=== PATIENT | male | born 1955 | race African-American/Black ===

== ENCOUNTER → 2017-09-23 09:19 | Outpatient (CLI) | payer OTHER, SELFPAY ==
--- NOTE | 2017-09-23 10:14 | RAD_ITS ---
STUDY: X-RAY - ABDOMEN/PELVIS REASON FOR EXAM: Male, 62 years old. Abdominal pain. History of kidney stones. TECHNIQUE: Single AP view of the abdomen / pelvis. COMPARISON: None. FINDINGS: Normal visualized lung bases. There is an unremarkable bowel gas pattern. There is no demonstrated free abdominal air. There are 2 or 3 possible left renal stones as much as 4 to 5 mm although this is uncertain because there is overlying fecal material. Normal soft tissue structures. Normal visualized osseous structures. RAD/Abdomen Single View IMPRESSION: Possible left renal stones. Electronically Signed: Curtis Mendieta MD at 17:23 EST , Service support ,
[2017-09-23 12:25] LABS: Absolute Lymphocyte Count 4.87 X10^3/ul (0.83-4.51); Absolute Neutrophil Count 3.3 X10^3/uL (2.0-7.7); Basophil# 0.04 X10^3/uL; Basophil% 0.4 % (0-1); Eosinophil# 0.17 X10^3/uL; Eosinophils% 1.9 % (0-5); Hemoglobin 15.1 g/dl (13.0-16.5); Lymphocyte # 4.87 X10^3/ul (4.0); Lymphocyte % 54.2 % (19-41); Mean Corpuscular Hgb 26.8 pg (27.0-32.0); Mean Corpuscular Volume 74.5 fL (80-94); Mean Platelet Vol. 12.8 fl (6.2-12.0); Monocyte# 0.54 X10^3/uL; Neutrophil # 3.32 X10^3/uL (2.7-7.7); Neutrophil % 37.1 % (47-70); Platelet Count 259 K/mm3 (150-450); RBC Distribution Width CV 15.8 % (11.6-14.6); RBC Distribution Width SD 42.6 fl (35.1-43.9); Red Blood Count 5.64 M/mm3 (4.6-6.2)
[2017-09-23 12:28] LABS: POSITIVE COUNT NO; POSITIVE DIFFERENTIAL NO; POSITIVE MORPHOLOGY NO
[2017-09-23 12:51] LABS: ALB/GLOB Ratio 1.1 RATIO (0.9-2.4); AST(SGOT) 30 U/L (15-37); Alanine Aminotransfer ALT/SGPT 57 U/L (16-61); Alkaline Phosphatase 108 U/L (45-117); Anion Gap 8 (5-15); BUN 16 mg/dL (7-18); Calcium,Total 8.9 mg/dL (8.5-10.1); Chloride 106 mmol/L (98-107); Cholesterol 224 mg/dL (200); Creatinine, Serum 1.33 mg/dL (0.70-1.30); EST Glomerular Filtration Rate 58 mL/min (>60); Est Glom Filt Rate - Afr Amer 70 mL/min (>60); Globulin 3.6 g/dL (2.2-4.2); Glucose 94 mg/dL (74-106); High Density Lipoprotein 33 mg/dL; Potassium 3.8 mmol/L (3.5-5.1); Protein, Total 7.6 g/dL (6.4-8.2); Sodium Level 139 mmol/L (136-145); Thyroid Stim Hormone (TSH) 3.07 uIU/mL (0.358-3.74); Triglycerides 523 mg/dL
[2017-09-23 13:26] LABS: Microalbumin,Random Urine 40.2 mg/L (NO RANGE EST.); Microalbumin:Creatinine Ratio 17.9 mg/g CRE (<30 mg/g CRE)
[2017-09-23 13:58] LABS: Hemoglobin A1c 7.5 % (4.2-6.3)
[2017-09-24 09:11] LABS: Vitamin D,25 Hydroxy 14.5 ng/mL (19.95-100.01)
== END ==
PROVIDERS: Family Provider Family Medicine; PCP Family Medicine; Visit Provider Family Medicine
DX: N20.0 Calculus of kidney (principal); E11.22 Type 2 diabetes mellitus with diabetic chronic kidney disease; N18.2 Chronic kidney disease, stage 2 (mild); E11.40 Type 2 diabetes mellitus with diabetic neuropathy, unspecified; R31.9 Hematuria, unspecified
CPT/HCPCS: 36415; 74018; 80053; 80061; 82043; 82306; 82570; 83036; 84443; 85025; 87086; 87088

== ENCOUNTER → 2017-12-16 10:18 | Outpatient (CLI) | payer OTHER, SELFPAY ==
[2017-12-23 20:08] LABS: Ca Oxalate, Monohydrate 95 % (.); Size 8x5x3 mm (.)
== END ==
PROVIDERS: Visit Provider Family Medicine
DX: N20.0 Calculus of kidney (principal)
CPT/HCPCS: 82360

== ENCOUNTER → 2018-05-28 06:50 | Outpatient (CLI) | payer MEDICAID, SELFPAY ==
--- NOTE | 2018-05-28 06:55 | CT_ITS ---
STUDY: CT ABDOMEN AND PELVIS WITHOUT CONTRAST REASON FOR EXAM: Male, 63 years old. Bloody stools, diarrhea RADIATION DOSAGE (If Supplied By Facility): CTDIvol = ( 9.75 ) mGy, DLP = ( 472.43 ) mGycm TECHNIQUE: Transaxial images were obtained from the dome of the diaphragm to the symphysis pubis with oral contrast, and without intravenous contrast. Sagittal and coronal images were reconstructed. # of Images: 454 Individualized dose optimization techniques were used for this CT. COMPARISON: 09/12/16 FINDINGS: The visualized lung bases are unremarkable. The visualized portions of the heart are within normal limits. There is decreased attenuation of the liver consistent with steatosis, focal fatty sparing seen adjacent to the gallbladder. Normal gallbladder and extrahepatic biliary system. Normal spleen. Normal pancreas. Normal bilateral adrenal glands. No obstructive uropathy, there are punctate nonobstructing stones in both kidneys. Normal visualized stomach. Normal small intestine. Retained stool noted throughout the colon There is non-visualization of the appendix. Normal abdominal aorta. Normal inferior vena cava. Normal retroperitoneum. Normal urinary bladder. There is a right-sided inguinal hernia containing adipose tissue. There are diffuse degenerative changes of the visualized lumbar spine, and pelvis. CT/Abdomen/Pelvis without Cont IMPRESSION: No obstructive uropathy, punctate bilateral nonobstructing renal stones noted. Fatty infiltration of the liver, no discrete lesion. Retained stool noted throughout the colon Degenerative bony changes Electronically Signed: Low Li MD at 14:27 EDT , Service support ,
== END ==
PROVIDERS: Family Provider Family Medicine; PCP Family Medicine; Referring Provider Family Medicine; Visit Provider Family Medicine
DX: K57.92 Diverticulitis of intestine, part unspecified, without perforation or abscess without bleeding (principal)
CPT/HCPCS: 74176

== ENCOUNTER 2018-06-11 12:45 | Outpatient (RCR) | payer MEDICAID, SELFPAY | END 2018-06-11 23:59 | LOC: DC 12:45 | PROVIDERS: Family Provider Family Medicine; PCP Family Medicine; Visit Provider Family Medicine | DX: E78.00 Pure hypercholesterolemia, unspecified (principal); E11.22 Type 2 diabetes mellitus with diabetic chronic kidney disease; Z68.28 Body mass index [BMI] 28.0-28.9, adult; Z71.3 Dietary counseling and surveillance | CPT/HCPCS: G0108 ==

== ENCOUNTER → 2018-09-08 12:17 | Outpatient (CLI) | payer MEDICAID, SELFPAY ==
[2018-09-08 14:11] LABS: Absolute Lymphocyte Count 3.34 X10^3/ul (0.83-4.51); Absolute Neutrophil Count 4.5 X10^3/uL (2.0-7.7); Basophil# 0.04 X10^3/uL; Basophil% 0.5 % (0-1); Eosinophils% 1.2 % (0-5); Hematocrit 42.1 % (40-54); Hemoglobin 14.3 g/dl (13.0-16.5); Lymphocyte # 3.34 X10^3/ul (4.0); Mean Corpuscular Hgb 25.8 pg (27.0-32.0); Monocyte# 0.29 X10^3/uL; Monocyte% 3.5 % (0-10); Neutrophil # 4.54 X10^3/uL (2.7-7.7); Neutrophil % 54.4 % (47-70); Platelet Count 223 K/mm3 (150-450); RBC Distribution Width SD 43.9 fl (35.1-43.9); Red Blood Count 5.54 M/mm3 (4.6-6.2); White Blood Count 8.3 K/mm3 (4.4-11.0)
[2018-09-08 14:14] LABS: Differential Indicated SCAN CRITERIA MET; POSITIVE COUNT NO; POSITIVE DIFFERENTIAL NO; POSITIVE MORPHOLOGY YES
[2018-09-08 14:19] LABS: ALB/GLOB Ratio 1.1 RATIO (0.9-2.4); AST(SGOT) 26 U/L (15-37); Alanine Aminotransfer ALT/SGPT 46 U/L (16-61); Alkaline Phosphatase 99 U/L (45-117); Anion Gap 6 (5-15); BUN 15 mg/dL (7-18); BUN/Creat Ratio 10.6 RATIO (10-20); Chloride 109 mmol/L (98-107); Creatinine, Serum 1.41 mg/dL (0.70-1.30); EST Glomerular Filtration Rate 54 mL/min (>60); Est Glom Filt Rate - Afr Amer 65 mL/min (>60); Globulin 3.7 g/dL (2.2-4.2); Glucose 147 mg/dL (74-106); Potassium 3.9 mmol/L (3.5-5.1); Protein, Total 7.7 g/dL (6.4-8.2); Sodium Level 142 mmol/L (136-145)
[2018-09-08 14:24] LABS: Vitamin D,25 Hydroxy 16.3 ng/mL (29.95-100.01)
[2018-09-08 14:33] LABS: Hemoglobin A1c 7.4 % (4.2-6.3)
== END ==
PROVIDERS: Family Provider Family Medicine; PCP Family Medicine; Referring Provider Family Medicine; Visit Provider Family Medicine
DX: E11.22 Type 2 diabetes mellitus with diabetic chronic kidney disease (principal); J32.9 Chronic sinusitis, unspecified
CPT/HCPCS: 36415; 80053; 82306; 83036; 85025

== ENCOUNTER → 2019-02-03 11:32 | Outpatient (CLI) | payer MEDICAID, SELFPAY ==
[2019-02-03 14:28] LABS: Vitamin B12 581 pg/mL (211-911); Vitamin D,25 Hydroxy 20.2 ng/mL (29.95-100.01)
[2019-02-03 14:31] LABS: Absolute Neutrophil Count 3.3 X10^3/uL (2.0-7.7); Basophil# 0.03 X10^3/uL; Basophil% 0.4 % (0-1); Eosinophil# 0.11 X10^3/uL; Eosinophils% 1.6 % (0-5); Hematocrit 42.1 % (40-54); Hemoglobin 14.6 g/dl (13.0-16.5); Lymphocyte % 45.1 % (19-41); Mean Corp Hgb Conc 34.7 g/gl (32-36); Mean Corpuscular Hgb 26.4 pg (27.0-32.0); Mean Corpuscular Volume 76.3 fL (80-94); Monocyte% 4.4 % (0-10); Neutrophil # 3.31 X10^3/uL (2.7-7.7); Neutrophil % 48.2 % (47-70); Platelet Count 180 K/mm3 (150-450); RBC Distribution Width CV 15.6 % (11.6-14.6); RBC Distribution Width SD 42.9 fl (35.1-43.9); Red Blood Count 5.52 M/mm3 (4.6-6.2); White Blood Count 6.9 K/mm3 (4.4-11.0)
[2019-02-03 14:32] LABS: Differential Indicated SCAN CRITERIA MET; POSITIVE COUNT NO; POSITIVE DIFFERENTIAL NO; POSITIVE MORPHOLOGY YES
[2019-02-03 14:57] LABS: ALB/GLOB Ratio 1.1 RATIO (0.9-2.4); AST(SGOT) 31 U/L (15-37); Alanine Aminotransfer ALT/SGPT 57 U/L (16-61); Albumin, Serum 4.1 g/dL (3.2-5.0); Alkaline Phosphatase 94 U/L (45-117); Anion Gap 6 (5-15); BUN 12 mg/dL (7-18); BUN/Creat Ratio 8.3 RATIO (10-20); Calcium,Total 9.2 mg/dL (8.5-10.1); Chloride 108 mmol/L (98-107); Creatinine, Serum 1.45 mg/dL (0.70-1.30); EST Glomerular Filtration Rate 52 mL/min (>60); Est Glom Filt Rate - Afr Amer 63 mL/min (>60); Globulin 3.7 g/dL (2.2-4.2); Glucose 160 mg/dL (74-106); Protein, Total 7.8 g/dL (6.4-8.2); Sodium Level 140 mmol/L (136-145)
[2019-02-05 01:18] LABS: Rapid Plasmin Reagin (RPR) NONREACTIVE (NONREACTIVE)
[2019-02-05 12:32] LABS: Fructosamine 289 umol/L (0-285)
== END ==
PROVIDERS: Family Provider Family Medicine; PCP Family Medicine; Referring Provider Family Medicine; Visit Provider Family Medicine
DX: E11.22 Type 2 diabetes mellitus with diabetic chronic kidney disease (principal); E55.9 Vitamin D deficiency, unspecified
CPT/HCPCS: 36415; 80053; 82306; 82607; 82746; 82985; 83036; 85025; 86592

== ENCOUNTER → 2019-04-15 17:16 | Outpatient (CLI) | payer MEDICAID, SELFPAY ==
--- NOTE | 2019-04-15 17:19 | CT_ITS ---
HISTORY:Headache, left sided facial pain. Hx diabetes, steel fragment right side of head. [place] navigation protocol. Headache, left sided facial pain. Hx diabetes, steel fragment right side of head. [place] navigation protocol. EXAMINATION: CT Sinuses W/O Contrast TECHNIQUE: Helically acquired images were obtained of the paranasal sinuses. A radiation dose optimization technique was used for this scan. IV Contrast dosage and agent: None. COMPARISON: Radiograph of the sinuses obtained on January 27, 2017 FINDINGS: FRONTAL SINUSES AND RECESSES: Clear. ETHMOID AIR CELLS: Minimal mucosal thickening MAXILLARY SINUSES: There is almost complete opacification of the left maxillary sinus. OSTIOMEATAL COMPLEXES: Patent on the right left ostiomeatal unit is patent but narrowed 1 compared to the right SPHENOID SINUSES: Clear. SPHENOETHMOIDAL RECESSES: Clear. Ancillary findings: NASAL TURBINATES: Thickened middle turbinate on the left NASAL SEPTUM: Mild deviation to the right ORBITS: Unremarkable. VISUALIZED DENTITION: Multiple missing teeth ANTERIOR CRANIAL FOSSA: Unremarkable. CT/Sinus/Facial Bone IMPRESSION: Minimal mucosal thickening in the ethmoid sinuses. There is almost complete opacification of the left maxillary sinus Narrowing of the left ostiomeatal complex Thickened middle turbinate on the left Minimal deviation of the nasal septum to the right Multiple missing teeth Individualized dose optimization techniques were used for this CT. at 0137 Reported and signed by: Svetlana Gamez DO Electronically Signed: Svetlana Gamez DO at 1:36 EDT Tel , Service support ,
== END ==
PROVIDERS: Family Provider Family Medicine; PCP Family Medicine; Referring Provider Family Medicine; Visit Provider Family Medicine
DX: R51 Headache (principal)
CPT/HCPCS: 70486

== ENCOUNTER 2019-04-30 05:43 | Day surgery (SDC) | payer MEDICAID, SELFPAY ==
[2019-04-30] VITALS (8 sets, daily range): BP systolic 119–157; BP diastolic 72–93; PULSE 70–81; RESP 16–18; TEMP 36.1–36.5; O2SAT 97–99; BMI 31.1
--- NOTE | 2019-04-30 05:56 | EKG12_ITS ---
Test Reason : PRE OP Blood Pressure : / mmHG Vent. Rate : 075 BPM Atrial Rate : 075 BPM P-R Int : 152 ms QRS Dur : 084 ms QT Int : 382 ms P-R-T Axes : 055 021 022 degrees QTc Int : 426 ms Normal sinus rhythm Nonspecific T wave abnormality Abnormal ECG Confirmed by BOBO SANTIAGO, EDIN ([id number]), clinical editor SANTO RAMIREZ ([id number]) on 05/05/2019 11:17:46 AM Referred By: Eusebio Thorpe Confirmed By:EDIN BROUSSARD MD
[2019-04-30 07:00] LABS: Bedside Glucose 194 mg/dL (70-110)
[2019-04-30 07:31] LABS: Anion Gap 6 (5-15); BUN 17 mg/dL (7-18); Calcium,Total 9.1 mg/dL (8.5-10.1); Chloride 109 mmol/L (98-107); Creatinine, Serum 1.54 mg/dL (0.70-1.30); EST Glomerular Filtration Rate 49 mL/min (>60); Est Glom Filt Rate - Afr Amer 59 mL/min (>60); Estimated Creatinine Clearance 46.88 ml/min; Glucose 224 mg/dL (74-106); Potassium 4.5 mmol/L (3.5-5.1); Sodium Level 141 mmol/L (136-145)
[2019-04-30] MEDS: Lactated Ringers 1,000 ML 100 ML IV ×2 (07:45→09:30)
[2019-04-30] MEDS: Oxymetazoline 0.05% 1 SPRAY SPRAY.BTL 15 SPRAY (07:50)
[2019-04-30] MEDS: Lidocaine 4% 50 ML Bottle (07:50)
--- NOTE | 2019-04-30 08:30 | OP.PCM_ITS ---
Problem List (1) Chronic maxillary sinusitis Status: Chronic (2) Chronic ethmoidal sinusitis Status: Chronic Report of Operation Date of Procedure: 04/30/19 Pre-Operative Diagnosis: Chronic left maxillary and ethmoid sinusitis Post-Operative Diagnosis: Same Surgery/Procedure Performed:: Left endoscopic maxillary antrostomy with removal of tissue and culture, left total ethmoidectomy Description of Surgical Findings:: Arya is a 64-year-old male presents for evaluation of chronic left facial pain and nasal congestion with CT scan showing chronic sinusitis suggestive of possible fungal disease. He additionally reported eye pain and with his diabetes this is felt to be of concern for possible optic nerve risk and surgery for definitive evaluation with suspicion of fungal disease given his CT scan findings was made. He was agreeable to proceed. The risks, alternatives, potential complications, and benefits were discussed at length and any questions answered to the patient and/or caregiver's satisfaction. Witnessed informed consent was obtained in the office, and the patient and/or caregiver was agreeable to proceed. Procedure went as follows: The patient was identified in the preoperative holding and brought to the operating room, was placed under general anesthesia and intubated. When appropriate anesthesia was obtained, the navigational head gear was placed and confirmed to be operational in accordance with the dispute resolution analyst's directions. Pledgets soaked in a 50-50 mixture of oxymetazoline and 4% topical lidocaine were placed to decongest the nasal mucosa. These were then removed and beginning on the left side using a 0? endoscope the nasal cavity examined. The insertion of the middle turbinate and uncinate process was then injected with 1% lidocaine with 100,000 epinephrine for a total of 2 mL. The left middle turbinate was medialized with a Allen elevator. This allowed examination of the maxillary sinus ostia which was then probed with a double ball seeker. The uncinate process was then outfractured with a J curette and transected with a backbiting forceps. This was then removed with the microdebr ider creating a wide maxillary antrostomy. The sinus was noted to be filled with a firm brown-black peanut butter consistency material. This was then broken down and removed piecemeal evacuating from the sinus which was then copiously irrigated with saline solution until this material was fully cleared. A portion was then sent for culture. The middle turbinate was noted to impinge the newly created ostia as was the low lying ethmoid bulla. Given this ethmoidectomy was then carried out as follows. The ethmoid bulla was then entered and a total ethmoidectomy was then carried out working posteriorly to anterior. Any polyps, scar, and mucous secretions were removed. The middle turbinate was then transected superiorly to posteriorly and sent along with the ethmoidectomy specimen. Pledgets soaked in oxymetazoline were then placed for hemostasis and Floseal hemostatic agent was then applied. An NG tube was then placed to decompress the stomach and the patient returned to anesthesia, revived and extubated having tolerated the procedure well. Type of Anesthesia:: General Anesthesiologist: Edgardo Quintana Special Medications: none Specimen's removed: contents left maxillary and ethmoid sinus Drains: none Estimated Blood Loss (mL): 200 mL Fluids Replaced: 900 mL Grafts/Implants Used: none - Complications none - Admit VTE Documentation VTE Present on Admission: No VTE Mechan Device Prophylaxis: SCD's VTE Pharm Prophylaxis ordered?: No
--- NOTE | 2019-04-30 08:37 | DCINST_ITS ---
- Discharge Diagnoses Current Active Problems: Current Active and Chronic Problems Chronic maxillary sinusitis (Chronic) Chronic ethmoidal sinusitis (Chronic) You will use the following diet at home:: Calorie/Carbohydrate Controlled (specify 1200, 1400, etc) - 2000 Your food should be the consistency of: Regular Discharge Activity: Return to Normal Activity, May not drive while taking narcotic pain medications. Call your doctor if your incision/area has: Sudden Increased Bleeding Call your doctor if you observe: Fever of 101 or Higher, Uncontrolled pain Allergies/Adverse Reactions: Allergies No Known Allergies Allergy (Verified 04/30/19 06:13) Medications to take at Discharge Aspirin E.C. [Ecotrin] 81 mg PO DAILY@0800 01/17/15 Cholecalciferol (VIT D3) [Vitamin D] 1,000 unit PO DAILY 01/17/15 Glimepiride [Amaryl] 4 mg PO DAILY 01/17/15 metFORMIN HCl [Glucophage] 500 mg PO DAILY 01/17/15 Insulin Glargine,Hum.rec.anlog [Basaglar Kwikpen U-100] 20 unit SQ 1800 04/29/19 Metformin HCl [Glucophage] 1,000 mg PO QHS 04/29/19 Multivitamin with Minerals [Multiple Vitamin] 1 ea PO DAILY 04/29/19 Omeprazole Magnesium [Prilosec Otc] 20 mg PO PRN PRN 04/29/19 Oxycodone HCl/Acetaminophen [Oxycodone-Acetaminophen 5-325] 1 ea PO BID 04/29/19 Primary Care Physician: Eusebio Durham MD [Primary Care Provider] - Test Results: Test results from this visit will be discussed in further detail at your follow- up appointment, if applicable. Please Follow Up With: Eusebio Thorpe MD When: 2 weeks
[2019-04-30 09:11] LABS: Bedside Glucose 162 mg/dL (70-110)
--- NOTE | 2019-04-30 09:28 | NASAL_PTH ---
PATIENT: DAMON OSORIO LOC: [facility] [place] U#:[id number] AGE/SX: 64/M ROOM: RE04/30/[address]: Dr. Eusebio Thorpe MD : 1955 BED: DIS: 04/30/2019 SPEC #: [id number] RECD: 04/30/19 09:28 STATUS: MADYSON JP #: [id number] JABARI: 04/30/19 09:[address]: Eusebio Thorpe DEPT: SURGICAL PATHOLOGY RECD BY: Eric Cash ENTERED: 04/30/19 12:13 SP TYPE: NASAL SPEC OTHR DR: Dr. Eusebio Durham MD Tissues: Maxilla, NOS Procedures: Decalcification bone/plaque Surgery Specimen Level IV HEADER OPERATION: Endoscopic nasal/sinus with maxillary antrostomy and tissue PRE-OP DIAGNOSIS: Chronic maxillary sinusitis TISSUE SUBMITTED: Left sinus contents MICROSCOPIC DIAGNOSIS Left sinus contents: Fragments of respiratory mucosa with mild chronic inflammation and bone. SJ:joyce 05/05/19 MICROSCOPIC DESCRIPTION Slides are reviewed. GROSS DESCRIPTION Received in fixative is one container labeled with the patient's name and designated sinus contents. The specimen consists of multiple irregular fragments of pink-galvan soft tissue with adherent fragments of bone that in aggregate measure 3 x 2.5 x 0.2 cm. The specimen is submitted in its entirety in one cassette after decalcification. / AM:joyce 04/30/19 TC:3 CPT: 04744, 66706
[2019-04-30] MEDS: Ibuprofen 200 MG Tablet 400 MG PO (10:15)
[2019-04-30] MEDS: Acetaminophen 325 MG Tablet 650 MG PO (10:15)
== END 2019-04-30 10:32 | disposition home or self-care (01) ==
LOC: SDC 05:45 → AC 05:46
PROVIDERS: Family Provider Family Medicine; PCP Family Medicine; Referring Provider Otolaryngology; Visit Provider Otolaryngology
DX: J32.0 Chronic maxillary sinusitis (principal); J32.2 Chronic ethmoidal sinusitis; E11.9 Type 2 diabetes mellitus without complications; I10 Essential (primary) hypertension; M19.90 Unspecified osteoarthritis, unspecified site; K21.9 Gastro-esophageal reflux disease without esophagitis; Z87.891 Personal history of nicotine dependence
CPT/HCPCS: 00160; 31255; 31267; 36415; 80048; 82962; 87070; 87075; 87077; 87102; 87205; 87206; 88305; 88311; 93005; J7120; J2405

== ENCOUNTER 2019-05-01 01:58 | Emergency (ER) | payer MEDICAID, SELFPAY ==
[2019-04-30 06:17] VITALS: BMI 31.1
[2019-05-01 01:59] VITALS: BP 147/93; PULSE 80; RESP 16; TEMP 36.7; O2SAT 97; BMI 70.7
--- NOTE | 2019-05-01 03:06 | ED.VIS.GEN ---
History of Present Illness Chief Complaint: Nosebleed Narrative: Patient is a 64-year-old male who presents with a nosebleed. He had surgery with Dr. Thorpe yesterday. He had an antroplasty and ethmoidectomy. He felt like his nose was clogged today so blew his nose and then developed epistaxis. This occurred about 1 hour ago. Currently his bleeding seems improved or possibly stopped although he does have a tissue packed in the left nostril. He otherwise feels fine. No chest pain shortness of breath fevers dizziness nausea vomiting patient is on a baby aspirin a day but no other anticoagulation. Past Medical History - Allergies and Home Meds Allergies/Adverse Reactions: Allergies No Known Allergies Allergy (Verified 04/30/19 06:13) Primary Care Physician: Eusebio Durham MD [Primary Care Provider] - Past Medical History: - - Diabetes Surgical History: appendectomy Smoking Status: Former smoker Review of Systems All systems negative except as indicated ENT: Reports: - - Epistaxis Physical Exam Vital Signs/Narrative: Vital Signs Temp Pulse Resp BP Pulse Ox 05/01/19 01:59 98.0 F 80 16 147/93 H 97 Inital Vital Signs reviewed: Yes General: Well nourished, Well developed Head: Normocephalic Eyes: EOMI ENT: Moist mucous membranes, - - Large clot in the left nostril with mild oozing Neck: Supple Cardiovascular: Regular rate, Regular rhythm Respiratory: No distress, CTA bilaterally Skin: Normal color Neurological: Alert Psychological: Normal affect Diagnostic/Tx/Re-eval - Medical Decision Making Patient had mild oozing on the left nostril with a large clot present. This was removed with forceps. Thrombin gel was placed in the left nostril. Patient has been observed here. He has occasionally had a small trickle which was able to be just after the tissue. He has no significant bleeding. I did speak to his surgeon who agreed with plan for outpatient follow-up and no further emergent intervention. However patient does understand to return should he develop any significant recurrent bleeding. All questions answered at bedside. Patient agreeable with this plan. Patient discharged.. ED Disposition - Plan for ED Patient: Disposition: Home or Assisted Living Diagnosis: Epistaxis Instructions: Nosebleed Referrals: Eusebio Durham MD [Primary Care Provider] - Eusebio Thorpe MD [STAFF PHYSICIAN] -
== END 2019-05-01 03:45 | disposition home or self-care (01) ==
PROVIDERS: Emergency Provider Emergency Medicine; Family Provider Family Medicine; PCP Family Medicine
DX: R04.0 Epistaxis (principal); E11.9 Type 2 diabetes mellitus without complications; Z79.4 Long term (current) use of insulin; Z79.82 Long term (current) use of aspirin; Z79.899 Other long term (current) drug therapy; Z87.891 Personal history of nicotine dependence; Z98.890 Other specified postprocedural states
CPT/HCPCS: 99282

== ENCOUNTER → 2019-09-13 12:43 | Outpatient (CLI) | payer MEDICAID, SELFPAY ==
[2019-09-13 14:09] LABS: Absolute Lymphocyte Count 3.53 X10^3/uL (0.83-4.51); Absolute Neutrophil Count 3.3 X10^3/uL (2.0-7.7); Basophil# 0.06 X10^3/uL; Basophil% 0.8 % (0-1); Eosinophil# 0.07 X10^3/uL; Hematocrit 44.7 % (40-54); Hemoglobin 15.3 g/dL (13.0-16.5); Lymphocyte # 3.53 X10^3/ul (4.0); Mean Corp Hgb Conc 34.2 g/dL (32-36); Mean Corpuscular Hgb 25.7 pg (27.0-32.0); Mean Corpuscular Volume 75.1 fL (80-94); Monocyte% 5.4 % (0-10); NRBC Flagged by Analyzer 0 % (0-5); Neutrophil # 3.26 X10^3/uL (2.7-7.7); Neutrophil % 44.4 % (47-70); Platelet Count 218 K/mm3 (150-450); RBC Distribution Width CV 15.4 % (11.6-14.6); Red Blood Count 5.95 M/mm3 (4.6-6.2); White Blood Count 7.4 K/mm3 (4.4-11.0)
[2019-09-13 14:24] LABS: Hemoglobin A1c 7.2 % (4.2-6.3)
[2019-09-13 14:29] LABS: Microalbumin,Random Urine 22.8 mg/L (NO RANGE EST.); Microalbumin:Creatinine Ratio 10.4 mg/g CRE (<30 mg/g CRE)
[2019-09-13 14:44] LABS: ALB/GLOB Ratio 1.2 RATIO (0.9-2.4); AST(SGOT) 32 U/L (15-37); Alanine Aminotransfer ALT/SGPT 62 U/L (16-61); Albumin, Serum 4.3 g/dL (3.2-5.0); Alkaline Phosphatase 99 U/L (45-117); Anion Gap 5 (5-15); BUN 16 mg/dL (7-18); Calcium,Total 9.5 mg/dL (8.5-10.1); Chloride 107 mmol/L (98-107); Creatinine, Serum 1.46 mg/dL (0.70-1.30); EST Glomerular Filtration Rate 52 mL/min (>60); Est Glom Filt Rate - Afr Amer 62 mL/min (>60); Globulin 3.7 g/dL (2.2-4.2); Glucose 156 mg/dL (74-106); Potassium 4.2 mmol/L (3.5-5.1); Sodium Level 139 mmol/L (136-145)
== END ==
PROVIDERS: PCP Family Medicine; Referring Provider Family Medicine; Visit Provider Family Medicine
DX: E11.22 Type 2 diabetes mellitus with diabetic chronic kidney disease (principal); M54.5 Low back pain; G89.29 Other chronic pain
CPT/HCPCS: 36415; 80053; 82043; 82570; 83036; 85025

== ENCOUNTER → 2019-10-21 10:03 | Outpatient (CLI) | payer MEDICAID, SELFPAY ==
[2019-10-21 11:26] LABS: Absolute Lymphocyte Count 3.61 X10^3/uL (0.83-4.51); Absolute Neutrophil Count 2.7 X10^3/uL (2.0-7.7); Basophil# 0.05 X10^3/uL; Basophil% 0.7 % (0-1); Eosinophil# 0.11 X10^3/uL; Eosinophils% 1.6 % (0-5); Hematocrit 43.7 % (40-54); Hemoglobin 14.9 g/dL (13.0-16.5); Lymphocyte # 3.61 X10^3/ul (4.0); Lymphocyte % 52.2 % (19-41); Mean Corp Hgb Conc 34.1 g/dL (32-36); Mean Corpuscular Hgb 25.7 pg (27.0-32.0); Mean Corpuscular Volume 75.3 fL (80-94); Monocyte# 0.44 X10^3/uL; Monocyte% 6.4 % (0-10); NRBC Flagged by Analyzer 0 % (0-5); Neutrophil # 2.67 X10^3/uL (2.7-7.7); Neutrophil % 38.7 % (47-70); Platelet Count 193 K/mm3 (150-450); RBC Distribution Width SD 41.7 fl (35.1-43.9); White Blood Count 6.9 K/mm3 (4.4-11.0)
[2019-10-21 12:08] LABS: CRP 4.95 mg/L (0.0-3.0); Thyroid Stim Hormone (TSH) 1.42 uIU/mL (0.358-3.74)
[2019-10-22 16:52] LABS: ANTINUCLEAR ANTIBODIES DIRECT Negative (Negative)
[2019-10-23 08:02] LABS: Vitamin B12 587 pg/mL (211-911); Vitamin D,25 Hydroxy 35.3 ng/mL
[2019-10-25 14:07] LABS: PROEL- A/G Ratio 1.3 (0.7-1.7); PROEL- Alpha-1 Globulin 0.2 g/dL (0.0-0.4); PROEL- Alpha-2 Globulin 0.7 g/dL (0.4-1.0); PROEL- Beta Globulin 1.3 g/dL (0.7-1.3); PROEL- Gamma Globulin 0.9 g/dL (0.4-1.8); PROELU- Albumin, Urine 28.2 % (.); PROELU- Alpha-1-Globulin,Ur 1.2 % (.); PROELU- Alpha-2-Globulin,Ur 15.5 % (.); PROELU- Gamma Globulin, Ur 26.2 % (.); Total Protein, Ur 11.3 mg/dL (Not Estab.)
[2019-10-28 02:22] LABS: Rapid Plasmin Reagin (RPR) NONREACTIVE (NONREACTIVE)
== END ==
PROVIDERS: PCP Family Medicine; Referring Provider Family Medicine; Visit Provider Family Medicine
DX: E11.22 Type 2 diabetes mellitus with diabetic chronic kidney disease (principal); N18.9 Chronic kidney disease, unspecified; E11.40 Type 2 diabetes mellitus with diabetic neuropathy, unspecified; E55.9 Vitamin D deficiency, unspecified
CPT/HCPCS: 36415; 82306; 82607; 82746; 84165; 84166; 84443; 85025; 86038; 86140; 86592

== ENCOUNTER → 2020-03-11 10:03 | Outpatient (CLI) | payer MEDICARE, MEDICAID, SELFPAY ==
[2020-03-11 10:44] LABS: Absolute Lymphocyte Count 3.47 X10^3/uL (0.83-4.51); Basophil# 0.04 X10^3/uL; Basophil% 0.6 % (0-1); Eosinophil# 0.15 X10^3/uL; Eosinophils% 2.1 % (0-5); Hematocrit 42.7 % (40-54); Hemoglobin 14.5 g/dL (13.0-16.5); Lymphocyte # 3.47 X10^3/ul (4.0); Lymphocyte % 49.2 % (19-41); Mean Corpuscular Hgb 26.2 pg (27.0-32.0); Mean Corpuscular Volume 77.1 fL (80-94); Mean Platelet Vol. 12.4 fl (6.2-12.0); Monocyte# 0.36 X10^3/uL; Monocyte% 5.1 % (0-10); NRBC Flagged by Analyzer 0 % (0-5); Neutrophil # 3.03 X10^3/uL (2.7-7.7); Neutrophil % 42.9 % (47-70); Platelet Count 218 K/mm3 (150-450); RBC Distribution Width CV 15.4 % (11.6-14.6); RBC Distribution Width SD 42.4 fl (35.1-43.9); Red Blood Count 5.54 M/mm3 (4.6-6.2); White Blood Count 7.1 K/mm3 (4.4-11.0)
[2020-03-11 11:28] LABS: ALB/GLOB Ratio 1.1 RATIO (0.9-2.4); AST(SGOT) 55 U/L (15-37); Alanine Aminotransfer ALT/SGPT 57 U/L (16-61); Alkaline Phosphatase 87 U/L (45-117); Anion Gap 5 (5-15); BUN 22 mg/dL (7-18); BUN/Creat Ratio 12.8 RATIO (10-20); Calcium,Total 8.9 mg/dL (8.5-10.1); Chloride 109 mmol/L (98-107); Creatinine, Serum 1.72 mg/dL (0.70-1.30); EST Glomerular Filtration Rate 43 mL/min (>60); Est Glom Filt Rate - Afr Amer 52 mL/min (>60); Globulin 3.6 g/dL (2.2-4.2); Glucose 242 mg/dL (74-106); Potassium 4.4 mmol/L (3.5-5.1); Protein, Total 7.6 g/dL (6.4-8.2); Sodium Level 138 mmol/L (136-145); Thyroid Stim Hormone (TSH) 1.27 uIU/mL (0.358-3.74)
[2020-03-13 08:20] LABS: Vitamin D,25 Hydroxy 47.1 ng/mL
== END ==
PROVIDERS: PCP Family Medicine; Referring Provider Family Medicine; Visit Provider Family Medicine
DX: R55 Syncope and collapse (principal)
CPT/HCPCS: 36415; 80053; 82306; 84443; 85025

== ENCOUNTER → 2020-06-26 14:10 | Outpatient (CLI) | payer MEDICARE, MEDICAID, SELFPAY | PROVIDERS: PCP Family Medicine; Visit Provider Family Medicine | DX: U07.1 COVID-19 (principal); R09.89 Other specified symptoms and signs involving the circulatory and respiratory systems | CPT/HCPCS: 87633; 87635; U0003 ==

== ENCOUNTER → 2020-09-13 08:48 | Outpatient (CLI) | payer MEDICARE, SELFPAY ==
[2020-09-13 10:45] LABS: Absolute Lymphocyte Count 3.86 X10^3/uL (0.83-4.51); Absolute Neutrophil Count 4.2 X10^3/uL (2.0-7.7); Basophil# 0.05 X10^3/uL; Basophil% 0.6 % (0-1); Eosinophil# 0.18 X10^3/uL; Hematocrit 45.5 % (40-54); Hemoglobin 15.4 g/dL (13.0-16.5); Lymphocyte # 3.86 X10^3/ul (4.0); Lymphocyte % 43.8 % (19-41); Mean Corp Hgb Conc 33.8 g/dL (32-36); Mean Corpuscular Hgb 26.1 pg (27.0-32.0); Mean Corpuscular Volume 77.2 fL (80-94); Monocyte% 5.7 % (0-10); NRBC Flagged by Analyzer 0 % (0-5); Neutrophil # 4.21 X10^3/uL (2.7-7.7); Neutrophil % 47.7 % (47-70); Platelet Count 222 K/mm3 (150-450); RBC Distribution Width CV 16.1 % (11.6-14.6); RBC Distribution Width SD 43.5 fl (35.1-43.9); Red Blood Count 5.89 M/mm3 (4.6-6.2); White Blood Count 8.8 K/mm3 (4.4-11.0)
[2020-09-13 11:04] LABS: Hemoglobin A1c 5.8 % (3.8-5.6)
[2020-09-13 11:12] LABS: Vitamin D,25 Hydroxy 41.4 ng/mL
[2020-09-13 11:26] LABS: Microalbumin,Random Urine 10.2 mg/L (NO RANGE EST.)
[2020-09-13 11:51] LABS: ALB/GLOB Ratio 1.1 RATIO (0.9-2.4); AST(SGOT) 40 U/L (15-37); Alanine Aminotransfer ALT/SGPT 45 U/L (16-61); Alkaline Phosphatase 85 U/L (45-117); Anion Gap 6 (5-15); BUN 9 mg/dL (7-18); BUN/Creat Ratio 6.7 RATIO (10-20); Calcium,Total 9.4 mg/dL (8.5-10.1); Chloride 105 mmol/L (98-107); Cholesterol 204 mg/dL (200); Creatinine, Serum 1.35 mg/dL (0.70-1.30); EST Glomerular Filtration Rate 56 mL/min (>60); Est Glom Filt Rate - Afr Amer 68 mL/min (>60); Globulin 3.7 g/dL (2.2-4.2); Glucose 94 mg/dL (74-106); High Density Lipoprotein 50 mg/dL; Potassium 3.9 mmol/L (3.5-5.1); Protein, Total 7.7 g/dL (6.4-8.2); Sodium Level 140 mmol/L (136-145)
== END ==
PROVIDERS: PCP Family Medicine; Referring Provider Family Medicine; Visit Provider Family Medicine
DX: M54.5 Low back pain (principal); E11.22 Type 2 diabetes mellitus with diabetic chronic kidney disease; N18.2 Chronic kidney disease, stage 2 (mild); E55.9 Vitamin D deficiency, unspecified; G89.29 Other chronic pain
CPT/HCPCS: 36415; 80053; 82043; 82306; 82465; 83036; 83718; 85025

== ENCOUNTER → 2021-02-13 11:45 | Outpatient (CLI) | payer MEDICARE, SELFPAY ==
[2021-02-13 15:14] LABS: Vitamin D,25 Hydroxy 38.3 ng/mL
[2021-02-13 15:19] LABS: ALB/GLOB Ratio 1.1 RATIO (0.9-2.4); AST(SGOT) 26 U/L (15-37); Alanine Aminotransfer ALT/SGPT 35 U/L (16-61); Alkaline Phosphatase 75 U/L (45-117); Anion Gap 6 (5-15); BUN 16 mg/dL (7-18); BUN/Creat Ratio 10.5 RATIO (10-20); Calcium,Total 9.3 mg/dL (8.5-10.1); Chloride 105 mmol/L (98-107); Creatinine, Serum 1.52 mg/dL (0.70-1.30); EST Glomerular Filtration Rate 49 mL/min (>60); Est Glom Filt Rate - Afr Amer 59 mL/min (>60); Globulin 3.6 g/dL (2.2-4.2); Glucose 113 mg/dL (74-106); Potassium 4.2 mmol/L (3.5-5.1); Protein, Total 7.6 g/dL (6.4-8.2); Sodium Level 139 mmol/L (136-145)
[2021-02-13 15:38] LABS: Microalbumin:Creatinine Ratio 66.7 mg/g CRE (<30 mg/g CRE)
== END ==
PROVIDERS: PCP Family Medicine; Visit Provider Family Medicine
DX: N18.2 Chronic kidney disease, stage 2 (mild) (principal); E55.9 Vitamin D deficiency, unspecified
CPT/HCPCS: 36415; 80053; 82043; 82306; 82570

== ENCOUNTER → 2021-04-03 11:09 | Outpatient (CLI) | payer MEDICARE, SELFPAY ==
--- NOTE | 2021-04-03 11:12 | RAD_ITS ---
STUDY: X-RAY - PELVIS AND RIGHT HIP REASON FOR EXAM: Male, 66 years old. Pain, decreased range of motion TECHNIQUE: 3 views of the pelvis and hip. COMPARISON: None. FINDINGS: There is a non-specific bowel gas pattern. Normal visualized soft tissue structures. Normal bilateral iliac wings, sacroiliac joints and visualized sacrum. Normal bilateral superior and inferior pubic rami. Normal pubic symphysis. Normal bilateral ischial tuberosities. Normal visualized femoral head. Normal acetabulum. Normal hip joint. RAD/HIP, UNI W/ Pelvis 2-3 Views IMPRESSION: Normal x-ray examination of the pelvis and hip. Electronically Signed: Low Li MD at 11:32 EDT , Service support ,
[2021-04-03 15:10] LABS: Absolute Lymphocyte Count 2.96 X10^3/uL (0.83-4.51); Absolute Neutrophil Count 2.8 X10^3/uL (2.0-7.7); Basophil# 0.03 X10^3/uL; Basophil% 0.5 % (0-1); Eosinophil# 0.08 X10^3/uL; Eosinophils% 1.3 % (0-5); Hematocrit 43.9 % (40-54); Hemoglobin 14.9 g/dL (13.0-16.5); Lymphocyte # 2.96 X10^3/ul (0.83-4.51); Lymphocyte % 47.6 % (19-41); Mean Corp Hgb Conc 33.9 g/dL (32-36); Mean Corpuscular Hgb 26.6 pg (27.0-32.0); Mean Corpuscular Volume 78.4 fL (80-94); Mean Platelet Vol. 12.6 fl (6.2-12.0); Monocyte# 0.33 X10^3/uL; Monocyte% 5.3 % (0-10); NRBC Flagged by Analyzer 0 % (0-5); Neutrophil # 2.79 X10^3/uL (2.7-7.7); Neutrophil % 44.8 % (47-70); Platelet Count 254 K/mm3 (150-450); RBC Distribution Width CV 14.1 % (11.6-14.6); RBC Distribution Width SD 39.8 fl (35.1-43.9); White Blood Count 6.2 K/mm3 (4.4-11.0)
[2021-04-03 15:29] LABS: Vitamin B12 553 pg/mL (211-911); Vitamin D,25 Hydroxy 46.7 ng/mL
[2021-04-03 16:33] LABS: ALB/GLOB Ratio 1.2 RATIO (0.9-2.4); AST(SGOT) 23 U/L (15-37); Alanine Aminotransfer ALT/SGPT 37 U/L (16-61); Albumin, Serum 4.3 g/dL (3.2-5.0); Alkaline Phosphatase 76 U/L (45-117); Anion Gap 6 (5-15); BUN 16 mg/dL (7-18); BUN/Creat Ratio 11.8 RATIO (10-20); Calcium,Total 9.5 mg/dL (8.5-10.1); Chloride 106 mmol/L (98-107); Creatinine, Serum 1.36 mg/dL (0.70-1.30); EST Glomerular Filtration Rate 56 mL/min (>60); Est Glom Filt Rate - Afr Amer 67 mL/min (>60); Globulin 3.6 g/dL (2.2-4.2); Glucose 97 mg/dL (74-106); Potassium 4.2 mmol/L (3.5-5.1); Protein, Total 7.9 g/dL (6.4-8.2); Sodium Level 139 mmol/L (136-145)
== END ==
PROVIDERS: PCP Family Medicine; Referring Provider Family Medicine; Visit Provider Family Medicine
DX: M25.551 Pain in right hip (principal); R20.2 Paresthesia of skin; M17.11 Unilateral primary osteoarthritis, right knee
CPT/HCPCS: 36415; 73502; 80053; 82306; 82607; 82746; 85025

== ENCOUNTER → 2021-06-21 10:10 | Outpatient (CLI) | payer MEDICARE, SELFPAY ==
[2021-06-21 11:50] LABS: Albumin, Serum 3.7 g/dL (3.2-5.0); BUN 13 mg/dL (7-18); BUN/Creat Ratio 9.6 RATIO (10-20); Calcium,Total 9.5 mg/dL (8.5-10.1); Chloride 106 mmol/L (98-107); Creatinine, Serum 1.36 mg/dL (0.70-1.30); EST Glomerular Filtration Rate 56 mL/min (>60); Est Glom Filt Rate - Afr Amer 67 mL/min (>60); Glucose 113 mg/dL (74-106); Phosphorus 3.1 mg/dL (2.5-4.9); Potassium 4.5 mmol/L (3.5-5.1); Sodium Level 140 mmol/L (136-145)
[2021-06-21 11:54] LABS: Microalbumin,Random Urine 5.8 mg/L (NO RANGE EST.); Microalbumin:Creatinine Ratio 3.4 mg/g CRE (<30 mg/g CRE)
== END ==
PROVIDERS: PCP Family Medicine; Visit Provider Internal Medicine Nephrology
DX: N18.2 Chronic kidney disease, stage 2 (mild) (principal)
CPT/HCPCS: 36415; 80069; 82043; 82570

== ENCOUNTER 2021-09-25 11:56 | Outpatient (CLI) | payer MEDICARE, SELFPAY ==
[2021-09-25 15:10] LABS: Absolute Lymphocyte Count 3.09 X10^3/uL (0.83-4.51); Absolute Neutrophil Count 3.2 X10^3/uL (2.0-7.7); Basophil# 0.04 X10^3/uL; Basophil% 0.6 % (0-1); Eosinophil# 0.15 X10^3/uL; Eosinophils% 2.2 % (0-5); Hematocrit 42.6 % (40-54); Hemoglobin 14.7 g/dL (13.0-16.5); Lymphocyte # 3.09 X10^3/ul (0.83-4.51); Lymphocyte % 45.2 % (19-41); Mean Corp Hgb Conc 34.5 g/dL (32-36); Mean Corpuscular Hgb 26.6 pg (27.0-32.0); Mean Platelet Vol. 12.7 fl (6.2-12.0); Monocyte# 0.37 X10^3/uL; Monocyte% 5.4 % (0-10); NRBC Flagged by Analyzer 0 % (0-5); Neutrophil # 3.15 X10^3/uL (2.7-7.7); Neutrophil % 46.2 % (47-70); Platelet Count 235 K/mm3 (150-450); RBC Distribution Width CV 14.6 % (11.6-14.6); RBC Distribution Width SD 40.2 fl (35.1-43.9); Red Blood Count 5.53 M/mm3 (4.6-6.2); White Blood Count 6.8 K/mm3 (4.4-11.0)
[2021-09-25 15:23] LABS: ALB/GLOB Ratio 1.2 RATIO (0.9-2.4); AST(SGOT) 24 U/L (15-37); Alanine Aminotransfer ALT/SGPT 36 U/L (16-61); Albumin, Serum 4.1 g/dL (3.2-5.0); Alkaline Phosphatase 77 U/L (45-117); Anion Gap 5 (5-15); BUN 15 mg/dL (7-18); Calcium,Total 9.4 mg/dL (8.5-10.1); Chloride 107 mmol/L (98-107); EST Glomerular Filtration Rate 50 mL/min (>60); Est Glom Filt Rate - Afr Amer 60 mL/min (>60); Globulin 3.5 g/dL (2.2-4.2); Glucose 129 mg/dL (74-106); Potassium 4.4 mmol/L (3.5-5.1); Protein, Total 7.6 g/dL (6.4-8.2); Sodium Level 138 mmol/L (136-145)
[2021-09-25 15:25] LABS: Vitamin D,25 Hydroxy 42.9 ng/mL
[2021-09-25 15:31] LABS: Hemoglobin A1c 6.4 % (3.8-5.6)
[2021-09-25 15:45] LABS: Microalbumin,Random Urine 8.8 mg/L (NO RANGE EST.); Microalbumin:Creatinine Ratio 6.6 mg/g CRE (<30 mg/g CRE)
== END 2021-09-25 23:59 | disposition home or self-care (01) ==
LOC: MFPLAB 11:58
PROVIDERS: PCP Family Medicine; Referring Provider Family Medicine; Visit Provider Family Medicine
DX: E11.22 Type 2 diabetes mellitus with diabetic chronic kidney disease (principal); Z79.4 Long term (current) use of insulin; N18.2 Chronic kidney disease, stage 2 (mild)
CPT/HCPCS: 36415; 80053; 82043; 82306; 82570; 83036; 85025

== ENCOUNTER 2021-11-08 15:44 | Outpatient (CLI) | payer MEDICARE, SELFPAY | END 2021-11-08 23:59 | disposition home or self-care (01) | LOC: LABSPEC 15:46 | PROVIDERS: PCP Family Medicine; Visit Provider Family Medicine | DX: J39.9 Disease of upper respiratory tract, unspecified (principal); Z20.822 Contact with and (suspected) exposure to COVID-19 | CPT/HCPCS: 87635; U0003; U0005 ==

== ENCOUNTER 2021-11-15 14:50 | Outpatient (CLI) | payer MEDICARE, SELFPAY ==
--- NOTE | 2021-11-15 14:54 | RAD_ITS ---
STUDY: X-RAY - LEFT WRIST REASON FOR EXAM: Male, 66 years old. A-TRAUMATIC SWELLING TECHNIQUE: 3 view(s) of the wrist were obtained. COMPARISON: None. FINDINGS: Normal visualized distal radius and ulna. Normal radiocarpal articulation. Normal distal radioulnar articulation. Normal carpal bones. Normal carpal articulations. Normal carpometacarpal articulation of the thumb. Normal second through fifth carpometacarpal articulations. Normal visualized metacarpal bones. Diffuse soft tissue swelling. RAD/Wrist min 3 Views IMPRESSION: Diffuse soft tissue swelling without fracture or erosive process. Electronically Signed: Mario Hood MD ([place]) at 7:39 EDT ,
[2021-11-15 17:33] LABS: Absolute Lymphocyte Count 3.63 X10^3/uL (0.83-4.51); Absolute Neutrophil Count 5.4 X10^3/uL (2.0-7.7); Basophil# 0.05 X10^3/uL; Basophil% 0.5 % (0-1); Eosinophil# 0.24 X10^3/uL; Eosinophils% 2.4 % (0-5); Hemoglobin 13.6 g/dL (13.0-16.5); Lymphocyte # 3.63 X10^3/ul (0.83-4.51); Lymphocyte % 36.2 % (19-41); Mean Corpuscular Hgb 26.2 pg (27.0-32.0); Mean Corpuscular Volume 77.1 fL (80-94); Mean Platelet Vol. 11.7 fl (6.2-12.0); Monocyte# 0.55 X10^3/uL; Monocyte% 5.5 % (0-10); NRBC Flagged by Analyzer 0 % (0-5); Neutrophil # 5.37 X10^3/uL (2.7-7.7); Neutrophil % 53.4 % (47-70); Platelet Count 294 K/mm3 (150-450); RBC Distribution Width CV 14.5 % (11.6-14.6); RBC Distribution Width SD 40.1 fl (35.1-43.9); Red Blood Count 5.19 M/mm3 (4.6-6.2)
[2021-11-15 17:56] LABS: Erythrocyte Sedimentation Rate 7 mm/hr (0-20)
[2021-11-15 18:12] LABS: AST(SGOT) 14 U/L (15-37); Alanine Aminotransfer ALT/SGPT 32 U/L (16-61); Albumin, Serum 3.7 g/dL (3.2-5.0); Alkaline Phosphatase 73 U/L (45-117); Anion Gap 3 (5-15); BUN 21 mg/dL (7-18); BUN/Creat Ratio 15.3 RATIO (10-20); CRP 6.81 mg/L (0.0-3.0); Calcium,Total 9.2 mg/dL (8.5-10.1); Chloride 106 mmol/L (98-107); Creatinine, Serum 1.37 mg/dL (0.70-1.30); EST Glomerular Filtration Rate 55 mL/min (>60); Est Glom Filt Rate - Afr Amer 67 mL/min (>60); Globulin 3.7 g/dL (2.2-4.2); Glucose 197 mg/dL (74-106); Potassium 4.1 mmol/L (3.5-5.1); Protein, Total 7.4 g/dL (6.4-8.2); Rheumatoid Factor < 10.0 IU/mL (<15); Sodium Level 138 mmol/L (136-145); Uric Acid 6.9 mg/dL (3.5-7.2)
== END 2021-11-15 23:59 | disposition home or self-care (01) ==
LOC: MTLAB 14:52
PROVIDERS: PCP Family Medicine; Referring Provider Family Medicine; Visit Provider Family Medicine
DX: M25.532 Pain in left wrist (principal); N18.2 Chronic kidney disease, stage 2 (mild)
CPT/HCPCS: 36415; 73110; 80053; 84550; 85025; 85652; 86140; 86431

== ENCOUNTER → 2022-01-03 | Outpatient (CLI) | payer MEDICARE, SELFPAY ==
--- NOTE | 2022-01-03 14:24 | CT_ITS ---
STUDY: CT ABDOMEN AND PELVIS WITHOUT CONTRAST REASON FOR EXAM: Male, 66 years old. R GROIN PAIN WITH DIFFICULTY WITH URINATION RADIATION DOSAGE (If Supplied By Facility): CTDIvol = ( 8.64 ) mGy, DLP = ( 418.92 ) mGycm TECHNIQUE: Transaxial images were obtained from the dome of the diaphragm to the symphysis pubis without oral contrast, and without intravenous contrast. Sagittal and coronal images were reconstructed. Individualized dose optimization techniques were used for this CT. COMPARISON: 05/28/2018 FINDINGS: The visualized lung bases are unremarkable. The visualized portions of the heart are within normal limits. Normal liver. The gallbladder is contracted. Normal spleen. Normal pancreas. Normal bilateral adrenal glands. Multiple bilateral nonobstructing renal stones. No hydronephrosis, ureteral stone, ureteral dilatation. Normal visualized stomach. Normal small intestine. Normal colon. There is non-visualization of the appendix. Normal abdominal aorta. Normal inferior vena cava. Normal retroperitoneum. Normal urinary bladder. Moderate size right inguinal hernia containing fat and the right side of the dome of the bladder. Normal osseous structures. CT/Abdomen/Pelvis without Cont IMPRESSION: 1. Bilateral nonobstructing renal stones. 2. Moderate right inguinal hernia containing fat and the right side of the dome of the bladder. Electronically Signed: Noe Ivey MD at 15:34 EDT ,
== END | disposition home or self-care (01) ==
PROVIDERS: PCP Family Medicine; Referring Provider Family Medicine; Visit Provider Family Medicine
DX: N20.0 Calculus of kidney (principal); R10.2 Pelvic and perineal pain
CPT/HCPCS: 74176; 87086; 87088

== ENCOUNTER 2022-01-17 07:34 | Day surgery (SDC) | payer MEDICARE, SELFPAY ==
--- NOTE | 2022-01-15 09:19 | EKG12_ITS ---
Test Reason : Blood Pressure : / mmHG Vent. Rate : 084 BPM Atrial Rate : 084 BPM P-R Int : 140 ms QRS Dur : 082 ms QT Int : 364 ms P-R-T Axes : 074 035 003 degrees QTc Int : 430 ms Normal sinus rhythm Nonspecific T wave abnormality Abnormal ECG Confirmed by BOBO SANTIAGO, EDIN ([id number]), medical editor SANTO RAMIREZ ([id number]) on 01/15/2022 1:22:46 PM Referred By: Lizandro May Confirmed By:EDIN BROUSSARD MD
[2022-01-15 10:57] LABS: Hemoglobin A1c 6.8 % (3.8-5.6)
[2022-01-17] MEDS: Lactated Ringers 1,000 ML 15 ML IV (07:45)
[2022-01-17 08:19] VITALS: BP 142/89; PULSE 80; RESP 17; TEMP 36.2; O2SAT 98; BMI 31.9
--- NOTE | 2022-01-17 08:37 | HP.PCM_ITS ---
History and Physical Date of Admission: 01/17/22 Intake Vital Signs 01/04/22 13:35 Height 5 ft 7 in Weight: 202 lb BMI 31.6 BP 156/92 H Blood Pressure Location Lt brachial Position Sitting Respiration 17 Pulse 76 Pulse Source Monitor Temp 98 F Temp Source Temporal Pulse Oximetry (%) 99 Oxygen Delivery Method room air Intake Visit Reasons: INGUINAL HERNIA Chief Complaint: Right Inguinal Hernia Composition [employer] Applier Required: No Is patient in pain?: No Allergies No Known Allergies Allergy (Verified 01/04/22 13:46) Medications aspirin 81 mg PO DAILY@0800 01/17/15 [History Confirmed 01/04/22] cholecalciferol (vitamin D3) [Vitamin D3] 1,000 unit PO DAILY 01/17/15 [History Confirmed 01/04/22] glimepiride 4 mg PO DAILY 01/17/15 [History Confirmed 01/04/22] metformin 500 mg PO DAILY 01/17/15 [History Confirmed 01/04/22] insulin glargine 20 unit SQ 1800 04/29/19 [History Confirmed 01/04/22] metformin 1,000 mg PO QHS 04/29/19 [History Confirmed 01/04/22] multivitamin with minerals 1 ea PO DAILY 04/29/19 [History Confirmed 01/04/22] omeprazole magnesium 20 mg PO PRN PRN 04/29/19 [History Confirmed 01/04/22] oxycodone-acetaminophen 1 ea PO BID 04/29/19 [History Confirmed 01/04/22] acetaminophen 650 mg PO Q4H PRN PRN tab 04/30/19 [Rx Confirmed 01/04/22] ibuprofen 400 mg PO Q6H PRN PRN tab 04/30/19 [Rx Confirmed 01/04/22] ondansetron HCl (PF) 4 mg IV Q4H PRN PRN vial 04/30/19 [Rx Confirmed 01/04/22] PFSH Surgical History History of ureter stent Family History (Updated 01/04/22 @ 13:34 by Janie Friday) Mother Cancer pt unsure what type Sister Diabetes Social History (Updated 01/04/22 @ 13:34 by Janie Friday) Smoking Status: Former smoker alcohol intake: former substance use type: does not use HPI HPI HPI: DAMON RAY, is a 66 M who presents to the office today for right groin pain and bulging. Patient reports is been going on for few weeks. Patient denies any abdominal pain or nausea or vomiting. Patient denies any fevers or chills. He has no pain on the opposite side. ROS General General: Yes weight change; No appetite, fatigue, colon cancer, breast cancer or weakness HEENT HEENT: No difficulty swallowing, eye injury, eye surgery, swollen glands or hoarseness Endo Endocrine: Yes diabetes mellitus; No thyroid disease, thyroid cancer, Hair loss, heat intolerance or cold intolerance Skin Skin: No rash or changing moles Musc Musculoskeletal: Yes back problems, arthritis and gout; No rheumatoid arthritis or joint pain Cardio Cardiovascular: Yes high blood pressure; No murmur, pacemaker, heart disease, atrial fibrillation, heart attack, heart stent, palpitations, shortness of breat with exertion or chest pain Psych Psychiatric: No depression, anxiety or hearing voices Resp Respiratory: No shortness of breath, No sleep apnea, No cough, No COPD, No asthma, No emphysema and No wheezing Gastro Gastrointestinal: Yes abdominal pain, No nausea or vomiting, Yes diarrhea, Yes constipation, No blood in stool, No acid reflux, No hemorrhoids, No ulcers, No gallbladder problem and No black,tarry stools Brant Hematologic: No blood thinners, No blood disorders, No bleeding, No anemia and No blood clots Additional Details: Baby ASA Neuro Neurologic: No system reviewed and no additional complaints, except as documented, No as per HPI, No abnormal gait, No abnormal hearing, No abnormal movements, No abnormal speech, No behavioral changes, No burning sensations, No confusion, No convulsions, No disequilibrium, No dizziness, No localized we akness, No frequent falls, No headache(s), No lack of coordination, No loss of vision, No memory loss, No numbness, No other visual disturbances, No radicular pain, No restless legs, No sensory deficit, No syncope, No tingling, No tremor(s), No weakness and No other Exam Const General: cooperative Orientation: alert and oriented x3 HENMT Head: normal to inspection Neck Neck: normal visual inspection and full ROM Chest Chest palpation & inspection: normal inspection of the chest Resp Effort & Inspection: normal respiratory effort Auscultation: clear to auscultation bilaterally Cardio Rate: regular rate Rhythm: regular rhythm GI Inspection: non-distended Palpation: soft, hernia indirect inguinal on the right and nontender Skin General: no rashes or lesions noted Neuro General: patient alert and patient oriented x3 Extrem General: full ROM Psych Appearance: grossly normal Mental Status: mental status grossly normal Assessment and Plan Assessment and Plan (1) Right inguinal hernia: Status: Acute Plan - Dr. Lizandro May MD: Patient has a right inguinal hernia which was confirmed on CT scan. I discussed robotic assisted laparoscopic inguinal hernia repair with mesh. I discussed the procedure in detail as well as the risks including not limited to bleeding, infection, injury other organ such as the bowel, bladder, spermatic cord. Patient understands the risks and is willing to proceed. I discussed contralateral repair in case a hernia is present on the other side and he would like it repaired if it is present. Lizandro May MD Pager: [facility] [address] [place] [address], [address] [place] [address] Office: Insert H&P no just
--- NOTE | 2022-01-17 08:38 | OP.PCM_ITS ---
Problems Associated Problem List Diagnoses (1) Right inguinal hernia: Report of Operation Date of Procedure: 01/17/22 Pre-Operative Diagnosis: Right inguinal hernia Post-Operative Diagnosis: Same Surgery/Procedure Performed:: Robotic assisted laparoscopic right inguinal hernia repair with mesh Specimen's removed: Right cord lipoma Description of Procedure: Patient was brought back the operating room and general anesthesia was induced. The abdomen was prepped and draped in usual sterile fashion. A midline incision was made superior the umbilicus and miguel pened to the fascia which was elevated and a Veress needle was placed into the abdomen. A drop test was performed. Abdomen was insufflated 15 mmHg and the Veress needle was removed and a port was placed. The camera was placed into the abdomen and it was inspected and there were no injuries from entry. The patient had a direct right inguinal hernia. Patient had a lot of scar tissue in the right abdomen due to prior appendicitis. Patient was placed in Trendelenburg position and under direct visualization right lateral and left lateral 8 mm ports were placed. The robot was docked. Using electrocautery scissors an incision was made in the peritoneum in the right lower quadrant. The dissection was carried inferiorly. The hernia sac was reduced. The indirect region was inspected and the patient did have a cord lipoma which was removed. Next ProGrip mesh was placed into the right inguinal region and unfolded completely covering the hernia defect as well as the indirect space. The peritoneum was then reapproximated using a running 3 OV lock suture completely covering the mesh. The robot was undocked and the ports were removed. The ports were injected with local anesthetic and closed with interrupted 4-0 Monocryl suture as well as Steri-Strips and bandages. The scrotum was checked in the end the case contain both testicles. Patient was awoken and taken to PACU in stable condition. Grafts/Implants Used: ProGrip mesh in the right inguinal region Admit VTE Documentation VTE Mechan Device Prophylaxis: SCD's
[2022-01-17] MEDS: Cefazolin 2 GM in 0.9% Normal Saline 100 ML IV (09:15)
--- NOTE | 2022-01-17 09:35 | LIP_PTH ---
PATIENT: DAMON OSORIO [place] [facility] [id number] AGE/SX: 66/M ROOM: RE01/17/[address]: Dr. Lizandro May MD : 1955 BED: DIS: 01/17/2022 SPEC #: [id number] RECD: 01/17/22 10:58 STATUS: MADYSON TRAMMELL #: [id number] JABARI: 01/17/22 09:[address]: Lizandro May DEPT: SURGICAL PATHOLOGY RECD BY: Shawna Crow ENTERED: 01/17/22 11:16 SP TYPE: LIPOMA OTHR DR: MD Dr. Eusebio Lima MD Tissues: Soft tissues, NOS Procedures: Surgery Specimen Level III HEADER OPERATION: Lap robotic inguinal hernia with mesh, removal of lipoma PRE-OP DIAGNOSIS: Right inguinal hernia TISSUE SUBMITTED: Lipoma of right cord MICROSCOPIC DIAGNOSIS Lipoma of right cord, biopsy: Pieces of mature adipose tissue, consistent with lipoma. BLANCA:joyce 01/18/2022 MICROSCOPIC DESCRIPTION Slides are reviewed. GROSS DESCRIPTION Received in fixative is one container labeled with the patient's name and designated lipoma of right cord. The specimen consists of multiple pieces of yellow adipose tissue measuring in aggregate 5 x 5 x 0.6 cm. Sections reveal yellow adipose cut surfaces without area of hemorrhage, necrosis or cystic degeneration. Head Strength And Conditioning Coach sections are submitted in two cassettes. / BLANCA:joyce 01/17/2022 TC:1 CPT: 13051
[2022-01-17] MEDS: Bupivacaine Mpf 0.5% 30 ML VIAL (10:11)
[2022-01-17 10:30] VITALS: BP 136/83; BP 142/89; PULSE 66; RESP 18; TEMP 36.1; O2SAT 95
--- NOTE | 2022-01-17 10:31 | EX.PCM.DISCH ---
Discharge Instructions Procedure Hernia Diet Discharge Diet: Light diet - advance as tolerated Activity Discharge Activity: May Not Drive (for 2-3 days or while taking narcotic pain meds.) and May Shower (with the bandage in place 1-2 days after surgery.) Lifting Restrictions: 20 pounds for 4 weeks. Additional Activity Instructions:: Climbing stairs is fine, walking is encouraged. Sitting in bed may be uncomfortable. Sitting up using your lateral muscles (sitting up sideways) is usually more comfortable. Do not drive, work heavy equipment of sign legal documents for 24 hours. If your hernia repair was an inguinal repair, you may have scrotal swelling, an ice pack and/or athletic support can provide more comfort. Pain medications may cause nausea, you should typically eat light foods as you take your pain medications. Pain medications may also cause constipation. If you have difficulty with this, discuss with your doctor. Dressing / Incision Call your doctor if your incision/area has: Continuous Slow Oozing, Sudden Increased Bleeding, Increased Pain/ Swelling, Increased Redness and Foul Smelling Discharge Call your doctor if you observe: Fever of 101 or Higher Suture Line Care: Avoid Pulling/Pushing and Avoid Pinching/Bending Remove Dressing in: 2 days (Remove clear bandages in 2 days, remove Steri-Strips in 7 to 10 days.) Cleanse incision/area with: Soap & Water Follow Up Care Please Follow Up With: Lizandro May MD When: Please call to schedule 2 week follow up appointment. [phone] Test Results: Test results from this visit will be discussed in further detail at your follow-up appointment, if applicable. Discharge Plan Admission Attending Provider: Lizandro May Primary Care Provider: Eusebio Durham Consulting Providers: Eusebio Charles Discharge Orders/Prescriptions Prescriptions: New oxycodone-acetaminophen [Percocet] 5-325 mg tablet 1 tab PO Q4H PRN (Reason: pain) 5 Days Qty: 10 RF: 0 No Action metformin 500 MG tablet 1,000 mg PO QHS RF: 0 multivitamin with minerals 1 EACH tablet 1 ea PO DAILY RF: 0 acetaminophen 325 MG tablet 650 mg PO Q4H PRN PRN (Reason: Mild-Moderate Pain (1-5/10)) RF: 0 atorvastatin 10 mg tablet 10 mg PO QHS RF: 0 sildenafil 100 mg tablet 100 mg PO PRN PRN (Reason: Erectile Dysfunction) RF: 0 tamsulosin 0.4 mg capsule 0.4 mg PO DAILY RF: 0 pioglitazone [Actos] 30 mg tablet 30 mg PO DAILY RF: 0 Excedrin Migraine 250-250-65 mg Tablet 1 tab PO Q6H PRN (Reason: MIGRAINES) RF: 0 oxycodone 5 mg tablet 5 mg PO BID RF: 0 diclofenac sodium 1 % gel 1 g TOPICAL Q6H RF: 0 metformin 500 MG tablet 500 mg PO DAILY RF: 0 aspirin 81 MG tablet 81 mg PO DAILY@0800 RF: 0 cholecalciferol (vitamin D3) [Vitamin D3] 1,000 UNIT tablet 1,000 unit PO DAILY RF: 0 Referrals / Follow Up: Eusebio Durham MD [Primary Care Provider] - Disposition Disposition (needs filled in before D/C Order can be placed): Home, Self Care
[2022-01-17 10:40] LABS: Bedside Glucose 213 mg/dL (74-106)
[2022-01-17 10:40] LABS: Bedside Glucose 237 mg/dL (74-106)
[2022-01-17 10:45] VITALS: BP 137/90; BP 142/89; PULSE 69; RESP 16; O2SAT 96
[2022-01-17 11:00] VITALS: BP 142/89; BP 146/90; PULSE 68; RESP 16; O2SAT 98
[2022-01-17 11:15] VITALS: BP 137/85; BP 142/89; PULSE 69; RESP 16; TEMP 36.1; O2SAT 98
[2022-01-17] MEDS: oxyCODONE 5 MG Tablet PO (12:07)
[2022-01-17] MEDS: Acetaminophen 325 MG Tablet PO (12:08)
[2022-01-17 13:17] VITALS: BP 131/68; BP 142/89; PULSE 82; RESP 14; TEMP 36.2; O2SAT 97
== END 2022-01-17 13:24 | disposition home or self-care (01) ==
LOC: SDC 07:34 → AC 07:35
PROVIDERS: Anesthesiology; PCP Family Medicine; Referring Provider Surgery; Visit Provider Surgery
PROC: (CPT 49650; principal; 2022-01-17 09:15)
DX: K40.90 Unilateral inguinal hernia, without obstruction or gangrene, not specified as recurrent (principal); I10 Essential (primary) hypertension; Z79.82 Long term (current) use of aspirin; Z79.899 Other long term (current) drug therapy; Z87.891 Personal history of nicotine dependence
CPT/HCPCS: 49650; S2900; 00830; 36415; 82962; 83036; 88304; 93005; J7120; J2405

== ENCOUNTER → 2022-04-02 | Outpatient (CLI) | payer MEDICARE, SELFPAY ==
[2022-04-02 15:27] LABS: Absolute Lymphocyte Count 3.06 X10^3/uL (0.83-4.51); Absolute Neutrophil Count 2.8 X10^3/uL (2.0-7.7); Basophil# 0.03 X10^3/uL; Basophil% 0.5 % (0-1); Eosinophil# 0.04 X10^3/uL; Eosinophils% 0.6 % (0-5); Hematocrit 38.3 % (40-54); Hemoglobin 13.1 g/dL (13.0-16.5); Lymphocyte # 3.06 X10^3/ul (0.83-4.51); Lymphocyte % 48.7 % (19-41); Mean Corp Hgb Conc 34.2 g/dL (32-36); Mean Corpuscular Hgb 26.3 pg (27.0-32.0); Mean Corpuscular Volume 76.9 fL (80-94); Mean Platelet Vol. 13.7 fl (6.2-12.0); Monocyte% 4.8 % (0-10); NRBC Flagged by Analyzer 0 % (0-5); Neutrophil # 2.83 X10^3/uL (2.7-7.7); Neutrophil % 45.1 % (47-70); Platelet Count 189 K/mm3 (150-450); RBC Distribution Width CV 14.9 % (11.6-14.6); RBC Distribution Width SD 41.1 fl (35.1-43.9); Red Blood Count 4.98 M/mm3 (4.6-6.2); White Blood Count 6.3 K/mm3 (4.4-11.0)
[2022-04-02 15:56] LABS: ALB/GLOB Ratio 1.1 RATIO (0.9-2.4); AST(SGOT) 23 U/L (15-37); Alanine Aminotransfer ALT/SGPT 30 U/L (16-61); Albumin, Serum 3.8 g/dL (3.2-5.0); Alkaline Phosphatase 81 U/L (45-117); Anion Gap 5 (5-15); BUN 15 mg/dL (7-18); BUN/Creat Ratio 10.1 RATIO (10-20); Calcium,Total 8.9 mg/dL (8.5-10.1); Chloride 105 mmol/L (98-107); Creatinine, Serum 1.48 mg/dL (0.70-1.30); EST Glomerular Filtration Rate 50 mL/min (>60); Est Glom Filt Rate - Afr Amer 61 mL/min (>60); Globulin 3.4 g/dL (2.2-4.2); Glucose 214 mg/dL (74-106); Protein, Total 7.2 g/dL (6.4-8.2); Sodium Level 138 mmol/L (136-145); Thyroid Stim Hormone (TSH) 2.11 uIU/mL (0.358-3.74)
== END | disposition home or self-care (01) ==
LOC: MFPLAB 12:10
PROVIDERS: PCP Family Medicine; Visit Provider Family Medicine
DX: N52.9 Male erectile dysfunction, unspecified (principal); E11.22 Type 2 diabetes mellitus with diabetic chronic kidney disease; N18.9 Chronic kidney disease, unspecified
CPT/HCPCS: 36415; 80053; 84443; 85025

== ENCOUNTER → 2022-04-25 | Outpatient (CLI) | payer MEDICARE, SELFPAY ==
[2022-04-25 09:41] LABS: Hematocrit 40.8 % (40-54); Mean Corp Hgb Conc 34.3 g/dL (32-36); Mean Corpuscular Hgb 26.7 pg (27.0-32.0); Mean Corpuscular Volume 77.7 fL (80-94); Platelet Count 194 K/mm3 (150-450); RBC Distribution Width CV 14.9 % (11.6-14.6); RBC Distribution Width SD 41.7 fl (35.1-43.9); Red Blood Count 5.25 M/mm3 (4.6-6.2)
[2022-04-25 10:14] LABS: Albumin, Serum 3.9 g/dL (3.2-5.0); BUN 20 mg/dL (7-18); BUN/Creat Ratio 12.7 RATIO (10-20); Calcium,Total 9.4 mg/dL (8.5-10.1); Chloride 102 mmol/L (98-107); Creatinine, Serum 1.58 mg/dL (0.70-1.30); EST Glomerular Filtration Rate 47 mL/min (>60); Est Glom Filt Rate - Afr Amer 57 mL/min (>60); Glucose 289 mg/dL (74-106); Phosphorus 3.2 mg/dL (2.5-4.9); Potassium 4.4 mmol/L (3.5-5.1); Sodium Level 137 mmol/L (136-145)
== END | disposition home or self-care (01) ==
LOC: LAB 09:03
PROVIDERS: PCP Family Medicine; Referring Provider Internal Medicine Nephrology; Visit Provider Internal Medicine Nephrology
DX: N18.2 Chronic kidney disease, stage 2 (mild) (principal)
CPT/HCPCS: 36415; 80069; 85027

== ENCOUNTER → 2022-05-06 | Outpatient (CLI) | payer MEDICARE, SELFPAY ==
--- NOTE | 2022-05-06 11:45 | RAD_ITS ---
ACR Level 3 findings have been noted. An addendum which confirms receipt of the report will follow. EXAM: XR CHEST, 2 VIEWS CLINICAL INDICATION: CHEST PAIN CHEST PAIN TECHNIQUE: Frontal and lateral views of the chest. This report was created using [employer] report generation technology. COMPARISON: CT scan abdomen and pelvis 01/03/2022. FINDINGS: LUNGS AND PLEURAL SPACES: As seen on the frontal view, there is a 1.6 x 1.8 cm nodular density overlying the right lower lung field, projecting over the right ninth posterior rib interspace. Corresponding nodular density seen overlying the lower thoracic spine on lateral view, consistent with a right lower lung nodule. No pneumothorax. No effusion. HEART: Unremarkable. Cardiac silhouette not enlarged. MEDIASTINUM: Central airways and mediastinal contour are unremarkable. BONES/JOINTS: There are multilevel degenerative changes in the visualized spine. SOFT TISSUES: Unremarkable. RAD/Chest PA and Lateral IMPRESSION: Right lower lobe lung nodule. Recommend CT scan chest for further evaluation. Electronically Signed: Abdoulaye Mccrary MD at 4:17 EDT ,
[2022-05-06 15:50] LABS: Hemoglobin A1c 9.1 % (3.8-5.6)
[2022-05-06 15:57] LABS: ALB/GLOB Ratio 1.1 RATIO (0.9-2.4); AST(SGOT) 26 U/L (15-37); Alanine Aminotransfer ALT/SGPT 33 U/L (16-61); Albumin, Serum 4.1 g/dL (3.2-5.0); Alkaline Phosphatase 87 U/L (45-117); Anion Gap 9 (5-15); BUN 17 mg/dL (7-18); BUN/Creat Ratio 11.5 RATIO (10-20); Calcium,Total 9.7 mg/dL (8.5-10.1); Chloride 104 mmol/L (98-107); Creatinine, Serum 1.48 mg/dL (0.70-1.30); EST Glomerular Filtration Rate 50 mL/min (>60); Est Glom Filt Rate - Afr Amer 61 mL/min (>60); Globulin 3.9 g/dL (2.2-4.2); Glucose 161 mg/dL (74-106); Potassium 4.1 mmol/L (3.5-5.1); Sodium Level 138 mmol/L (136-145)
== END | disposition home or self-care (01) ==
PROVIDERS: PCP Family Medicine; Referring Provider Family Medicine; Visit Provider Family Medicine
DX: R07.9 Chest pain, unspecified (principal); E11.22 Type 2 diabetes mellitus with diabetic chronic kidney disease; R30.0 Dysuria
CPT/HCPCS: 36415; 71046; 80053; 83036; 87086

== ENCOUNTER → 2022-05-09 | Outpatient (CLI) | payer MEDICARE, SELFPAY ==
--- NOTE | 2022-05-09 14:13 | US_ITS ---
STUDY: RENAL ULTRASOUND - COMPLETE REASON FOR EXAM: Male, 67 years old. HEMATURIA TECHNIQUE: Ultrasound evaluation of the kidneys was performed with real-time and static moreau-scale imaging. COMPARISON: Comparison is made with prior study 06/03/2014. FINDINGS: RIGHT KIDNEY: Normal location of the right kidney, which is normal in size. The right kidney measures 10.8 cm x 5.2 cm x 6.3 cm. There is a normal cortex of the right kidney. The renal cortex measures 1.8 cm. There is no right renal mass or cyst. Multiple tiny calculi are seen. The largest measures 5 mm x 3 mm x 5 mm. There is no right hydronephrosis. DISTAL RIGHT URETER: There is non-visualization of the distal right ureter. There is no demonstrated right ureterovesical junction calculus. There is a visualized right ureteral jet. LEFT KIDNEY: Normal location of the left kidney, which is normal in size. The left kidney measures 9.6 cm x 4.4 cm x 5.8 cm. There is a normal cortex of the left kidney. The renal cortex measures 1.8 cm. There is no left renal mass or cyst. Multiple small intrarenal calculi are seen. The largest measures 4 mm x 4 mm x 4 mm. There is no left hydronephrosis. DISTAL LEFT URETER: There is non-visualization of the distal left ureter. There is no demonstrated left ureterovesical junction calculus. There is a visualized left ureteral jet. BLADDER: The distended urinary bladder has a volume of 147 ml. There is a normal wall thickness of the distended urinary bladder. There is no demonstrated mass within the urinary bladder. There are no demonstrated bladder calculi. US/Kidney and Bladder IMPRESSION: Multiple small bilateral nonobstructive intrarenal calculi. Electronically Signed: Candido Koenig MD at 15:21 EDT ,
== END | disposition home or self-care (01) ==
PROVIDERS: PCP Family Medicine; Referring Provider Family Medicine; Visit Provider Family Medicine
DX: R31.9 Hematuria, unspecified (principal)
CPT/HCPCS: 76770

== ENCOUNTER → 2022-05-24 | Outpatient (CLI) | payer MEDICARE, SELFPAY ==
--- NOTE | 2022-05-24 14:28 | CT_ITS ---
EXAM: CT CHEST WITHOUT INTRAVENOUS CONTRAST CLINICAL INDICATION: NODULE TECHNIQUE: Helically acquired images were obtained of the chest without intravenous contrast. This CT exam was performed using one or more of the following dose reduction techniques: automated exposure control, adjustment of the mA and/or kV according to patient size, and/or use of iterative reconstruction technique. This report was created using [employer] report generation technology. COMPARISON: Chest radiograph May 06, 2022 FINDINGS: LUNGS AND PLEURAL SPACES: 3 cm focus of airspace opacification within the right lower lobe containing solid nodular components as well as round glass density possibly representing an inflammatory lesion. Faint groundglass densities are seen within the right upper and lower lobes of the lung. Left lung is clear. No pleural effusion or thickening. HEART: Normal. Heart size is normal. No pericardial effusion. MEDIASTINUM: Normal. No mediastinal or hilar adenopathy. Esophagus is unremarkable. No hiatal hernia. THYROID: Normal. No thyroid lesions. BONES/JOINTS: Normal. No suspicious lytic or blastic abnormality. VASCULATURE: Normal. Thoracic aorta is non-dilated. LIVER: Mild hepatic steatosis. KIDNEYS AND URETERS: Small stones noted within the upper pole of the right kidney. CT/Chest without Contrast IMPRESSION: 3 cm semisolid lesion right lower lobe associated with small foci of groundglass density within the right upper lower lobes suggestive of inflammatory or infectious process. Fleischner Society Guidelines (MacMahon, et al. Radiology 2017; 284(1):228-43) recommend follow-up chest CT at 3-6 months to confirm persistence. If stable, chest CT every year until 5 years. Right nephrolithiasis. Hepatic steatosis. Electronically Signed: Raimundo Hodge MD at 7:57 EDT ,
== END | disposition home or self-care (01) ==
PROVIDERS: PCP Family Medicine; Referring Provider Family Medicine; Visit Provider Family Medicine
DX: R91.1 Solitary pulmonary nodule (principal)
CPT/HCPCS: 71250

== ENCOUNTER → 2022-10-21 | Outpatient (CLI) | payer MEDICARE, SELFPAY ==
[2022-10-21 09:47] LABS: Absolute Lymphocyte Count 3.45 X10^3/uL (0.83-4.51); Absolute Neutrophil Count 2.3 X10^3/uL (2.0-7.7); Basophil# 0.03 X10^3/uL; Basophil% 0.5 % (0-1); Eosinophil# 0.12 X10^3/uL; Eosinophils% 1.9 % (0-5); Hemoglobin 13.7 g/dL (13.0-16.5); Lymphocyte # 3.45 X10^3/ul (0.83-4.51); Lymphocyte % 54.7 % (19-41); Mean Corp Hgb Conc 34.3 g/dL (32-36); Mean Corpuscular Hgb 26.6 pg (27.0-32.0); Mean Corpuscular Volume 77.7 fL (80-94); Mean Platelet Vol. 12.4 fl (6.2-12.0); Monocyte# 0.36 X10^3/uL; Monocyte% 5.7 % (0-10); NRBC Flagged by Analyzer 0 % (0-5); Neutrophil # 2.33 X10^3/uL (2.7-7.7); Neutrophil % 36.9 % (47-70); Platelet Count 211 K/mm3 (150-450); RBC Distribution Width CV 14.4 % (11.6-14.6); Red Blood Count 5.15 M/mm3 (4.6-6.2); White Blood Count 6.3 K/mm3 (4.4-11.0)
[2022-10-21 10:01] LABS: ALB/GLOB Ratio 1.3 RATIO (0.9-2.4); AST(SGOT) 16 U/L (15-37); Alanine Aminotransfer ALT/SGPT 26 U/L (16-61); Alkaline Phosphatase 66 U/L (45-117); Anion Gap 7 (5-15); BUN 12 mg/dL (7-18); BUN/Creat Ratio 8.5 RATIO (10-20); Calcium,Total 9.4 mg/dL (8.5-10.1); Chloride 107 mmol/L (98-107); Cholesterol 126 mg/dL (200); Creatinine, Serum 1.42 mg/dL (0.70-1.30); EST Glomerular Filtration Rate 53 mL/min (>60); Est Glom Filt Rate - Afr Amer 64 mL/min (>60); Globulin 3.1 g/dL (2.2-4.2); Glucose 122 mg/dL (74-106); High Density Lipoprotein 52 mg/dL; Potassium 4.1 mmol/L (3.5-5.1); Protein, Total 7.1 g/dL (6.4-8.2); Sodium Level 140 mmol/L (136-145); Triglycerides 175 mg/dL; Very Low Density Lipoprotein 35 mg/dL (5-40)
[2022-10-21 10:20] LABS: Hemoglobin A1c 6.4 % (3.8-5.6)
== END | disposition home or self-care (01) ==
LOC: MFPLAB 09:01
PROVIDERS: PCP Family Medicine; Visit Provider Family Medicine
DX: E11.22 Type 2 diabetes mellitus with diabetic chronic kidney disease (principal)
CPT/HCPCS: 36415; 80053; 80061; 83036; 85025

== ENCOUNTER → 2022-11-04 | Outpatient (CLI) | payer MEDICARE, SELFPAY ==
[2022-11-04 13:13] LABS: BUN 12 mg/dL (7-18); BUN/Creat Ratio 7.5 RATIO (10-20); Calcium,Total 9.7 mg/dL (8.5-10.1); Chloride 107 mmol/L (98-107); EST Glomerular Filtration Rate 46 mL/min (>60); Est Glom Filt Rate - Afr Amer 56 mL/min (>60); Glucose 126 mg/dL (74-106); Protein, Urine (Random) 12.4 mg/dL (<11.9); Protein:Creat Ratio 65 mg/g CRE (0-200); Sodium Level 140 mmol/L (136-145)
== END | disposition home or self-care (01) ==
LOC: LAB 11:57
PROVIDERS: PCP Family Medicine; Visit Provider Internal Medicine Nephrology
DX: N18.2 Chronic kidney disease, stage 2 (mild) (principal); E11.22 Type 2 diabetes mellitus with diabetic chronic kidney disease
CPT/HCPCS: 36415; 80069; 82570; 84156

== ENCOUNTER → 2023-04-22 | Outpatient (CLI) | payer MEDICARE, SELFPAY ==
[2023-04-22 15:16] LABS: Absolute Lymphocyte Count 3.33 X10^3/uL (0.83-4.51); Absolute Neutrophil Count 2.4 X10^3/uL (2.0-7.7); Basophil# 0.03 X10^3/uL; Basophil% 0.5 % (0-1); Eosinophil# 0.12 X10^3/uL; Eosinophils% 1.9 % (0-5); Hematocrit 39.5 % (40-54); Hemoglobin 13.4 g/dL (13.0-16.5); Lymphocyte # 3.33 X10^3/ul (0.83-4.51); Lymphocyte % 52.9 % (19-41); Mean Corp Hgb Conc 33.9 g/dL (32-36); Mean Corpuscular Hgb 26.9 pg (27.0-32.0); Mean Corpuscular Volume 79.2 fL (80-94); Mean Platelet Vol. 12.7 fl (6.2-12.0); Monocyte# 0.34 X10^3/uL; Monocyte% 5.4 % (0-10); NRBC Flagged by Analyzer 0 % (0-5); Neutrophil # 2.44 X10^3/uL (2.7-7.7); Neutrophil % 38.8 % (47-70); Platelet Count 200 K/mm3 (150-450); RBC Distribution Width CV 15.2 % (11.6-14.6); RBC Distribution Width SD 43.4 fl (35.1-43.9); Red Blood Count 4.99 M/mm3 (4.6-6.2); White Blood Count 6.3 K/mm3 (4.4-11.0)
[2023-04-22 15:45] LABS: ALB/GLOB Ratio 1.2 RATIO (0.9-2.4); AST(SGOT) 20 U/L (15-37); Alanine Aminotransfer ALT/SGPT 26 U/L (16-61); Albumin, Serum 3.8 g/dL (3.2-5.0); Alkaline Phosphatase 65 U/L (45-117); Anion Gap 4 (5-15); BUN 12 mg/dL (7-18); BUN/Creat Ratio 8.6 RATIO (10-20); Calcium,Total 8.9 mg/dL (8.5-10.1); Chloride 110 mmol/L (98-107); EST Glomerular Filtration Rate 54 mL/min (>60); Est Glom Filt Rate - Afr Amer 65 mL/min (>60); Globulin 3.3 g/dL (2.2-4.2); Glucose 125 mg/dL (74-106); Potassium 4.1 mmol/L (3.5-5.1); Protein, Total 7.1 g/dL (6.4-8.2); Sodium Level 141 mmol/L (136-145)
[2023-04-22 16:20] LABS: Hemoglobin A1c 6.1 % (3.8-5.6)
[2023-04-22 16:26] LABS: Microalbumin,Random Urine 15.6 mg/L (NO RANGE EST.)
== END | disposition home or self-care (01) ==
LOC: MFPLAB 11:21
PROVIDERS: PCP Family Medicine; Visit Provider Family Medicine
DX: E11.22 Type 2 diabetes mellitus with diabetic chronic kidney disease (principal); N18.9 Chronic kidney disease, unspecified
CPT/HCPCS: 36415; 80053; 82043; 82570; 83036; 85025

== ENCOUNTER → 2023-04-29 | Outpatient (CLI) | payer MEDICARE, SELFPAY ==
[2023-04-29 17:39] LABS: Platelet Count 202 K/mm3 (150-450); RET-HE 29.9 pg (30-35); Reticulocyte Count 1.66 % (0.5-1.5)
[2023-04-29 18:31] LABS: Vitamin B12 322 pg/mL (211-911)
[2023-04-29 19:00] LABS: Ferritin 29 ng/mL (26-388); Iron 73 ug/dL (65-175); Iron Binding Capacity,Total 440 ug/dL (250-450); Thyroid Stim Hormone (TSH) 2.05 uIU/mL (0.358-3.74)
== END | disposition home or self-care (01) ==
LOC: MFPLAB 14:13
PROVIDERS: PCP Family Medicine; Visit Provider Family Medicine
DX: D64.9 Anemia, unspecified (principal); R53.83 Other fatigue
CPT/HCPCS: 36415; 82607; 82728; 82746; 83540; 83550; 84439; 84443; 85045

== ENCOUNTER → 2023-05-28 | Outpatient (CLI) | payer MEDICARE, MEDICAID, SELFPAY ==
--- NOTE | 2023-05-28 13:41 | US_ITS ---
STUDY: SCROTUM ULTRASOUND REASON FOR EXAM: Male, 68 years old. Left testicular pain x 1 day. Hematuria TECHNIQUE: Ultrasound evaluation of the scrotum was performed with color Doppler and static bearden-scale imaging. COMPARISON: None. FINDINGS: RIGHT TESTICLE INTRATESTICULAR: There is a normal size of the right testicle. The right testicle measures 5.4 x 3.6 x 2.5 cm. There is a homogenous echotexture. There is normal arterial and normal venous vascularity. There is no demonstrated right testicular mass or cyst. EXTRATESTICULAR: The epididymis is normal in size. The epididymis head measures 0.8 x 1.4 x 1.2 cm. There is normal vascularity of the epididymis. There is no demonstrated epididymal cystic structure. There is a small hydrocele. There is no demonstrated varicocele. There is no demonstrated extratesticular mass or cyst. LEFT TESTICLE INTRATESTICULAR: There is a normal size of the left testicle. The left testicle measures 4.8 x 4.0 x 2.2 cm. There is a homogenous echotexture. There is normal arterial and normal venous vascularity. There is no demonstrated left testicular mass or cyst. EXTRATESTICULAR: The epididymis is normal in size. The epididymis head measures 0.9 x 1.4 x 0.9 cm. There is normal vascularity of the epididymis. There is no demonstrated epididymal cystic structure. There is a small hydrocele. There is no demonstrated varicocele. There is no demonstrated extratesticular mass or cyst. US/Testicular with Arterial Flow IMPRESSION: Small bilateral hydroceles otherwise negative scrotal ultrasound. Electronically Signed: Ruy Timmons MD at 14:56 EDT ,
== END | disposition home or self-care (01) ==
LOC: US 13:38
PROVIDERS: PCP Family Medicine; Referring Provider Family Medicine; Visit Provider Family Medicine
DX: N50.812 Left testicular pain (principal)
CPT/HCPCS: 76870; 93976

== ENCOUNTER → 2023-05-28 | Outpatient (CLI) | payer MEDICARE, SELFPAY ==
[2023-05-28 15:10] LABS: Mucous, Urine 0 SEEN /hpf (<or=2+); Squamous Epithelial Cells - UA 0 SEEN /hpf (0-5)
[2023-05-28 15:17] LABS: Absolute Lymphocyte Count 1.96 X10^3/uL (0.83-4.51); Absolute Neutrophil Count 8.4 X10^3/uL (2.0-7.7); Basophil# 0.03 X10^3/uL; Basophil% 0.3 % (0-1); Eosinophil# 0.01 X10^3/uL; Eosinophils% 0.1 % (0-5); Hematocrit 43.8 % (40-54); Hemoglobin 14.8 g/dL (13.0-16.5); Lymphocyte # 1.96 X10^3/ul (0.83-4.51); Lymphocyte % 17.9 % (19-41); Mean Corp Hgb Conc 33.8 g/dL (32-36); Mean Corpuscular Hgb 26.3 pg (27.0-32.0); Mean Corpuscular Volume 77.8 fL (80-94); Mean Platelet Vol. 12.9 fl (6.2-12.0); Monocyte# 0.47 X10^3/uL; Monocyte% 4.3 % (0-10); NRBC Flagged by Analyzer 0 % (0-5); Neutrophil # 8.38 X10^3/uL (2.7-7.7); Neutrophil % 76.8 % (47-70); Platelet Count 245 K/mm3 (150-450); RBC Distribution Width CV 14.9 % (11.6-14.6); RBC Distribution Width SD 41.3 fl (35.1-43.9); Red Blood Count 5.63 M/mm3 (4.6-6.2); White Blood Count 10.9 K/mm3 (4.4-11.0)
[2023-05-28 15:49] LABS: ALB/GLOB Ratio 1.1 RATIO (0.9-2.4); AST(SGOT) 28 U/L (15-37); Alanine Aminotransfer ALT/SGPT 30 U/L (16-61); Albumin, Serum 4.1 g/dL (3.2-5.0); Alkaline Phosphatase 78 U/L (45-117); Anion Gap 5 (5-15); BUN 17 mg/dL (7-18); BUN/Creat Ratio 8.3 RATIO (10-20); Calcium,Total 9.7 mg/dL (8.5-10.1); Chloride 107 mmol/L (98-107); Creatinine, Serum 2.04 mg/dL (0.70-1.30); EST Glomerular Filtration Rate 35 mL/min (>60); Est Glom Filt Rate - Afr Amer 42 mL/min (>60); Globulin 3.9 g/dL (2.2-4.2); Glucose 137 mg/dL (74-106); Potassium 4.5 mmol/L (3.5-5.1); Sodium Level 139 mmol/L (136-145)
[2023-05-28 17:46] LABS: Color, Urine Red (Yellow); Glucose, Dipstick Normal (Normal); Ketone-Dipstick Negative (Negative); Leukocyte Esterase-Dipstick 100 /ul (Negative); Nitrite-Dipstick Positive (Negative); Occult Blood-Urine 250 /ul (Negative); Protein-Dipstick 100 mg/dl (Negative); Urine Bilirubin Dipstick Negative (Negative); Urine Clarity Cloudy (Clear); Urine Urobilinogen Normal (Normal); Urine pH 6.5 (5.0 - 8.0)
[2023-05-28 18:02] LABS: White Blood Cells 10-25 SEEN /hpf (0-5)
[2023-05-28 18:03] LABS: Bacteria RARE /hpf (None Seen); Red Blood Cells-Urine > 100 SEEN /hpf (0-5)
== END | disposition home or self-care (01) ==
LOC: MFPLAB 12:34
PROVIDERS: PCP Family Medicine; Visit Provider Family Medicine
DX: R10.9 Unspecified abdominal pain (principal); R31.9 Hematuria, unspecified
CPT/HCPCS: 36415; 80053; 81001; 85025; 87086

== ENCOUNTER → 2023-05-30 | Outpatient (CLI) | payer MEDICARE, SELFPAY ==
[2023-05-30 17:37] LABS: Absolute Neutrophil Count 6.7 X10^3/uL (2.0-7.7); Basophil# 0.03 X10^3/uL; Basophil% 0.3 % (0-1); Eosinophil# 0.06 X10^3/uL; Eosinophils% 0.6 % (0-5); Hematocrit 39.2 % (40-54); Hemoglobin 13.1 g/dL (13.0-16.5); Lymphocyte % 26.3 % (19-41); Mean Corp Hgb Conc 33.4 g/dL (32-36); Mean Corpuscular Hgb 26.4 pg (27.0-32.0); Mean Corpuscular Volume 78.9 fL (80-94); Mean Platelet Vol. 12.8 fl (6.2-12.0); Monocyte# 0.51 X10^3/uL; Monocyte% 5.2 % (0-10); NRBC Flagged by Analyzer 0 % (0-5); Neutrophil # 6.65 X10^3/uL (2.7-7.7); Neutrophil % 67.3 % (47-70); Platelet Count 219 K/mm3 (150-450); RBC Distribution Width CV 14.8 % (11.6-14.6); RBC Distribution Width SD 42.5 fl (35.1-43.9); Red Blood Count 4.97 M/mm3 (4.6-6.2); White Blood Count 9.9 K/mm3 (4.4-11.0)
[2023-05-30 18:26] LABS: AST(SGOT) 20 U/L (15-37); Alanine Aminotransfer ALT/SGPT 26 U/L (16-61); Albumin, Serum 3.7 g/dL (3.2-5.0); Alkaline Phosphatase 70 U/L (45-117); Anion Gap 7 (5-15); BUN 16 mg/dL (7-18); Calcium,Total 9.3 mg/dL (8.5-10.1); Chloride 107 mmol/L (98-107); Creatinine, Serum 2.27 mg/dL (0.70-1.30); EST Glomerular Filtration Rate 31 mL/min (>60); Est Glom Filt Rate - Afr Amer 37 mL/min (>60); Globulin 3.8 g/dL (2.2-4.2); Glucose 107 mg/dL (74-106); PSA,Total- Diagnostic 1.77 ng/mL (0.0-4.0); Potassium 4.2 mmol/L (3.5-5.1); Protein, Total 7.5 g/dL (6.4-8.2); Sodium Level 142 mmol/L (136-145)
== END | disposition home or self-care (01) ==
PROVIDERS: PCP Family Medicine; Visit Provider Family Medicine
DX: R31.29 Other microscopic hematuria (principal)
CPT/HCPCS: 36415; 80053; 84153; 85025; 86140; 87086

== ENCOUNTER → 2023-06-25 | Outpatient (CLI) | payer MEDICARE, SELFPAY ==
--- NOTE | 2023-06-25 12:48 | NEURO ---
NCS and/or EMG Patient Report Ordering Doctor: Eusebio Durham DATE OF SERVICE: 06/25/23 Arya presents for electrodiagnostic testing of the right upper and right lower limb due to numbness and tingling. He has a history of diabetes. Electrodiagnostic Testing: Right peroneal motor nerve demonstrates normal distal latency and amplitude with reduced conduction velocity. Right tibial motor nerve demonstrates normal distal latency and amplitude with reduced conduction velocity. Right median motor nerve demonstrates normal distal latency and amplitude with reduced conduction velocity. Right ulnar motor nerve demonstrates normal distal latency and amplitude with reduced conduction velocity, though there is no significant reduction across the elbow. Right median sensory latency at the wrist. Borderline prolonged right ulnar sensory latency. Absent right sural, superficial peroneal and medial plantar responses. Needle EMG testing was performed and performed in the right upper and right lower limb. All muscles tested showed no evidence of denervation with normal motor unit action potentials. Electrodiagnostic impression: This is an abnormal study. 1. 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 This is likely secondary to a history of diabetes. 2. No electrodiagnostic evidence is noted for cervical or lumbar radiculopathy. Multi Select Codes Neurology Neurology Interp Codes: 50741-59 Musc test done w/n test comp (interp) (2) and 79274-69 Nrv cndj test 13/> studies (interp)
== END | disposition home or self-care (01) ==
LOC: PSN 06:49
PROVIDERS: PCP Family Medicine; Referring Provider Family Medicine; Visit Provider Family Medicine
DX: R20.2 Paresthesia of skin (principal); E11.22 Type 2 diabetes mellitus with diabetic chronic kidney disease; N18.31 Chronic kidney disease, stage 3a
CPT/HCPCS: 95886; 95913

== ENCOUNTER → 2023-07-01 | Outpatient (CLI) | payer MEDICARE, SELFPAY ==
--- NOTE | 2023-07-01 14:37 | CT_ITS ---
EXAM: CT ABDOMEN AND PELVIS WITHOUT INTRAVENOUS CONTRAST CLINICAL INDICATION: diverticulitis TECHNIQUE: Helically acquired images were obtained of the abdomen and pelvis without intravenous contrast. This CT exam was performed using one or more of the following dose reduction techniques: automated exposure control, adjustment of the mA and/or kV according to patient size, and/or use of iterative reconstruction technique. CONTRAST: With oral contrast. RADIATION DOSE: CTDIvol = 11.33 mGy, DLP = 568.81 mGy-cm COMPARISON: CT scan of the chest 05/24/2022. CT scan of the abdomen and pelvis 01/03/2022. FINDINGS: LOWER THORAX: Unremarkable. Lung bases are clear. No cardiomegaly. No significant pericardial effusion. ABDOMEN: LIVER: Unremarkable. Homogeneous. GALLBLADDER AND BILE DUCTS: Unremarkable. No calcified gallstones. No gallbladder distention or wall edema. No intra- or extrahepatic biliary ductal dilation. PANCREAS: Unremarkable. No focal cystic mass. SPLEEN: Unremarkable. Normal size without focal cystic or solid mass. ADRENALS: Unremarkable. No nodules. KIDNEYS AND URETERS: Tiny nonobstructing calculi bilateral kidneys. Normal renal size and position. STOMACH AND BOWEL: Unremarkable. No stomach or bowel distention. No focal inflammatory change. PELVIS: APPENDIX: No evidence of acute appendicitis. BLADDER: Several small bladder calculi. REPRODUCTIVE: Prostate measures 4.8 x 4.3 x 5 cm for a volume of 54.1 ml. ABDOMEN and PELVIS: INTRAPERITONEAL SPACE: Unremarkable. No ascites or other fluid collection. No free air. BONES/JOINTS: Unremarkable. No suspicious lytic or blastic abnormality. SOFT TISSUES: Right inguinal mesh hernia repair. No discrete abdominal or pelvic wall hernia. VASCULATURE: Unremarkable. Abdominal aorta is non-dilated. LYMPH NODES: Increased density and mild enlargement of the previously noted sub-solid nodule in the right lower lobe with new enlarged lymph nodes in the right hilum. CT/Abdomen/Pel W ORAL Cont Only IMPRESSION: 1. Increased density and mild enlargement of the previously noted sub-solid nodule in the right lower lobe with new enlarged lymph nodes in the right hilum. Findings suggestive of malignancy. Recommend follow-up. 2. Tiny nonobstructing calculi bilateral kidneys. 3. Several small bladder calculi. 4. Prostate measures 4.8 x 4.3 x 5 cm for a volume of 54.1 ml. 5. No acute abdominal pelvic abnormality. Electronically Signed: Sj Turner MD at 15:18 EST ,
== END | disposition home or self-care (01) ==
LOC: CT 14:36
PROVIDERS: PCP Family Medicine; Referring Provider Surgery; Visit Provider Surgery
DX: K57.92 Diverticulitis of intestine, part unspecified, without perforation or abscess without bleeding (principal)
CPT/HCPCS: 74176

== ENCOUNTER 2023-07-23 06:23 | Day surgery (SDC) | payer MEDICARE, SELFPAY ==
[2023-07-23] MEDS: Lactated Ringers 1,000 ML 15 ML IV (07:04)
[2023-07-23 07:07] VITALS: BP 153/85; PULSE 86; RESP 16; TEMP 36.3; O2SAT 98; BMI 30.7
--- NOTE | 2023-07-23 07:13 | HP.PCM_ITS ---
History and Physical Date of Admission: 07/23/23 Intake Vital Signs 01/18/2208:19 06/17/2312:50 Height 5 ft 6 in 5 ft 7 in Weight: 202 lb 2 oz BMI 31.6 BP 145/79 H Blood Pressure Location Rt brachial Position Sitting Respiration 17 Pulse 80 Pulse Source Monitor Temp 97.6 F L Temp Source Temporal Pulse Oximetry (%) 98 Oxygen Delivery Method room air Intake Visit Reasons: LLQ PAIN & BLOOD IN STOOL Chief Complaint: llq pain & blood in stool Staff Development Coordinator Required: No Is patient in pain?: No Allergies No Known Allergies Allergy (Verified 06/17/23 12:52) Medications aspirin 81 mg tablet,delayed release 81 mg PO DAILY@0800 01/17/15 [History Confirmed 01/17/22] metformin 500 mg tablet 500 mg PO DAILY 01/17/15 [History Confirmed 01/17/22] metformin 500 mg tablet 1,000 mg PO QHS 04/29/19 [History Confirmed 01/17/22] multivitamin with minerals 1 ea PO DAILY 04/29/19 [History Confirmed 01/17/22] acetaminophen 325 mg tablet 650 mg (2 x 325 mg) PO Q4H PRN PRN Mild-Moderate Pain (1-5/10) 04/30/19 [Rx Confirmed 01/17/22] xqcsdoc-ltfohywlporhc-xxfkhjaf 250 mg-250 mg-65 mg tablet (Excedrin Migraine) 1 tab PO Q6H PRN MIGRAINES 01/14/22 [History Confirmed 01/17/22] atorvastatin 10 mg tablet 10 mg PO QHS 01/14/22 [History Confirmed 01/17/22] diclofenac sodium 1 % topical gel 1 g topical Q6H 01/14/22 [History Confirmed 01/17/22] oxycodone 5 mg tablet 5 mg PO BID 01/14/22 [History Confirmed 01/17/22] pioglitazone 30 mg tablet (Actos) 30 mg PO DAILY 01/14/22 [History Confirmed 01/17/22] sildenafil 100 mg tablet 100 mg PO PRN PRN Erectile Dysfunction 01/14/22 [History Confirmed 01/17/22] tamsulosin 0.4 mg capsule 0.4 mg PO DAILY 01/14/22 [History Confirmed 01/17/22] oxycodone-acetaminophen 5 mg-325 mg tablet (Percocet) 1 tab PO Q4H PRN pain 5 days #10 tabs 01/17/22 [Rx] Saccharomyces boulardii 250 mg capsule (Florastor) 250 mg PO TID 06/17/23 [History Confirmed 06/17/23] cholecalciferol (vitamin D3) 50 mcg (2,000 unit) capsule 50 mcg PO DAILY 06/17/23 [History Confirmed 06/17/23] colchicine 0.6 mg capsule 0.6 mg PO BID 06/17/23 [History Confirmed 06/17/23] fluticasone propionate 50 mcg/actuation nasal spray,suspension (Allergy Relief (fluticasone)) 1 spray intranasal BID 06/17/23 [History Confirmed 06/17/23] metronidazole 500 mg tablet 500 mg PO TID 06/17/23 [History Confirmed 06/17/23] ondansetron HCl 4 mg tablet 4 mg PO Q8H 06/17/23 [History Confirmed 06/17/23] telmisartan 20 mg tablet 20 mg PO DAILY 06/17/23 [History Confirmed 06/17/23] PFSH Medical History Back pain Blood in stool Diabetes Dietary restriction Former smoker Gout History of edema Kidney stones Wears dentures Surgical History History of ureter stent Hx of appendectomy Hx of colonoscopy Hx of hemorrhoidectomy Hx of sinus surgery Family History Mother Cancer pt unsure what typeSister Diabetes Social History Smoking Status: Former smoker alcohol intake: former substance use type: does not use HPI HPI HPI: The patient is here for positive fecal occult blood test. The patient notes a few weeks ago he was having back pain and passing 2 kidney stones and having hematuria and at the same time he was having left lower quadrant pain and this was presumed diverticulitis and he was given antibiotics. Patient does not report any gross blood in his stool. Patient has never had a colonoscopy. ROS General General: No weight change, appetite, fatigue, colon cancer, breast cancer or weakness HEENT HEENT: No difficulty swallowing, eye injury, eye surgery, swollen glands or hoarseness Endo Endocrine: Yes diabetes mellitus; No thyroid disease, thyroid cancer, Hair loss, heat intolerance or cold intolerance Skin Skin: No rash or changing moles Breast Breast: No left breast lump, right breast lump, nipple discharge, breast pain, abnormal mammogram, abnormal US or breast enlargement Musc Musculoskeletal: Yes back problems, arthritis and gout; No rheumatoid arthritis or joint pain Cardio Cardiovascular: No murmur, pacemaker, heart disease, atrial fibrillation, high blood pressure, heart attack, heart stent, palpitations, shortness of breat with exertion or chest pain Psych Psychiatric: No depression, anxiety or hearing voices Resp Respiratory: No shortness of breath, No sleep apnea, Yes cough, No COPD, No asthma, No emphysema and No wheezing Gastro Gastrointestinal: No abdominal pain, No nausea or vomiting, No diarrhea, No constipation, Yes blood in stool, Yes acid reflux, No hemorrhoids, No ulcers, No gallbladder problem and No black,tarry stools Brant Hematologic: No blood thinners, No blood disorders, No bleeding, No anemia and No blood clots Neuro Neurologic: No system reviewed and no additional complaints, except as documented, No as per HPI, No abnormal gait, No abnormal hearing, No abnormal movements, No abnormal speech, No behavioral changes, No burning sensations, No confusion, No convulsions, No disequilibrium, No dizziness, No localized weakness, No frequent falls, No headache(s), No lack of coordination, No loss of vision, No memory loss, Yes numbness, No other visual disturbances, No radicular pain, No restless legs, No sensory deficit, No syncope, Yes tingling, No tremor(s), No weakness and No other Exam Const General: cooperative Orientation: alert and oriented x3 HENMT Head: normal to inspection Neck Neck: normal visual inspection and full ROM Chest Chest palpation & inspection: normal inspection of the chest Resp Effort & Inspection: normal respiratory effort Auscultation: clear to auscultation bilaterally Cardio Rate: regular rate Rhythm: regular rhythm GI Inspection: non-distended Palpation: soft and nontender Skin General: no rashes or lesions noted Neuro General: patient alert and patient oriented x3 Extrem General: full ROM Psych Appearance: grossly normal Mental Status: mental status grossly normal Assessment and Plan Assessment and Plan (1) Positive fecal occult blood test: Status: Acute Plan: The patient was having left lower quadrant pain and this was treated as diverticulitis. The patient also had a fecal occult blood test and this was positive. The patient is never had a colonoscopy. I recommended the patient have a colonoscopy I would also like to perform a CT scan of the abdomen pelvis with oral contrast. I explained endoscopy in detail to the patient. I explained the risks including but not limited to stroke or heart attack with anesthesia, perforation of the GI tract, bleeding, infection. I explained that any of these could necessitate further emergency surgery. The patient understands and all questions were answered sufficiently. The patient wishes to proceed with procedure. Lizandro May MD Pager: [facility] [address] [place] [address], [address] [place] [address] Office: I have examined the patient and the H&P has been reviewed. There are no clinical changes since date of exam.
[2023-07-23 07:30] LABS: Bedside Glucose 128 mg/dL (74-106)
[2023-07-23 07:39] VITALS: BP 126/89; BP 153/85; PULSE 84; RESP 18; TEMP 36.1; O2SAT 98
--- NOTE | 2023-07-23 07:39 | OP.CCLET_ITS ---
07/23/2023 Eusebio Durham [address] [facility] [address] [place] [address] Re : Colonoscopy procedure for Arya Ray Dear Dr. Durham This procedure was performed on Sunday, July 23, 2023. My impressions and recommendations are as follows: Impressions : - The entire examined colon is normal on direct and retroflexion views. - No specimens collected. Recommendations : - Discharge patient to home. - Resume previous diet. - Continue present medications. - Repeat colonoscopy in 10 years for screening purposes. My findings are described in the full procedure note, which is enclosed. If I can be of further assistance, please feel free to contact me at Doctor phone number(s): , Work: . Sincerely, Lizandro May MD 07/23/2023 7:38:29 AM This report has been signed electronically.
--- NOTE | 2023-07-23 07:39 | OP.COLON_ITS ---
Patient Name: Arya Brock Procedure Date: 07/23/2023 7:16 AM Date of : 1955 Age: 68 Procedure: Colonoscopy Indications: Gastrointestinal occult blood loss Providers: Lizandro May MD Medicines: Propofol per Anesthesia Patient Profile: This is a 68 year old male. Refer to note in patient chart for documentation of history and physical. Last Colonoscopy: none. The patient's first colonoscopy is today. Complications: No immediate complications. Procedure: Pre-Anesthesia Assessment: - Prior to the procedure, a History and Physical was performed, and patient medications and allergies were reviewed. The patient's tolerance of previous anesthesia was also reviewed. The risks and benefits of the procedure and the sedation options and risks were discussed with the patient. All questions were answered, and informed consent was obtained. Prior Anticoagulants: The patient has taken no anticoagulant or antiplatelet agents. After reviewing the risks and benefits, the patient was deemed in satisfactory condition to undergo the procedure. After I obtained informed consent, the scope was passed under direct vision. Throughout the procedure, the patient's blood pressure, pulse, and oxygen saturations were monitored continuously. The Colonoscope was introduced through the anus and advanced to the cecum, identified by appendiceal orifice and ileocecal valve. The colonoscopy was performed without difficulty. The patient tolerated the procedure well. The quality of the bowel preparation was good. The ileocecal valve, appendiceal orifice, and rectum were photographed. Scope In: 7:22:01 AM Scope Withdrawal Time 0 hours 5 minutes 2 seconds Scope Out: 7:32:58 AM Total Procedure Duration Time 0 hours 10 minutes 57 seconds Findings: The entire examined colon appeared normal on direct and retroflexion views. Impression: - The entire examined colon is normal on direct and retroflexion views. - No specimens collected. Recommendation: - Discharge patient to home. - Resume previous diet. - Continue present medications. - Repeat colonoscopy in 10 years for screening purposes. Procedure Code(s): --- Professional --- 25642, Colonoscopy, flexible; diagnostic, including collection of specimen(s) by brushing or washing, when performed (separate procedure) Diagnosis Code(s): --- Professional --- R19.5, Other fecal abnormalities CPT copyright 2021 [employer]. All rights reserved. The codes documented in this report are preliminary and upon waste picker review may be revised to meet current compliance requirements. Lizandro May MD 07/23/2023 7:38:29 AM This report has been signed electronically. Number of Addenda: 0 Note Initiated On: 07/23/2023 7:16 AM
[2023-07-23 07:44] VITALS: BP 137/86; BP 153/85; PULSE 77; RESP 18; O2SAT 98
[2023-07-23 07:50] VITALS: BP 146/79; BP 153/85; PULSE 72; RESP 18; O2SAT 97
[2023-07-23 07:53] VITALS: BP 137/88; BP 153/85; PULSE 72; RESP 18; TEMP 36.2; O2SAT 100
[2023-07-23 08:15] VITALS: BP 153/85
== END 2023-07-23 08:31 | disposition home or self-care (01) ==
LOC: EN 06:23 → AC 06:24
PROVIDERS: PCP Family Medicine; Referring Provider Surgery; Visit Provider Surgery
PROC: 0DJD8ZZ Inspection of Lower Intestinal Tract, Via Natural or Artificial Opening Endoscopic (ICD-10-PCS; CPT 45378; principal; 2023-07-23 07:55)
DX: R19.5 Other fecal abnormalities (principal); E11.9 Type 2 diabetes mellitus without complications; M54.9 Dorsalgia, unspecified; Z87.891 Personal history of nicotine dependence; Z79.84 Long term (current) use of oral hypoglycemic drugs; R31.9 Hematuria, unspecified; Z79.82 Long term (current) use of aspirin; Z79.899 Other long term (current) drug therapy; I10 Essential (primary) hypertension; Z90.49 Acquired absence of other specified parts of digestive tract
CPT/HCPCS: 45378; 82962; J7120; J2405

== ENCOUNTER → 2023-07-30 | Outpatient (CLI) | payer MEDICARE, SELFPAY ==
--- NOTE | 2023-07-30 08:05 | CT_ITS ---
STUDY: CT CHEST WITHOUT CONTRAST REASON FOR EXAM: Male, 68 years old. Nodular Opacity RADIATION DOSAGE (If Supplied By Facility): CTDIvol = ( 16.66 ) mGy, DLP = ( 624.42 ) mGycm TECHNIQUE: Transaxial imaging was performed without the administration of intravenous contrast material. Individualized dose optimization techniques were used for this CT. COMPARISON: Comparison is made with prior study May 24, 2022. FINDINGS: CHEST Punctate calcified granuloma in the right lung apex. Since prior study, the abnormality in the anterior aspect of the right lower lobe as progressed in size and density. A neoplastic process should be ruled out. It presently measures 3.1 cm x 3.9 cm. Correlation with a PET scan is recommended. There is no demonstrated pleural abnormality. There are calcifications of the coronary arteries. There are multiple small lymph nodes within the mediastinum, which are normal in size and morphology most compatible with reactive lymph hyperplasia. There is a 2 cm right infrahilar lymph node. Normal unenhanced pulmonary arteries. Normal aorta arch and descending thoracic aorta. Normal osseous structures. There is no demonstrated abnormality of the visualized upper abdomen. Small cyst is seen in the upper pole of the left kidney. CT/Chest without Contrast IMPRESSION: Progressive increase in size of the heterogeneous density in the anterior aspect of the right lower lobe with evidence of an enlarged right infrahilar lymph node. Correlation with a PET scan is recommended for further evaluation. Electronically Signed: Candido Koenig MD at 10:10 EST ,
== END | disposition home or self-care (01) ==
PROVIDERS: PCP Family Medicine; Referring Provider Internal Medicine Critical Care Medicine; Visit Provider Internal Medicine Critical Care Medicine
DX: R91.1 Solitary pulmonary nodule (principal)
CPT/HCPCS: 71250

== ENCOUNTER → 2023-08-01 | Outpatient (CLI) | payer MEDICARE, SELFPAY ==
[2023-08-01 09:17] LABS: Platelet Count 228 K/mm3 (150-450)
[2023-08-01 09:26] LABS: Partial Thromboplast Time 33.1 Seconds (24.1-36.2)
[2023-08-01 09:32] LABS: International Normalized Ratio 1.1; Prothrombin Time (Protime)PT. 13.9 SECONDS (11.7-14.9)
[2023-08-01 09:44] LABS: Albumin, Serum 3.7 g/dL (3.2-5.0); BUN 15 mg/dL (7-18); BUN/Creat Ratio 10.8 RATIO (10-20); Calcium,Total 9.2 mg/dL (8.5-10.1); Chloride 108 mmol/L (98-107); Creatinine, Serum 1.39 mg/dL (0.70-1.30); EST Glomerular Filtration Rate 54 mL/min (>60); Est Glom Filt Rate - Afr Amer 65 mL/min (>60); Glucose 137 mg/dL (74-106); Phosphorus 2.8 mg/dL (2.5-4.9); Potassium 4.1 mmol/L (3.5-5.1); Sodium Level 139 mmol/L (136-145)
[2023-08-01 09:49] LABS: Protein, Urine (Random) 21.5 mg/dL (<11.9); Protein:Creat Ratio 85 mg/g CRE (0-200)
== END | disposition home or self-care (01) ==
PROVIDERS: PCP Family Medicine; Referring Provider Internal Medicine Critical Care Medicine; Visit Provider Internal Medicine Critical Care Medicine
DX: E11.22 Type 2 diabetes mellitus with diabetic chronic kidney disease (principal); N18.2 Chronic kidney disease, stage 2 (mild)
CPT/HCPCS: 36415; 80069; 82570; 84156; 85049; 85610; 85730

== ENCOUNTER → 2023-08-12 | Outpatient (CLI) | payer MEDICARE, SELFPAY ==
[2023-08-12] VITALS (16 sets, daily range): BP systolic 120–148; BP diastolic 70–85; PULSE 78–81; RESP 17–18; TEMP 36.3; O2SAT 96–99; BMI 32.4
[2023-08-12] MEDS: 0.9% Normal Saline (250mL Bag) 250 ML 15 ML IV (09:43)
[2023-08-12] MEDS: fentaNYL 100 MCG/2 ML Ampul IV (09:47)
[2023-08-12] MEDS: Midazolam 2 MG/2 ML Syringe IV ×2 (09:48→09:59)
--- NOTE | 2023-08-12 10:00 | ASPIGT_PTH ---
PATHOLOGY RESULTS PATIENT: DAMON OSORIO LOC: CT U#:[id number] AGE/SX: 68/M ROOM: RE08/12/[address]: Dr. Tito Thurman DO : 1955 BED: DIS: 08/12/2023 SPEC #: [id number] RECD: 08/12/23 10:32 STATUS: MADYSON REPorfirio #: [id number] JABARI: 08/12/23 10:[address]: Tito Thurman DEPT: SURGICAL PATHOLOGY RECD BY: Shawna Crow ENTERED: 08/12/23 10:32 SP TYPE: ASP RAD OTHR DR: Dr. Eusebio Durham MD Tissues: Lung, NOS Procedures: FNA Specimen Adequacy Special Stain Group II Surgery Specimen Level IV Imprint (control) HEADER OPERATION: CT-guided lung biopsy PRE-OP DIAGNOSIS: Lung nodule - right middle lobe TISSUE SUBMITTED: Right lung 20-gauge x5 MICROSCOPIC DIAGNOSIS Right lung, CT-guided core biopsy: Adenocarcinoma, consistent with lung primary. See comment. BLANCA:joyce 08/13/2023 COMMENT The specimen is evaluated at the time of biopsy by Dr. Sanches. Immediate Evaluation = Malignant cells present derived from non-small cell carcinoma. Immunohistochemistry ([id number]) supports the above diagnosis. Molecular studies on the tumor can be performed if clinically indicated. Please notify the laboratory if they are needed. Case has been reviewed in consultation with Dr. Lowe who concurs with the above diagnosis. IDC:AM MICROSCOPIC DESCRIPTION Slides are reviewed. GROSS DESCRIPTION Received in fixative is one container labeled with the patient's name and designated right lung. The specimen consists of multiple irregular fragments of galvan soft tissue that in aggregate measure 2.0 x 0.2 x 0.1 cm. The specimen is totally submitted in one cassette. / SJ:joyce 08/12/2023 TC:0 CPT: 32923, 75834 ADDENDUM ADDENDUM 09/04/2023 10:20 PD-L1 ([id number]) IMMUNOHISTOCHEMICAL ANALYSIS FROM [facility] RESULTS: Tumor proportion score: <1% / Negative ONKOSIGHT ADVANCED LUNG CANCER NGS REPORT FROM [facility] RESULT SUMMARY: Abnormal DETECTED GENOMIC ALTERATIONS: Tier I: Variants of Strong Clinical Significance KRAS p.([id number]) Tier II: Variants of Potential Clinical Significance STK11 p.([id number]) IMMUNOTHERAPY BIOMARKERS: Tumor Mutation [place]: Low (6.3 Mutations / MB) Microsatellite Instability: MSI Negative (2.38%) PERTINENT NEGATIVE RESULTS: The following genes are NEGATIVE for clinically relevant mutations. Mutational hotspots and surrounding exonic regions were interrogated for DNA level point mutations and indels (fusions not assayed). AKT1, ALK, ATR, BRAF, CHEK1, DDR2, EGFR, ERBB2, ERBB3, FGFR1, HRAS, MAP2K1, MET, NRAS, NTRK1, PIK3CA, POLD1, POLE, ROS1, TERT, TP53 Please see complete report in e-chart or EMR
--- NOTE | 2023-08-12 10:00 | IMM_PTH ---
PATHOLOGY RESULTS PATIENT: DAMON OSORIO LOC: CT U#:[id number] AGE/SX: 68/M ROOM: RE08/12/[address]: Dr. Tito Thurman DO : 1955 BED: DIS: 08/12/2023 SPEC #: [id number] RECD: 08/12/23 12:27 STATUS: SOUFrandy REQ #: [id number] JABARI: 08/12/23 10:[address]: Tito Thurman DEPT: IMMUNOHISTOCHEMISTRY RECD BY: Carolina Styles ENTERED: 08/12/23 12:28 SP TYPE: IMMUNO OTHR DR: Dr. Eusebio Durham MD Tissues: Lung, NOS Procedures: RCC (add) NAPSIN A (add) CK20 (add) CK5-6 (add) CK7 (add) CK8 (add) HEP PAR (add) TTF1 (add) Pankeratin (initial) P40 (add) PSAP (add) PHYSICIAN & INSTITUTION [place] [id number] SPECIMEN INFORMATION: Tissue Source: Right lung Clinical Info: Right middle lobe lung nodule Specimen Number: [id number] CPT code: 60717, 15332 x10 METHODOLOGY: Deparaffinized sections of prefer/formalin-fixed tissue or PAP/DQ stained slides are incubated with monoclonal/polyclonal antibodies/oligonucleotide probes. Localization is made via biotin free immunoperoxidase method. Appropriate controls are performed and reacted as expected. Results on target cell population are indicated in the following table: RESULTS: ANTIBODY / CLONE RESULT AE1-3 (AE1/AE3/PCK26) positive CK7 (OV-TL12/30) positive CK8 (35liisQ57) positive CK20 (KS20.8) negative TTF-1 (8G7G3/1) positive Napsin A (Rabbit Polyclonal) positive HepPar (OCh1E5) positive, focal RCC (PN-15) negative PSAP (PASE/4LJ) negative CK5-6 (D5 & 1684) negative P40 (BC28) positive, focal These tests were developed and their performance characteristics determined by [facility]. They may not have been cleared or approved by the U.S. Food and Drug Administration. The FDA has determined that such clearance or approval is not necessary. The above immunohistochemical/dualISH markers are ordered and reviewed by the Pathologist. INTERPRETATION: Right lung, CT-guided core biopsy: Adenocarcinoma consistent with lung primary. BLANCA:joyce 08/13/2023 Case has been reviewed in consultation with Dr. Lowe who concurs with the above diagnosis. IDC:AM
[2023-08-12] MEDS: Lidocaine 2% (20 ml mdv) 20 ML Vial INFILT (10:02)
--- NOTE | 2023-08-12 10:30 | RAD_ITS ---
INDICATION: post lung biopsy -- Immediately post lung biopsy EXAMINATION/TECHNIQUE: X-RAY - XR Chest 2 Views COMPARISON: Relation is made with the CT scan the chest of 05/24/2022. FINDINGS: LINES/DEVICES: None. LUNGS: Right lower lung mass is again seen. The lungs are otherwise clear. No evidence of pleural effusions. MEDIASTINUM AND CARDIOVASCULAR STRUCTURES: Cardiac silhouette not enlarged. Central airways and mediastinal contour are unremarkable. BONES AND SOFT TISSUES: Unremarkable. RAD/Chest Insp/Exp 2 View IMPRESSION: Persistent right lower lung mass corresponding to the previous CT scan. No new infiltrate is seen. Electronically Signed: Fredy Juan MD at 11:33 EST ,
--- NOTE | 2023-08-12 10:49 | PCM.OP.PRO ---
Procedure Report Date of Procedure: 08/12/23 Assessment & Plan Assessment/Plan (1) Lung nodule: PLAN: PROCEDURE: CT GUIDED CORE NEEDLE LUNG BIOPSY ORDERING PROVIDER: Dr. Tito Thurman INDICATION: Male, 68 years old. Right lower lobe nodule. PROVIDER: WENDY Gupta CONSENT: Written informed consent was obtained having explained the risks, benefits and alternatives in detail with the patient and who accepted the risks and agreed to proceed. Laboratory review and clinical assessment was performed. PRE-PROCEDURE SEDATION ASSESSMENT: Current history and physical dictated by referring physician and reviewed. No clinical changes since date of exam. Patient has an ASA Class of 1. PROCEDURAL SEDATION PROTOCOL: The Drugs used were: 2 mg Versed, IV, and 50 mcg Fentanyl, IV. The sedation time was: 24 minutes, starting at 9:47 AM and terminated at 10:09 AM. The procedural sedation protocol was independently monitored by the department nurse. RADIATION DOSAGE (If Supplied By Facility): CTDIvol = 18.3 mGy, DLP = 445.35 mGycm Individualized dose optimization techniques were used for this CT. TECHNIQUE: The patient was placed in a prone position. A noncontrast CT was performed to localize the lesion in the right lower lobe. The skin surface was prepped and draped in a sterile fashion. 2% lidocaine was used for local anesthesia. Using CT guidance, a 20-gauge coaxial biopsy device was advanced to the periphery of the lesion. A total of 5 core specimens were obtained. Specimens were microscopically reviewed by pathology in the CT suite and placed in formalin solution. BioSentry tract sealant system was deployed at the biopsy site, and the biopsy needle was removed. A sterile occlusive dressing was applied to the biopsy site. The patient tolerated the procedure well. An immediate chest xray was ordered, per protocol. A negative biopsy does not exclude malignancy. Further imaging or clinical followup based on patient condition and degree of clinical suspicion for malignancy. Suggest rebiopsy, if biopsy results do not match with clinical scenario. IMPRESSION: 1. CT directed core needle biopsy of right lower lobe nodule using CT image guidance with image documentation as described. Pathology results are pending. 2. Procedural Sedation protocol utilized with independent monitoring by the department nurse. Procedures Radiology Radiology CT Procedures: 19693 Biopsy Lung
--- NOTE | 2023-08-12 12:30 | RAD_ITS ---
STUDY: X-RAY CHEST REASON FOR EXAM: Male, 68 years old. Follow-up after lung biopsy. TECHNIQUE: Single frontal view of the chest on 2 images. COMPARISON: August 12, 2023, earlier today FINDINGS: Stable opacity projected over the right lower lobe. There is no demonstrated pleural abnormality. Normal size heart. Normal mediastinum and manuel. Normal visualized pulmonary arteries. Normal visualized aortic arch and descending thoracic aorta. Normal visualized thoracic spine. Normal visualized ribs, clavicles, and shoulders. There is no demonstrated abnormality of the visualized soft tissue structures of the upper abdomen. RAD/Chest Insp/Exp 2 View IMPRESSION: Right lower lobe opacity unchanged. No pneumothorax. Electronically Signed: Keshav Leggett MD at 14:33 EST ,
== END | disposition home or self-care (01) ==
PROVIDERS: PCP Family Medicine; Referring Provider Internal Medicine Critical Care Medicine; Visit Provider Internal Medicine Critical Care Medicine
DX: C34.91 Malignant neoplasm of unspecified part of right bronchus or lung (principal)
CPT/HCPCS: 32408; 71046; 77012; 88172; 88305; 88313; 88341; 88342; 99156; J7050; C2613

== ENCOUNTER 2023-08-16 20:03 | Inpatient (IN) | payer MEDICARE, SELFPAY ==
[2023-08-16 20:04] VITALS: BP 132/64; PULSE 107; RESP 16; TEMP 35.9; O2SAT 98
--- NOTE | 2023-08-16 20:31 | CT_ITS ---
STUDY: CTA CHEST REASON FOR EXAM: Male, 68 years old. shortness of breath, lung cancer RADIATION DOSAGE (If Supplied By Facility): CTDIvol = ( 13.19 ) mGy, DLP = ( 527.41 ) mGycm TECHNIQUE: The examination was performed with the intravenous administration of IV 100mL Isovue-370. Post-processing of the angiographic images was performed, with multiplanar reformation and 3D reconstruction. Individualized dose optimization techniques were used for this CT. COMPARISON: None. FINDINGS: Normal enhancement of the main pulmonary artery and right and left pulmonary arteries. There are filling defects in right lower lobe segmental pulmonary arteries including posterior and medial basilar segments. There is some narrowing of the anterior right segmental pulmonary artery as it traverses through the masslike consolidation. No saddle embolus. Normal thoracic aorta and visualized great vessels. There is no demonstrated aortic dissection. Normal heart and pericardium. No right heart strain. Increased subcarinal and paratracheal (Station 4L) adenopathy has increased since prior exam. For instance, lymph node on image 155 of series 2 measures 1.2 x 1.4 cm (previous measurement 0.9 x 1.1 cm). Right hilar adenopathy is overall similar. Normal visualized trachea and bronchi. The lungs are well expanded. Nodular consolidation in the anterior right lower lobe on image 99 of series 2 has increased in size, currently measuring 2.9 x 5.2 cm (previously measured 2.6 x 3.8 cm when utilizing similar measurement techniques on both studies). Mild atelectasis of the right lower lobe. Normal chest wall structures. Normal osseous structures. Nodular thickening of the left adrenal gland on image 10 of series 2 measuring 1.0 x 1.[address]/CTA Chest W/WO Contrast IMPRESSION: 1. Right lower lobe segmental pulmonary embolism. No saddle embolus or right heart strain. 2. Increased size of right lower lobe masslike consolidation, presumed to represent patient''s known neoplasm. 3. Similar right hilar and increased mediastinal adenopathy. 4. Nodular thickening of the left adrenal gland is new, suspicious for metastasis. Electronically Signed: Mario Hood MD ([place]) at 22:04 EST Reading Location ID and State: [facility] / [place] , Service support ,
--- NOTE | 2023-08-16 20:32 | EKG12_ITS ---
Test Reason : SOB Blood Pressure : / mmHG Vent. Rate : 106 BPM Atrial Rate : 106 BPM P-R Int : 136 ms QRS Dur : 080 ms QT Int : 310 ms P-R-T Axes : 070 048 027 degrees QTc Int : 411 ms Sinus tachycardia Nonspecific T wave abnormality Abnormal ECG Confirmed by OLESYA SANTIAGO, DIAZ ([id number]), deputy editor in chief KAILYN BLACKMAN ([id number]) on 08/18/2023 8:45:49 AM Referred By: Confirmed By:DIAZ DACOSTA MD
--- NOTE | 2023-08-16 20:37 | EX.ED.DYSGE1 ---
HPI <DIANE Ding - Last Filed: 08/16/23 20:56> History of Present Illness Chief Complaint: Shortness of Breath Narrative Narrative: Patient presenting today with multiple complaints. He reports that he was diagnosed with adenocarcinoma of the right lower lobe after having a lung biopsy performed on Friday. He reports that the lesion was found in his lung incidentally on a chest x-ray. He reports a remote history of smoking 25 years ago. He reports that ever since having the biopsy on Friday, he has felt short of breath and his symptoms are gradually worsening. Patient also reports that he has had pain to his right calf over the past 2 days and is concerned for a DVT. He denies any history of blood clots. He also reports that he did an at home Cologuard test that came back positive for blood about a month ago, he then had a colonoscopy around a month ago that was negative for any acute findings. Over the past 3 days, he has noticed black loose stools. He denies any history of gastric ulcers. Over the past few days, he has had intermittent generalized abdominal achiness. He denies having any current abdominal pain. He denies fever, chills, chest pain, nausea, and vomiting. [facility] <DIANE Ding - Last Filed: 08/16/23 20:56> [facility] Medical History Back pain Blood in stool Diabetes Dietary restriction Former smoker Gout High cholesterol History of renal disease Lightheadedness Neuropathy Prostate disease Shortness of breath on exertion Wears dentures Wears glasses Home Medications aspirin 81 mg tablet,delayed release 81 mg PO DAILY@0800 01/17/15 [History Last Taken Unknown] metformin 500 mg tablet 500 mg PO DAILY 01/17/15 [History Last Taken Unknown] metformin 500 mg tablet 1,000 mg PO QHS 04/29/19 [History Last Taken Unknown] multivitamin with minerals 1 ea PO DAILY 04/29/19 [History Last Taken Unknown] acetaminophen 325 mg tablet 650 mg (2 x 325 mg) PO Q4H PRN PRN Mild-Moderate Pain (1-5/10) 04/30/19 [Rx Last Taken Unknown] poxdmlb-zdoncligaicms-zqscdrnt 250 mg-250 mg-65 mg tablet (Excedrin Migraine) 1 tab PO Q6H PRN MIGRAINES 01/14/22 [History Last Taken Unknown] atorvastatin 10 mg tablet 10 mg PO QHS 01/14/22 [History Last Taken Unknown] diclofenac sodium 1 % topical gel 1 g topical Q6H PRN pain 01/14/22 [History Last Taken Unknown] pioglitazone 30 mg tablet (Actos) 30 mg PO QHS 01/14/22 [History Last Taken Unknown] sildenafil 100 mg tablet 100 mg PO PRN PRN Erectile Dysfunction 01/14/22 [History Last Taken Unknown] Saccharomyces boulardii 250 mg capsule (Florastor) 250 mg PO TID 06/17/23 [History Last Taken Unknown] cholecalciferol (vitamin D3) 50 mcg (2,000 unit) capsule 50 mcg PO DAILY 06/17/23 [History Last Taken Unknown] dicyclomine 10 mg capsule 10 mg PO TID 07/14/23 [History Last Taken Unknown] oxycodone 5 mg tablet 5 mg PO TID 07/14/23 [History Last Taken Unknown] latanoprost 0.005 % eye drops 1 drp ophthalmic (eye) QHS 07/18/23 [History Last Taken Unknown] fluticasone propionate 50 mcg/actuation nasal spray,suspension (Allergy Relief (fluticasone)) 1 spray intranasal BID #16 grams 08/15/23 [Rx Last Taken Unknown] Allergy/AdvReac Type Severity Reaction Status Date / Time No Known Allergies Allergy Verified 08/15/23 13:07 Family History Mother Cancer pt unsure what type Sister Diabetes Surgical History History of ureter stent Hx of appendectomy Hx of colonoscopy Hx of hemorrhoidectomy Hx of inguinal hernia repair Hx of sinus surgery Social History Smoking Status: Former smoker alcohol intake: former substance use type: does not use ROS <DIANE Ding - Last Filed: 08/16/23 20:56> ROS ED Constitutional Constitutional ED: Denies chills or fever(s) Cardiovascular Cardiovascular: Denies chest pain or palpitations Respiratory/Chest Respiratory/Chest: Reports dyspnea and dyspnea on exertion; Denies cough, tachypnea or wheezing Gastrointestinal Gastrointestinal: Reports melena; Denies abdominal pain, nausea or vomiting Genitourinary Genitourinary ED: Denies dysuria, hematuria or urinary frequency Musculoskeletal Musculoskeletal: Reports other Details: R calf pain ; Denies arthralgias Integumentary Denies rash Neurologic Neurologic: Denies weakness EXAM <DIANE Ding - Last Filed: 08/16/23 20:56> Physical Exam Const Vital Signs: 08/16/23 20:04 08/16/23 20:49 08/16/23 22:07 Temperature 96.6 F L Temperature Source Temporal Pulse Rate 107 H 95 Respiratory Rate 16 14 Respiratory Effort Short of Breath Respiratory Depth Normal Respiratory Pattern Normal Blood Pressure 132/64 H 147/79 H Blood Pressure Mean 86 101 Pulse Ox 98 97 Oxygen Delivery Method Room Air Room Air Room Air Positive well nourished, well developed and no apparent distress General Appearance ED: well developed HEENT Reports normocephalic and head/scalp atraumatic Mouth ED: Yes moist mucous membranes normal Eyes PERRL and EOMs intact bilaterally Neck full ROM and supple Chest Wall inspection of chest normal Resp normal respiratory effort and clear to auscultation bilaterally Cardio regular rate and regular rhythm GI soft to palpation, non-tender, non-distended and no masses Rectal Exam: normal sphincter tone and other Other Details: Dark stool noted Back/Spine normal ROM and normal to inspection Extremity normal to inspection and full ROM Extremity Narrative: No lower extremity edema bilaterally, right DP pulse 2+, good capillary refill, sensation intact Neuro oriented x3, CN's II-XII intact bilaterally, moves all extremities, no focal motor deficits and no sensory deficits noted Sensorium / Orientation: awake and alert Psych mental status grossly normal and thought process normal Skin no rashes or lesions noted and no wounds <Ruy Kidd MD - Last Filed: 08/16/23 22:49> Physical Exam Const Vital Signs: 08/16/23 20:04 08/16/23 20:49 08/16/23 22:07 Temperature 96.6 F L Temperature Source Temporal Pulse Rate 107 H 95 Respiratory Rate 16 14 Respiratory Effort Short of Breath Respiratory Depth Normal Respiratory Pattern Normal Blood Pressure 132/64 H 147/79 H Blood Pressure Mean 86 101 Pulse Ox 98 97 Oxygen Delivery Method Room Air Room Air Room Air MDM <DIANE Ding - Last Filed: 08/16/23 20:56> MDM MDM Narrative Medical decision making narrative: Patient presenting today with multiple complaints. Recently diagnosed with adenocarcinoma of the right lower lobe after having a biopsy on Friday. He has had shortness of breath since having this biopsy that is worsening. No history of blood clots but given his cancer history, CTA of the chest will be obtained to rule out PE and also pneumothorax, infiltrate, pleural effusion, and other cardiopulmonary abnormality. He is reporting swelling and pain to his right calf, I do not appreciate any swelling, he has intact pulses distally, no signs of limb ischemia. He does have pain to palpation to the posterior calf. However, we do not have ultrasound at this time to definitively rule out DVT. He reports black stools over the past 3 days, he has been worked up as an outpatient for GI bleed after his Cologuard came back positive. He had a colonoscopy about a month ago that was unremarkable. He has no known history of upper GI bleed. He reports generalized abdominal aching over the past few days but reports that he is not currently having any abdominal pain, his abdomen is soft and nontender. Labs will be obtained to rule out leukocytosis, anemia, electrolyte abnormality, and ACS. Patient workup is pending. Lab Data Labs: Laboratory Results - last 24 hr 08/16/23 20:34 WBC 12.2 H RBC 3.43 L Hgb 8.5 L Hct 25.4 L MCV 74.1 L MCH 24.8 L MCHC 33.5 RDW Std Deviation 39.1 RDW Coeff of Lesley 14.6 Plt Count 266 MPV 11.6 Immature Gran % (Auto) 0.700 Neut % (Auto) 68.6 Lymph % (Auto) 21.6 Cottle % (Auto) 8.5 Eos % (Auto) 0.3 Baso % (Auto) 0.3 Absolute Neuts (auto) 8.3 H Absolute Lymphs (auto) 2.62 Nucleated RBC % 0 Sodium 139 Potassium 3.9 Chloride 107 Carbon Dioxide 26.0 Anion Gap 6 BUN 26 H Creatinine 1.70 H Est GFR (MDRD) Af Amer 52 L Est GFR (MDRD) Non-Af 43 L BUN/Creatinine Ratio 15.3 Glucose 168 H Calcium 9.2 Troponin I High Sens 339 H* Radiography Diagnostic Testing: Clinical Impression(s) from Imaging Studies Chest CTA 08/16/23 20:31 IMPRESSION: 1. Right lower lobe segmental pulmonary embolism. No saddle embolus or right heart strain. 2. Increased size of right lower lobe masslike consolidation, presumed to represent patient''s known neoplasm. 3. Similar right hilar and increased mediastinal adenopathy. 4. Nodular thickening of the left adrenal gland is new, suspicious for metastasis. Electronically Signed: Mario Hood MD ([place]) at 22:04 EST , EKG Initial EKG: Comments: 106 bpm, sinus tachycardia, no ST elevation, reviewed and interpreted by attending ED physician <Ruy Kidd MD - Last Filed: 08/16/23 22:49> [facility] Narrative Medical decision making narrative: Patient presenting today with multiple complaints. Recently diagnosed with adenocarcinoma of the right lower lobe after having a biopsy on Friday. He has had shortness of breath since having this biopsy that is worsening. No history of blood clots but given his cancer history, CTA of the chest will be obtained to rule out PE and also pneumothorax, infiltrate, pleural effusion, and other cardiopulmonary abnormality. He is reporting swelling and pain to his right calf, I do not appreciate any swelling, he has intact pulses distally, no signs of limb ischemia. He does have pain to palpation to the posterior calf. However, we do not have ultrasound at this time to definitively rule out DVT. He reports black stools over the past 3 days, he has been worked up as an outpatient for GI bleed after his Cologuard came back positive. He had a colonoscopy about a month ago that was unremarkable. He has no known history of upper GI bleed. He reports generalized abdominal aching over the past few days but reports that he is not currently having any abdominal pain, his abdomen is soft and nontender. Labs will be obtained to rule out leukocytosis, anemia, electrolyte abnormality, and ACS. Patient workup is pending. Dr. Kidd: I assumed full care of this patient although initially seen with the [facility]. I reviewed his laboratory work and he has slightly elevated white count of 12.2 which I think is nonspecific, hemoglobin 8.5 consistent with anemia. Platelet count 266. Review of his electrolyte panel shows a normal sodium of 139, potassium normal at 3.9, chloride 107 with CO2 of 26, BUN is elevated at 26, and creatinine is elevated at 1.70, but review of his laboratory work shows chronic kidney injury of which the patient is stating that he is unaware of chronic kidney disease. While he has history of diabetes, his girlfriend states that he does not have hypertension although it is listed as one of his problems in his problem list. High-sensitivity troponin is elevated at 339. While this may be secondary to an elevated creatinine, or a type II lesion, patient has already taken 2 baby aspirin within the last 24 hours. He will be given morphine for his calf tenderness, but given his elevated troponin, I do feel that he will require admission. I reviewed his radiology report of the CTA of the chest which does show a right lower lobe pulmonary embolism. Additionally, they state that it appears that his right lower lobe mass may have gotten slightly larger. At this point in time, I discussed with him the use of heparin and the possibility of GI bleed, intracranial hemorrhage, or bleeding into his mass given his recent biopsy. However I do feel that the benefit outweighs those risks of bleeding. Patient acknowledges an understanding. He will be started on heparin with bolus. Of note, I did review the colonoscopy report which did not show any evidence of previous bleeding or acute lesion or source of his reported Hemoccult positive stool. The patient was discussed with Dr. Bay for admission. He will be admitted to the PCU in stable condition. History & Record Review Discussion w/independent historian: Patient and Significant other Additional record(s) reviewed:: Prior outpatient record, Prior ED visit and Prior labs Lab Data Attestation: I reviewed the patient's lab results. Labs: Laboratory Results - last 24 hr 08/16/23 20:34 WBC 12.2 H RBC 3.43 L Hgb 8.5 L Hct 25.4 L MCV 74.1 L MCH 24.8 L MCHC 33.5 RDW Std Deviation 39.1 RDW Coeff of Lesley 14.6 Plt Count 266 MPV 11.6 Immature Gran % (Auto) 0.700 Neut % (Auto) 68.6 Lymph % (Auto) 21.6 Cottle % (Auto) 8.5 Eos % (Auto) 0.3 Baso % (Auto) 0.3 Absolute Neuts (auto) 8.3 H Absolute Lymphs (auto) 2.62 Nucleated RBC % 0 Sodium 139 Potassium 3.9 Chloride 107 Carbon Dioxide 26.0 Anion Gap 6 BUN 26 H Creatinine 1.70 H Est GFR (MDRD) Af Amer 52 L Est GFR (MDRD) Non-Af 43 L BUN/Creatinine Ratio 15.3 Glucose 168 H Calcium 9.2 Troponin I High Sens 339 H* Radiography Diagnostic Testing: Clinical Impression(s) from Imaging Studies Chest CTA 08/16/23 20:31 IMPRESSION: 1. Right lower lobe segmental pulmonary embolism. No saddle embolus or right heart strain. 2. Increased size of right lower lobe masslike consolidation, presumed to represent patient''s known neoplasm. 3. Similar right hilar and increased mediastinal adenopathy. 4. Nodular thickening of the left adrenal gland is new, suspicious for metastasis. Electronically Signed: Mario Hood MD ([place]) at 22:04 EST Reading Location ID and State: [facility] / [place] , Service support , EKG Initial EKG: Attestation: I personally reviewed and interpreted this EKG as follows: Management Discussion w/another healthcare provider: Hospitalist Discharge Plan Dx/Rx/DC Orders Clinical Impression: Adenocarcinoma of lower lobe of right lung, Right calf pain, Chronic kidney disease, Elevated troponin, Pulmonary embolism Disposition Disposition: Acute Care [facility]
[2023-08-16 20:49] VITALS: O2SAT 98
--- NOTE | 2023-08-16 20:49 | ED.RN ---
Pt unable to remember home medications
--- OUTSIDE RECORDS SUMMARY | 2023-08-16 20:52 | XMS RPT_ITS | CCD ---
Demographics Address [address] [place] [address] Preferred Language Unknown Marital Status Catholic Affiliation Unknown Race Unknown Ethnic Group Unknown Author Name Unknown Address [address] [place] [address] Organization [facility] Results Test Name Value Interpretation Reference Range Facil ity Summary Purpose Family History No Family History Records Found Advance Directives No Advanced Directives Records Found Additional Source Comments (unrecognized sect ion and content) No Status Records Found INFORMATION SOURCE (unrecogn ized section and content) FOR RECORDS PERTAINING TO PATIENTS WHO ARE OR HAVE BEEN ENROLLED IN A CHEMICAL DEPENDENCY/SUBSTANCEABUSE PROGRAM, SOME INFORMATION MAY BE OMITTED. This clinical summary was aggregated from multiple sources. Caution should be exercised in using it in the provision of clinical care. This summary normalizes information from multiple sources, and as a consequence, information in this document may materially change the coding, format and clinical context of patient data. In addition, data may be omitted in some cases. CLINICAL DECISIONS SHOULD BE BASED ON THE PRIMARY CLINICAL RECORDS. [employer] provides no warranty or guarantee of the accuracy or completeness of information in this document.
[2023-08-16 20:56] LABS: Absolute Lymphocyte Count 2.62 X10^3/uL (0.83-4.51); Absolute Neutrophil Count 8.3 X10^3/uL (2.0-7.7); Basophil# 0.04 X10^3/uL; Basophil% 0.3 % (0-1); Eosinophil# 0.04 X10^3/uL; Eosinophils% 0.3 % (0-5); Hematocrit 25.4 % (40-54); Hemoglobin 8.5 g/dL (13.0-16.5); Lymphocyte # 2.62 X10^3/ul (0.83-4.51); Lymphocyte % 21.6 % (19-41); Mean Corp Hgb Conc 33.5 g/dL (32-36); Mean Corpuscular Hgb 24.8 pg (27.0-32.0); Mean Corpuscular Volume 74.1 fL (80-94); Mean Platelet Vol. 11.6 fl (6.2-12.0); Monocyte# 1.03 X10^3/uL; Monocyte% 8.5 % (0-10); NRBC Flagged by Analyzer 0 % (0-5); Neutrophil # 8.34 X10^3/uL (2.7-7.7); Neutrophil % 68.6 % (47-70); Platelet Count 266 K/mm3 (150-450); RBC Distribution Width CV 14.6 % (11.6-14.6); RBC Distribution Width SD 39.1 fl (35.1-43.9); Red Blood Count 3.43 M/mm3 (4.6-6.2); White Blood Count 12.2 K/mm3 (4.4-11.0)
[2023-08-16 21:14] LABS: Anion Gap 6 (5-15); BUN 26 mg/dL (7-18); BUN/Creat Ratio 15.3 RATIO (10-20); Calcium,Total 9.2 mg/dL (8.5-10.1); Chloride 107 mmol/L (98-107); EST Glomerular Filtration Rate 43 mL/min (>60); Est Glom Filt Rate - Afr Amer 52 mL/min (>60); Glucose 168 mg/dL (74-106); Potassium 3.9 mmol/L (3.5-5.1); Sodium Level 139 mmol/L (136-145); Troponin-I HS 339 pg/mL (3.0-78.0)
[2023-08-16] MEDS: Morphine 4 MG/ML Syringe IV (22:03)
[2023-08-16 22:07] VITALS: BP 147/79; PULSE 95; RESP 14; O2SAT 97
--- NOTE | 2023-08-16 22:39 | PCM.HP.STD ---
[facility] - General General Date of Admission: 08/16/23 Date of Service: 08/16/23 Chief Complaint: SOB, Right Calf Pain and Dark, Loose Stools HPI Narrative DAMON BROCK, is a 68 M with a past medical history essential hypertension, hyperlipidemia, DM-2; of unknown control, obesity; with BMI of 31.5 this admission, history of tobacco abuse for 25 years; with subsequent adenocarcinoma of the Right lung with recent biopsy last week, CKD; stage II with baseline creatinine of ~1.4 mg/dL and eGFR of 54 mL/min about 2 weeks ago, erectile dysfunction; on as needed sildenafil, peripheral neuropathy, history of migraine headaches, glaucoma, chronic sinusitis; with history of sinus surgery, BPH, history of renal calculi; status post ureteral stent, GERD, chronic gout and osteoarthritis of who presents to [facility] complaining of shortness of breath, Right calf pain and loose, dark stools. Mr. Brock reports his symptoms began yesterday with the abrupt onset of Right calf pain and then earlier today his Right calf pain became more severe which also coincided with development of severe shortness of breath. He also states that he has not felt good since he had his lung biopsy performed on Saturday, August 12, 2023, with him feeling progressively more short of breath since that time. He also admits to intermittent generalized abdominal achiness with black loose stools for the past 3 days but he denies any history of gastric ulcers or obvious blood in his stools. He denies associated fever, chills, chest pain, nausea or vomiting but he does admit to taking two baby aspirin in the last 24 hours as prophylaxis against cardiovascular events because he is a diabetic. 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 [facility] Medical History Back pain Blood in stool Diabetes Dietary restriction Former smoker Gout High cholesterol History of renal disease Kidney stones Lightheadedness Migraines Neuropathy Prostate disease Shortness of breath on exertion Wears dentures Wears glasses Home Medications aspirin 81 mg tablet,delayed release 81 mg PO DAILY@0800 01/17/15 [History Last Taken Unknown] metformin 500 mg tablet 500 mg PO DAILY diabetes 01/17/15 [History Last Taken Unknown] metformin 500 mg tablet 1,000 mg PO QHS diabetes 04/29/19 [History Last Taken Unknown] multivitamin with minerals 1 ea PO DAILY supplement 04/29/19 [History Last Taken Unknown] acetaminophen 325 mg tablet 650 mg (2 x 325 mg) PO Q4H PRN PRN Mild-Moderate Pain (1-5/10) 04/30/19 [Rx Last Taken Unknown] vddghwy-navjyhdtatxtq-wghcdhwi 250 mg-250 mg-65 mg tablet (Excedrin Migraine) 1 tab PO Q6H PRN MIGRAINES 01/14/22 [History Last Taken Unknown] atorvastatin 10 mg tablet 10 mg PO QHS cholesterol 01/14/22 [History Last Taken Unknown] diclofenac sodium 1 % topical gel 1 g topical Q6H PRN pain 01/14/22 [History Last Taken Unknown] pioglitazone 30 mg tablet (Actos) 30 mg PO QHS diabetes 01/14/22 [History Last Taken Unknown] sildenafil 100 mg tablet 100 mg PO PRN PRN Erectile Dysfunction 01/14/22 [History Last Taken Unknown] cholecalciferol (vitamin D3) 50 mcg (2,000 unit) capsule 50 mcg PO DAILY supplement 06/17/23 [History Last Taken Unknown] dicyclomine 10 mg capsule 10 mg PO TID abdominal pain/cramping 07/14/23 [History Last Taken Unknown] oxycodone 5 mg tablet 5 mg PO TID pain 07/14/23 [History Last Taken Unknown] latanoprost 0.005 % eye drops 1 drp ophthalmic (eye) QHS mucous in eyes 07/18/23 [History Last Taken Unknown] fluticasone propionate 50 mcg/actuation nasal spray,suspension (Allergy Relief (fluticasone)) 1 spray intranasal BID #16 grams 08/15/23 [Rx Last Taken Unknown] Allergy/AdvReac Type Severity Reaction Status Date / Time No Known Allergies Allergy Verified 08/15/23 13:07 Family History Mother Cancer pt unsure what type Sister Diabetes Surgical History History of ureter stent Hx of appendectomy Hx of colonoscopy Hx of hemorrhoidectomy Hx of inguinal hernia repair Hx of sinus surgery Social History Smoking Status: Former smoker alcohol intake: former substance use type: does not use ROS ROS Narrative Review of systems: General: Patient denies fevers or chills. HENT: Denies headache, denies stuffy nose, denies sore throat EYES: Denies changes in vision Resp: Patient admits to shortness of breath but denies cough, tachypnea or wheezing. Cardiac: Denies chest pain palpitations. GI: Patient admits to dark stools but denies abdominal pain, nausea or vomiting. : Denies changes in urination or dysuria. Extremity: Denies swelling Musculoskeletal: Feels somewhat generally weak and unwell Neuro: Denies any numbness/tingling Heme: Patient admits to dark stools but denies any other recent attention bleeding. Skin: Denies rashes Psychiatric: No complaints voiced Endocrine: No polyuria, polyphagia or polydipsia. Allergic: Patient denies lip swelling, tongue swelling or urticaria. The rest of the 14 point ROS was negative except for positives in HPI. Vital Signs Vital Signs Vital Signs: 08/16/23 20:04 08/16/23 20:49 08/16/23 22:07 Temperature 96.6 F L Temperature Source Temporal Pulse Rate 107 H 95 Respiratory Rate 16 14 Respiratory Effort Short of Breath Respiratory Depth Normal Respiratory Pattern Normal Blood Pressure 132/64 H 147/79 H Blood Pressure Mean 86 101 Pulse Ox 98 97 Oxygen Delivery Method Room Air Room Air Room Air Physical Exam Const alert, oriented x3, no apparent distress and average body habitus General Appearance: cooperative HEENT normocephalic, head/scalp atraumatic, hearing grossly normal bilaterally and moist oral mucous membranes Eyes PERRL and EOMs intact bilaterally Neck no lymphadenopathy and supple Resp normal respiratory effort, no retractions, no use of accessory muscles and clear to auscultation bilaterally Cardio regular rate and regular rhythm GI normal to inspection, nondistended, normoactive bowel sounds, soft to palpation, non-tender and non-distended Extremity normal to inspection and full ROM Skin Skin Narrative: Patient has no evidence of rash or abscess at this time. Neuro oriented x3, CN's II-XII intact bilaterally, moves all extremities and no focal motor deficits Sensorium / Orientation: awake, alert, oriented to person, oriented to place and oriented to time Speech: speech normal Motor Exam: strength 5/5 throughout Psych affect normal Results Medical Records Data Attestation: I reviewed the patient's medical records Lab / Micro Data Attestation: I reviewed the patient's lab results. 08/17/23 04:52 08/16/23 20:34 Labs: Laboratory Results - last 24 hr 08/16/23 20:34: WBC 12.2 H, RBC 3.43 L, Hgb 8.5 L, Hct 25.4 L, MCV 74.1 L, MCH 24.8 L, MCHC 33.5, RDW Std Deviation 39.1, RDW Coeff of Lesley 14.6, Plt Count 266, MPV 11.6, Immature Gran % (Auto) 0.700, Neut % (Auto) 68.6, Lymph % (Auto) 21.6, [place] % (Auto) 8.5, Eos % (Auto) 0.3, Baso % (Auto) 0.3, Absolute Neuts (auto) 8.3 H, Absolute Lymphs (auto) 2.62, Nucleated RBC % 0, Sodium 139, Potassium 3.9, Chloride 107, Carbon Dioxide 26.0, Anion Gap 6, BUN 26 H, Creatinine 1.70 H, Est GFR (MDRD) Af Amer 52 L, Est GFR (MDRD) Non-Af 43 L, BUN/Creatinine Ratio 15.3, Glucose 168 H, Calcium 9.2, Troponin I High Sens 339 H* Micro: Microbiology 08/16/23 20:40 Stool Stool Occult Blood (ANTONELLA) - Final Imagaing Radiology Impression Chest CTA 08/16/23 20:31 IMPRESSION: 1. Right lower lobe segmental pulmonary embolism. No saddle embolus or right heart strain. 2. Increased size of right lower lobe masslike consolidation, presumed to represent patient''s known neoplasm. 3. Similar right hilar and increased mediastinal adenopathy. 4. Nodular thickening of the left adrenal gland is new, suspicious for metastasis. Electronically Signed: Mario Hood MD (Brooks) at 22:04 EST , Assessment & Plan Assessment/Plan (1) Pulmonary embolism: QUALIFIERS: Acute cor pulmonale presence: unspecified Chronicity: acute Pulmonary embolism type: other Qualified Code(s): I26.99 - Other pulmonary embolism without acute cor pulmonale (2) Elevated troponin: (3) Chronic kidney disease: QUALIFIERS: Chronic kidney disease stage: stage 3 (moderate) Chronic kidney disease stage 3 subtype: stage 3b (GFR 30-44) Qualified Code(s): N18.32 - Chronic kidney disease, stage 3b (4) Right calf pain: PLAN: Plan 1. Acute pulmonary embolism - Admit to PCU. Continue IV heparin per protocol. Give Tylenol as needed for mild to moderate level 1-5 out of 10 pain or fever. Give morphine IV as needed for severe level 6-10 out of 10 pain. Check LE dopplers to evaluate for residual clot in case bleeding ensues and patient potentially requires IVC filter. 2. Elevated troponin of 338 pg/mL present on admission likely due to acute cardiac strain/non-STEMI type II arising from #1 - Continue ECASA plus add Plavix and statin. Serialize troponin. Patient already on full dose anticoagulation for #1. Check echocardiogram to evaluate left ventricular ejection fraction and to assess for potential signs of right heart strain. Finally, we will consult swimmer on-call to see this patient on rounds in the a.m. for further recommendations with help appreciated in advance. 3. 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 4. HUMAIRA; in the setting of CKD; stage II with creatinine increased from ~1.4 mg/dL at baseline to 1.7 mg/dl present on admission compounding #1 - #3 - Volume resuscitate and then recheck BMP in the AM to ensure correction. Follow strict I's & O's. Hold Metformin due to HUMAIRA and recent IV contrast dye administration. 5. Dark loose stools for the past 3 days adding to the pathology of #1 - #4 - Hemoccult stools negative. Start Protonix 40 mg daily. Also check stool studies to evaluate for potential underlying infection and start empiric Flagyl until infectious diarrhea ruled out with testing. Finally, we will type and screen blood in case transfusion becomes necessary. 6. Essential hypertension - Continue home regimen plus give prn IV Hydralazine for systolic blood pressure > 160 mm Hg. 7. Hyperlipidemia - Resume statin and check lipid profile this admission in light of #2. 8. DM-2; of unknown control - ADA diet. FSBS q. AC/HS plus SSI. Check HgbA1c to objectively evaluate quality of diabetic control. 9. Obesity; with BMI of 31.5 this admission - Weight loss recommended. 10. Erectile dysfunction; on as needed sildenafil - Noted. 11. Peripheral neuropathy - Stable. 12. History of migraine headaches - Stable with no complaints of headache at this time. 13. Glaucoma - Resume eye drops as previous. 14. Chronic sinusitis; with history of sinus surgery - Noted. 15. BPH - Stable. 16. History of renal calculi; status post ureteral stent - Noted. 17. GERD - Continue PPI. 18. Chronic gout - Stable with no evidence of acute flare at this time. 19. Osteoarthritis - Give Tylenol prn. 20. DVT prophylaxis - Patient on IV Heparin for anticoagulation for #1 and #2. Total time: Approximately 90 minutes. Charges/Coding Visit Charges Inpatient E&M: 31638 Init Hosp L3
[2023-08-16 22:43] VITALS: BMI 31.5
[2023-08-16 22:45] LABS: International Normalized Ratio 1.3; Prothrombin Time (Protime)PT. 15.8 SECONDS (11.7-14.9)
[2023-08-16 22:46] LABS: Partial Thromboplast Time 38.7 Seconds (24.1-36.2)
[2023-08-16] MEDS: Heparin Injection (Vial) 5,000 UNIT/ML VIAL 4000 UNIT IV (22:57)
[2023-08-16] MEDS: HEPARIN/D5w 25,000 UNITS 25,000 UNITS/250 ML IV.SOLN. 10 UNITS CONT INF (22:57)
[2023-08-16 23:22] LABS: Bedside Glucose 136 mg/dL (74-106)
--- OUTSIDE RECORDS SUMMARY | 2023-08-16 23:26 | XMS RPT_ITS | CCD ---
Demographics Address [address] [place] [address] Preferred Language Unknown Marital Status Presybeterian Affiliation Unknown Race Unknown Ethnic Group Unknown Author Name Unknown Address [address] [place] [address] Organization [facility] Results Test Name Value Interpretation [...] BE BASED ON THE PRIMARY CLINICAL RECORDS. [employer] provides no warranty or guarantee of the accuracy or completeness of information in this document.
[2023-08-16 23:48] VITALS: BP 151/69; PULSE 87; RESP 17; O2SAT 99
--- NOTE | 2023-08-16 23:58 | VDLE_ITS ---
Reason For Study: ELEVATED D-DIMER RIGHT LEFT GSV is compressible with thickened lazaro. GSV is compressible with thickened vessel CFV is compressible, spontaneous, phasic, lazaro. competent and demonstrates normal CFV is compressible, spontaneous, phasic, augmentation. competent, and demonstrates normal FV is compressible, spontaneous, phasic, augmentation. competent and demonstrates normal FV is compressible, spontaneous, phasic, augmentation. competent and demonstrates normal POP V is compressible, spontaneous, phasic, augmentation. competent and demonstrates normal POP V is compressible, spontaneous, phasic, augmentation. competent and demonstrates normal T/P Trunk is compressible. augmentation. PTV is compressible. T/P Trunk is compressible. RT PerV is compressible. PTV is compressible. Procedure LT PerV is compressible. This is a venous duplex using B-mode, color flow and spectral Doppler. Exam performed portable in patient room. The study was technically difficult. A preliminary report was called and/or faxed to [facility]. VL/Venous Duplex US - Bartolome Extrem Interpretation Summary Deep veins of the bilateral lower extremities are patent and compressible segme ntally. There is no evidence of bilateral lower extremity deep vein thrombosis. The bilateral great saphenous veins appear patent and compressible segmentally. Ordering Physician: Domingo Walden Referring Physician: Eusebio Durham Performed By: Eusebia Klein, WILI, RVT
[2023-08-17] VITALS (7 sets, daily range): BP systolic 130–151; BP diastolic 58–86; PULSE 82–100; RESP 16–18; TEMP 36.6–37.2; O2SAT 95–100; BMI 28.8
--- NOTE | 2023-08-17 00:02 | ECHOCS_ITS ---
Reason For Study: PE Procedure This was a 2D Doppler, Color Flow transthoracic echocardiogram. The study was technically difficult. Exam performed portable in patient room. Left Ventricle Normal LV size. Mild concentric left ventricular hypertrophy. Left ventricular systolic function is normal. The left ventricular ejection fraction is 55 %. No regional wall motion abnormalities noted. Right Ventricle Normal RV size. Normal systolic function. Atria Normal left atrium. Normal right atrium. Mitral Valve Normal mitral valve. Tricuspid Valve The tricuspid valve is not well visualized. Unable to estimate RV systolic pressure due to inadequate jet, pulmonary artery pressure probably normal. Aortic Valve Trisinus/trileaflet aortic valve. Pulmonic Valve Normal pulmonic valve. Great Vessels Normal aortic root. The pulmonary artery is normal size. Normal inferior vena cava. Pericardium/Pleural No pericardial effusion. Medication Diluted definity 2ml given slow IV push to enhance endocardial definition. MMode/2D Measurements & Calculations LVIDd: 4.5 cm IVSd: 1.3 cm Ao root diam: 3.1 cm LVIDs: 2.7 cm LVPWd: 1.2 cm RVDd: 3.6 cm FS: 40.3 % LAV(MOD-bp): 40.7 ml LVAd ap4: 30.7 cm2 LVAd ap2: 27.8 cm2 LAV(MOD-bp) Indexed: 21.2 ml/m2 LVLd ap4: 7.9 cm LVLd ap2: 7.9 cm LAV(MOD-sp2): 39.6 ml EDV(MOD-sp4): 100.0 ml EDV(MOD-sp2): 83.4 ml LAV(MOD-sp4): 37.8 ml EDV(sp4-el): 101.5 ml EDV(sp2-el): 83.8 ml LVAs ap4: 20.1 cm2 LVAs ap2: 14.3 cm2 LVLs ap4: 7.8 cm LVLs ap2: 6.6 cm ESV(MOD-sp4): 45.6 ml ESV(MOD-sp2): 26.3 ml ESV(sp4-el): 44.3 ml ESV(sp2-el): 26.3 ml EF(MOD-sp4): 54.4 % EF(MOD-sp2): 68.5 % EF(sp4-el): 56.3 % SV(MOD-sp4): 54.4 ml SV(MOD-sp2): 57.1 ml SV(sp4-el): 57.1 ml LA A4 area: 15.4 cm2 LA dimension(2D): 3.1 cm RA A4 area: 12.3 cm2 Time Measurements MV dec time: 0.17 sec Doppler Measurements & Calculations MV E max osman: 83.0 cm/sec Lat Peak E' Osman: 12.5 cm/sec Med Peak E' Osman: 9.0 cm/sec MV A max osman: 66.2 cm/sec E/E' lat: 6.7 E/E' med: 9.2 MV E/A: 1.3 Ao V2 max: 130.6 cm/sec LV V1 max: 95.9 cm/sec MV dec slope: 493.5 cm/sec2 Ao max P.8 mmHg LV V1 max P.7 mmHg Ao V2 mean: 85.9 cm/sec LV V1 mean P.8 mmHg Ao mean P.5 mmHg LV V1 mean: 61.9 cm/sec Ao V2 VTI: 26.8 cm LV V1 VTI: 17.2 cm AV (velocity ratio): 0.64 PA V2 max: 134.1 cm/sec PA V2 mean: 90.7 cm/sec ECHO/Echo Complete W/ Contrast Interpretation Summary Normal LV size. Left ventricular systolic function is normal. The left ventricular ejection fraction is 55 %. Contrast injection was performed. Ordering Physician: Domingo Walden Referring Physician: Eusebio Durham MD Performed By: Tiesha Weaver RDCS
--- OUTSIDE RECORDS SUMMARY | 2023-08-17 00:53 | XMS RPT_ITS | CCD ---
Demographics Address [address] [place] [address] Preferred Language Unknown Marital Status Hinduism Affiliation Unknown Race Unknown Ethnic Group Unknown Author Name Unknown Address [address] [place] [address] Organization [facility] Results Test Name Value Interpretation [...] BE BASED ON THE PRIMARY CLINICAL RECORDS. [employer] provides no warranty or guarantee of the accuracy or completeness of information in this document.
[2023-08-17 01:11] LABS: Hemoglobin A1c 6.1 % (3.8-5.6)
[2023-08-17] MEDS: Acetaminophen 325 MG Tablet 650 MG PO ×3 (02:10→22:15)
[2023-08-17] MEDS: Morphine 2 MG/ML Syringe IV (02:11)
[2023-08-17] MEDS: metroNIDAZOLE 500 MG/100 ML BAG 100 MG IV ×3 (02:11→22:09)
[2023-08-17] MEDS: oxyCODONE 5 MG Tablet PO ×3 (02:11→22:15)
[2023-08-17] MEDS: 0.9% Normal Saline (1000mL) 1,000 ML 125 ML IV ×3 (02:11→22:09)
[2023-08-17 06:00] LABS: Absolute Lymphocyte Count 2.74 X10^3/uL (0.83-4.51); Absolute Neutrophil Count 6.6 X10^3/uL (2.0-7.7); Basophil# 0.04 X10^3/uL; Basophil% 0.4 % (0-1); Eosinophils% 0.9 % (0-5); Hematocrit 22.9 % (40-54); Hemoglobin 7.7 g/dL (13.0-16.5); Lymphocyte # 2.74 X10^3/ul (0.83-4.51); Mean Corp Hgb Conc 33.6 g/dL (32-36); Mean Corpuscular Hgb 24.7 pg (27.0-32.0); Mean Corpuscular Volume 73.4 fL (80-94); Mean Platelet Vol. 11.3 fl (6.2-12.0); Monocyte# 0.95 X10^3/uL; NRBC Flagged by Analyzer 0 % (0-5); Neutrophil # 6.64 X10^3/uL (2.7-7.7); Neutrophil % 62.9 % (47-70); Platelet Count 236 K/mm3 (150-450); RBC Distribution Width CV 14.6 % (11.6-14.6); RBC Distribution Width SD 38.7 fl (35.1-43.9); Red Blood Count 3.12 M/mm3 (4.6-6.2); White Blood Count 10.6 K/mm3 (4.4-11.0)
[2023-08-17] MEDS: Dicyclomine 10 MG Capsule PO ×3 (06:08→22:09)
[2023-08-17 06:13] LABS: Partial Thromboplast Time 70.1 Seconds (24.1-36.2)
[2023-08-17 06:33] LABS: ALB/GLOB Ratio 0.8 RATIO (0.9-2.4); AST(SGOT) 32 U/L (15-37); Alanine Aminotransfer ALT/SGPT 24 U/L (16-61); Alkaline Phosphatase 91 U/L (45-117); Anion Gap 10 (5-15); BUN 22 mg/dL (7-18); BUN/Creat Ratio 16.5 RATIO (10-20); Calcium,Total 8.2 mg/dL (8.5-10.1); Chloride 108 mmol/L (98-107); Creatinine, Serum 1.33 mg/dL (0.70-1.30); EST Glomerular Filtration Rate 57 mL/min (>60); Est Glom Filt Rate - Afr Amer 69 mL/min (>60); Globulin 3.8 g/dL (2.2-4.2); Glucose 116 mg/dL (74-106); Magnesium 1.9 mg/dL (1.6-2.6); Phosphorus 2.9 mg/dL (2.5-4.9); Potassium 3.7 mmol/L (3.5-5.1); Protein, Total 6.8 g/dL (6.4-8.2); Sodium Level 141 mmol/L (136-145); Thyroid Stim Hormone (TSH) 1.49 uIU/mL (0.358-3.74)
[2023-08-17 06:36] LABS: Bedside Glucose 116 mg/dL (74-106)
[2023-08-17 08:32] LABS: Troponin-I HS 300 pg/mL (3.0-78.0)
--- NOTE | 2023-08-17 08:49 | PN.HOSP_ITS ---
Subjective Subjective Feels better. Breathing is better, now on room air. Right calf pain resolved. Swelling in RLE resolved. Objective Data Objective Data Vital Signs: Vital Signs Temp Pulse Resp BP Pulse Ox O2 Del Method 36.9 C 83 16 130/86 H 97 Room Air 08/17/23 06:00 08/17/23 06:00 08/17/23 06:00 08/17/23 06:00 08/17/23 06:00 08/17/23 06:00 Oxygen Delivery Method Room Air Weight: 83.4 kg Body Mass Index (BMI) 28.8 Intake & Output: Intake and Output for Last 24 Hours 08/15/23 08/16/23 08/17/23 23:59 23:59 23:59 Intake Total 173.33 / 173.33 Output Total 250 / 250 Balance -76.67 / -76.67 Lab / Micro Data 08/17/23 04:52 08/17/23 04:52 Labs: Laboratory Results - last 24 hr 08/16/23 20:34: WBC 12.2 H, RBC 3.43 L, Hgb 8.5 L, Hct 25.4 L, MCV 74.1 L, MCH 24.8 L, MCHC 33.5, RDW Std Deviation 39.1, RDW Coeff of Lesley 14.6, Plt Count 266, MPV 11.6, Immature Gran % (Auto) 0.700, Neut % (Auto) 68.6, Lymph % (Auto) 21.6, [place] % (Auto) 8.5, Eos % (Auto) 0.3, Baso % (Auto) 0.3, Absolute Neuts (auto) 8 .3 H, Absolute Lymphs (auto) 2.62, Nucleated RBC % 0, PT 15.8 H, INR 1.3, APTT 38.7 H, Sodium 139, Potassium 3.9, Chloride 107, Carbon Dioxide 26.0, Anion Gap 6, BUN 26 H, Creatinine 1.70 H, Est GFR (MDRD) Af Amer 52 L, Est GFR (MDRD) Non- Af 43 L, BUN/Creatinine Ratio 15.3, Glucose 168 H, Calcium 9.2, Troponin I High Sens 339 H* 08/16/23 23:05: POC Glucose 136 H 08/17/23 00:40: Hemoglobin A1c 6.1 H, Blood Type O POSITIVE, Antibody Screen NEGATIVE 08/17/23 04:52: WBC 10.6, RBC 3.12 L, Hgb 7.7 L, Hct 22.9 L, MCV 73.4 L, MCH 24.7 L, MCHC 33.6, RDW Std Deviation 38.7, RDW Coeff of Lesley 14.6, Plt Count 236, MPV 11.3, Immature Gran % (Auto) 0.800, Neut % (Auto) 62.9, Lymph % (Auto) 26.0, [place] % (Auto) 9.0, Eos % (Auto) 0.9, Baso % (Auto) 0.4, Absolute Neuts (auto) 6.6, Absolute Lymphs (auto) 2.74, Nucleated RBC % 0, APTT 70.1 H, Sodium 141, Potassium 3.7, Chloride 108 H, Carbon Dioxide 23.0, Anion Gap 10, BUN 22 H, Creatinine 1.33 H, Estim Creat Clear Calc 49.70, Est GFR (MDRD) Af Amer 69, Est GFR (MDRD) Non-Af 57 L, BUN/Creatinine Ratio 16.5, Glucose 116 H, Calcium 8.2 L, Phosphorus 2.9, Magnesium 1.9, Total Bilirubin 0.70, AST 32, ALT 24, Alkaline Phosphatase 91, Total Protein 6.8, Albumin 3.0 L, Globulin 3.8, Albumin/Globulin Ratio 0.8 L, TSH 1.49 08/17/23 06:02: POC Glucose 116 H 08/17/23 07:17: Troponin I High Sens 300 H* Micro: Microbiology 08/16/23 20:40 Stool Stool Occult Blood (ANTONELLA) - Final Radiography Diagnostic Testing: Radiology Impression Chest CTA 08/16/23 20:31 IMPRESSION: 1. Right lower lobe segmental pulmonary embolism. No saddle embolus or right heart strain. 2. Increased size of right lower lobe masslike consolidation, presumed to represent patient''s known neoplasm. 3. Similar right hilar and increased mediastinal adenopathy. 4. Nodular thickening of the left adrenal gland is new, suspicious for metastasis. Electronically Signed: Mario Hood MD (Brooks) at 22:04 EST Reading Location ID and State: [facility] / [place] , Service support , Physical Exam Const alert and no apparent distress Resp normal respiratory effort, no retractions, no use of accessory muscles and clear to auscultation bilaterally Cardio regular rate, regular rhythm, S1 normal heart sound and S2 normal heart sound GI normal to inspection, nondistended, normoactive bowel sounds, soft to palpation, non-tender and non-distended Extremity normal to inspection and no clubbing, cyanosis or edema Extremity Narrative: no calf tenderness. Neuro Sensorium / Orientation: awake and alert Assessment & Plan Assessment/Plan (1) Pulmonary embolism: QUALIFIERS: Acute cor pulmonale presence: unspecified Chronicity: acute Pulmonary embolism type: other Qualified Code(s): I26.99 - Other pulmonary embolism without acute cor pulmonale (2) Elevated troponin: (3) Chronic kidney disease: QUALIFIERS: Chronic kidney disease stage: stage 3 (moderate) Chronic kidney disease stage 3 subtype: stage 3b (GFR 30-44) Qualified Code(s): N18.32 - Chronic kidney disease, stage 3b (4) Right calf pain: PLAN: Plan Acute pulmonary embolism * May be malignancy-associated * Continue IV heparin per protocol. * Check LE dopplers to evaluate for residual clot in case bleeding ensues and patient potentially requires IVC filter. * check echo NSTEMI * likely type II demand ischemia from acute PE * Elevated troponin of 338 pg/mL present on admission * Continue ASA * Check echocardiogram to evaluate left ventricular ejection fraction and to assess for potential signs of right heart strain. * DW Dr. Castrejon, will hold off on cardiology consult as this is likely attributable to the PE. Anemia * 8.5 to 7.7 * Was 13.1 in May. Previously seen black stools. * TSH WNL. Hemoccult negative. * Previously, B12, Folate, iron studies were WNL. Repeat B12 pending. Folate WNL. Iron low. * Even though hemoccult negative, with his iron-deficiency anemia would consult GI about endoscopy. HUMAIRA: * not present. Baseline creatinine 1.34. Admission creatinine 1.7. Adenocarcinoma of the lung * pt underwent lung biopsy on 08/12 of RLL lesion. * CTA showed increased size of RLL consolidation. Nodular thickening of the left adrenal gland, new. * Pt scheduled to have PET scan on the . * Notified of diagnosis on the 5th. Per that note, was deciding on oncologist to follow up with. Chronic conditions: * History of tobacco abuse with subsequent * adenocarcinoma of the lung with suspected metastasis to the adrenal gland * Essential hypertension - Continue home regimen plus give prn IV Hydralazine for systolic blood pressure > 160 mm Hg. * Hyperlipidemia - Resume statin and check lipid profile this admission in light of #2. * DM-2: NID. Hold metformin due to IV contrast., resume 08/21. a1c 6.1. Pioglitazone. SSI. * Obesity; with BMI of 31.5 this admission - Weight loss recommended. * Erectile dysfunction; hold sildenafil * Peripheral neuropathy - Stable. * History of migraine headaches - Stable with no complaints of headache at this time. Hold any triptans until echo * Glaucoma - Resume eye drops as previous. * Chronic sinusitis; with history of sinus surgery * BPH - Stable. * History of renal calculi; status post ureteral stent * GERD - Continue PPI. * Chronic gout - Stable with no evidence of acute flare at this time. * Osteoarthritis - Give Tylenol prn. DVT prophylaxis - not indicated as patient on IV Heparin for anticoagulation Discussed with patient's son at bedside. Charges/Coding Visit Charges Inpatient E&M: 26959 Subs Hosp L3
[2023-08-17 10:15] LABS: Ferritin 184 ng/mL (26-388); Iron 15 ug/dL (65-175); Iron Binding Capacity,Total 353 ug/dL (250-450); PERCENT IRON SATURATION 4.2 % (15.0-55.0)
[2023-08-17 12:16] LABS: Partial Thromboplast Time 56.8 Seconds (24.1-36.2)
[2023-08-17] MEDS: Cholecalciferol (VIT D3) 25 MCG TABLET (1,000 UNITS) 50 MCG PO (12:49)
[2023-08-17] MEDS: Pantoprazole Sodium 40 MG Tablet PO (12:49)
[2023-08-17] MEDS: Multivitamins,Ther W-Minerals Tablet 1 TABLET PO (12:50)
[2023-08-17] MEDS: Aspirin E.C. 81 MG Tablet PO (12:51)
[2023-08-17] MEDS: Insulin Lispro 100 UNIT/ML INSULN.PEN SC (13:03)
[2023-08-17 13:14] LABS: Bedside Glucose 186 mg/dL (74-106)
[2023-08-17] MEDS: Sodium Ferric Gluconat/Sucrose 250 MG in 0.9% Normal Saline (250mL Bag) 250 ML 135 MG IV (16:00)
[2023-08-17] MEDS: Glucerna Shake 120 ML LIQUID PO ×3 (16:04→22:09)
[2023-08-17 16:30] LABS: Bedside Glucose 121 mg/dL (74-106)
[2023-08-17 18:00] LABS: Partial Thromboplast Time 64.4 Seconds (24.1-36.2)
--- NOTE | 2023-08-17 20:11 | EX.PCM.CON.G ---
HPI Consult Data Date of Consult: 08/17/23 HPI Narrative Reason for Consultation: Anemia HPI Narrative: DAMON OSORIO, is a 68 M who presentswith leg pain. He has a past medical history essential hypertension, hyperlipidemia, DM-2; of unknown control, obesity; with BMI of 31.5 this admission, history of tobacco abuse for 25 years; with subsequent adenocarcinoma of the Right lung with recent biopsy last week, CKD; stage II with baseline creatinine of ~1.4 mg/dL and eGFR of 54 mL/min. He presents to [facility] ER complaining of shortness of breath, Right calf pain and loose, dark stools. He reports his symptoms began yesterday with the abrupt onset of Right calf pain and then earlier today his Right calf pain became more severe which also coincided with development of severe shortness of breath. He also states that he has not felt good since he had his lung biopsy performed on Saturday, August 12, 2023, with him feeling progressively more short of breath since that time. He also admits to intermittent generalized abdominal achiness with black loose stools for the past 3 days but he denies any history of gastric ulcers or obvious blood in his stools. He denies associated fever, chills, chest pain, nausea or vomiting but he does admit to taking two baby aspirin in the last 24 hours as prophylaxis against cardiovascular events because he is a diabetic. 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 with mild [facility] Medical History Back pain Blood in stool Diabetes Dietary restriction Former smoker Gout High cholesterol History of renal disease Kidney stones Lightheadedness Migraines Neuropathy Prostate disease Shortness of breath on exertion Wears dentures Wears glasses Home Medications aspirin 81 mg tablet,delayed release 81 mg PO DAILY@0800 01/17/15 [History Last Taken Unknown] metformin 500 mg tablet 500 mg PO DAILY diabetes 01/17/15 [History Last Taken Unknown] metformin 500 mg tablet 1,000 mg PO QHS diabetes 04/29/19 [History Last Taken Unknown] multivitamin with minerals 1 ea PO DAILY supplement 04/29/19 [History Last Taken Unknown] acetaminophen 325 mg tablet 650 mg (2 x 325 mg) PO Q4H PRN PRN Mild-Moderate Pain (1-5/10) 04/30/19 [Rx Last Taken Unknown] gbnswzz-zomgdvwqxvcvq-fkhpvukh 250 mg-250 mg-65 mg tablet (Excedrin Migraine) 1 tab PO Q6H PRN MIGRAINES 01/14/22 [History Last Taken Unknown] atorvastatin 10 mg tablet 10 mg PO QHS cholesterol 01/14/22 [History Last Taken Unknown] diclofenac sodium 1 % topical gel 1 g topical Q6H PRN pain 01/14/22 [History Last Taken Unknown] pioglitazone 30 mg tablet (Actos) 30 mg PO QHS diabetes 01/14/22 [History Last Taken Unknown] sildenafil 100 mg tablet 100 mg PO PRN PRN Erectile Dysfunction 01/14/22 [History Last Taken Unknown] cholecalciferol (vitamin D3) 50 mcg (2,000 unit) capsule 50 mcg PO DAILY supplement 06/17/23 [History Last Taken Unknown] dicyclomine 10 mg capsule 10 mg PO TID abdominal pain/cramping 07/14/23 [History Last Taken Unknown] oxycodone 5 mg tablet 5 mg PO TID pain 07/14/23 [History Last Taken Unknown] latanoprost 0.005 % eye drops 1 drp ophthalmic (eye) QHS mucous in eyes 07/18/23 [History Last Taken Unknown] fluticasone propionate 50 mcg/actuation nasal spray,suspension (Allergy Relief (fluticasone)) 1 spray intranasal BID #16 grams 08/15/23 [Rx Last Taken Unknown] Allergy/AdvReac Type Severity Reaction Status Date / Time No Known Allergies Allergy Verified 08/15/23 13:07 Family History Mother Cancer pt unsure what type Sister Diabetes Surgical History History of ureter stent Hx of appendectomy Hx of colonoscopy Hx of hemorrhoidectomy Hx of inguinal hernia repair Hx of sinus surgery Social History Smoking Status: Former smoker alcohol intake: former substance use type: does not use ROS ROS Narrative Review of systems: General: Patient denies fevers or chills. HENT: Denies headache, denies stuffy nose, denies sore throat EYES: Denies changes in vision Resp: Patient admits to shortness of breath but denies cough, tachypnea or wheezing. Cardiac: Denies chest pain palpitations. GI: Patient admits to dark stools but denies abdominal pain, nausea or vomiting. : Denies changes in urination or dysuria. Extremity: Denies swelling Musculoskeletal: Feels somewhat generally weak and unwell Neuro: Denies any numbness/tingling Heme: Patient admits to dark stools but denies any other recent attention bleeding. Skin: Denies rashes Psychiatric: No complaints voiced Endocrine: No polyuria, polyphagia or polydipsia. Allergic: Patient denies lip swelling, tongue swelling or urticaria. The rest of the 14 point ROS was negative except for positives in HPI. Physical Exam Const alert and no apparent distress Resp normal respiratory effort, no retractions, no use of accessory muscles and clear to auscultation bilaterally Cardio regular rate, regular rhythm, S1 normal heart sound and S2 normal heart sound GI normal to inspection, nondistended, normoactive bowel sounds, soft to palpation, non-tender and non-distended Extremity normal to inspection and no clubbing, cyanosis or edema Extremity Narrative: no calf tenderness. Neuro Sensorium / Orientation: awake and alert Medical Records Data Medical Nutrition Assessment Dietitian: Malnutrition Criteria Met Start: 08/17/23 13:47 Freq: Status: Active Protocol: Document 08/17/23 13:47 LALA (Rec: 08/17/23 13:47 [facility] [id number]) Nutrition Malnutrition Evidence of Malnutrition Exists Yes Malnutrition (severe): Acute Illness/Injury Evidenced By Suboptimal Energy Intake ( Severe),Weight Loss (Severe) Clinical Problem Acute Disease or Injury Related Malnutrition Etiology related to acute illness and inadequate energy intake Signs/Symptoms as evidenced by <75% po intake of est nutritional needs and 8.1% unintended wt loss in past week Status Active Problem Recommendation Dietitian Recommendations/Changes Will change diet to CHO Control / No Added Salt Will order glucerna shake 4x/ day w/ medpass for increased nutrition if consumed Lab / Micro Data 08/17/23 04:52 08/17/23 04:52 Labs: Laboratory Results - last 24 hr 08/16/23 20:34: WBC 12.2 H, RBC 3.43 L, Hgb 8.5 L, Hct 25.4 L, MCV 74.1 L, MCH 24.8 L, MCHC 33.5, RDW Std Deviation 39.1, RDW Coeff of Lesley 14.6, Plt Count 266, MPV 11.6, Immature Gran % (Auto) 0.700, Neut % (Auto) 68.6, Lymph % (Auto) 21.6, Brooke % (Auto) 8.5, Eos % (Auto) 0.3, Baso % (Auto) 0.3, Absolute Neuts (auto) 8.3 H, Absolute Lymphs (auto) 2.62, Nucleated RBC % 0, PT 15.8 H, INR 1.3, APTT 38.7 H, Sodium 139, Potassium 3.9, Chloride 107, Carbon Dioxide 26.0, Anion Gap 6, BUN 26 H, Creatinine 1.70 H, Est GFR (MDRD) Af Amer 52 L, Est GFR (MDRD) Non-Af 43 L, BUN/Creatinine Ratio 15.3, Glucose 168 H, Calcium 9.2, Troponin I High Sens 339 H* 08/16/23 23:05: POC Glucose 136 H 08/17/23 00:40: Hemoglobin A1c 6.1 H, Blood Type O POSITIVE, Antibody Screen NEGATIVE 08/17/23 04:52: WBC 10.6, RBC 3.12 L, Hgb 7.7 L, Hct 22.9 L, MCV 73.4 L, MCH 24.7 L, MCHC 33.6, RDW Std Deviation 38.7, RDW Coeff of Lesley 14.6, Plt Count 236, MPV 11.3, Immature Gran % (Auto) 0.800, Neut % (Auto) 62.9, Lymph % (Auto) 26.0, Brooke % (Auto) 9.0, Eos % (Auto) 0.9, Baso % (Auto) 0.4, Absolute Neuts (auto) 6.6, Absolute Lymphs (auto) 2.74, Nucleated RBC % 0, APTT 70.1 H, Sodium 141, Potassium 3.7, Chloride 108 H, Carbon Dioxide 23.0, Anion Gap 10, BUN 22 H, Creatinine 1.33 H, Estim Creat Clear Calc 49.70, Est GFR (MDRD) Af Amer 69, Est GFR (MDRD) Non-Af 57 L, BUN/Creatinine Ratio 16.5, Glucose 116 H, Calcium 8.2 L, Phosphorus 2.9, Magnesium 1.9, Total Bilirubin 0.70, AST 32, ALT 24, Alkaline Phosphatase 91, Total Protein 6.8, Albumin 3.0 L, Globulin 3.8, Albumin/Globulin Ratio 0.8 L, TSH 1.49 08/17/23 06:02: POC Glucose 116 H 08/17/23 07:17: Iron 15 L, TIBC 353, Iron Saturation 4.2 L, Ferritin 184, Troponin I High Sens 300 H*, Folate 27.40 08/17/23 11:48: APTT 56.8 H 08/17/23 12:48: POC Glucose 186 H 08/17/23 16:06: POC Glucose 121 H 08/17/23 17:25: APTT 64.4 H Micro: Microbiology 08/16/23 20:40 Stool Stool Occult Blood (ANTONELLA) - Final Imagaing Radiology Impression Chest CTA 08/16/23 20:31 IMPRESSION: 1. Right lower lobe segmental pulmonary embolism. No saddle embolus or right heart strain. 2. Increased size of right lower lobe masslike consolidation, presumed to represent patient''s known neoplasm. 3. Similar right hilar and increased mediastinal adenopathy. 4. Nodular thickening of the left adrenal gland is new, suspicious for metastasis. Electronically Signed: Mario Hood MD (Brooks) at 22:04 EST Reading Location ID and State: [facility] / [place] , Service support , Assessment & Plan Assessment/Plan (1) Pulmonary embolism: QUALIFIERS: Pulmonary embolism type: other Chronicity: acute Acute cor pulmonale presence: unspecified Qualified Code(s): I26.99 - Other pulmonary embolism without acute cor pulmonale (2) Elevated troponin: (3) Chronic kidney disease: QUALIFIERS: Chronic kidney disease stage: stage 3 (moderate) Chronic kidney disease stage 3 subtype: stage 3b (GFR 30-44) Qualified Code(s): N18.32 - Chronic kidney disease, stage 3b (4) Right calf pain: PLAN: Plan -Acute pulmonary embolism -patient is on heparin drip -Elevated troponin of 338 pg/mL present on admission likely due to acute cardiac strain/non-STEMI type II arising from #1 - Continue ECASA plus add Plavix and statin. Serialize troponin. Patient already on full dose anticoagulation for #1. Check echocardiogram to evaluate left ventricular ejection fraction and to assess for potential signs of right heart strain. Finally, we will consult mold filler plastic dolls on-call to see this patient on rounds in the a.m. for further recommendations with help appreciated in advance. 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 -Progressive anemia. Dark loose stools for the past 3 days adding to the pathology of #1 - #4 - Hemoccult stools negative. Started on Protonix 40 mg daily. He will undergo a upper endoscopy tomorrow for evaluation of his upper GI tract for a GI blood loss source as he has not had a procedure done in the past. He did have a colonoscopy done by Dr. Blue about a month ago that did not reveal any signs of GI blood loss. Charges/Coding Visit Charges Inpatient E&M: 16647 Init Hosp L3
[2023-08-17] MEDS: Fluticasone 0.05% 1 SPRAY NASAL.SRY NASAL (22:08)
[2023-08-17] MEDS: Latanoprost 0.005% 1 Bottle 1 DRP OPHTHALMIC (22:08)
[2023-08-17] MEDS: Pioglitazone Hydrochloride 30 MG Tablet PO (22:09)
[2023-08-17] MEDS: Atorvastatin Calcium 10 MG Tablet PO (22:09)
[2023-08-17 22:50] LABS: Bedside Glucose 112 mg/dL (74-106)
[2023-08-17 23:16] LABS: Partial Thromboplast Time 67.2 Seconds (24.1-36.2)
[2023-08-17] MEDS: HEPARIN/D5w 25,000 UNITS 25,000 UNITS/250 ML IV.SOLN. 9 UNITS CONT INF (23:56)
[2023-08-18] VITALS (8 sets, daily range): BP systolic 120–143; BP diastolic 65–84; PULSE 80–91; RESP 16–17; TEMP 36.6–37.2; O2SAT 96–98; BMI 28.8
--- NOTE | 2023-08-18 | EGD_PTH ---
PATHOLOGY RESULTS PATIENT: DAMON OSORIO LOC: [facility] U#:[id number] AGE/SX: 68/M ROOM: [facility] RE08/16/[address]: Dr. Kaden Hernández DO : 1955 BED: 1 DIS: 08/19/2023 SPEC #: [id number] RECD: 08/18/23 13:47 STATUS: MADYSON REQ #: [id number] JABARI: 08/18/23 00:[address]: Lazaro Marquez DEPT: SURGICAL PATHOLOGY RECD BY: Julio Chaparro ENTERED: 08/18/23 13:47 SP TYPE: EGD BIOPSY OTHR DR: DO Dr. Domingo Mcintosh DO Dr. Eric Jopperi, DO Dr. Eusebio Durham MD Tissues: Duodenum, NOS Procedures: Surgery Specimen Level IV Comments: @ Ordering doctor for SUIV edited from to @ by ALLYSSA at 08/18/23 1549 @ Submitting doctor edited from to @ by ALLYSSA at 08/18/23 1549 HEADER OPERATION: EGD with biopsy PRE-OP DIAGNOSIS: Anemia TISSUE SUBMITTED: Duodenum biopsy MICROSCOPIC DIAGNOSIS Duodenum, biopsy: Focal recent mucosal hemorrhage. AM:joyce 08/19/2023 MICROSCOPIC DESCRIPTION Slides are reviewed. GROSS DESCRIPTION Received in fixative is one container labeled with the patient's name and designated duodenum biopsy. The specimen consists of two irregular fragments of light galvan soft tissue that in aggregate measure 0.6 x 0.3 x 0.1 cm. The specimen is totally submitted in one cassette. / SJ:joyce 08/18/2023 TC:5 CPT: 09274
--- NOTE | 2023-08-18 06:00 | EKG12_ITS ---
Test Reason : am ekg Blood Pressure : / mmHG Vent. Rate : 082 BPM Atrial Rate : 082 BPM P-R Int : 154 ms QRS Dur : 080 ms QT Int : 372 ms P-R-T Axes : 069 023 -01 degrees QTc Int : 434 ms Normal sinus rhythm Normal ECG When compared with ECG of 16-AUG-2023 20:11, MANUAL COMPARISON REQUIRED, DATA IS UNCONFIRMED Confirmed by OLESYA SANTIAGO, DIAZ ([id number]), publications editor SANTO RAMIREZ ([id number]) on 08/19/2023 10:20:34 AM Referred By: Rodriguez Confirmed By:DIAZ DACOSTA MD
[2023-08-18] MEDS: metroNIDAZOLE 500 MG/100 ML BAG 100 MG IV ×3 (06:01→22:02)
[2023-08-18 06:23] LABS: Bedside Glucose 112 mg/dL (74-106)
[2023-08-18 06:55] LABS: Absolute Lymphocyte Count 2.34 X10^3/uL (0.83-4.51); Absolute Neutrophil Count 5.9 X10^3/uL (2.0-7.7); Basophil# 0.05 X10^3/uL; Basophil% 0.5 % (0-1); Eosinophil# 0.24 X10^3/uL; Eosinophils% 2.6 % (0-5); Hematocrit 23.3 % (40-54); Hemoglobin 7.9 g/dL (13.0-16.5); Lymphocyte # 2.34 X10^3/ul (0.83-4.51); Mean Corp Hgb Conc 33.9 g/dL (32-36); Mean Corpuscular Volume 73.7 fL (80-94); Mean Platelet Vol. 11.3 fl (6.2-12.0); Monocyte# 0.77 X10^3/uL; Monocyte% 8.2 % (0-10); NRBC Flagged by Analyzer 0 % (0-5); Neutrophil # 5.88 X10^3/uL (2.7-7.7); Neutrophil % 62.8 % (47-70); Platelet Count 260 K/mm3 (150-450); RBC Distribution Width CV 14.7 % (11.6-14.6); RBC Distribution Width SD 39.7 fl (35.1-43.9); Red Blood Count 3.16 M/mm3 (4.6-6.2); White Blood Count 9.4 K/mm3 (4.4-11.0)
[2023-08-18 07:02] LABS: Partial Thromboplast Time 71.6 Seconds (24.1-36.2)
[2023-08-18 07:12] LABS: Anion Gap 4 (5-15); BUN 15 mg/dL (7-18); BUN/Creat Ratio 12.4 RATIO (10-20); Calcium,Total 8.6 mg/dL (8.5-10.1); Chloride 113 mmol/L (98-107); Creatinine, Serum 1.21 mg/dL (0.70-1.30); EST Glomerular Filtration Rate 63 mL/min (>60); Est Glom Filt Rate - Afr Amer 77 mL/min (>60); Estimated Creatinine Clearance 54.63 ml/min; Glucose 119 mg/dL (74-106); Potassium 3.9 mmol/L (3.5-5.1); Sodium Level 141 mmol/L (136-145)
[2023-08-18] MEDS: 0.9% Normal Saline (1000mL) 1,000 ML 125 ML IV ×2 (07:47→18:51)
[2023-08-18] MEDS: Multivitamins,Ther W-Minerals Tablet 1 TABLET PO (07:48)
[2023-08-18] MEDS: Cholecalciferol (VIT D3) 25 MCG TABLET (1,000 UNITS) 50 MCG PO (07:49)
[2023-08-18] MEDS: Aspirin E.C. 81 MG Tablet PO (07:49)
[2023-08-18] MEDS: Pantoprazole Sodium 40 MG Tablet PO (07:50)
[2023-08-18] MEDS: Acetaminophen 325 MG Tablet 650 MG PO (07:53)
[2023-08-18] MEDS: Lactated Ringers 1,000 ML 15 ML IV (09:02)
[2023-08-18 09:46] LABS: Vitamin B12 231 pg/mL (211-911)
--- NOTE | 2023-08-18 10:02 | SUR.PREOP ---
Patient's heparin paused at 08/18/23 0741 per OCT. Anesthesia aware. Anesthesia's protocol to wait 5 hours after heparin administration before surgical procedure. Dr. Marquez made aware of this protocol, wish to procedure.
--- NOTE | 2023-08-18 12:23 | OP.EGD_ITS ---
Patient Name: Arya Brock Procedure Date: 08/18/2023 12:02 PM Date of : 1955 Age: 68 Procedure: Upper GI endoscopy Indications: Iron deficiency anemia, Melena Providers: Lazaro Marquez DO Medicines: Monitored Anesthesia Care Patient Profile: This is a 68 year old male. Refer to note in patient chart for documentation of history and physical. Patient has symptoms of acute epigastric abdominal pain. Complications: No immediate complications. Procedure: Pre-Anesthesia Assessment: - Prior to the procedure, a History and Physical was performed, and patient medications and allergies were reviewed. The patient is competent. The risks and benefits of the procedure and the sedation options and risks were discussed with the patient. All questions were answered and informed consent was obtained. Patient identification and proposed procedure were verified by the physician in the pre-procedure area. Mental Status Examination: alert and oriented. Airway Examination: normal oropharyngeal airway and neck mobility. Respiratory Examination: clear to auscultation. CV Examination: normal. Prophylactic Antibiotics: The patient does not require prophylactic antibiotics. Prior Anticoagulants: The patient has taken heparin, last dose was day of procedure. ASA Grade Assessment: III - A patient with severe systemic disease. After reviewing the risks and benefits, the patient was deemed in satisfactory condition to undergo the procedure. The anesthesia plan was to use monitored anesthesia care (MAC). Immediately prior to administration of medications, the patient was re-assessed for adequacy to receive sedatives. The heart rate, respiratory rate, oxygen saturations, blood pressure, adequacy of pulmonary ventilation, and response to care were monitored throughout the procedure. The physical status of the patient was re-assessed after the procedure. After obtaining informed consent, the endoscope was passed under direct vision. Throughout the procedure, the patient's blood pressure, pulse, and oxygen saturations were monitored continuously. The gastroscope was introduced through the mouth, and advanced to the second part of duodenum. The upper GI endoscopy was accomplished without difficulty. The patient tolerated the procedure well. Scope In: 12:13:54 PM Scope Out: 12:18:06 PM Total Procedure Duration Time 0 hours 4 minutes 12 seconds Findings: The examined esophagus was normal. A small hiatal hernia was present. No other significant abnormalities were identified in a careful examination of the stomach. Few non-bleeding linear duodenal ulcers with no stigmata of bleeding were found in the duodenal bulb and in the first portion of the duodenum. The largest lesion was 5 mm in largest dimension. Biopsies were taken with a cold forceps for histology. Verification of patient identification for the specimen was done. Estimated blood loss was minimal. Impression: - Normal esophagus. - Small hiatal hernia. - Non-bleeding duodenal ulcers with no stigmata of bleeding. Biopsied. Recommendation: - [facility] patient to [facility] for [facility]. - Resume previous diet. - Continue present medications. - Await pathology results. - Use Protonix (pantoprazole) 20 mg PO BID. Procedure Code(s): --- Professional --- 55263, Esophagogastroduodenoscopy, flexible, transoral; with biopsy, single or multiple CPT copyright 2021 [employer]. All rights reserved. The codes documented in this report are preliminary and upon senior health physics technician review may be revised to meet current compliance requirements. Lazaro Marquez DO 08/18/2023 12:23:33 PM This report has been signed electronically. Number of Addenda: 0 Note Initiated On: 08/18/2023 12:02 PM
--- NOTE | 2023-08-18 12:24 | OP.CCLET_ITS ---
08/18/2023 Eusebio Durham [address] [place] [address] Re : Upper GI endoscopy procedure for Arya Ray Dear Dr. Durham This procedure was performed on Friday, August 18, 2023. My impressions and recommendations are as follows: Impressions : - Normal esophagus. - Small hiatal hernia. - Non-bleeding duodenal ulcers with no stigmata of bleeding. Biopsied. Recommendations : - Return patient to [facility] for ongoing care. - Resume previous diet. - Continue present medications. - Await pathology results. - Use Protonix (pantoprazole) 20 mg PO BID. My findings are described in the full procedure note, which is enclosed. If I can be of further assistance, please feel free to contact me at . Sincerely, Lazaro Friend, 08/18/2023 12:23:33 PM This report has been signed electronically.
[2023-08-18] MEDS: Fluticasone 0.05% 1 SPRAY NASAL.SRY NASAL ×2 (13:05→22:08)
[2023-08-18] MEDS: Dicyclomine 10 MG Capsule PO ×2 (13:06→22:11)
[2023-08-18] MEDS: Glucerna Shake 120 ML LIQUID PO ×3 (13:16→22:07)
--- NOTE | 2023-08-18 13:30 | CASEMGMT ---
RN LAINE Face to Face with patient for initial transition planning/care coordination assessment. RN CM introduced self and role at [facility]. Patient lying in bed, alert and oriented. Patient willing to participate in assessment and is able to answer all questions appropriately. Care providers, pharmacy, and demographics verified. Patient wishes to discharge home, denies need for home health at this time. Patient states he has no further needs or concerns at this time. CM to follow for discharge planning needs that may arise. PCP: Herminio Specialists: none Preferred Pharmacy: [facility] Insurance: PARESH Barba Prescription Benefit: yes Living Will/HPOA: none LNOK: son, sister Living Arrangements: Patient lives alone in a [place] with 9 steps and railing to enter the home. Patient states he is independent at home. Transportation: self, girlfriend DME/HHC: Patient denies DME in the home. No previous HHC or SNF Disposition Plan: Patient to discharge home with family support and follow-up plans in place. Anuradha COLLADO, RN, CM
[2023-08-18 14:06] LABS: Bedside Glucose 104 mg/dL (74-106)
--- NOTE | 2023-08-18 16:05 | CHAPLAIN ---
Type of Pastoral Visit _x__ Initial Visit ___ Follow-up Visit ___ On-call Visit ___ General Patient Visit ___ Spiritual Assessment ___ Family Conference ___ Bereavement ___ Rapid Response ___ Code Blue ___ Other (describe below) Pastoral Care Referral From _x__ Patient ___ Family ___ Nurse ___ Physician ___ Issue Clerk ___ Machinist Mate ___ Other (describe below) Sacrament/Intervention _x__ Active listening ___ Anointing ___ Scientologist ___ Bereavement ___ Communion _x__ Tabitha exploration ___ _x__ Life review _x__ Prayer ___ Reconciliation ___ Sacrament of Sick ___ Supportive presence ___ Wedding ___ Other (describe below) Pastoral Comments patient is very welcoming and identifies himself as a Pentecostal and devout follower of God with tabitha in prayer and hope for eternal life; pt states his list of health issues including having found out in last couple of days that he has cancer; pt affirms that he is not worried, that he has lived a good life, and everything is in God's hands; pt is very talkative about his life and his tabitha; pt presents with positive attitude and desire to be a positive influence on others; pt welcomes prayer and future visits
[2023-08-18 16:34] LABS: Bedside Glucose 133 mg/dL (74-106)
--- NOTE | 2023-08-18 18:37 | PN.HOSP_ITS ---
Reason for Visit Reason for Visit: Diagnoses Chronic kidney disease, stage 3b (08/16/23) Subjective Subjective Patient seen at bedside this afternoon, multiple family members present. Patient was having EGD done this morning. EGD showed no active areas of bleeding. Patient sitting comfortably in bed on my interview, conversing normally, no acute distress. Breathing comfortably on room air. Patient states he feels well currently, denies any acute pain or discomfort. Tolerated EGD well this morning. He is hoping to go home soon and get outpatient follow-up expedited for his recent cancer diagnosis. No other acute concerns at this [facility]. Objective Data Objective Data Vital Signs: Vital Signs Temp Pulse Resp BP Pulse Ox O2 Del Method 98.1 F 82 16 143/84 H 97 Room Air 08/18/23 13:03 08/18/23 13:03 08/18/23 13:03 08/18/23 13:03 08/18/23 13:03 08/18/23 14:00 Oxygen Delivery Method Room Air Weight: 83.4 kg Body Mass Index (BMI) 28.8 Intake & Output: Intake and Output for Last 24 Hours 08/16/23 08/17/23 08/18/23 23:59 23:59 23:59 Intake Total 3042.18 / 3522.18 1827.08 / 1827.08 Output Total 250 / 800 1000 / 1000 Balance 2792.18 / 2722.18 827.08 / 827.08 Medical Nutrition Assessment Dietitian: Malnutrition Criteria Met Start: 08/17/23 13:47 Freq: Status: Active Protocol: Document 08/17/23 13:47 LALA (Rec: 08/17/23 13:47 LALA [id number]) Nutrition Malnutrition Evidence of Malnutrition Exists Yes Malnutrition (severe): Acute Illness/Injury Evidenced By Suboptimal Energy Intake ( Severe),Weight Loss (Severe) Clinical Problem Acute Disease or Injury Related Malnutrition Etiology related to acute illness and inadequate energy intake Signs/Symptoms as evidenced by <75% po intake of est nutritional needs and 8.1% unintended wt loss in past week Status Active Problem Recommendation Dietitian Recommendations/Changes Will change diet to CHO Control / No Added Salt Will order glucerna shake 4x/ day w/ medpass for increased nutrition if consumed Lab / Micro Data 08/18/23 06:35 08/18/23 06:35 Labs: Laboratory Results - last 24 hr 08/16/23 00:40: Vitamin B12 231 08/17/23 22:00: POC Glucose 112 H 08/17/23 22:43: APTT 67.2 H 08/18/23 05:59: POC Glucose 112 H 08/18/23 06:35: WBC 9.4, RBC 3.16 L, Hgb 7.9 L, Hct 23.3 L, MCV 73.7 L, MCH 25.0 L, MCHC 33.9, RDW Std Deviation 39.7, RDW Coeff of Lesley 14.7 H, Plt Count 260, MPV 11.3, Immature Gran % (Auto) 0.900, Neut % (Auto) 62.8, Lymph % (Auto) 25.0, Stafford % (Auto) 8.2, Eos % (Auto) 2.6, Baso % (Auto) 0.5, Absolute Neuts (auto) 5.9, Absolute Lymphs (auto) 2.34, Nucleated RBC % 0, APTT 71.6 H, Sodium 141, Potassium 3.9, Chloride 113 H, Carbon Dioxide 24.0, Anion Gap 4 L, BUN 15, Creatinine 1.21, Estim Creat Clear Calc 54.63, Est GFR (MDRD) Af Amer 77, Est GFR (MDRD) Non-Af 63, BUN/Creatinine Ratio 12.4, Glucose 119 H, Calcium 8.6 08/18/23 13:00: POC Glucose 104 08/18/23 16:15: POC Glucose 133 H Micro: Microbiology 08/16/23 20:40 Stool Stool Occult Blood (ANTONELLA) - Final Radiography Diagnostic Testing: Radiology Impression Echocardiogram 08/17/23 00:02 Interpretation Summary Normal LV size. Left ventricular systolic function is normal. The left ventricular ejection fraction is 55 %. Contrast injection was performed. Ordering Physician: Domingo Walden Referring Physician: Eusebio Durham MD Performed By: Owen, Tiesha, RDCS Physical Exam Const alert, oriented x3, no apparent distress and average body habitus Constitutional Narrative: Pleasant elderly male, sitting comfortably in bed, conversing normally, no acute distress. General Appearance: cooperative and comfortable HEENT normocephalic, head/scalp atraumatic, hearing grossly normal bilaterally, nasal mucous membranes and turbinates normal and moist oral mucous membranes Eyes PERRL, EOMs intact bilaterally and conjunctivae normal Neck full ROM, no lymphadenopathy and supple Lymph Lymphatic: no lymphadenopathy noted Chest inspection of chest normal Resp normal respiratory effort, normal air movement, no use of accessory muscles and clear to auscultation bilaterally Cardio regular rate, regular rhythm, no murmurs and peripheral pulses 2+ throughout GI normal to inspection, nondistended, normoactive bowel sounds, soft to palpation, non-tender and non-distended Back/Spine normal ROM Extremity normal to inspection, full ROM and no pedal edema Skin no rashes or lesions noted Neuro no focal motor deficits and no sensory deficits noted Speech: speech normal Psych mental status grossly normal Assessment & Plan Assessment/Plan (1) Pulmonary embolism: QUALIFIERS: Pulmonary embolism type: other Chronicity: acute Acute cor pulmonale presence: unspecified Qualified Code(s): I26.99 - Other pulmonary embolism without acute cor pulmonale (2) Elevated troponin: (3) Acute on chronic anemia: PLAN: Plan Patient is a 68-year-old male who presented to [facility] ED on 02/01 with worsening shortness of breath with exertion, dark stools and right calf pain. 1. Acute pulmonary embolism CTA chest on admit showed right lower lobe PE, no saddle embolus or right heart strain. Most likely secondary to recently diagnosed cancer. Has remained stable on room air since admission. Echo 08/18 showed EF 55%, no concern for right heart strain. Lower extremity duplex ultrasound pending. ? Started on heparin drip on admission, hemoglobin remained stable and was noted below. Patient asymptomatic at rest, mild shortness of breath on exertion but this could also be secondary to his acute on chronic anemia as noted below. Okay to transition patient to p.o. Eliquis preparation for discharge tomorrow. Given low clot burden and stability of patient, and anemia as noted below, will start patient on Eliquis 5 mg twice daily now as opposed to DVT dosing and continue this on discharge. Suspect patient will need Eliquis long-term given likely etiology is malignancy. 2. Acute on chronic normocytic anemia Hemoglobin 8.5 on admit, decreased to 7.7 on hospital day 2. Notably was 13.1 in May. Patient had noticed intermittent black stools over the last few months. Notably had colonoscopy done about 1 month prior to admission with no concerning findings. Hemoccult negative. Iron studies consistent with anemia of chronic disease. ? GI following. S/p EGD on 08/18, showed few nonbleeding linear duodenal ulcers, otherwise unremarkable. Monitor hemoglobin tomorrow morning. Started on Eliquis as noted above. Continue PPI twice daily on discharge. 3. NSTEMI ? Likely type II demand ischemia from acute PE. Elevated troponin of 338 on admission, down trended. No EKG changes. Echo with no right heart strain as noted above. Continue home aspirin. No need for cardiology consult. 4. Recently diagnosed adenocarcinoma of the lung with concern for metastases ? Lung biopsy 08/12 of right lower lobe lesion positive for adenocarcinoma of the lung. Scheduled to have PET scan on 09/07 with close follow-up with oncology after that. CT abdomen pelvis did show concern for adrenal metastases. Outpatient follow-up. Chronic medical conditions: ? History of tobacco abuse ? Hypertension: Continue home meds. ? Hyperlipidemia: Continue home statin. ? Type 2 diabetes mellitus: A1c 6.1%. Home medications of metformin and pioglitazone. Sliding scale insulin while inpatient. ? GERD: Continue home PPI. DVT prophylaxis: SCDs CODE STATUS: Full code, verified Expected disposition: Home, 1 to 2 days Total clinical time spent by myself addressing the patient's medical issues, reviewing all the data, and collaborating with patient's care team: 35 minutes. Charges/Coding Visit Charges Inpatient E&M: 81265 Subs Hosp L2
[2023-08-18 21:18] LABS: Bedside Glucose 152 mg/dL (74-106)
[2023-08-18] MEDS: Atorvastatin Calcium 10 MG Tablet PO (22:09)
[2023-08-18] MEDS: Pantoprazole Sodium 20 MG Tablet PO (22:09)
[2023-08-18] MEDS: Pioglitazone Hydrochloride 30 MG Tablet PO (22:10)
[2023-08-18] MEDS: MELATONIN 3 MG TABLET PO (22:18)
[2023-08-18] MEDS: oxyCODONE 5 MG Tablet PO (22:18)
[2023-08-18] MEDS: APIXABAN 5 MG TABLET PO (22:19)
[2023-08-18] MEDS: Insulin Lispro 100 UNIT/ML INSULN.PEN SC (22:20)
[2023-08-18] MEDS: Latanoprost 0.005% 1 Bottle 1 DRP OPHTHALMIC (22:20)
[2023-08-19] VITALS: BP 134/67; PULSE 90; RESP 16; TEMP 36.6; O2SAT 99
[2023-08-19] MEDS: 0.9% Normal Saline (1000mL) 1,000 ML 125 ML IV (03:55)
[2023-08-19] MEDS: Acetaminophen 325 MG Tablet 650 MG PO (03:59)
[2023-08-19 05:25] VITALS: BMI 28.8
[2023-08-19] MEDS: metroNIDAZOLE 500 MG/100 ML BAG 100 MG IV (05:47)
[2023-08-19 05:54] VITALS: BP 136/60; PULSE 82; RESP 16; TEMP 36.6; O2SAT 98
[2023-08-19 06:31] LABS: Bedside Glucose 134 mg/dL (74-106)
[2023-08-19 08:10] LABS: Hematocrit 22.3 % (40-54); Hemoglobin 7.3 g/dL (13.0-16.5); Mean Corp Hgb Conc 32.7 g/dL (32-36); Mean Corpuscular Hgb 24.3 pg (27.0-32.0); Mean Corpuscular Volume 74.1 fL (80-94); Mean Platelet Vol. 10.9 fl (6.2-12.0); Platelet Count 248 K/mm3 (150-450); RBC Distribution Width CV 14.7 % (11.6-14.6); RBC Distribution Width SD 39.6 fl (35.1-43.9); Red Blood Count 3.01 M/mm3 (4.6-6.2); White Blood Count 8.5 K/mm3 (4.4-11.0)
[2023-08-19 08:14] VITALS: O2SAT 100; O2SAT 96
[2023-08-19 09:09] LABS: Partial Thromboplast Time 40.1 Seconds (24.1-36.2)
[2023-08-19] MEDS: Fluticasone 0.05% 1 SPRAY NASAL.SRY NASAL (09:15)
[2023-08-19] MEDS: Glucerna Shake 120 ML LIQUID PO ×2 (09:15→14:04)
[2023-08-19] MEDS: Cholecalciferol (VIT D3) 25 MCG TABLET (1,000 UNITS) 50 MCG PO (09:16)
[2023-08-19] MEDS: Multivitamins,Ther W-Minerals Tablet 1 TABLET PO (09:17)
[2023-08-19] MEDS: Aspirin E.C. 81 MG Tablet PO (09:17)
[2023-08-19] MEDS: APIXABAN 5 MG TABLET PO (09:17)
[2023-08-19] MEDS: Pantoprazole Sodium 20 MG Tablet PO (09:17)
[2023-08-19] MEDS: oxyCODONE 5 MG Tablet PO (09:21)
[2023-08-19] MEDS: Insulin Lispro 100 UNIT/ML INSULN.PEN SC (11:41)
[2023-08-19 12:00] VITALS: BP 146/66; PULSE 84; RESP 16; TEMP 37; O2SAT 98; O2SAT 99
[2023-08-19 12:06] LABS: Bedside Glucose 166 mg/dL (74-106)
--- NOTE | 2023-08-19 13:27 | DCINST_ITS ---
Discharge Instructions Diet Discharge Diet: No restrictions Activity Discharge Activity: No Restrictions Weight Bearing Status: Full weight bearing Follow Up Care Please Follow Up With: Eusebio Durham MD When: As needed Test Results: Test results from this visit will be discussed in further detail at your follow- up appointment, if applicable. Pending Tests Upon Discharge: None Discharge Plan Admission Admit Date/Time: 08/16/23 23:41 Primary Reason for Your Visit: Anemia Attending Provider: Kaden Hernández Primary Care Provider: Eusebio Durham Consulting Providers: Domingo Walden; Eusebio Guardado Instructions Additional Instructions / Restrictions: Please take new medications below as prescribed. Follow-up with your primary care doctor as needed. Establish with your new cancer doctor as scheduled. Discharge Orders/Prescriptions Prescriptions: New Eliquis 5 mg tablet 5 mg PO BID 30 Days Qty: 60 2RF pantoprazole [Protonix] 20 mg tablet,delayed release (DR/EC) 20 mg PO BID 30 Days Qty: 60 2RF Continued cholecalciferol (vitamin D3) 50 mcg (2,000 unit) capsule 50 mcg PO DAILY dicyclomine 10 mg capsule 10 mg PO TID fluticasone propionate [Allergy Relief (fluticasone)] 50 mcg/actuation spray,suspension 1 spray intranasal BID Qty: 16 11RF Rx Instructions: administer into each nostril metformin 500 MG tablet 1,000 mg PO QHS multivitamin with minerals 1 EACH tablet 1 ea PO DAILY acetaminophen 325 MG tablet 650 mg PO Q4H PRN PRN (Reason: Mild-Moderate Pain (1-5/10)) 0RF atorvastatin 10 mg tablet 10 mg PO QHS Patient Comments: TAKE 1 TABLET BY MOUTH EVERY DAY IN THE EVENING sildenafil 100 mg tablet 100 mg PO PRN PRN (Reason: Erectile Dysfunction) Patient Comments: Take 1 (one) Tablet daily as needed for erectile dysfunction pioglitazone [Actos] 30 mg tablet 30 mg PO QHS Patient Comments: TAKE 1 TABLET BY MOUTH WITH supper Excedrin Migraine 250-250-65 mg Tablet 1 tab PO Q6H PRN (Reason: MIGRAINES) diclofenac sodium 1 % gel 1 g TOPICAL Q6H PRN (Reason: pain) Patient Comments: 2 (two) gram to affected joint every 6 hours as directed oxycodone 5 mg tablet 5 mg PO TID Patient Comments: TAKE 1/2 -1 TABLET three times DAILY NEEDED FOR PAIN latanoprost 0.005 % drops 1 drp ophthalmic (eye) QHS Patient Comments: Instill 1 drop in both eyes nightly metformin 500 MG tablet 500 mg PO DAILY aspirin 81 MG tablet 81 mg PO DAILY@0800 Referrals / Follow Up: Eusebio Durham MD [Primary Care Provider] - Disposition Disposition (needs filled in before D/C Order can be placed): Home, Self Care
--- NOTE | 2023-08-19 13:30 | DS.PCM_ITS ---
Providers Date of Admission: 08/16/23 Date of Discharge: 08/19/23 Primary Care Physician: Dr. Eusebio Durham MD Consultations 08/17/23 15:15 Consult: Gastroenterology Routine Consulting Provider: [facility] Reason for Consult: iron deficiency anemia EMERGENT Consult: No MD Notified: Yes Date Notified: 08/17/23 Time Notified: 15:15 Method of Notification: Text Reason For Visit: ACUTE PULMONARY EMBOLISM & ELEVATED TROPONIN Diagnosis Discharge Diagnosis (1) Pulmonary embolism: Status: Acute Code(s): I26.99 - Other pulmonary embolism without acute cor pulmonale Qualifiers: Acute cor pulmonale presence: unspecified Chronicity: acute Pulmonary embolism type: other Qualified Code(s): I26.99 - Other pulmonary embolism without acute cor pulmonale (2) Elevated troponin: Status: Resolved Code(s): R79.89 - Other specified abnormal findings of blood chemistry (3) Acute on chronic anemia: Status: Chronic Code(s): D64.9 - Anemia, unspecified Medications at Discharge Home Medications aspirin 81 mg tablet,delayed release 81 mg PO DAILY@0800 01/17/15 metformin 500 mg tablet 500 mg PO DAILY diabetes 01/17/15 metformin 500 mg tablet 1,000 mg PO QHS diabetes 04/29/19 multivitamin with minerals 1 ea PO DAILY supplement 04/29/19 acetaminophen 325 mg tablet 650 mg (2 x 325 mg) PO Q4H PRN PRN Mild-Moderate Pain (1-5/10) 04/30/19 [id number]-imynabvs 250 mg-250 mg-65 mg tablet (Excedrin Migraine) 1 tab PO Q6H PRN MIGRAINES 01/14/22 atorvastatin 10 mg tablet 10 mg PO QHS cholesterol 01/14/22 diclofenac sodium 1 % topical gel 1 g topical Q6H PRN pain 01/14/22 pioglitazone 30 mg tablet (Actos) 30 mg PO QHS diabetes 01/14/22 sildenafil 100 mg tablet 100 mg PO PRN PRN Erectile Dysfunction 01/14/22 cholecalciferol (vitamin D3) 50 mcg (2,000 unit) capsule 50 mcg PO DAILY s upplement 06/17/23 dicyclomine 10 mg capsule 10 mg PO TID abdominal pain/cramping 07/14/23 oxycodone 5 mg tablet 5 mg PO TID pain 07/14/23 latanoprost 0.005 % eye drops 1 drp ophthalmic (eye) QHS mucous in eyes 07/18/23 fluticasone propionate 50 mcg/actuation nasal spray,suspension (Allergy Relief (fluticasone)) 1 spray intranasal BID #16 grams 08/15/23 apixaban 5 mg tablet (Eliquis) 5 mg PO BID 30 days #60 tabs 08/19/23 pantoprazole 20 mg tablet,delayed release (Protonix) 20 mg PO BID 30 days #60 tabs 08/19/23 Hospital Course Operations None Procedures EGD, EKG, Transthoracic echo and - (CTA chest, venous doppler study) Summary of Care Provided Minutes Spent on Discharge: 35 Hospital Course: Patient is a 68-year-old male who presented to [facility] ED on 02/01 with worsening shortness of breath with exertion, dark stools and right calf pain. Short hospital course as noted below. Discharged home in stable condition on 08/19. 1. Acute pulmonary embolism CTA chest on admit showed right lower lobe PE, no saddle embolus or right heart strain. Most likely secondary to recently diagnosed cancer. Remained stable on room air during admission. Echo 08/18 showed EF 55%, no concern for right heart strain. Lower extremity duplex ultrasound with no DVT. - Started on Eliquis without DVT loading dose due to anemia and low clot burden, continue Eliquis 5 mg BID on discharge. Suspect he will need Eliquis long-term given likely etiology is malignancy. 2. Acute on chronic normocytic anemia Hemoglobin 8.5 on admit, decreased to 7.2 on discharge. Notably was 13.1 in May. Patient had noticed intermittent black stools over the last few months. Notably had colonoscopy done about 1 month prior to admission with no concerning findings. Hemoccult negative. Iron studies consistent with anemia of chronic disease. GI followed. S/p EGD on 08/18, showed few nonbleeding linear duodenal ulcers, otherwise unremarkable. - Hemoglobin 7.2 on discharge. Patient notably asymtompatic with regard to an emia on dc. Eliquis on dc as noted above. PO PPI BID. Recommend repeat CBC in 5-7 days. 3. NSTEMI ? Likely type II demand ischemia from acute PE. Elevated troponin of 338 on admission, down trended. No EKG changes. Echo with no right heart strain as noted above. Continue home aspirin. No need for cardiology consult. 4. Recently diagnosed adenocarcinoma of the lung with concern for metastases ? Lung biopsy /2 of right lower lobe lesion positive for adenocarcinoma of the lung. Scheduled to have PET scan on 09/07 with close follow-up with oncology after that. CT abdomen pelvis did show concern for adrenal metastases. Outpatient follow-up. Chronic medical conditions: ? History of tobacco abuse ? Hypertension: Continue home meds. ? Hyperlipidemia: Continue home statin. ? Type 2 diabetes mellitus: A1c 6.1%. Home medications of metformin and pioglitazone. Sliding scale insulin while inpatient. Restarted home meds on discharge. ? GERD: Continue home PPI. Total clinical time spent by myself addressing the patient's discharge needs: 35 minutes. Physical Exam Const alert, oriented x3, no apparent distress and average body habitus Constitutional Narrative: Pleasant elderly male, sitting comfortably in bed, conversing normally, no acute distress. General Appearance: cooperative and comfortable HEENT normocephalic, head/scalp atraumatic, hearing grossly normal bilaterally, nasal mucous membranes and turbinates normal and moist oral mucous membranes Eyes PERRL, EOMs intact bilaterally and conjunctivae normal Neck full ROM, no lymphadenopathy and supple Lymph Lymphatic: no lymphadenopathy noted Chest inspection of chest normal Resp normal respiratory effort, normal air movement, no use of accessory muscles and clear to auscultation bilaterally Cardio regular rate, regular rhythm, no murmurs and peripheral pulses 2+ throughout GI normal to inspection, nondistended, normoactive bowel sounds, soft to palpation, non-tender and non-distended Back/Spine normal ROM Extremity normal to inspection, full ROM and no pedal edema Skin no rashes or lesions noted Neuro no focal motor deficits and no sensory deficits noted Speech: speech normal Psych mental status grossly normal Medical Records Data Medical Nutrition Assessment Dietitian: Malnutrition Criteria Met Start: 08/17/23 13: 47 Freq: Status: Active Protocol: Document 08/17/23 13:47 LALA (Rec: 08/17/23 13:47 LALA [id number]) Nutrition Malnutrition Evidence of Malnutrition Exists Yes Malnutrition (severe): Acute Illness/Injury Evidenced By Suboptimal Energy Intake ( Severe),Weight Loss (Severe) Clinical Problem Acute Disease or Injury Related Malnutrition Etiology related to acute illness and inadequate energy intake Signs/Symptoms as evidenced by <75% po intake of est nutritional needs and 8.1% unintended wt loss in past week Status Active Problem Recommendation Dietitian Recommendations/Changes Will change diet to CHO Control / No Added Salt Will order glucerjacque goveake 4x/ day w/ medpass for increased nutrition if consumed Weight / BMI Weight Weight: 83.6 kg Body Mass Index (BMI) 28.8 ABG / Lab / Microbiology Data 08/19/23 07:15 08/18/23 06:35 Laboratory: Laboratory Results - last 24 hr 08/18/23 13:00: POC Glucose 104 08/18/23 16:15: POC Glucose 133 H 08/18/23 19:20: APTT 46.0 H 08/18/23 21:01: POC Glucose 152 H 08/19/23 06:13: POC Glucose 134 H 08/19/23 07:15: WBC 8.5, RBC 3.01 L, Hgb 7.3 L, Hct 22.3 L, MCV 74.1 L, MCH 24.3 L, MCHC 32.7, RDW Std Deviation 39.6, RDW Coeff of Lesley 14.7 H, Plt Count 248, MPV 10.9, APTT 40.1 H 08/19/23 11:40: POC Glucose 166 H Microbiology: Microbiology 08/16/23 20:40 Stool Stool Occult Blood (ANTONELLA) - Final Radiography Diagnostic Testing: Radiology Impression Venous Doppler Study 08/16/23 23:58 Interpretation Summary Deep veins of the bilateral lower extremities are patent and compressible segmentally. There is no evidence of bilateral lower extremity deep vein thrombosis. The bilateral great saphenous veins appear patent and compressible segmentally. Ordering Physician: Domingo Walden Referring Physician: Eusebio Durham Performed By: Eusebia Klein RDCS, RVT Echocardiogram 08/17/23 00:02 Interpretation Summary Normal LV size. Left ventricular systolic function is normal. The left ventricular ejection fraction is 55 %. Contrast injection was performed. Ordering Physician: Domingo Walden Referring Physician: Eusebio Durham MD Performed By: Tiesha Weaver RDCS D/C Instructions Discharge Diet: No restrictions Weight Bearing Status: Full weight bearing Pending Tests Upon Discharge: None Please Follow Up With: Eusebio Durham MD When: As needed Meaningful Use Info Meaningful Use Diagnoses (Choose all that apply): None applicable Discharge Plan Admission Admit Date/Time: 08/16/23 23:41 Primary Reason for Your Visit: Anemia Attending Provider: Kaden Hernández Primary Care Provider: Eusebio Durham Consulting Providers: Domingo Walden; Eusebio Guardado Instructions Additional Instructions / Restrictions: Please take new medications below as prescribed. Follow-up with your primary care doctor as needed. Establish with your new cancer doctor as scheduled. Discharge Orders/Prescriptions Prescriptions: New Eliquis 5 mg tablet 5 mg PO BID 30 Days Qty: 60 2RF pantoprazole [Protonix] 20 mg tablet,delayed release (DR/EC) 20 mg PO BID 30 Days Qty: 60 2RF Continued cholecalciferol (vitamin D3) 50 mcg (2,000 unit) capsule 50 mcg PO DAILY dicyclomine 10 mg capsule 10 mg PO TID fluticasone propionate [Allergy Relief (fluticasone)] 50 mcg/actuation spray,suspension 1 spray intranasal BID Qty: 16 11RF Rx Instructions: administer into each nostril metformin 500 MG tablet 1,000 mg PO QHS multivitamin with minerals 1 EACH tablet 1 ea PO DAILY acetaminophen 325 MG tablet 650 mg PO Q4H PRN PRN (Reason: Mild-Moderate Pain (1-5/10)) 0RF atorvastatin 10 mg tablet 10 mg PO QHS Patient Comments: TAKE 1 TABLET BY MOUTH EVERY DAY IN THE EVENING sildenafil 100 mg tablet 100 mg PO PRN PRN (Reason: Erectile Dysfunction) Patient Comments: Take 1 (one) Tablet daily as needed for erectile dysfunction pioglitazone [Actos] 30 mg tablet 30 mg PO QHS Patient Comments: TAKE 1 TABLET BY MOUTH WITH supper Excedrin Migraine 250-250-65 mg Tablet 1 tab PO Q6H PRN (Reason: MIGRAINES) diclofenac sodium 1 % gel 1 g TOPICAL Q6H PRN (Reason: pain) Patient Comments: 2 (two) gram to affected joint every 6 hours as directed oxycodone 5 mg tablet 5 mg PO TID Patient Comments: TAKE 1/2 -1 TABLET three times DAILY NEEDED FOR PAIN latanoprost 0.005 % drops 1 drp ophthalmic (eye) QHS Patient Comments: Instill 1 drop in both eyes nightly metformin 500 MG tablet 500 mg PO DAILY aspirin 81 MG tablet 81 mg PO DAILY@0800 Referrals / Follow Up: Eusebio Durham MD [Primary Care Provider] - 08/22/23 11:00 am Disposition Disposition (needs filled in before D/C Order can be placed): Home, Self Care Charges/Coding Visit Charges Inpatient E&M: 99010 Disch Hosp >30min
[2023-08-19] MEDS: Dicyclomine 10 MG Capsule PO (14:03)
--- NOTE | 2023-08-19 15:00 | CASEMGMT ---
Patient has order for discharge. Patient discharging on Eliquis. RN CM called [facility] and cost is $4.60. RN CM in to discuss needs at discharge with patient. Family at bedside. Patient denies needs at discharge. Patient and family had no further questions or concerns.
== END 2023-08-19 16:27 | disposition home or self-care (01) | DRG 175 ==
LOC: ED 22:45 → PCU 08-17 00:50
PROVIDERS: Internal Medicine Gastroenterology; Physician Assistant; Admitting Provider Internal Medicine; Emergency Provider Emergency Medicine; PCP Family Medicine; Visit Provider Hospitalist
PROC: 0DJ08ZZ Inspection of Upper Intestinal Tract, Via Natural or Artificial Opening Endoscopic (ICD-10-PCS; CPT 43235; principal; 2023-08-18 12:40)
DX: I26.99 Other pulmonary embolism without acute cor pulmonale (principal); I21.A1 Myocardial infarction type 2; E43 Unspecified severe protein-calorie malnutrition; C79.72 Secondary malignant neoplasm of left adrenal gland; C34.31 Malignant neoplasm of lower lobe, right bronchus or lung; D63.8 Anemia in other chronic diseases classified elsewhere; K26.9 Duodenal ulcer, unspecified as acute or chronic, without hemorrhage or perforation; N18.32 Chronic kidney disease, stage 3b; E11.22 Type 2 diabetes mellitus with diabetic chronic kidney disease; E11.40 Type 2 diabetes mellitus with diabetic neuropathy, unspecified; I12.9 Hypertensive chronic kidney disease with stage 1 through stage 4 chronic kidney disease, or unspecified chronic kidney disease; D50.9 Iron deficiency anemia, unspecified; J32.9 Chronic sinusitis, unspecified; M79.661 Pain in right lower leg; E78.00 Pure hypercholesterolemia, unspecified; K21.9 Gastro-esophageal reflux disease without esophagitis; M19.90 Unspecified osteoarthritis, unspecified site; K44.9 Diaphragmatic hernia without obstruction or gangrene; E66.9 Obesity, unspecified; H40.9 Unspecified glaucoma; N52.9 Male erectile dysfunction, unspecified; Z68.31 Body mass index [BMI] 31.0-31.9, adult; Z79.82 Long term (current) use of aspirin; Z79.84 Long term (current) use of oral hypoglycemic drugs; Z79.899 Other long term (current) drug therapy; Z87.891 Personal history of nicotine dependence; N40.0 Benign prostatic hyperplasia without lower urinary tract symptoms
CPT/HCPCS: 36415; 71275; 80048; 80053; 82274; 82607; 82728; 82746; 82962; 83036; 83540; 83550; 83735; 84100; 84443; 84484; 85025; 85027; 85610; 85730; 86850; 86900; 86901; 88305; 93005; 93306; 93970; 97802; 99285; J7030; J7050; J7120; Q9957; Q9967; A4216; C8929; J2405; J2916

== ENCOUNTER → 2023-08-22 | Outpatient (CLI) | payer MEDICARE, SELFPAY ==
--- NOTE | 2023-08-22 10:58 | VDLE_ITS ---
Reason For Study: Left leg pain RIGHT LEFT CFV is compressible, spontaneous, phasic, GSV is normal. competent and demonstrates normal CFV is compressible, spontaneous, phasic, augmentation. competent, and demonstrates normal Procedure augmentation. This is a venous duplex using B-mode, color FV is compressible, spontaneous, phasic, flow and spectral Doppler. competent and demonstrates normal Exam performed in department. augmentation. A preliminary report was called and/or faxed POP V is compressible, spontaneous, phasic, to Iraida HAMMONDS. competent and demonstrates normal augmentation. T/P Trunk is compressible. PTV is compressible. LT PerV is compressible. Acute deep vein thrombosis is noted in the Soleus V. It is dilated and NONCOMPRESSIBLE. VL/Venous Duplex US, Unilateral Interpretation Summary Acute deep venous thrombosis left soleus vein Patent and compressible left great saphenous vein Normal flow patterns right common femoral vein Ordering Physician: Eusebio Durham Referring Physician: Eusebio Durham Performed By: Anuradha Biswas RVT
--- OUTSIDE RECORDS SUMMARY | 2023-08-22 11:27 | XMS RPT_ITS | CCD ---
Demographics Address [address] [place] [address] Preferred Language Unknown Marital Status Catholic Affiliation Unknown Race Unknown Ethnic Group Unknown Author Name Unknown Address [address] [place] [address] Organization [facility] Results Test Name Value Interpretation [...] BE BASED ON THE PRIMARY CLINICAL RECORDS. [employer]. provides no warranty or guarantee of the accuracy or completeness of information in this document.
== END | disposition home or self-care (01) ==
PROVIDERS: PCP Family Medicine; Referring Provider Family Medicine; Visit Provider Family Medicine
DX: I26.99 Other pulmonary embolism without acute cor pulmonale (principal); M79.604 Pain in right leg; M79.605 Pain in left leg; M79.662 Pain in left lower leg; D64.9 Anemia, unspecified
CPT/HCPCS: 36415; 80053; 82607; 82728; 83540; 83550; 83735; 85025; 85045; 85610; 85730; 93971

== ENCOUNTER → 2023-08-22 | Outpatient (CLI) | payer MEDICARE, SELFPAY ==
--- OUTSIDE RECORDS SUMMARY | 2023-08-22 06:27 | XMS RPT_ITS | CCD ---
Demographics Address [address] [place] [address] Preferred Language Unknown Marital Status Alevism Affiliation Unknown Race Unknown Ethnic Group Unknown Author Name Unknown Address [address] [place] [address] Organization [facility] Results Test Name Value Interpretation [...] BE BASED ON THE PRIMARY CLINICAL RECORDS. [employer]. provides no warranty or guarantee of the accuracy or completeness of information in this document.
[2023-08-22 06:45] LABS: Absolute Neutrophil Count 8.6 X10^3/uL (2.0-7.7); Basophil# 0.04 X10^3/uL; Basophil% 0.3 % (0-1); Eosinophils% 2.3 % (0-5); Hematocrit 23.7 % (40-54); Hemoglobin 7.8 g/dL (13.0-16.5); Lymphocyte % 22.4 % (19-41); Mean Corp Hgb Conc 32.9 g/dL (32-36); Mean Corpuscular Hgb 24.6 pg (27.0-32.0); Mean Corpuscular Volume 74.8 fL (80-94); Mean Platelet Vol. 10.9 fl (6.2-12.0); Monocyte# 1.01 X10^3/uL; Monocyte% 7.8 % (0-10); NRBC Flagged by Analyzer 0.2 % (0-5); Neutrophil # 8.59 X10^3/uL (2.7-7.7); Neutrophil % 66.2 % (47-70); Platelet Count 300 K/mm3 (150-450); RBC Distribution Width CV 15.4 % (11.6-14.6); RBC Distribution Width SD 41.2 fl (35.1-43.9); Red Blood Count 3.17 M/mm3 (4.6-6.2); Reticulocyte Count 3.04 % (0.5-1.5)
[2023-08-22 06:58] LABS: International Normalized Ratio 1.4; Prothrombin Time (Protime)PT. 17.7 SECONDS (11.7-14.9)
[2023-08-22 06:59] LABS: Partial Thromboplast Time 40.4 Seconds (24.1-36.2)
[2023-08-22 07:02] LABS: ALB/GLOB Ratio 0.8 RATIO (0.9-2.4); AST(SGOT) 48 U/L (15-37); Alanine Aminotransfer ALT/SGPT 44 U/L (16-61); Albumin, Serum 3.2 g/dL (3.2-5.0); Alkaline Phosphatase 132 U/L (45-117); Anion Gap 8 (5-15); BUN 20 mg/dL (7-18); BUN/Creat Ratio 13.2 RATIO (10-20); Calcium,Total 8.8 mg/dL (8.5-10.1); Chloride 107 mmol/L (98-107); Creatinine, Serum 1.51 mg/dL (0.70-1.30); EST Glomerular Filtration Rate 49 mL/min (>60); Est Glom Filt Rate - Afr Amer 59 mL/min (>60); Ferritin 492 ng/mL (26-388); Globulin 4.1 g/dL (2.2-4.2); Glucose 132 mg/dL (74-106); Iron 20 ug/dL (65-175); Iron Binding Capacity,Total 334 ug/dL (250-450); Protein, Total 7.3 g/dL (6.4-8.2); Sodium Level 139 mmol/L (136-145)
[2023-08-22 09:44] LABS: Vitamin B12 284 pg/mL (211-911)
== END | disposition home or self-care (01) ==
PROVIDERS: PCP Family Medicine; Referring Provider Family Medicine; Visit Provider Family Medicine
DX: I26.99 Other pulmonary embolism without acute cor pulmonale (principal); M79.604 Pain in right leg; M79.605 Pain in left leg; D64.9 Anemia, unspecified; M79.662 Pain in left lower leg
CPT/HCPCS: 36415; 80053; 82607; 82728; 83540; 83550; 83735; 85025; 85045; 85610; 85730

== ENCOUNTER 2023-08-25 11:46 | Emergency (ER) | payer MEDICARE, SELFPAY ==
[2023-08-25 11:47] VITALS: BP 112/58; PULSE 89; RESP 14; TEMP 35.9; O2SAT 98; BMI 30.5
--- NOTE | 2023-08-25 12:03 | EDS_ITS ---
HPI History of Present Illness Chief Complaint: Lower Extremity Injury Detail of Chief Complaint: Right knee pain Informant: patient Narrative Narrative: Patient presents to the emergency department complaint of pain and his right knee that has had for couple days. He denies injury. Patient states last week he was diagnosed with DVTs and PEs. Initially diagnosed with DVT in the right leg and then 1 in the left leg. Currently on Lovenox. Patient also with recent diagnosis of lung cancer. Patient was having a hard time walking and came in for evaluation. As the girlfriend got him into the car he was having a lot of pain and became somewhat delirious and apparently was slurring his words and that is when the girlfriend called the squad. Currently he states he feels great other than the pain in his right knee. [facility] Medical History Back pain Blood in stool Diabetes Dietary restriction Former smoker Gout High cholesterol History of renal disease Kidney stones Lightheadedness Migraines Neuropathy Prostate disease Shortness of breath on exertion Wears dentures Wears glasses Home Medications aspirin 81 mg tablet,delayed release 81 mg PO DAILY@0800 01/17/15 [History Last Taken Unknown] metformin 500 mg tablet 500 mg PO DAILY diabetes 01/17/15 [History Last Taken Unknown] metformin 500 mg tablet 1,000 mg PO QHS diabetes 04/29/19 [History Last Taken Unknown] multivitamin with minerals 1 ea PO DAILY supplement 04/29/19 [History Last Taken Unknown] acetaminophen 325 mg tablet 650 mg (2 x 325 mg) PO Q4H PRN PRN Mild-Moderate Pain (1-5/10) 04/30/19 [Rx Last Taken Unknown] vujvtzc-eogmowznwqrci-mvdiyzpd 250 mg-250 mg-65 mg tablet (Excedrin Migraine) 1 tab PO Q6H PRN MIGRAINES 01/14/22 [History Last Taken Unknown] atorvastatin 10 mg tablet 10 mg PO QHS cholesterol 01/14/22 [History Last Taken Unknown] diclofenac sodium 1 % topical gel 1 g topical Q6H PRN pain 01/14/22 [History Last Taken Unknown] pioglitazone 30 mg tablet (Actos) 30 mg PO QHS diabetes 01/14/22 [History Last Taken Unknown] sildenafil 100 mg tablet 100 mg PO PRN PRN Erectile Dysfunction 01/14/22 [History Last Taken Unknown] cholecalciferol (vitamin D3) 50 mcg (2,000 unit) capsule 50 mcg PO DAILY supplement 06/17/23 [History Last Taken Unknown] dicyclomine 10 mg capsule 10 mg PO TID abdominal pain/cramping 07/14/23 [History Last Taken Unknown] oxycodone 5 mg tablet 5 mg PO TID pain 07/14/23 [History Last Taken Unknown] latanoprost 0.005 % eye drops 1 drp ophthalmic (eye) QHS mucous in eyes 07/18/23 [History Last Taken Unknown] fluticasone propionate 50 mcg/actuation nasal spray,suspension (Allergy Relief (fluticasone)) 1 spray intranasal BID #16 grams 08/15/23 [Rx Last Taken Unknown] apixaban 5 mg tablet (Eliquis) 5 mg PO BID 30 days #60 tabs 08/19/23 [Rx Last Taken Unknown] pantoprazole 20 mg tablet,delayed release (Protonix) 20 mg PO BID 30 days #60 tabs 08/19/23 [Rx Last Taken Unknown] hydrocodone-acetaminophen 5-325mg 5mg-325mg 1 tab PO Q4H PRN PRN Pain 2 days #10 TABLETS 08/25/23 [Rx Last Taken Unknown] prednisone 20 mg tablet 20 mg PO BID #10 tabs 08/25/23 [Rx Last Taken Unknown] Allergy/AdvReac Type Severity Reaction Status Date / Time No Known Allergies Allergy Verified 08/25/23 11:47 Family History Mother Cancer pt unsure what type Sister Diabetes Surgical History History of ureter stent Hx of appendectomy Hx of colonoscopy Hx of hemorrhoidectomy Hx of inguinal hernia repair Hx of sinus surgery Social History Smoking Status: Former smoker alcohol intake: former substance use type: does not use ROS ROS ED Review of Systems ROS Unobtainable: other Constitutional Constitutional ED: Reports lethargy; Denies chills, fever(s), sweats or weight loss Eyes Eyes: Denies blurry vision, change in vision or diplopia ENT ENT ED: Denies rhinorrhea or sore throat Cardiovascular Cardiovascular: Denies chest pain, orthopnea or racing heartbeat Respiratory/Chest Respiratory/Chest: Denies cough, dyspnea, dyspnea on exertion, orthopnea or sputum Gastrointestinal Gastrointestinal: Denies abdominal pain, diarrhea, nausea or vomiting Genitourinary Genitourinary ED: Denies dysuria, hematuria or urinary frequency Musculoskeletal Musculoskeletal: Reports other Details: Right knee pain ; Denies arthralgias, back pain, myalgias or neck pain Integumentary Denies abscess, Abrasions or rash Neurologic Neurologic: Denies headache(s) or weakness Psychiatric Psychiatric: Denies anxiety, depression or suicidal thoughts Endocrine Endocrinology: Denies polydipsia, polyphagia or polyuria Hematologic/Lymphatic Hematologic/Lymphatic: Denies easy bleeding, easy bruising or lymphadenopathy Allergic/Immunologic Allergic/Immunologic ED: Denies mouth swelling, tongue swelling or urticaria EXAM Physical Exam Const Vital Signs: 08/25/23 11:47 Temperature 96.7 F L Temperature Source Temporal Pulse Rate 89 Respiratory Rate 14 Blood Pressure 112/58 L Blood Pressure Mean 76 Pulse Ox 98 Oxygen Delivery Method Room Air Positive well nourished and well developed General Appearance ED: well developed and NAD HEENT Reports TM's clear and moist mucous membranes normocephalic and atraumatic; Negative for trauma or tenderness Tympanic Membrane ED: Yes TM's clear Eyes PERRL and EOMs intact bilaterally General Eye ED: Negative for pale conjunctiva or scleral icterus Neck no lymphadenopathy, supple and no JVD General: Negative for tenderness Chest Wall inspection of chest normal and palpation of chest normal Chest: Negative for tenderness Resp normal respiratory effort and clear to auscultation bilaterally Effort and Inspection: Negative for respiratory distress or pain with movement Auscultation: Negative for rhonchi, wheezes or diminished lung sounds Cardio regular rate, regular rhythm, S1 normal heart sound, S2 normal heart sound and no murmurs Peripheral Pulses: pulses 2+ throughout GI normal to inspection, nondistended, normoactive bowel sounds, soft to palpation, non-tender, non-distended and no masses Back/Spine no CVA tenderness and no thoracic nor lumbar tenderness Extremity normal to inspection Extremity Narrative: Knee-right knee-patient has no effusion. He is got tenderness palpation over the anterior aspect of the patella. He has limited range of motion as he does not want to flex the knee secondary to pain. The knee is not warm to the touch or cellulitic. He is neurovascular intact distally. General Extremety ED: Negative for edema General Extremity: Negative for edema Neuro oriented x3, CN's II-XII intact bilaterally, no sensory deficits noted and gait normal Sensorium / Orientation: awake, alert, oriented to person, oriented to place and oriented to time Motor Exam: strength 5/5 throughout and strength abnormal Psych mental status grossly normal Skin no rashes or lesions noted and no wounds MDM MDM MDM Narrative Medical decision making narrative: Presents with knee pain x 2 days. Atraumatic knee pain. Patient recently diagnosed with DVTs and PEs and is on Eliquis. Sounds like on attempted getting into the vehicle patient was having a lot of pain and had an episode of some confusion and diaphoresis and likely vagal episode. Suspect vagal episode related to pain. IV line established. CBC with differential obtained for white count of 11.0 with hemoglobin 8.1 and platelet count of 420. Sed rate was slightly elevated at 36. Uric acid was 7.9 which is elevated. C-reactive protein also slightly elevated 79.90. Clinically he does not want to flex the knee secondary to pain. There is no effusion. I did do x-rays and these were unremarkable. Clinically I suspect likely gouty arthropathy as patient does have history of gout. Discussed case with orthopedic surgeon on-call Dr. Francis who is in agreement. Will start patient on prednisone and will give him a knee immobilizer for comfort. Patient also will be given a prescription for few [place] for pain. He will follow-up with orthopedics this week. Advised return if increasing pain, fever, chills, sweats, erythema or condition should worsen anyway. Clinically I do not think he has a septic joint. Hesitant to perform arthrocentesis due to patient being anticoagulated. Lab Data Attestation: I reviewed the patient's lab results. Labs: Laboratory Results - last 24 hr 08/25/23 11:50 WBC 11.0 RBC 3.38 L Hgb 8.1 L Hct 25.1 L MCV 74.3 L MCH 24.0 L MCHC 32.3 RDW Std Deviation 41.1 RDW Coeff of Lesley 15.4 H Plt Count 420 MPV 11.2 Immature Gran % (Auto) 1.000 H Neut % (Auto) 64.7 Lymph % (Auto) 25.8 [place] % (Auto) 6.5 Eos % (Auto) 1.5 Baso % (Auto) 0.5 Absolute Neuts (auto) 7.1 Absolute Lymphs (auto) 2.83 Nucleated RBC % 0.2 ESR 36 H Uric Acid 7.9 H C-React Prot Ext Range 79.90 H Radiography Diagnostic Testing: Clinical Impression(s) from Imaging Studies Knee X-Ray 08/25/23 12:05 IMPRESSION: Normal x-ray examination of the knee. Electronically Signed: Candido Koenig MD at 12:39 EST , 4 view x-rays of the right knee obtained interpreted by myself as no evidence of fracture or dislocation. Radiology in agreement. Discharge Plan Triage Chief Complaint: Lower Extremity Injury ED Provider: Brianna Villanueva Dx/Rx/DC Orders Clinical Impression: Acute knee pain, Gout, arthropathy, Vagal reaction Instructions: ED Gout, ED Knee Pain of Uncertain Cause, ED Near-Fainting- Vagal Reaction Prescriptions: New prednisone 20 mg tablet 20 mg PO BID Qty: 10 0RF hydrocodone-acetaminophen [hydrocodone-acetaminophen] 5-325 mg tablet 1 tab PO Q4H PRN PRN (Reason: Pain) 2 Days Qty: 10 0RF No Action cholecalciferol (vitamin D3) 50 mcg (2,000 unit) capsule 50 mcg PO DAILY dicyclomine 10 mg capsule 10 mg PO TID fluticasone propionate [Allergy Relief (fluticasone)] 50 mcg/actuation spray,suspension 1 spray intranasal BID Qty: 16 11RF Rx Instructions: administer into each nostril metformin 500 MG tablet 1,000 mg PO QHS multivitamin with minerals 1 EACH tablet 1 ea PO DAILY acetaminophen 325 MG tablet 650 mg PO Q4H PRN PRN (Reason: Mild-Moderate Pain (1-12/18)) 0RF atorvastatin 10 mg tablet 10 mg PO QHS Patient Comments: TAKE 1 TABLET BY MOUTH EVERY DAY IN THE EVENING sildenafil 100 mg tablet 100 mg PO PRN PRN (Reason: Erectile Dysfunction) Patient Comments: Take 1 (one) Tablet daily as needed for erectile dysfunction pioglitazone [Actos] 30 mg tablet 30 mg PO QHS Patient Comments: TAKE 1 TABLET BY MOUTH WITH supper Excedrin Migraine 250-250-65 mg Tablet 1 tab PO Q6H PRN (Reason: MIGRAINES) diclofenac sodium 1 % gel 1 g TOPICAL Q6H PRN (Reason: pain) Patient Comments: 2 (two) gram to affected joint every 6 hours as directed oxycodone 5 mg tablet 5 mg PO TID Patient Comments: TAKE 1/2 -1 TABLET three times DAILY NEEDED FOR PAIN latanoprost 0.005 % drops 1 drp ophthalmic (eye) QHS Patient Comments: Instill 1 drop in both eyes nightly Eliquis 5 mg tablet 5 mg PO BID 30 Days Qty: 60 2RF pantoprazole [Protonix] 20 mg tablet,delayed release (DR/EC) 20 mg PO BID 30 Days Qty: 60 2RF metformin 500 MG tablet 500 mg PO DAILY aspirin 81 MG tablet 81 mg PO DAILY@0800 Primary Care Provider: Eusebio Durham Referrals: Eusebio Durham MD [Primary Care Provider] - Owen Francis MD [Med Staff - Active Staff] - 3-5 Days Disposition Disposition: Home, Self Care Discharge Date/Time: 08/25/23 15:05 Capacity Legal Independent Living Advisor Reflex Medical hold order details:: IF a medical hold is selected below, a suggested order for a MEDICAL HOLD will reflex upon signing the document. Next of kin: [place] law dictates a PRIORITY LIST for identifying legal decision-maker/legal next of kin in the following order (LNOK): 1st: The patient?s legal guardian, if any 2nd: The patient's spouse (if status is questionable, consult Risk Management) 3rd: The patient?s adult child(demarcus) (majority, if multiple children) 4th: The patient?s parents 5th: The patient?s adult siblings (majority, if multiple children siblings)
--- NOTE | 2023-08-25 12:05 | RAD_ITS ---
STUDY: X-RAY - RIGHT KNEE REASON FOR EXAM: Male, 68 years old. Pain TECHNIQUE: 2 view(s) of the knee. COMPARISON: None. FINDINGS: Normal visualized distal femur. Normal visualized proximal tibia and fibula. Normal proximal tibiofibular articulation. Normal medial femorotibial compartment. Normal lateral femorotibial compartment. Normal patellofemoral articulation. The soft tissue structures are unremarkable. RAD/Knee 1 or 2 Views IMPRESSION: Normal x-ray examination of the knee. Electronically Signed: Candido Koenig MD at 12:39 EST ,
[2023-08-25 12:23] LABS: Absolute Lymphocyte Count 2.83 X10^3/uL (0.83-4.51); Absolute Neutrophil Count 7.1 X10^3/uL (2.0-7.7); Basophil# 0.06 X10^3/uL; Basophil% 0.5 % (0-1); Eosinophil# 0.17 X10^3/uL; Eosinophils% 1.5 % (0-5); Hematocrit 25.1 % (40-54); Hemoglobin 8.1 g/dL (13.0-16.5); Lymphocyte # 2.83 X10^3/ul (0.83-4.51); Lymphocyte % 25.8 % (19-41); Mean Corp Hgb Conc 32.3 g/dL (32-36); Mean Corpuscular Volume 74.3 fL (80-94); Mean Platelet Vol. 11.2 fl (6.2-12.0); Monocyte# 0.71 X10^3/uL; Monocyte% 6.5 % (0-10); NRBC Flagged by Analyzer 0.2 % (0-5); Neutrophil # 7.11 X10^3/uL (2.7-7.7); Neutrophil % 64.7 % (47-70); Platelet Count 420 K/mm3 (150-450); RBC Distribution Width CV 15.4 % (11.6-14.6); RBC Distribution Width SD 41.1 fl (35.1-43.9); Red Blood Count 3.38 M/mm3 (4.6-6.2)
[2023-08-25 12:38] LABS: Erythrocyte Sedimentation Rate 36 mm/hr (0-20)
[2023-08-25 12:58] LABS: Uric Acid 7.9 mg/dL (3.5-7.2)
[2023-08-25] MEDS: predniSONE 20 MG Tablet 40 MG PO (14:33)
== END 2023-08-25 15:05 | disposition home or self-care (01) ==
PROVIDERS: Emergency Provider Emergency Medicine; PCP Family Medicine; Visit Provider Emergency Medicine
DX: R55 Syncope and collapse (principal); C34.90 Malignant neoplasm of unspecified part of unspecified bronchus or lung; E11.40 Type 2 diabetes mellitus with diabetic neuropathy, unspecified; M10.9 Gout, unspecified; M25.561 Pain in right knee; R41.0 Disorientation, unspecified; E78.00 Pure hypercholesterolemia, unspecified; Z79.01 Long term (current) use of anticoagulants; Z79.84 Long term (current) use of oral hypoglycemic drugs; Z87.891 Personal history of nicotine dependence; Z86.718 Personal history of other venous thrombosis and embolism
CPT/HCPCS: 73560; 84550; 85025; 85652; 86140; 99285; A4216

== ENCOUNTER → 2023-08-26 | Outpatient (CLI) | payer MEDICARE, MEDICAID, SELFPAY ==
--- NOTE | 2023-08-26 11:00 | PET_ITS ---
EXAMINATION: FDG PET-CT INDICATIONS: A 68-year-old male with a history of pulmonary nodularity. COMPARISON EXAMINATION: None available. INDEX LESION SIZE SUV INTERPRETATION Right lower lung field, right lower lobe 37.1 mm 2.5 Fulfills quantitative criteria for viable neoplasm. Mediastinum and right thoracic perihilum 36.8 mm largest 5.02 Fulfills quantitative criteria for viable neoplasm. Left and right lobe hepatic parenchyma 6.8 cm 5.9 > 2.0 Fulfills quantitative criteria for viable neoplasm. Left adrenal gland, left hemipelvic mesentery 3.4 max Fulfills quantitative criteria for viable neoplasm. Osseous skeleton 4.4 max Fulfills quantitative criteria for viable neoplasm. TECHNIQUE: Following the intravenous administration of 11.7 mCi of F-18 deoxyglucose via the right antecubital fossa, multiplanar image acquisitions of the head, neck, chest, abdomen and pelvis to level of mid-thigh, lower extremities obtained at one hour post radiopharmaceutical administration contemporaneously interpreted with the current CT of the head, neck, chest, abdomen and pelvis to level of mid-thigh, lower extremities dated 08/26/23 via coregistration reveal: SERUM GLUCOSE LEVEL: 199 mg/dl. HEIGHT: 67 inches. WEIGHT: 192 lbs. FINDINGS: Head/Neck: There is no evidence of abnormal increased glucose metabolism in the pharyngeal mucosal space, parapharyngeal space, bilateral-lateral and anterior neck, hypopharynx and distribution of the laryngeal structures. The visualized portion of the cerebral cortical-subcortical structures demonstrate symmetric and preserved glucose metabolism. CHEST: Increased radiopharmaceutical concentration defined in the right lower lung field, right lower lobe generating a calculated maximum standard uptake value of 2.5. The maximum axial diameter of the metabolic, morphologic abnormality is 37.1 mm. Facilitated uptake is noted in the precarinal mediastinum to the left of midline involving both the left upper and left lower paratracheal lymph nodes, the left thoracic perihilum and subcarinal mediastinum generating a calculated maximum standard uptake value of 5.02. The largest corresponding soft tissue density is 36.[address] findings are as follows. Right and left axillary soft tissue densities are ametabolic. There are no additional parenchymal densities-nodules defined in the right and left hemithorax with quantitatively significant increased FDG concentration. There is atherosclerotic calcification defined in the thoracic aorta without evidence of dilatation-aneurysm formation. Coronary arterial calcification is observed. Abdomen/Pelvis: Multifocal increased radiopharmaceutical concentration defined in the left and right lobe hepatic parenchyma demonstrating a calculated maximum standard uptake value of 5.9 greater than 2.0. The maximum axial diameter of the metabolic, morphologic abnormality is 6.8 cm. Increased radiopharmaceutical concentration is defined in the left adrenal gland and left hemipelvic mesentery demonstrate a calculated maximum standard uptake value of 3.4 max. Normal physiologic distribution of the radiopharmaceutical is apparent in the hepatic (4.7) and splenic parenchyma, both renal units, bladder and visualized intestinal tract. Diffuse radiopharmaceutical concentration is noted in all four quadrants of the abdomen and pelvis. The abdomen and pelvis CT findings are as follows. There is atherosclerotic calcification defined in the abdominal aorta without evidence of dilatation-aneurysm formation. Pelvic arterial calcification is defined. Calcification is evident within the prostate gland. Skeletal: Increased radiopharmaceutical concentration is noted in the bilateral scapula, right proximal humeral metaphysis, several thoracic vertebra, the left proximal femur, and the left lateral chest wall-rib. The calculated maximum standard uptake value is 4.4. PET/PET/CT Tumor Base -Thigh Init IMPRESSION: 1. The increase in radiopharmaceutical concentration defined in the right lung field, right lower lobe fulfills quantitative criteria for malignant transformation. Histopathologic sampling is recommended. 2. Facilitated FDG concentration noted in the right thoracic perihilum, mediastinal structures fulfills quantitative criteria for viable neoplasm. 3. The left lobe hepatic parenchymal hypermetabolic foci fulfills quantitative criteria for viable hepatic metastatic disease. 4. Left adrenal and left lower hemipelvic mesentery hypermetabolic foci fulfills quantitative criteria for malignant transformation. 5. Facilitated radiopharmaceutical concentration manifest in the appendicular and axial skeletal structures fulfills quantitative criteria for viable neoplasm. (Markus et al, Clinical Nuclear Medicine, 29:161, 2004). Electronic Signature Noe Sandoval D.O. Accurate Quantification of SUVs for this report are calculated using the exclusive [employer], ([place]. Patent No. [id number] [id number] [id number] [phone] patent [id number] [phone] ). Standardization and correction of the FDG SUV metric exclusively available with [employer] intellectual property, allow for vendor non-specific objective quantitative sequential FDG PET-CT comparison and otherwise unobtainable optimization of the sensitivity and specificity of the examination. [email or web address] Electronically Signed: Noe Sandoval DO at 9:22 EST ,
== END | disposition home or self-care (01) ==
PROVIDERS: PCP Family Medicine; Referring Provider Nurse Practitioner Acute Care; Visit Provider Nurse Practitioner Acute Care
DX: C34.31 Malignant neoplasm of lower lobe, right bronchus or lung (principal); R91.8 Other nonspecific abnormal finding of lung field
CPT/HCPCS: 78815; A9552

== ENCOUNTER 2023-09-02 07:09 | Day surgery (SDC) | payer MEDICARE, MEDICAID, SELFPAY ==
--- OUTSIDE RECORDS SUMMARY | 2023-09-02 07:11 | XMS RPT_ITS | CCD ---
Demographics Address [address] [place] [address] Preferred Language Unknown Marital Status Oriental Orthodox Affiliation Unknown Race Unknown Ethnic Group Unknown Author Name Unknown Address [id number] [place] [address] Organization [facility] Results Test Name Value Interpretation [...] BE BASED ON THE PRIMARY CLINICAL RECORDS. [employer] provides no warranty or guarantee of the accuracy or completeness of information in this document.
--- NOTE | 2023-09-02 07:26 | HP.PCM_ITS ---
History and Physical Date of Admission: 09/02/23 Date of Service: 09/01/23 MR#: [id number] Acct: [id number] Name: DAMON OSORIO Rep #: [id number] : 1955 Provider: Dr. Kelsea Woods MD Age/Sex: 68/M Location: [facility] Status: Signed Intake Vital Signs 08/28/2415:00 09/01/2408:00 Height 5 ft 7 in 5 ft 7 in Weight: 199 lb 192 lb BMI 31.1 30.0 BP 131/68 H Blood Pressure Location Rt brachial Position Sitting Respiration 17 Pulse 93 Pulse Source Monitor Intake Visit Reasons: Port Consult Chief Complaint: port consult Is patient in pain?: No Allergies No Known Allergies Allergy (Verified 09/01/23 09:01) Medications aspirin 81 mg tablet,delayed release 81 mg PO DAILY@0800 01/17/15 [History Confirmed 09/01/23] metformin 500 mg tablet 500 mg PO DAILY diabetes 01/17/15 [History Confirmed 09/01/23] metformin 500 mg tablet 1,000 mg PO QHS diabetes 04/29/19 [History Confirmed 09/01/23] multivitamin with minerals 1 ea PO DAILY supplement 04/29/19 [History Confirmed 09/01/23] acetaminophen 325 mg tablet 650 mg (2 x 325 mg) PO Q4H PRN PRN Mild-Moderate Pain (1-5/10) 04/30/19 [Rx Confirmed 09/01/23] bvahdbk-lcxbbuklskjht-mjoatzly 250 mg-250 mg-65 mg tablet (Excedrin Migraine) 1 tab PO Q6H PRN MIGRAINES 01/14/22 [History Confirmed 09/01/23] atorvastatin 10 mg tablet 10 mg PO QHS cholesterol 01/14/22 [History Confirmed 09/01/23] diclofenac sodium 1 % topical gel 1 g topical Q6H PRN pain 01/14/22 [History Confirmed 09/01/23] pioglitazone 30 mg tablet (Actos) 30 mg PO QHS diabetes 01/14/22 [History Confirmed 09/01/23] sildenafil 100 mg tablet 100 mg PO PRN PRN Erectile Dysfunction 01/14/22 [History Confirmed 09/01/23] cholecalciferol (vitamin D3) 50 mcg (2,000 unit) capsule 50 mcg PO DAILY supplement 06/17/23 [History Confirmed 09/01/23] dicyclomine 10 mg capsule 10 mg PO TID abdominal pain/cramping 07/14/23 [History Confirmed 09/01/23] oxycodone 5 mg tablet 5 mg PO TID pain 07/14/23 [History Confirmed 09/01/23] latanoprost 0.005 % eye drops 1 drp ophthalmic (eye) QHS mucous in eyes 07/18/23 [History Confirmed 09/01/23] fluticasone propionate 50 mcg/actuation nasal spray,suspension (Allergy Relief (fluticasone)) 1 spray intranasal BID #16 grams 08/15/23 [Rx Confirmed 09/01/23] apixaban 5 mg tablet (Eliquis) 5 mg PO BID 30 days #60 tabs 08/19/23 [Rx Confirmed 09/01/23] pantoprazole 20 mg tablet,delayed release (Protonix) 20 mg PO BID 30 days #60 tabs 08/19/23 [Rx Confirmed 09/01/23] hydrocodone-acetaminophen 5-325mg 5mg-325mg 1 tab PO Q4H PRN PRN Pain 2 days #10 TABLETS 08/25/23 [Rx Confirmed 09/01/23] prednisone 20 mg tablet 20 mg PO BID #10 tabs 08/25/23 [Rx Confirmed 09/01/23] PFSH Medical History Back pain Blood in stool Chronic kidney disease Diabetes Dietary restriction Former smoker Gout High cholesterol History of renal disease Kidney stones Lightheadedness Migraines Neuropathy Prostate disease Shortness of breath on exertion Wears dentures Wears glasses Surgical History History of ureter stent Hx of appendectomy Hx of colonoscopy Hx of hemorrhoidectomy Hx of inguinal hernia repair Hx of sinus surgery Family History Mother Cancer pt unsure what typeSister Diabetes Social History Smoking Status: Former smoker alcohol intake: former substance use type: does not use HPI HPI HPI: 68-year-old male presents for port placement due to 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 Patient also has recent history of PE as well as DVTs was initially on Eliquis but changed to Lovenox twice daily. Did discuss with oncology okay to hold the Lovenox for 24 hours for port placement-?the night before and morning of. ROS General General: Yes weight change and fatigue; No appetite, colon cancer, breast cancer or weakness HEENT HEENT: No difficulty swallowing, eye injury, eye surgery, swollen glands or hoarseness Endo Endocrine: Yes diabetes mellitus; No thyroid disease, thyroid cancer, Hair loss, heat intolerance or cold intolerance Skin Skin: No rash or changing moles Musc Musculoskeletal: Yes back problems, arthritis and gout; No rheumatoid arthritis or joint pain Cardio Cardiovascular: No murmur, pacemaker, heart disease, atrial fibrillation, high blood pressure, heart attack, heart stent, palpitations, shortness of breat with exertion or chest pain Psych Psychiatric: No depression, anxiety or hearing voices Resp Respiratory: Yes shortness of breath, No sleep apnea, Yes cough, No COPD, No asthma, No emphysema and No wheezing Gastro Gastrointestinal: No abdominal pain, No nausea or vomiting, No diarrhea, No constipation, No blood in stool, No acid reflux, Yes hemorrhoids, No ulcers, No gallbladder problem and Yes black,tarry stools Brant Hematologic: Yes blood thinners, No blood disorders, Yes bleeding, No anemia and Yes blood clots Additional Details: On Lovenox 2 x's per day, does not know dosage.Has blood clots bilateral legs Neuro Neurologic: No system reviewed and no additional complaints, except as documented, No as per HPI, No abnormal gait, No abnormal hearing, No abnormal movements, No abnormal speech, No behavioral changes, No burning sensations, No confusion, No convulsions, No disequilibrium, No dizziness, No localized weakness, No frequent falls, No headache(s), No lack of coordination, No loss of vision, No memory loss, Yes numbness, No other visual disturbances, No radicular pain, No restless legs, No sensory deficit, No syncope, Yes tingling, No tremor(s), No weakness and No other Exam Const General: cooperative, healthy appearing, comfortable and no acute distress [facility] Head: normocephalic and atraumatic Neck Neck: supple Chest Other: Palpation of bilateral upper chest normal Resp Effort & Inspection: normal respiratory effort Cardio Rate: regular rate GI Inspection: non-distended Palpation: soft and nontender Skin General: no rashes or lesions noted Neuro General: CN's II-XI intact bilaterally Extrem General: normal to inspection Psych Mental Status: mental status grossly normal Attitude: cooperative Assessment and Plan Assessment and Plan (1) Encounter for insertion of venous access port: Status: Acute (2) NSCLC of right lung: Status: Acute Comment: PET/CT 08/26/2023 reviewed by me, shows right lower lobe mass, right hilum nodes, subcarinal node, left paratracheal node, multiple liver masses, left adrenal mass, and bony metabolic activities suggestive of metastatic disease. NSCLC adenocarcinoma type, Stage IV(cT3 cN3 M1c) Liver, L adrenal gland, bones R scapular and multiple vertebrae. Discussed metastatic lung cancer, treatment with chemotherapy and Immunotherapy, risks, benefits and side effects vs supportive, Pt wants proceed with therapy. (3) Pulmonary embolism: Status: Acute Qualifiers: Pulmonary embolism type: other Chronicity: acute Acute cor pulmonale presence: unspecified Qualified Code(s): I26.99 - Other pulmonary embolism without acute cor pulmonale Plan Will have patient hold his Lovenox night before and morning of port placement. As patient is on twice daily doses due to recent PE and DVTs. I have discussed above with the patient- Port-a-Cath placement. Right possible left Patient has been counseled as to the risks/benefits of the procedure. I have explained the risks of the surgery, including but not limited to: infection, bleeding, injury to any blood vessels/nerves, injury to lungs (such as pneumothorax or hemothorax and need for chest tube), not having any access, nonfunctioning of port due to thrombosis, infection of port, etc. the patient understands and agrees to proceed. I have answered all the patient's questions to the patient?s satisfaction and the patient has no further questions. Kelsea Woods M.D. Pager: [phone] [facility] [address] [place] [address], [facility], [address] [place] [address] Office: [phone] Coding Level of Care Code Off vis,new,level 3 Diagnoses Encounter for insertion of venous access port Z45.2 NSCLC of right lung C34.91 Other acute pulmonary embolism, unspecified whether acute cor pulmonale present I26.99 Pulmonary embolism type: other Chronicity: acute Acute cor pulmonale presence: unspecified 09/01/23 1110 <Electronically signed by Kelsea Woods MD> Date Kelsea Woods MD
[2023-09-02 07:43] VITALS: BP 138/58; PULSE 98; RESP 18; TEMP 36.1; O2SAT 100; BMI 29.3
[2023-09-02] MEDS: Lactated Ringers 1,000 ML 15 ML IV (07:48)
[2023-09-02 08:14] LABS: Bedside Glucose 148 mg/dL (74-106)
[2023-09-02] MEDS: Cefazolin 2 GM in 0.9% Normal Saline (100mL Bag) 100 ML IV (09:15)
[2023-09-02] MEDS: Lidocaine 1% /Epi 1:100 (20ml) 20 ML Vial (09:49)
[2023-09-02] MEDS: Bupivacaine Mpf 0.5% 30 ML VIAL (09:50)
--- NOTE | 2023-09-02 09:53 | RAD_ITS ---
STUDY: X-RAY CHEST REASON FOR EXAM: Male, 68 years old. Port -- pacu TECHNIQUE: Single AP portable view of the chest. COMPARISON: Comparison is made with prior chest radiograph dated August 12, 2023. FINDINGS: A right-sided portacatheter is seen with the tip at the junction of the superior vena cava and right atrium. EKG electrodes are seen. Persistent infiltrate in the right middle lobe. There is no demonstrated pleural abnormality. Normal size heart. Normal mediastinum and manuel. Normal visualized pulmonary arteries. Normal visualized aortic arch and descending thoracic aorta. There are diffuse degenerative changes of the visualized thoracic spine. Normal visualized ribs, clavicles, and shoulders. There is no demonstrated abnormality of the visualized soft tissue structures of the upper abdomen. RAD/Chest 1 View (Portable) IMPRESSION: The tip of the right-sided micaela catheter is at the junction of the superior vena cava and right atrium. Persistent infiltrate in the right midlung. Electronically Signed: Candido Koenig MD at 10:54 EST ,
--- NOTE | 2023-09-02 09:54 | PCM.OPRPT ---
Report of Operation Date of Procedure: 09/02/23 Pre-Operative Diagnosis: Z45.2, metastatic lung cancer Post-Operative Diagnosis: Same Surgery/Procedure Performed:: 1. Placement of right IJ Port-A-Cath 2. Use of ultrasound 3. Use of fluoroscopy Surgeon: Kelsea Woods Type of Anesthesia: Local MAC Anesthesiologist: Herbie Chaudhry Special Medications: Ancef 2 g IV x 1 Estimated Blood Loss (mL): < 10 cc Description of Procedure: After informed consent was given, the patient was brought to the operating room and placed in the supine position. Appropriate time out protocol was followed. Patient was then given IV conscious sedation for anesthesia. The patient's right upper chest and neck were then prepped with a surgical skin preparation and sterile surgical drapes were placed. After proper landmarks were ascertained, the skin at the upper right chest area was then infiltrated with 1:1 mixture of 1% lidocaine with epinephrine and 0.5% marcaine. A needle trocar was then inserted into the right internal jugular vein with ultrasound guidance-multiple vessels were viewed with u/s and the right IJ was chosen-- and there was good aspiration of venous blood. A wire was then threaded into the needle trocar and this was visualized under fluoroscopy to ensure that the wire was in the superior vena cava. Once this was done, then the needle trocar was removed. A small skin mattie was made with an 11 blade knife at the wire entrance site. The dilator with the introducer sheath attached was then placed over the wire into the right internal jugular vein via the Seldinger technique and this was visualized under fluoroscopy. The dilator and sheath were in proper position as visualized by fluoroscopy. A subcutaneous pocket was then created caudad to the catheter insertion site. A transverse skin incision was made after the skin and subcutaneous tissues were infiltrated with local anesthetic. Blunt dissection was then used to create a space large enough for placement of the subcutaneous port. The catheter was then tunneled into the subcutaneous pocket. The wire and dilator were then removed. The catheter was then threaded into the introducer sheath and was positioned with its tip at the junction of the superior vena cava and the right atrium as visualized under fluoroscopy. The excess catheter was transected. The catheter was then attached to the subcutaneous port using manufacturers guidelines. The catheter was flushed with a heparin saline mixture prior to placement. Hemostasis was carefully controlled with electrocautery. The port was sutured to the subcutaneous fascia using 2-0 Vicryl suture at two sites. The port was then placed in the subcutaneous pocket. The incision were reapproximated with interrupted subdermal 3-0 vicryl sutures. The skin was reapproximated with 3-0 nylon suture in a interrupted fashion. Steristrips were used for reinforcement of the skin closure at IJ insertion site and a sterile opsite dressings were applied. The patient tolerated the procedure well. Grafts/Implants Used: [employer] PowerPort isp M.R.I. 6Fr Lot [id number] Complications none
--- NOTE | 2023-09-02 09:57 | DCINST_ITS ---
Discharge Instructions Procedure Port-A-Cath Diet Discharge Diet: Light diet - advance as tolerated Activity May shower in (days): 5 (Keep port site clean and dry x5 days. Neck incision okay to get wet after 1 day. Okay to lower shower and upper sponge bath. OR okay to taper off port site with a Ziploc bag to shower) Lifting Restrictions: No lifting > 15 pounds for 3 days with the arm on the side of the port Dressing / Incision Call your doctor if your incision/area has: Continuous Slow Oozing, Sudden Increased Bleeding, Increased Pain/ Swelling, Increased Redness, Foul Smelling Discharge and Swelling at the incision site Call your doctor if you observe: Fever of 101 or Higher Change Dressing in: 2 days (2-3 days- port site; ok to remove neck opsite in 1 day) Follow Up Care Please Follow Up With: Kelsea Woods MD When: In 10 days for permanent suture removal?call office for appointment Test Results: Test results from this visit will be discussed in further detail at your follow- up appointment, if applicable. Discharge Plan Admission Attending Provider: Kelsea Woods Primary Care Provider: Eusebio Durham Discharge Orders/Prescriptions Prescriptions: Continued cholecalciferol (vitamin D3) 50 mcg (2,000 unit) capsule 50 mcg PO DAILY fluticasone propionate [Allergy Relief (fluticasone)] 50 mcg/actuation spray,suspension 1 spray intranasal BID Qty: 16 11RF Rx Instructions: administer into each nostril metformin 500 MG tablet 1,000 mg PO QHS multivitamin with minerals 1 EACH tablet 1 ea PO DAILY acetaminophen 325 MG tablet 650 mg PO Q4H PRN PRN (Reason: Mild-Moderate Pain (1-5/10)) 0RF atorvastatin 10 mg tablet 10 mg PO QHS Patient Comments: TAKE 1 TABLET BY MOUTH EVERY DAY IN THE EVENING sildenafil 100 mg tablet 100 mg PO PRN PRN (Reason: Erectile Dysfunction) Patient Comments: Take 1 (one) Tablet daily as needed for erectile dysfunction pioglitazone [Actos] 30 mg tablet 30 mg PO QHS Patient Comments: TAKE 1 TABLET BY MOUTH WITH supper oxycodone 5 mg tablet 5 mg PO TID Patient Comments: TAKE 1/2 -1 TABLET three times DAILY NEEDED FOR PAIN latanoprost 0.005 % drops 1 drp ophthalmic (eye) QHS Patient Comments: Instill 1 drop in both eyes nightly pantoprazole [Protonix] 20 mg tablet,delayed release (DR/EC) 20 mg PO BID 30 Days Qty: 60 2RF metformin 500 MG tablet 500 mg PO DAILY Held Excedrin Migraine 250-250-65 mg Tablet 1 tab PO Q6H PRN (Reason: MIGRAINES) Hold Instructions: avoid due to aspirin in meds for 1 day enoxaparin 80 mg/0.8 mL syringe 80 mg subcut Q12H Hold Instructions: take PM dose today Patient Comments: INJECT 1 SYRINGEVSUBCUTANEOUSLY TWICE DAILY Rx Instructions: HOLDING 09/01 EVENING DOSE AND 09/02 AM DOSE Discontinued Eliquis 5 mg tablet 5 mg PO BID 30 Days Qty: 60 2RF Hold Instructions: SURGERY aspirin 81 MG tablet 81 mg PO DAILY@0800 No Action aspirin [Adult Aspirin Regimen] 81 mg tablet,delayed release (DR/EC) 81 mg PO DAILY Referrals / Follow Up: Eusebio Durham MD [Primary Care Provider] - Disposition Disposition (needs filled in before D/C Order can be placed): Home, Self Care
[2023-09-02 10:03] VITALS: BP 118/58; BP 138/58; PULSE 94; RESP 12; TEMP 36.2; O2SAT 99
[2023-09-02 10:05] VITALS: BP 118/58; BP 138/58; PULSE 94; RESP 18; O2SAT 100
[2023-09-02 10:10] VITALS: BP 121/63; BP 138/58; PULSE 93; RESP 18; O2SAT 100
[2023-09-02 10:14] VITALS: BP 130/60; BP 138/58; PULSE 89; RESP 16; TEMP 36.1; O2SAT 98
[2023-09-02 10:35] VITALS: BP 138/58
== END 2023-09-02 11:32 | disposition home or self-care (01) ==
LOC: SDC 07:10 → AC 07:11
PROVIDERS: PCP Family Medicine; Referring Provider Surgery; Visit Provider Surgery
PROC: (CPT 36561; principal; 2023-09-02 08:45)
DX: Z45.2 Encounter for adjustment and management of vascular access device (principal); C79.51 Secondary malignant neoplasm of bone; C78.7 Secondary malignant neoplasm of liver and intrahepatic bile duct; C34.91 Malignant neoplasm of unspecified part of right bronchus or lung; I26.09 Other pulmonary embolism with acute cor pulmonale; E11.40 Type 2 diabetes mellitus with diabetic neuropathy, unspecified; E11.22 Type 2 diabetes mellitus with diabetic chronic kidney disease; Z79.84 Long term (current) use of oral hypoglycemic drugs; N18.9 Chronic kidney disease, unspecified; Z87.891 Personal history of nicotine dependence; E78.00 Pure hypercholesterolemia, unspecified; Z79.82 Long term (current) use of aspirin; Z79.899 Other long term (current) drug therapy; Z86.718 Personal history of other venous thrombosis and embolism; Z79.01 Long term (current) use of anticoagulants
CPT/HCPCS: 36561; 71045; 77001; 82962; C1894; J7120; J2405

== ENCOUNTER 2023-09-09 12:54 | Emergency (ER) | payer MEDICARE, MEDICAID, SELFPAY ==
[2023-09-09] VITALS (7 sets, daily range): BP systolic 121–155; BP diastolic 55–65; PULSE 96–103; RESP 16–18; TEMP 35.9–36.3; O2SAT 92–100; BMI 28.8
--- NOTE | 2023-09-09 13:42 | CT_ITS ---
STUDY: CT ABDOMEN AND PELVIS WITH CONTRAST REASON FOR EXAM: Male, 68 years old. Abdominal pain. History of lung cancer. Hematemesis. RADIATION DOSAGE (If Supplied By Facility): CTDIvol = ( 18.31 ) mGy, DLP = ( 660.14 ) mGycm TECHNIQUE: Transaxial images were obtained from the dome of the diaphragm to the symphysis pubis without oral contrast. IV 100mL Isovue-300 was administered. Sagittal and coronal images were reconstructed. Individualized dose optimization techniques were used for this CT. COMPARISON: None. FINDINGS: The visualized lung bases are unremarkable. The visualized portions of the heart are within normal limits. Mild hepatomegaly. Diffuse hypodense nodular seen throughout both lobes of the liver suggestive of diffuse metastatic disease. Normal gallbladder and extrahepatic biliary system. There is a 2.8 cm hypodense nodule in the lateral aspect of the spleen. This is new. Normal pancreas. There is a 2 cm solid mass in the left adrenal gland. Small bilateral renal cysts. Normal visualized stomach. Normal small intestine. Normal colon. The patient is status post appendectomy. There is scattered atherosclerotic calcification of the abdominal aorta, without a demonstrated aneurysm. Normal inferior vena cava. Normal retroperitoneum. Multiple small bladder calculi along its base. There is enlargement of the prostate with indentation at the bladder base. The prostate measures 4.1 cm x 4.2 cm. Central prostatic calcification is seen. Normal abdominal wall. There are diffuse degenerative changes of the visualized lumbar spine. Straightening of the normal lumbar lordosis. CT/Abdomen/Pelvis W IV Cont ONLY IMPRESSION: Findings in keeping with the multiple hepatic metastases and hepatomegaly. Hypodense lesion seen in the spleen as described. Metastatic deposits should be ruled out. Left adrenal mass. Small bilateral renal cysts. Prostatic enlargement with indentation at the bladder base. Multiple tiny bladder calculi on its posterior base. Electronically Signed: Candido Koenig MD at 15:41 EST ,
--- NOTE | 2023-09-09 13:48 | RAD_ITS ---
STUDY: X-RAY CHEST REASON FOR EXAM: Male, 68 years old. Cough TECHNIQUE: Single AP portable view of the chest. COMPARISON: Comparison is made with prior study dated September 02, 2023. FINDINGS: A right-sided Port-A-Cath is seen with the tip in the midportion of the superior vena cava. Persistent infiltrate in the right midlung although this has improved as compared to prior study. This may represent residual neoplastic process. There is no demonstrated pleural abnormality. Normal size heart. Normal mediastinum and manuel. Normal visualized pulmonary arteries. There is atherosclerotic tortuosity of the aortic arch and descending thoracic aorta. There are diffuse degenerative changes of the visualized thoracic spine. Normal visualized ribs, clavicles, and shoulders. There is no demonstrated abnormality of the visualized soft tissue structures of the upper abdomen. RAD/Chest 1 View (Portable) IMPRESSION: Residual infiltrate in the right midlung. This may represent residual neoplastic process rather than a true infiltrate. Electronically Signed: Candido Koenig MD at 15:36 EST ,
[2023-09-09] MEDS: Ondansetron 4 MG/2 ML Vial IV (13:55)
[2023-09-09] MEDS: Morphine 4 MG/ML Syringe IV (13:55)
--- NOTE | 2023-09-09 14:01 | EX.ED.DYSGE1 ---
HPI <MERI Oliveira - Last Filed: 09/09/23 18:20> History of Present Illness Chief Complaint: Nausea/Vomiting Narrative Narrative: Patient is a 68-year-old male with history of hypertension, diabetes, new diagnosis of non-small cell lung cancer, history of blood clots in the legs and lungs. Patient is currently seeing Dr. Mancera. Patient has not received any chemotherapy at this time. Patient presents to the emergency department for weakness, shortness of breath, anemia. Patient was supposed to get a outpatient infusion of blood however started having nausea, vomiting, abdominal pain. Patient then referred to the emergency department. Patient states he has had dark stools, 2 days ago, he has been off all his medications including injectable anticoagulation. Denies any fever or chills. PFSH <MERI Oliveira - Last Filed: 09/09/23 18:20> [facility] Medical History Anemia Back pain Blood in stool Cancer Chronic kidney disease Diabetes Dietary restriction DVT (deep venous thrombosis) Encounter for education Former smoker Gastric reflux Gout High cholesterol History of renal disease Kidney stones Lightheadedness Migraines Neuropathy Prostate disease Shortness of breath on exertion Wears dentures Wears glasses Home Medications metformin 500 mg tablet 500 mg PO DAILY diabetes 01/17/15 [History Last Taken Unknown] metformin 500 mg tablet 1,000 mg PO QHS diabetes 04/29/19 [History Last Taken Unknown] multivitamin with minerals 1 ea PO DAILY supplement 04/29/19 [History Last Taken Unknown] acetaminophen 325 mg tablet 650 mg (2 x 325 mg) PO Q4H PRN PRN Mild-Moderate Pain (1-5/10) 04/30/19 [Rx Last Taken Unknown] clddbxq-supvivnoxtmlk-pazxzbqe 250 mg-250 mg-65 mg tablet (Excedrin Migraine) 1 tab PO Q6H PRN MIGRAINES 01/14/22 [History Last Taken Unknown] atorvastatin 10 mg tablet 10 mg PO QHS cholesterol 01/14/22 [History Last Taken Unknown] pioglitazone 30 mg tablet (Actos) 30 mg PO QHS diabetes 01/14/22 [History Last Taken Unknown] sildenafil 100 mg tablet 100 mg PO PRN PRN Erectile Dysfunction 01/14/22 [History Last Taken Unknown] cholecalciferol (vitamin D3) 50 mcg (2,000 unit) capsule 50 mcg PO DAILY supplement 06/17/23 [History Last Taken Unknown] oxycodone 5 mg tablet 5 mg PO TID pain 07/14/23 [History Last Taken Unknown] latanoprost 0.005 % eye drops 1 drp ophthalmic (eye) QHS mucous in eyes 07/18/23 [History Last Taken Unknown] fluticasone propionate 50 mcg/actuation nasal spray,suspension (Allergy Relief (fluticasone)) 1 spray intranasal BID #16 grams 08/15/23 [Rx Last Taken Unknown] pantoprazole 20 mg tablet,delayed release (Protonix) 20 mg PO BID 30 days #60 tabs 08/19/23 [Rx Last Taken Unknown] enoxaparin 80 mg/0.8 mL subcutaneous syringe 80 mg subcut Q12H 09/01/23 [History Last Taken 09/01/23 08:00] aspirin 81 mg tablet,delayed release (Adult Aspirin Regimen) 81 mg PO DAILY 09/02/23 [History Last Taken Unknown] lidocaine-prilocaine 2.5 %-2.5 % topical cream 1 applic topical ONCE PRN port acces 30 days #30 grams 09/04/23 [Rx Last Taken Unknown] ondansetron 8 mg disintegrating tablet 8 mg PO Q8H PRN nausea and vomiting #30 tabs 09/04/23 [Rx Last Taken Unknown] ondansetron 4 mg disintegrating tablet 4 mg PO Q8H PRN PRN Nausea #20 tabs 09/09/23 [Rx Last Taken Unknown] Allergy/AdvReac Type Severity Reaction Status Date / Time No Known Allergies Allergy Verified 09/08/23 09:00 Family History Mother Cancer pt unsure what type Sister Diabetes Surgical History History of ureter stent Hx of appendectomy Hx of colonoscopy Hx of hemorrhoidectomy Hx of inguinal hernia repair Hx of sinus surgery Social History Smoking Status: Former smoker alcohol intake: former substance use type: does not use ROS <MERI Oliveira - Last Filed: 09/09/23 18:20> ROS ED ROS Narrative Constitutional: Negative for fever, chills, weight loss. Positive for weakness Eyes: Negative for vision loss, vision change, double vision ENT: Negative for any sore throat, ear pain, congestion Cardiovascular: Negative for any chest pain, tightness, palpitations Respiratory: Negative for any cough, sputum production, hemoptysis, dyspnea, dyspnea on exertion, orthopnea Gastrointestinal: Negative for any diarrhea, constipation, blood in vomit. Positive for abdominal pain, nausea, vomiting, dark tarry stool : Negative for any urinary frequency, dysuria, retention, blood in urine Muscle skeletal: Negative for any myalgias, arthralgias, neck pain, back pain Neurological: Negative for any headache, syncope, paresthesias, dizziness Skin: Negative for any rashes, lumps, itching, abrasions, lacerations Psychiatric: Negative for any depression, anxiety, stress, suicidal ideation, homicidal ideation Hematologic: Negative for any easy bruising, excessive bruising, easy bleeding Allergies: Negative for any eczema, hives, rash EXAM <MERI Oliveira - Last Filed: 09/09/23 18:20> Physical Exam Narrative Exam Narrative: Vital signs reviewed Patient is ill appearing. Patient had multiple episodes of vomitus. HEET: Head normocephalic atraumatic, TMs clear bilaterally. Posterior pharynx is clear, dry mucous membranes. Nares clear bilaterally. Neck: Supple with no lymphadenopathy or tenderness. No signs of meningismus. Cardiac: Regular rate and rhythm no murmurs gallops or rubs, equal peripheral pulses bilaterally. Respiratory: Lungs clear to auscultation bilaterally. No chest tenderness. Abdomen: Soft, nondistended. No abdominal bruit or pulsatile masses. No hepatosplenomegaly. Patient has tenderness to the mid umbilical area Extremities: No peripheral edema, no signs of gross trauma or deformity. Active full range of motion of all extremities. Neuro: Cranial nerves II through XII intact, no focal neurological deficits. Skin: Clean dry and intact with no rash, purpura, petechiae, vesicles or pustules. Pale appearing, pale conjunctiva Backs/flank: No CVA tenderness, no midline spinal tenderness, no deformity. Psych: Normal mood and affect. No SI, HI or acute psychosis. Const Vital Signs: 09/09/23 12:54 09/09/23 15:33 09/09/23 15:48 Temperature 97.2 F L 96.6 F L 998.1 F H Temperature Source Temporal Temporal Temporal Pulse Rate 96 103 H 102 H Respiratory Rate 18 16 16 Blood Pressure 121/55 H 145/55 H 149/57 H Blood Pressure Mean 77 85 87 Blood Pressure Source Monitor Monitor Blood Pressure Position Semi-Fowlers Semi-Fowlers Blood Pressure Location Left Arm Left Arm Pulse Ox 92 99 100 Oxygen Delivery Method Room Air Room Air Room Air 09/09/23 16:36 09/09/23 16:48 09/09/23 17:38 Temperature 97.1 F L 97.4 F L 97.4 F L Temperature Source Temporal Temporal Temporal Pulse Rate 103 H 102 H 100 Respiratory Rate 18 18 18 Blood Pressure 155/62 H 146/65 H 146/65 H Blood Pressure Mean 93 92 92 Blood Pressure Source Monitor Monitor Blood Pressure Position Semi-Fowlers Semi-Fowlers Blood Pressure Location Left Arm Left Arm Pulse Ox 99 98 100 Oxygen Delivery Method Room Air Room Air Room Air <Dr. Deepak Murphy MD - Last Filed: 09/09/23 17:05> Physical Exam Const Vital Signs: 09/09/23 12:54 09/09/23 15:33 09/09/23 15:48 Temperature 97.2 F L 96.6 F L 998.1 F H Temperature Source Temporal Temporal Temporal Pulse Rate 96 103 H 102 H Respiratory Rate 18 16 16 Blood Pressure 121/55 H 145/55 H 149/57 H Blood Pressure Mean 77 85 87 Blood Pressure Source Monitor Monitor Blood Pressure Position Semi-Fowlers Semi-Fowlers Blood Pressure Location Left Arm Left Arm Pulse Ox 92 99 100 Oxygen Delivery Method Room Air Room Air Room Air 09/09/23 16:36 09/09/23 16:48 09/09/23 17:38 Temperature 97.1 F L 97.4 F L 97.4 F L Temperature Source Temporal Temporal Temporal Pulse Rate 103 H 102 H 100 Respiratory Rate 18 18 18 Blood Pressure 155/62 H 146/65 H 146/65 H Blood Pressure Mean 93 92 92 Blood Pressure Source Monitor Monitor Blood Pressure Position Semi-Fowlers Semi-Fowlers Blood Pressure Location Left Arm Left Arm Pulse Ox 99 98 100 Oxygen Delivery Method Room Air Room Air Room Air MDM <MERI Oliveira - Last Filed: 09/09/23 18:20> MDM Lab Data Labs: Laboratory Results - last 24 hr 09/08/23 09/08/23 09/09/23 10:20 10:20 14:00 WBC 13.4 H RBC 2.82 L Hgb 6.6 L Hct 20.8 L MCV 73.8 L MCH 23.4 L MCHC 31.7 L RDW Std Deviation 44.0 H RDW Coeff of Lesley 17.1 H Plt Count 230 MPV 11.4 Immature Gran % (Auto) 1.200 H Neut % (Auto) 83.0 H Lymph % (Auto) 9.7 L Camp % (Auto) 5.2 Eos % (Auto) 0.5 Baso % (Auto) 0.4 Absolute Neuts (auto) 11.1 H Absolute Lymphs (auto) 1.30 Nucleated RBC % 0.1 Sodium 138 Potassium 4.1 Chloride 108 H Carbon Dioxide 21.0 Anion Gap 9 BUN 31 H Creatinine 1.47 H Estim Creat Clear Calc 49.69 Est GFR (MDRD) Af Amer 61 Est GFR (MDRD) Non-Af 51 L BUN/Creatinine Ratio 21.1 H Glucose 188 H Lactic Acid 2.4 H* Calcium 9.3 Total Bilirubin 0.80 AST 75 H ALT 70 H Alkaline Phosphatase 295 H Total Protein 7.3 Albumin 3.0 L Globulin 4.3 H Albumin/Globulin Ratio 0.7 L Lipase 86 H Blood Type O POSITIVE Antibody Screen NEGATIVE Crossmatch See Detail See Detail Radiography Diagnostic Testing: Clinical Impression(s) from Imaging Studies Abdomen/Pelvis CT 09/09/23 13:42 IMPRESSION: Findings in keeping with the multiple hepatic metastases and hepatomegaly. Hypodense lesion seen in the spleen as described. Metastatic deposits should be ruled out. Left adrenal mass. Small bilateral renal cysts. Prostatic enlargement with indentation at the bladder base. Multiple tiny bladder calculi on its posterior base. Electronically Signed: Candido Koenig MD at 15:41 EST , Chest X-Ray 09/09/23 13:48 IMPRESSION: Residual infiltrate in the right midlung. This may represent residual neoplastic process rather than a true infiltrate. Electronically Signed: Candido Koenig MD at 15:36 EST , Treatment and Re-Evaluation :: Patient appears to be in mild distress secondary to nausea, vomiting, generalized abdominal pain. Patient has been ongoing weakness, dark tarry stools. Patient does have known history of gastritis with an ulcer. He does see Dr. Marquez. Patient differential diagnosis includes worsening anemia, bowel obstruction, gastroenteritis, upper GI bleed, worsening metastasis disease. Patient received a CT scan of the abdomen pelvis, CBC, chemistries, lipase. Lactic acid will be completed, patient will be typed and screened for 2 units, given 1 unit of packed red blood cells. Patient will be given IV morphine, Zofran, then redosed with Reglan. All radiologic examinations were read, reviewed by the emergency department attending. From these reads, a plan of care will be put in place. Patient's CBC showed a leukocytosis at 13.4, over the last week, this seems to be baseline. Patient's hemoglobin is 6.6. Patient seems that since the beginning of the year, patient is usually around 8.5-7.5. This is low for the patient. This could be resulting in shortness of breath as well as weakness. Patient's chemistry showed a lactic acid 2.4, patient will be rehydrated. Creatinine is 1.47, this is baseline for the patient. Patient has slight transaminitis, this seems baseline. Lipase was 86. Patient was given Zofran, Reglan. These medications did not help and the patient continued to have some nausea and vomiting. Patient was redosed with IM Phenergan. On reevaluation, the patient did feel better. CT scan showed findings in keeping with multiple hepatic metastasis and hepatomegaly. Left adrenal mass, small bilateral renal cyst. Prostatic enlargement, multiple tiny bladder calculi, no acute surgical process, no acute obstruction. Patient's stool occult was negative. At this time, patient will be given a p.o. challenge, if successful, after the patient's blood transfusion, the patient may be discharged and follow-up outpatient. Patient is able to pass a p.o. challenge. His blood is now completed. Patient is stable for discharge. Follow-up outpatient <Dr. Deepak Murphy MD - Last Filed: 09/09/23 17:05> [facility] Lab Data Labs: Laboratory Results - last 24 hr 09/08/23 09/08/23 09/09/23 10:20 10:20 14:00 WBC 13.4 H RBC 2.82 L Hgb 6.6 L Hct 20.8 L MCV 73.8 L MCH 23.4 L MCHC 31.7 L RDW Std Deviation 44.0 H RDW Coeff of Lesley 17.1 H Plt Count 230 MPV 11.4 Immature Gran % (Auto) 1.200 H Neut % (Auto) 83.0 H Lymph % (Auto) 9.7 L Camp % (Auto) 5.2 Eos % (Auto) 0.5 Baso % (Auto) 0.4 Absolute Neuts (auto) 11.1 H Absolute Lymphs (auto) 1.30 Nucleated RBC % 0.1 Sodium 138 Potassium 4.1 Chloride 108 H Carbon Dioxide 21.0 Anion Gap 9 BUN 31 H Creatinine 1.47 H Estim Creat Clear Calc 49.69 Est GFR (MDRD) Af Amer 61 Est GFR (MDRD) Non-Af 51 L BUN/Creatinine Ratio 21.1 H Glucose 188 H Lactic Acid 2.4 H* Calcium 9.3 Total Bilirubin 0.80 AST 75 H ALT 70 H Alkaline Phosphatase 295 H Total Protein 7.3 Albumin 3.0 L Globulin 4.3 H Albumin/Globulin Ratio 0.7 L Lipase 86 H Blood Type O POSITIVE Antibody Screen NEGATIVE Crossmatch See Detail See Detail Radiography Diagnostic Testing: Clinical Impression(s) from Imaging Studies Abdomen/Pelvis CT 09/09/23 13:42 IMPRESSION: Findings in keeping with the multiple hepatic metastases and hepatomegaly. Hypodense lesion seen in the spleen as described. Metastatic deposits should be ruled out. Left adrenal mass. Small bilateral renal cysts. Prostatic enlargement with indentation at the bladder base. Multiple tiny bladder calculi on its posterior base. Electronically Signed: Candido Koenig MD at 15:41 EST , Chest X-Ray 01/30/24 13:48 IMPRESSION: Residual infiltrate in the right midlung. This may represent residual neoplastic process rather than a true infiltrate. Electronically Signed: Candido Koenig MD at 15:36 EST , Treatment and Re-Evaluation Comments:: I have personally performed a face to face assessment of the patient and have reviewed the BOONE Note. I performed a substantive portion of the visit including all aspects of the following. 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 States he was dyspneic upon getting here, but that is gone now. Stopped anticoagulation 2 days ago, history of pulmonary embolus. Exam is diffuse upper abdominal tenderness no pulsatile mass. No temo distention. Lungs clear to auscultation conversive in full sentences, heart is regular without tachycardia. Patient keenly alert and conversive. Medical Decison Making will obtain chest x-ray as well as CT of the abdomen/pelvis, labs, pain and nausea medications, fluids, blood transfusion if needed, reevaluate. Doing much better after treatment with several antiemetics. Attempting to tolerate food and beverage. Still getting blood transfusion. His counts have been low we do not think this is acute blood loss anemia from the vomiting with relatively small amount of blood. Hemoccult is negative. Although he has a history of a bleeding ulcer it is less likely that he has a dangerous hemorrhage at this time although we cannot guarantee that the ulcer is not involved. Natasha-Escobedo tear is in the differential as well. We see no signs of mediastinal air to suggest Boerhaave's and he has no chest discomfort or dyspnea now. We reviewed the CT images and result and agree with it, showing no acute abnormality, just cancer related abnormalities. After he receives his unit of blood if he is tolerating oral, he wants to go home without emergent EGD and we are okay discharging him with a prescription for Phenergan if he wants or needs. He is already on twice daily PPI which we recommend continuing. We discussed the possibility of bleeding getting worse and if so, return to the ER. He understands and is comfortable with that plan. Other additions or changes: [None] Discharge Plan Triage Chief Complaint: Nausea/Vomiting ED Midlevel Provider: Souleymane Tamayo ED Provider: Deepak Murphy Dx/Rx/DC Orders Clinical Impression: Hematemesis of unknown cause, Anemia, NSCLC metastatic to liver Prescriptions: New ondansetron 4 mg tablet,disintegrating 4 mg PO Q8H PRN PRN (Reason: Nausea) Qty: 20 0RF No Action cholecalciferol (vitamin D3) 50 mcg (2,000 unit) capsule 50 mcg PO DAILY fluticasone propionate [Allergy Relief (fluticasone)] 50 mcg/actuation spray,suspension 1 spray intranasal BID Qty: 16 11RF Rx Instructions: administer into each nostril ondansetron 8 mg tablet,disintegrating 8 mg PO Q8H PRN (Reason: nausea and vomiting) Qty: 30 2RF lidocaine-prilocaine 2.5-2.5 % cream 1 applic topical ONCE PRN (Reason: port acces) 30 Days Qty: 30 2RF metformin 500 MG tablet 1,000 mg PO QHS multivitamin with minerals 1 EACH tablet 1 ea PO DAILY acetaminophen 325 MG tablet 650 mg PO Q4H PRN PRN (Reason: Mild-Moderate Pain (1-5/10)) 0RF atorvastatin 10 mg tablet 10 mg PO QHS Patient Comments: TAKE 1 TABLET BY MOUTH EVERY DAY IN THE EVENING sildenafil 100 mg tablet 100 mg PO PRN PRN (Reason: Erectile Dysfunction) Patient Comments: Take 1 (one) Tablet daily as needed for erectile dysfunction pioglitazone [Actos] 30 mg tablet 30 mg PO QHS Patient Comments: TAKE 1 TABLET BY MOUTH WITH supper Excedrin Migraine 250-250-65 mg Tablet 1 tab PO Q6H PRN (Reason: MIGRAINES) Hold Instructions: avoid due to aspirin in meds for 1 day oxycodone 5 mg tablet 5 mg PO TID Patient Comments: TAKE 1/2 -1 TABLET three times DAILY NEEDED FOR PAIN enoxaparin 80 mg/0.8 mL syringe 80 mg subcut Q12H Hold Instructions: take PM dose today Patient Comments: INJECT 1 SYRINGEVSUBCUTANEOUSLY TWICE DAILY Rx Instructions: HOLDING 09/01 EVENING DOSE AND 09/02 AM DOSE aspirin [Adult Aspirin Regimen] 81 mg tablet,delayed release (DR/EC) 81 mg PO DAILY latanoprost 0.005 % drops 1 drp ophthalmic (eye) QHS Patient Comments: Instill 1 drop in both eyes nightly pantoprazole [Protonix] 20 mg tablet,delayed release (DR/EC) 20 mg PO BID 30 Days Qty: 60 2RF metformin 500 MG tablet 500 mg PO DAILY Primary Care Provider: Eusebio Durham Referrals: Eusebio Durham MD [Primary Care Provider] - Activity Restrictions/Additional Instructions: For the next 2-3 days, try a bland diet including broth based soups, toast, applesauce, bananas, Powerade or Gatorade, nutritional shakes would be okay as well. Try to stick with noncarbonated beverages, the acidic carbonation could be more irritating to your stomach. Disposition Disposition: Home, Self Care
[2023-09-09] MEDS: Metoclopramide 10 MG/2 ML Vial 5 MG IV (14:10)
[2023-09-09 14:23] LABS: Absolute Neutrophil Count 11.1 X10^3/uL (2.0-7.7); Basophil# 0.05 X10^3/uL; Basophil% 0.4 % (0-1); Eosinophil# 0.07 X10^3/uL; Eosinophils% 0.5 % (0-5); Hematocrit 20.8 % (40-54); Hemoglobin 6.6 g/dL (13.0-16.5); Lymphocyte % 9.7 % (19-41); Mean Corp Hgb Conc 31.7 g/dL (32-36); Mean Corpuscular Hgb 23.4 pg (27.0-32.0); Mean Corpuscular Volume 73.8 fL (80-94); Mean Platelet Vol. 11.4 fl (6.2-12.0); Monocyte% 5.2 % (0-10); NRBC Flagged by Analyzer 0.1 % (0-5); Neutrophil # 11.14 X10^3/uL (2.7-7.7); Platelet Count 230 K/mm3 (150-450); RBC Distribution Width CV 17.1 % (11.6-14.6); Red Blood Count 2.82 M/mm3 (4.6-6.2); White Blood Count 13.4 K/mm3 (4.4-11.0)
--- OUTSIDE RECORDS SUMMARY | 2023-09-09 14:35 | XMS RPT_ITS | CCD ---
Demographics Address [address] [place] [address] Preferred Language Unknown Marital Status Pentecostal Affiliation Unknown Race Unknown Ethnic Group Unknown Author Name Unknown Address [address] [place] [address] Organization [facility] Results Test Name Value Interpretation [...] BE BASED ON THE PRIMARY CLINICAL RECORDS. [employer] provides no warranty or guarantee of the accuracy or completeness of information in this document.
[2023-09-09 14:39] LABS: ALB/GLOB Ratio 0.7 RATIO (0.9-2.4); AST(SGOT) 75 U/L (15-37); Alanine Aminotransfer ALT/SGPT 70 U/L (16-61); Alkaline Phosphatase 295 U/L (45-117); Anion Gap 9 (5-15); BUN 31 mg/dL (7-18); BUN/Creat Ratio 21.1 RATIO (10-20); Calcium,Total 9.3 mg/dL (8.5-10.1); Chloride 108 mmol/L (98-107); Creatinine, Serum 1.47 mg/dL (0.70-1.30); EST Glomerular Filtration Rate 51 mL/min (>60); Est Glom Filt Rate - Afr Amer 61 mL/min (>60); Estimated Creatinine Clearance 49.69 ml/min; Globulin 4.3 g/dL (2.2-4.2); Glucose 188 mg/dL (74-106); Lipase 86 U/L (13-75); Potassium 4.1 mmol/L (3.5-5.1); Protein, Total 7.3 g/dL (6.4-8.2); Sodium Level 138 mmol/L (136-145)
[2023-09-09 14:52] LABS: Lactic Acid 2.4 mmol/L (0.4-1.9)
[2023-09-09] MEDS: 0.9% Saline Lock 10 ML Syringe IV (15:20)
[2023-09-09] MEDS: proMETHazine 25 MG/ML Syringe 12.5 MG IM (16:02)
[2023-09-09 18:12] LABS: Reflex Lactate? Y
== END 2023-09-09 18:45 | disposition home or self-care (01) ==
PROVIDERS: Nurse Practitioner; Emergency Provider Emergency Medicine; PCP Family Medicine; Visit Provider Emergency Medicine
DX: K92.0 Hematemesis (principal); C78.7 Secondary malignant neoplasm of liver and intrahepatic bile duct; C34.90 Malignant neoplasm of unspecified part of unspecified bronchus or lung; E11.40 Type 2 diabetes mellitus with diabetic neuropathy, unspecified; E11.22 Type 2 diabetes mellitus with diabetic chronic kidney disease; I12.9 Hypertensive chronic kidney disease with stage 1 through stage 4 chronic kidney disease, or unspecified chronic kidney disease; E78.00 Pure hypercholesterolemia, unspecified; Z87.891 Personal history of nicotine dependence; Z86.711 Personal history of pulmonary embolism
CPT/HCPCS: 99284; 71045; 74177; 80053; 82274; 83605; 83690; 85025; 86850; 86900; 86901; 86920; 86922; J7030; J7040; P9016; Q9967; A4216; J2405

== ENCOUNTER 2023-09-10 18:39 | Inpatient (IN) | payer MEDICARE, MEDICAID, SELFPAY ==
[2023-09-10 18:40] VITALS: BP 129/51; PULSE 98; RESP 18; TEMP 36.9; O2SAT 98
[2023-09-10] MEDS: 0.9% Normal Saline (1000mL) 1,000 ML 150 ML IV (19:20)
[2023-09-10 19:26] LABS: Absolute Neutrophil Count 13.6 X10^3/uL (2.0-7.7); Basophil# 0.03 X10^3/uL; Basophil% 0.2 % (0-1); Hematocrit 23.2 % (40-54); Hemoglobin 7.3 g/dL (13.0-16.5); Lymphocyte % 6.7 % (19-41); Mean Corp Hgb Conc 31.5 g/dL (32-36); Mean Corpuscular Hgb 24.7 pg (27.0-32.0); Mean Corpuscular Volume 78.4 fL (80-94); Mean Platelet Vol. 11.3 fl (6.2-12.0); Monocyte# 0.23 X10^3/uL; Monocyte% 1.5 % (0-10); NRBC Flagged by Analyzer 0.5 % (0-5); Neutrophil # 13.55 X10^3/uL (2.7-7.7); Neutrophil % 90.3 % (47-70); Platelet Count 142 K/mm3 (150-450); RBC Distribution Width CV 19.2 % (11.6-14.6); RBC Distribution Width SD 53.4 fl (35.1-43.9); Red Blood Count 2.96 M/mm3 (4.6-6.2)
--- OUTSIDE RECORDS SUMMARY | 2023-09-10 19:28 | XMS RPT_ITS | CCD ---
Demographics Address [address] [place] [address] Preferred Language Unknown Marital Status Buddhist Affiliation Unknown Race Unknown Ethnic Group Unknown Author Name Unknown Address [address] [place] [address] Organization [facility] Results Test Name Value Interpretation [...] BE BASED ON THE PRIMARY CLINICAL RECORDS. [employer] provides no warranty or guarantee of the accuracy or completeness of information in this document.
[2023-09-10 19:34] LABS: International Normalized Ratio 1.8; Prothrombin Time (Protime)PT. 21.3 SECONDS (11.7-14.9)
[2023-09-10 19:35] LABS: Partial Thromboplast Time 44.2 Seconds (24.1-36.2)
[2023-09-10] MEDS: Pantoprazole Sodium 80 MG in 0.9% Normal Saline (50mL Bag) 15 ML 420 MG IV BOLUS (19:40)
[2023-09-10 19:47] VITALS: BMI 29.1
[2023-09-10 19:47] LABS: ALB/GLOB Ratio 0.7 RATIO (0.9-2.4); AST(SGOT) 746 U/L (15-37); Alanine Aminotransfer ALT/SGPT 299 U/L (16-61); Albumin, Serum 2.5 g/dL (3.2-5.0); Alkaline Phosphatase 361 U/L (45-117); Anion Gap 5 (5-15); BUN 35 mg/dL (7-18); Calcium,Total 7.7 mg/dL (8.5-10.1); Chloride 112 mmol/L (98-107); EST Glomerular Filtration Rate 54 mL/min (>60); Est Glom Filt Rate - Afr Amer 65 mL/min (>60); Globulin 3.7 g/dL (2.2-4.2); Glucose 281 mg/dL (74-106); Lipase 77 U/L (13-75); Potassium 4.3 mmol/L (3.5-5.1); Protein, Total 6.2 g/dL (6.4-8.2); Sodium Level 138 mmol/L (136-145)
[2023-09-10 19:50] LABS: Lactic Acid 1.8 mmol/L (0.4-1.9)
--- NOTE | 2023-09-10 19:53 | EX.ED.DYSGE1 ---
HPI History of Present Illness Chief Complaint: Weakness Informant: patient and spouse/S.O. Narrative Narrative: Presents referred back from oncology for planned admission. Recent diagnosis of non-small cell lung cancer stage IV metastasis to bone and liver. Patient seen yesterday in the ED for vomiting/hematemesis with black stools. Hemoglobin 6.6. Given [address] scan was performed. Outpatient follow-up today. States hemoglobin 6.5. Give additional 1 unit of blood along with iron infusion. History of gastric ulcers. He is chronic anemia blood counts around the 8 range. He is noticed increasing weakness. Still has abdominal pain. Currently not on any blood thinners over the past few days. He does have history of recent DVT and PE found before his cancer. There was discussion for an IVC filter however has not been performed. Diabetic history. Denies any cardiac history. This is the first transfusion that he is received for the last couple days. Review of records after workup, CT abdomen Pelvis with contrast notes hepatic lesions consistent with his metastatic cancer. There is no colitis findings. He had EGD August [address] Marquez, noted nonbleeding duodenal ulcers. [facility] Medical History Anemia Back pain Blood in stool Cancer Chronic kidney disease Diabetes Dietary restriction DVT (deep venous thrombosis) Encounter for education Former smoker Gastric reflux Gout High cholesterol History of renal disease Kidney stones Lightheadedness Migraines Neuropathy Prostate disease Shortness of breath on exertion Wears dentures Wears glasses Home Medications metformin 500 mg tablet 500 mg PO DAILY diabetes 01/17/15 [History Last Taken Unknown] metformin 500 mg tablet 1,000 mg PO QHS diabetes 04/29/19 [History Last Taken Unknown] multivitamin with minerals 1 ea PO DAILY supplement 04/29/19 [History Last Taken Unknown] acetaminophen 325 mg tablet 650 mg (2 x 325 mg) PO Q4H PRN PRN Mild-Moderate Pain (1-5/10) 04/30/19 [Rx Last Taken Unknown] pcanmlu-dnyvetbpfuajk-wrffkczy 250 mg-250 mg-65 mg tablet (Excedrin Migraine) 1 tab PO Q6H PRN MIGRAINES 01/14/22 [History Last Taken Unknown] atorvastatin 10 mg tablet 10 mg PO QHS cholesterol 01/14/22 [History Last Taken Unknown] pioglitazone 30 mg tablet (Actos) 30 mg PO QHS diabetes 01/14/22 [History Last Taken Unknown] sildenafil 100 mg tablet 100 mg PO PRN PRN Erectile Dysfunction 01/14/22 [History Last Taken Unknown] cholecalciferol (vitamin D3) 50 mcg (2,000 unit) capsule 50 mcg PO DAILY supplement 06/17/23 [History Last Taken Unknown] oxycodone 5 mg tablet 5 mg PO TID pain 07/14/23 [History Last Taken Unknown] latanoprost 0.005 % eye drops 1 drp ophthalmic (eye) QHS mucous in eyes 07/18/23 [History Last Taken Unknown] fluticasone propionate 50 mcg/actuation nasal spray,suspension (Allergy Relief (fluticasone)) 1 spray intranasal BID #16 grams 08/15/23 [Rx Last Taken Unknown] pantoprazole 20 mg tablet,delayed release (Protonix) 20 mg PO BID 30 days #60 tabs 08/19/23 [Rx Last Taken Unknown] enoxaparin 80 mg/0.8 mL subcutaneous syringe 80 mg subcut Q12H 09/01/23 [History Last Taken 09/01/23 08:00] aspirin 81 mg tablet,delayed release (Adult Aspirin Regimen) 81 mg PO DAILY 09/02/23 [History Last Taken Unknown] lidocaine-prilocaine 2.5 %-2.5 % topical cream 1 applic topical ONCE PRN port acces 30 days #30 grams 09/04/23 [Rx Last Taken Unknown] ondansetron 8 mg disintegrating tablet 8 mg PO Q8H PRN nausea and vomiting #30 tabs 09/04/23 [Rx Last Taken Unknown] ondansetron 4 mg disintegrating tablet 4 mg PO Q8H PRN PRN Nausea #20 tabs 09/09/23 [Rx Last Taken Unknown] Allergy/AdvReac Type Severity Reaction Status Date / Time No Known Allergies Allergy Verified 09/10/23 18:40 Family History Mother Cancer pt unsure what type Sister Diabetes Surgical History History of ureter stent Hx of appendectomy Hx of colonoscopy Hx of hemorrhoidectomy Hx of inguinal hernia repair Hx of sinus surgery Social History Smoking Status: Former smoker alcohol intake: former substance use type: does not use ROS ROS ED Constitutional Constitutional ED: Denies chills, fever(s) or sweats Eyes Eyes: Denies change in vision ENT ENT ED: Denies dysphagia or sore throat Cardiovascular Cardiovascular: Denies chest pain, leg edema, palpitations or racing heartbeat Respiratory/Chest Respiratory/Chest: Denies cough, dyspnea or dyspnea on exertion Gastrointestinal Gastrointestinal: Reports abdominal pain; Denies diarrhea, nausea or vomiting Genitourinary Genitourinary ED: Denies dysuria, hematuria or urinary frequency Musculoskeletal Musculoskeletal: Denies back pain, extremity pain or neck pain Integumentary Denies rash or wounds Neurologic Neurologic: Reports weakness; Denies headache(s) or paresthesias EXAM Physical Exam Const Vital Signs: 09/10/23 18:40 09/10/23 20:10 Temperature 98.5 F Temperature Source Temporal Pulse Rate 98 91 Respiratory Rate 18 17 Blood Pressure 129/51 H 131/63 H Blood Pressure Mean 77 85 Pulse Ox 98 99 Oxygen Delivery Method Room Air Room Air Positive well nourished and well developed General Appearance ED: well developed and NAD HEENT Reports moist mucous membranes normocephalic and atraumatic Eyes PERRL and EOMs intact bilaterally General Eye ED: Yes normal appearance of both eyes and pale conjunctiva Neck no lymphadenopathy and supple General: Negative for tenderness Chest Wall Chest: Negative for tenderness Resp normal respiratory effort and normal air movement Effort and Inspection: symmetric chest movement; Negative for respiratory distress Cardio regular rate, regular rhythm and no murmurs Peripheral Pulses: pulses 2+ throughout GI normal to inspection, nondistended, normoactive bowel sounds GI Narrative: Mild tenderness mid abdomen. No guarding or rebound. Palpation: Negative for guarding or rebound tenderness present Back/Spine no CVA tenderness and no thoracic nor lumbar tenderness Extremity normal to inspection General Extremety ED: Negative for edema or tenderness General Extremity: Negative for edema Neuro oriented x3 and no sensory deficits noted Sensorium / Orientation: awake and alert Skin no rashes or lesions noted and no wounds MDM MDM MDM Narrative Medical decision making narrative: Interventions / MDM: Differential diagnosis: Diagnosis considered but do not suspect: N/A My EKG interpretation: N/A Imaging independently reviewed and interpreted by myself: N/A External documents reviewed: ED visit from yesterday with hemoglobin 6.6 status post 1 unit of blood transfusion. EGD from 08/18/2023 nonbleeding duodenal ulcers. Test considered but not ordered:N/A ED course: Patient vital stable nontoxic. Status post blood transfusion. Abdominal labs were ordered. He is ordered for IV Protonix. 1950: Hemoglobin 7.3 up from 6.5 after 1 unit of blood. White count 15. I did discuss with GI Dr. Friend, PPI twice daily, ice chips until midnight, Rocephin IV antibiotics. Admit to medicine for plan endoscopy tomorrow. Additional labs increasing transaminitis unclear reason. He does have metastatic lesions in that area. I spoke with hospitalist Dr. Ely Teague for admission. Re-evaluation: stable Disposition discussed with patient/family/significant other: Patient and significant other Case discussed with consulting clinician: Gastroenterology, hospitalist This note was generated with [employer]RA[employer] dictation software. It may contain incorrect words, spelling, and punctuation that were not noted in checking the note before signing. Lab Data Attestation: I reviewed the patient's lab results. Labs: Laboratory Results - last 24 hr 09/10/23 09/10/23 11:55 19:17 WBC 15.0 H RBC 2.96 L Hgb 7.3 L Hct 23.2 L MCV 78.4 L MCH 24.7 L MCHC 31.5 L RDW Std Deviation 53.4 H RDW Coeff of Lesley 19.2 H Plt Count 142 L MPV 11.3 Immature Gran % (Auto) 1.300 H Neut % (Auto) 90.3 H Lymph % (Auto) 6.7 L Steele % (Auto) 1.5 Eos % (Auto) 0.0 Baso % (Auto) 0.2 Absolute Neuts (auto) 13.6 H Absolute Lymphs (auto) 1.00 Nucleated RBC % 0.5 PT 21.3 H INR 1.8 APTT 44.2 H Sodium 138 Potassium 4.3 Chloride 112 H Carbon Dioxide 21.0 Anion Gap 5 BUN 35 H Creatinine 1.40 H Est GFR (MDRD) Af Amer 65 Est GFR (MDRD) Non-Af 54 L BUN/Creatinine Ratio 25.0 H Glucose 281 H Lactic Acid 1.8 Calcium 7.7 L Total Bilirubin 0.90 AST 746 H ALT 299 H Alkaline Phosphatase 361 H Total Protein 6.2 L Albumin 2.5 L Globulin 3.7 Albumin/Globulin Ratio 0.7 L Lipase 77 H Blood Type O POSITIVE Antibody Screen NEGATIVE Crossmatch See Detail Discharge Plan Dx/Rx/DC Orders Clinical Impression: Anemia, NSCLC of right lung, GI bleeding, Transaminitis, Weakness Disposition Disposition: Acute Care [facility] Discharge Date/Time: 09/10/23 21:33
[2023-09-10] MEDS: Ceftriaxone 1 GM/50 ML BAG IV (20:07)
[2023-09-10 20:10] VITALS: BP 131/63; PULSE 91; RESP 17; O2SAT 99
--- NOTE | 2023-09-10 20:19 | US_ITS ---
STUDY: ABDOMINAL ULTRASOUND - RIGHT UPPER QUADRANT REASON FOR VISIT: Male, 68 years old transaminitis TECHNIQUE: Ultrasound evaluation of the right upper quadrant was performed with real-time and static bearden-scale imaging. TECHNICAL QUALITY: Limited. Examination limited by bowel gas. COMPARISON: None. FINDINGS: Liver: The liver measures 21.3 cm. There is increased echogenicity consistent with fatty infiltration. The bile ducts are within normal limits. There is hepatic color flow. The direction of portal flow is hepatopetal. The uterus hypoechoic nodules demonstrated within the liver with heterogeneous echo pattern highly compatible with metastatic disease. Gallbladder: Normal distended gallbladder. The gallbladder wall measures 2.0 mm. There is a negative sonographic Redman''s sign. There is no pericholecystic fluid. There are no gallstones. Common Bile Duct (C.B.D.): The common bile duct measures 4.0 mm. Pancreas: There are round hypoechoic structures within the pancreas which could represent cysts versus solid lesions not excluded, measuring 8 x 6 x 7 mm and 11 x 10 x 8 mm. Right Kidney: Normal size of the right kidney. The right kidney measures 11.8 x 4.9 x 5.4 cm. Normal renal cortex. The right cortex measures 1.7 cm. There is no demonstrated renal mass or cyst. There is no right hydronephrosis. Artifact versus stone in the middle pole of the right kidney measuring 5 mm. US/Liver IMPRESSION: Multiple liver lesions concerning for metastatic disease. Small pancreatic lesions suggestive of cysts versus solid lesions/neoplasm not excluded. Recommend follow-up with MRI of the upper abdomen with intravenous contrast with thin cuts through the pancreas. Possible nonobstructive stone within the middle pole of the kidney versus artifact measuring 5 mm. Electronically Signed: Kelley Currie MD at 21:41 EST ,
--- NOTE | 2023-09-10 20:20 | HP.PCM.HOS_ITS ---
HPI - General General Date of Admission: 09/10/23 Date of Service: 09/10/23 Chief Complaint: Hematemesis/abnormal lab HPI Eugenio OSORIO, is a 68 M who presented to the emergency department at [facility] on 09/10/2023 with hematemesis and anemia with acute on subacute. The patient was identified to have lung mass and underwent a CT- guided biopsy of a right lower lobe lung mass on 08/12/2022 which showed a non- small lung CA adenocarcinoma type. He developed shortness of breath on 08/16/2023 and a CTA of his chest was performed and demonstrated segmental pulmonary emboli and he was started on Eliquis. He then developed a distal leg DVT on 08/22/2023 and was transitioned to Lovenox. A PET scan was performed on 08/26/2022 and demonstrated hypermetabolic activity in the right lower lobe, right thoracic perihilum, mediastinum, liver, left adrenal and left lower hemipelvic mesentery a, scapula, humerus on the right, several thoracic vertebrae, proximal left femur and left lateral chest wall rib. He presented to Oncology and is to start palliative chemo soon but has not yet done so. He was found to be anemic when he was started on anticoagulation for his acute PE at which time an EGD was performed and GI was consulted on 08/18/2023 and demonstrated a normal esophagus, small hiatal hernia, a few nonbleeding linear duodenal ulcers with no stigmata of bleeding in the duodenal bulb and first portion of the duodenum and biopsies were taken. He was maintained on Protonix and discharged home. In the last 24 hours he developed nausea and vomiting. He presented to the emergency department yesterday on 09/09/2023 with weakness, shortness of breath, and anemia. He was supposed to be getting an outpatient transfusion however he started having nausea, body vomiting, abdominal pain and some hematemesis. He did report yesterday that he had a couple of dark stools a couple days prior to presentation and denied fever or chills. He was given IV fluids and 1 unit of packed red blood cells yesterday. A CT of the abdomen pelvis was performed and was stable when compared to previous showing multiple hepatic metastases and hepatomegaly. He was given a p.o. challenge and tolerated this well and after his blood transfusion was discharged for outpatient follow-up. He was seen in oncology's office today and had recurrent nausea and vomiting with hematemesis so he was sent back to the emergency department. He received 1 more unit of packed red blood cells. Vital signs on presentation showed temperature of 98.5, heart rate was 98, blood pressure is 129/51, respiratory to 18 oxygen saturations are 90% room air. His CBC is grossly abnormal with a white count of 15.0, anemia having a hemoglobin of 7.3 but is microcytic in nature, new thrombocytopenia with a platelet count of 142,000. Coags are abnormal which is to be expected given his Lovenox use. His chemistry panel showed normal electrolytes with a BUN of 35 and a serum creatinine of 1.40 which is his baseline. His glucose is 281. Lactic acid is normal at 1.8. His transaminases are markedly elevated in the last 24 hours with an alk phos of 361, AST of 746 and an ALT of 299. His alk phos was 361 and has trended up slightly. His bilirubin is normal. Lipase was 77. An MRI of the brain was done as an outpatient ordered by oncology today and showed a cluster of 3 small acute infarcts that were present in the anterior superior aspect of the right parietal lobe and at the junction of the right occipital lobe just posterior to the occipital horn of the lateral ventricle with no additional acute infarct present and some late subacute infarcts were scattered in the superior aspect of the left parietal lobe is well as small leads subacute infarcts in the left occipital lobe. There were no ring-enhancing lesions, mild cerebral atrophy and widening of the ventricles was noted. Guaiac stool was negative. The case was discussed by the ER physician with Dr. Marquez and the recommended admitting the patient with n.p.o. status after midnight and placing on IV Protonix twice daily. [facility] Medical History Anemia Back pain Blood in stool Cancer Chronic kidney disease Diabetes Dietary restriction DVT (deep venous thrombosis) Encounter for education Former smoker Gastric reflux Gout High cholesterol History of renal disease Kidney stones Lightheadedness Migraines Neuropathy Prostate disease Shortness of breath on exertion Wears dentures Wears glasses Home Medications metformin 500 mg tablet 500 mg PO DAILY diabetes 01/17/15 [History Last Taken Unknown] metformin 500 mg tablet 1,000 mg PO QHS diabetes 04/29/19 [History Last Taken Unknown] multivitamin with minerals 1 ea PO DAILY supplement 04/29/19 [History Last Taken Unknown] acetaminophen 325 mg tablet 650 mg (2 x 325 mg) PO Q4H PRN PRN Mild-Moderate Pain (1-5/10) 04/30/19 [Rx Last Taken Unknown] nkwdygt-kwemomaganzyi-egawrfdb 250 mg-250 mg-65 mg tablet (Excedrin Migraine) 1 tab PO Q6H PRN MIGRAINES 01/14/22 [History Last Taken Unknown] atorvastatin 10 mg tablet 10 mg PO QHS cholesterol 01/14/22 [History Last Taken Unknown] pioglitazone 30 mg tablet (Actos) 30 mg PO QHS diabetes 01/14/22 [History Last Taken Unknown] sildenafil 100 mg tablet 100 mg PO PRN PRN Erectile Dysfunction 01/14/22 [History Last Taken Unknown] cholecalciferol (vitamin D3) 50 mcg (2,000 unit) capsule 50 mcg PO DAILY supplement 06/17/23 [History Last Taken Unknown] oxycodone 5 mg tablet 5 mg PO TID pain 07/14/23 [History Last Taken Unknown] latanoprost 0.005 % eye drops 1 drp ophthalmic (eye) QHS mucous in eyes 07/18/23 [History Last Taken Unknown] fluticasone propionate 50 mcg/actuation nasal spray,suspension (Allergy Relief (fluticasone)) 1 spray intranasal BID allergies #16 grams 08/15/23 [Rx Last Taken Unknown] pantoprazole 20 mg tablet,delayed release (Protonix) 20 mg PO BID nausea 30 days #60 tabs 08/19/23 [Rx Last Taken Unknown] enoxaparin 80 mg/0.8 mL subcutaneous syringe 80 mg subcut Q12H anticoagulation 09/01/23 [History Last Taken 09/01/23 08:00] aspirin 81 mg tablet,delayed release (Adult Aspirin Regimen) 81 mg PO DAILY unknown 09/02/23 [History Last Taken Unknown] lidocaine-prilocaine 2.5 %-2.5 % topical cream 1 applic topical ONCE PRN port acces 30 days #30 grams 09/04/23 [Rx Last Taken Unknown] ondansetron 8 mg disintegrating tablet 8 mg PO Q8H PRN nausea and vomiting #30 tabs 09/04/23 [Rx Last Taken Unknown] ondansetron 4 mg disintegrating tablet 4 mg PO Q8H PRN PRN Nausea #20 tabs 09/09/23 [Rx Last Taken Unknown] Allergy/AdvReac Type Severity Reaction Status Date / Time No Known Allergies Allergy Verified 09/10/23 18:40 Family History Mother Cancer pt unsure what type Sister Diabetes Surgical History History of ureter stent Hx of appendectomy Hx of colonoscopy Hx of hemorrhoidectomy Hx of inguinal hernia repair Hx of sinus surgery Social History Smoking Status: Former smoker alcohol intake: former substance use type: does not use ROS Constitutional Constitutional: Reports anorexia, fatigue and weakness; Denies change in weight, chills, fever(s), malaise, night sweats or other Eyes Eyes: Denies blurry vision, change in eye color, change in vision, discharge from eye(s), double vision, erythema, eye pain, loss of vision or other ENT HEENT: Denies abnormal hearing, dysphagia, ear pain, epistaxis, headache(s), hearing loss, nasal congestion, nasal discharge, post nasal drip, sinus pressure, sore throat or other Cardiovascular Cardiovascular: Denies chest pain, claudication, dyspnea on exertion, edema, lightheadedness, orthopnea, palpitations, paroxysmal nocturnal dyspnea, rapid heart rate, syncope or other Respiratory/Chest Respiratory/Chest: Denies cough, dyspnea, excessive phlegm production, hemoptysis, productive cough, shortness of breath at rest, shortness of breath with exertion, wheezing or other Gastrointestinal Gastrointestinal: Reports abdominal pain, hematemesis, nausea and vomiting; Denies coffee ground emesis, constipation, diarrhea, dyspepsia, hematochezia, loose stools, melena or other Genitourinary Genitourinary: Denies burning urination, difficulty urinating, dysuria, hematuria, nocturia, urinary frequency, urinary hesitancy, urinary incontinence, urinary urgency or other Musculoskeletal Musculoskeletal: Reports arthralgias; Denies back pain, joint pain, joint stiffness, joint swelling, myalgias, neck pain or other Neurologic Neurologic: Denies abnormal gait, abnormal speech, confusion, disequilibrium, dizziness, focal weakness, headache(s), numbness, paresthesias, seizure-like activity, seizures, syncope, tingling, tremor(s) or other Psychiatric Psychiatric: Denies anxiety, depression, homicidal ideation, suicidal ideation or other Endocrine Endocrinology: Denies change in body appearance, cold intolerance, excessive sweating, heat intolerance, polydipsia, polyuria or other Hematologic/Lymphatic Hematologic/Lymphatic: Reports anemia, easy bleeding and easy bruising; Denies lymphadenopathy or other Allergic/Immunologic Allergic/Immunologic: Denies rhinitis, hives, eczemia, asthma or other Vital Signs Vital Signs Vital Signs: 09/10/23 18:40 09/10/23 20:10 Temperature 98.5 F Temperature Source Temporal Pulse Rate 98 91 Respiratory Rate 18 17 Blood Pressure 129/51 H 131/63 H Blood Pressure Mean 77 85 Pulse Ox 98 99 Oxygen Delivery Method Room Air Room Air Weight Weight: 84.5 kg Body Mass Index (BMI) 29.1 Physical Exam Const alert, oriented x3, no apparent distress and well nourished; Negative for average body habitus or healthy appearing Constitutional Narrative: Overweight -Micron[place] male, sitting up in bed, family at bedside, patient appears comfortable and nontoxic General Appearance: cooperative HEENT normocephalic, head/scalp atraumatic, hearing grossly normal bilaterally and moist oral mucous membranes HEENT Narrative: Mallampati 2, edentulous, no thrush Eyes PERRL and conjunctivae normal Eyes Narrative: Conjunctiva are significantly pale bilaterally, no scleral icterus Neck no lymphadenopathy and supple Resp normal respiratory effort, no retractions, no use of accessory muscles and clear to auscultation bilaterally Resp Narrative: Diffusely diminished but no adventitious sounds Auscultation: Negative for rales, rhonchi or wheezes Cardio regular rate, regular rhythm, S1 normal heart sound, S2 normal heart sound, no murmurs, no rub, no gallops and no clicks GI normal to inspection, nondistended, normoactive bowel sounds and soft to palpation GI Narrative: Tenderness in the right upper quadrant with some mild guarding Extremity no clubbing, cyanosis or edema Extremity Narrative: Pedal pulses are 2+ Neuro oriented x3, CN's II-XII intact bilaterally, moves all extremities and no focal motor deficits Speech: speech normal Motor Exam: strength 5/5 throughout Psych affect normal Psych Narrative: Very pleasant, interacts appropriately Results Lab / Micro Data 09/10/23 22:38 09/10/23 19:17 Labs: Laboratory Results - last 24 hr 09/10/23 19:17: WBC 15.0 H, RBC 2.96 L, Hgb 7.3 L, Hct 23.2 L, MCV 78.4 L, MCH 24.7 L, MCHC 31.5 L, RDW Std Deviation 53.4 H, RDW Coeff of Lesley 19.2 H, Plt Count 142 L, MPV 11.3, Immature Gran % (Auto) 1.300 H, Neut % (Auto) 90.3 H, Lymph % (Auto) 6.7 L, Harnett % (Auto) 1.5, Eos % (Auto) 0.0, Baso % (Auto) 0.2, Absolute Neuts (auto) 13.6 H, Absolute Lymphs (auto) 1.00, Nucleated RBC % 0.5, PT 21.3 H, INR 1.8, APTT 44.2 H, Sodium 138, Potassium 4.3, Chloride 112 H, Carbon Dioxide 21.0, Anion Gap 5, BUN 35 H, Creatinine 1.40 H, Est GFR (MDRD) Af Amer 65, Est GFR (MDRD) Non-Af 54 L, BUN/Creatinine Ratio 25.0 H, Glucose 281 H, Lactic Acid 1.8, Calcium 7.7 L, Total Bilirubin 0.90, AST 746 H, ALT 299 H, Alkaline Phosphatase 361 H, Total Protein 6.2 L, Albumin 2.5 L, Globulin 3.7, Albumin/Globulin Ratio 0.7 L, Lipase 77 H Assessment & Plan Assessment/Plan (1) Hematemesis of unknown cause: (2) Dehydration: (3) Nausea: (4) Anemia: QUALIFIERS: Anemia type: iron deficiency Iron deficiency anemia type: chronic blood loss Qualified Code(s): D50.0 - Iron deficiency anemia secondary to blood loss (chronic) (5) Thrombocytopenia: (6) Pulmonary embolism: QUALIFIERS: Acute cor pulmonale presence: unspecified Chronicity: acute Pulmonary embolism type: other Qualified Code(s): I26.99 - Other pulmonary embolism without acute cor pulmonale (7) Leukocytosis: (8) Transaminitis: (9) GIB (gastrointestinal bleeding): (10) Hematemesis: (11) Acute ischemic multifocal anterior circulation stroke involving right-sided vessel: PLAN: Plan Acute hematemesis/upper GI bleed -Clear liquid diet for now -N.p.o. after midnight -IV Protonix 40 mg IV twice daily -Ceftriaxone 1 mg daily at the request of gastroenterology -Cycle hemoglobin -Transfuse as needed with 1 unit on hold -Curiously, guaiac is negative -Antiemetics -GI consultation -Discussed with Dr. Marquez Acute on chronic anemia -Patient has been anemic since he was diagnosed with a pulmonary embolism in early August -Hemoglobin looks to be like it has been running between 7.5 and 9.0 -Hemoglobin on presentation was 6.5 after being transfused 1 unit yesterday -Patient given 1 unit today and repeat hemoglobin is 7.3 -Treatment as above -1 unit packed red blood cells on hold -Cycle hemoglobin every 6 hours -Will hold off on any iron transfusion at this time as the patient is being transfused blood which will give him a significant iron load -Iron studies are consistent with iron deficiency -Continued outpatient follow-up with oncology after discharge Transaminitis -Patient has had mildly elevated liver enzymes which I suspect are related to his metastatic disease however his liver enzymes have gone up dramatically in the last 24 hours -Check ultrasound of the right upper quadrant and may need MRCP -Could also be related to hepatic vein thrombosis however unable to place on anticoagulation at this time due to bleeding -Just had MRI of the brain with and without contrast on May need to hold off on MRCP for a day or so -Discussed this with GI and they will follow with results of the ultrasound tomorrow Acute/subacute stroke -Patient with multifocal stroke noted on MRI from 09/10/2023 -No apparent neurological deficits at this time -Patient had been on Lovenox until 09/08/2023 -Concern for PFO and will check echocardiogram with bubble study--> Limited study as the patient just had an echocardiogram recently with a normal EF but bubble study was not done -Unable to place on aspirin at this time due to bleeding -Unable to use statins at this time due to transaminitis -Will consult neurology Thrombocytopenia -May be consumptive with bleeding however also could be low-level DIC -Coags are slightly elevated -D-dimer is going to be elevated with his liver enzyme elevation -Will monitor coags and platelet counts -Consult oncology Nausea and vomiting -Likely related to the above -As needed antiemetics -Will place on IV fluids History of PE/DVT -Patient had recurrent thromboembolism on Eliquis so was transitioned to Lovenox -Lovenox stopped on 09/08/2023 due to severe anemia -Will consult vascular surgery for IVC filter placement Metastatic NSCLC-adenocarcinoma type -Diagnosed in early August -Recent port placement -In preparation for chemotherapy -All treatment is palliative and I did discuss this with family -Patient has metastatic disease to the liver, mediastinum, adrenal gland, as well as multiple bony metastasis CKD stage IIIb -Baseline serum creatinine appears to run between 1.35 and 1.5 -Currently 1.40 -Avoid nephrotoxins -IV fluids after midnight due to n.p.o. status -Repeat BMP in a.m. DM-2 -patient has not been taking any of his home medications -SSI every 6 hours Hyperlipidemia -Patient has not been taking his statin and will continue to hold due to transaminitis Glaucoma -Continue home eyedrops GERD -Home Protonix on hold -Continue IV Protonix -Accu-Cheks as ordered DVT prophylaxis -SCDs -Chemoprophylaxis contraindicated due to GI bleeding CODE STATUS -Full code -Had extensive conversation with patient and family with regards to his overall prognosis and they are aware that any treatment he receives is palliative but still would like to proceed with full code. Charges/Coding Visit Charges Inpatient E&M: 63486 Init Hosp L3
--- OUTSIDE RECORDS SUMMARY | 2023-09-10 20:40 | XMS RPT_ITS | CCD ---
Demographics Address [address] [place] [address] Preferred Language Unknown Marital Status Methodist Affiliation Unknown Race Unknown Ethnic Group Unknown Author Name Unknown Address [address] [place] [address] Organization [facility] Results Test Name Value Interpretation [...] BE BASED ON THE PRIMARY CLINICAL RECORDS. [employer]. provides no warranty or guarantee of the accuracy or completeness of information in this document.
--- OUTSIDE RECORDS SUMMARY | 2023-09-10 21:04 | XMS RPT_ITS | CCD ---
Demographics Address [address] [place] [address] Preferred Language Unknown Marital Status Yarsanism Affiliation Unknown Race Unknown Ethnic Group Unknown Author Name Unknown Address [address] [place] [address] Organization [facility] Results Test Name Value Interpretation [...] BE BASED ON THE PRIMARY CLINICAL RECORDS. [employer] provides no warranty or guarantee of the accuracy or completeness of information in this document.
[2023-09-10 21:13] VITALS: BP 141/61; RESP 16; O2SAT 98
--- NOTE | 2023-09-10 21:39 | ECHOLC_ITS ---
Reason For Study: CVA Procedure This was a limited 2D transthoracic echocardiogram. The study was technically difficult. Due to poor accoustic windows. Contrast injection was performed. Exam performed portable in ICU/CCU. Left Ventricle Normal LV size. Mild concentric left ventricular hypertrophy. Left ventricular systolic function is normal. The estimated ejection fraction is 60-65 %. Right Ventricle Normal RV size. Normal systolic function. Atria Normal left atrium. Normal right atrium. Bubble contrast study negative for right to left interatrial shunt. Mitral Valve The mitral valve is structurally normal. No prolapse or stenosis seen. Tricuspid Valve Normal tricuspid valve. Aortic Valve Mild diffuse aortic valve thickening. The aortic valve is not well visualized in the short axis view. Pulmonic Valve The pulmonic valve is not well visualized. Great Vessels Normal aortic root. Pericardium/Pleural No pericardial effusion. Medication Diluted definity 3.0ml given slow IV push to enhance endocardial definition. Performed a rapid injection of agitated mix of 9 cc saline and 1cc air to assess for atrial septal defect. MMode/2D Measurements & Calculations LVIDd: 4.3 cm IVSd: 1.2 cm Ao root diam: 3.1 cm LVIDs: 2.8 cm LVPWd: 1.2 cm LA dimension: 3.2 cm RVDd: 3.4 cm FS: 35.8 % LAV(MOD-bp): 45.9 ml LVAd ap4: 36.1 cm2 LVAd ap2: 39.6 cm2 LAV(MOD-bp) Indexed: 23.6 ml/m2 LVLd ap4: 8.4 cm LVLd ap2: 10.3 cm LAV(MOD-sp2): 44.3 ml EDV(MOD-sp4): 130.8 ml EDV(MOD-sp2): 129.7 ml LAV(MOD-sp4): 44.2 ml EDV(sp4-el): 131.5 ml EDV(sp2-el): 129.2 ml LVAs ap4: 20.9 cm2 LVAs ap2: 25.0 cm2 LVLs ap4: 7.3 cm LVLs ap2: 9.2 cm ESV(MOD-sp4): 52.5 ml ESV(MOD-sp2): 58.9 ml ESV(sp4-el): 50.8 ml ESV(sp2-el): 57.7 ml EF(MOD-sp4): 59.8 % EF(MOD-sp2): 54.6 % EF(sp4-el): 61.4 % SV(MOD-sp4): 78.3 ml SV(MOD-sp2): 70.8 ml SV(sp4-el): 80.8 ml LA A4 area: 15.4 cm2 RA A4 area: 14.2 cm2 Doppler Measurements & Calculations TR max reena: 218.6 cm/sec TR max P.1 mmHg ECHO/Echo Limited w/Contrast Interpretation Summary The estimated ejection fraction is 60-65 %. Bubble contrast study negative for right to left interatrial shunt. Full study was done 08/18/2023 The study was technically difficult. Limited views were obtained. Ordering Physician: Ely Teague Referring Physician: Eusebio Durham Performed By: Eusebia Klein, WILI, RVT
[2023-09-10 21:45] VITALS: BMI 28.7
[2023-09-10 22:14] VITALS: BP 143/58; PULSE 90; RESP 24; TEMP 37.1; O2SAT 99
[2023-09-10] MEDS: 0.9% Normal Saline (1000mL) 1,000 ML 70 ML IV (22:17)
[2023-09-10 22:47] LABS: Hematocrit 21.6 % (40-54); Hemoglobin 6.9 g/dL (13.0-16.5)
[2023-09-10 22:50] LABS: Bedside Glucose 149 mg/dL (74-106)
[2023-09-10 22:57] LABS: International Normalized Ratio 1.9; Prothrombin Time (Protime)PT. 21.7 SECONDS (11.7-14.9)
[2023-09-10 22:58] LABS: Partial Thromboplast Time 45.8 Seconds (24.1-36.2)
--- NOTE | 2023-09-10 23:00 | EX.PCM.CON.G ---
HPI Consult Data Date of Consult: 09/10/23 HPI Narrative Reason for Consultation: GI bleed HPI Narrative: DAMON OSORIO, is a 68 M who presents to the ED referred back from oncology for planned admission. Recent diagnosis of non-small cell lung cancer stage IV metastasis to bone and liver. Patient seen yesterday in the ED for vomiting/hematemesis with black stools. Hemoglobin 6.6. Given [address] scan was performed. Outpatient follow-up today. States hemoglobin 6.5. Give additional 1 unit of blood along with iron infusion. History of gastric ulcers. He is chronic anemia blood counts around the 8 range. He is noticed increasing weakness. Still has abdominal pain. Currently not on any blood thinners over the past few days. He does have history of recent DVT and PE found before his cancer. He was recently discharged from the hospital. He originally presented to [facility] ED on 02/01 with worsening shortness of breath with exertion, dark stools and right calf pain. He was diagnosed with acute pulmonary embolism. A CTA chest on admit showed right lower lobe PE, no saddle embolus or right heart strain. Echo 08/18 showed EF 55%, no concern for right heart strain. Lower extremity duplex ultrasound with no DVT. He was started on Eliquis without DVT loading dose due to anemia and low clot burden, continue Eliquis 5 mg BID on discharge. His hemoglobin 8.5 on admit, decreased to 7.2 on discharge. Notably was 13.1 in May. Patient had noticed intermittent black stools over the last few months. Notably had colonoscopy done about 1 month prior to admission with no concerning findings. He underwent an EGD on 08/18, showed few nonbleeding linear duodenal ulcers, otherwise unremarkable. His hemoglobin 7.2 on discharge. Patient notably asymtompatic with regard to anemia on dc. Eliquis on dc as noted above. PO PPI BID. Recommend repeat CBC in 5-7 days. [facility] Medical History Anemia Back pain Blood in stool Cancer Chronic kidney disease Diabetes Dietary restriction DVT (deep venous thrombosis) Encounter for education Former smoker Gastric reflux Gout High cholesterol History of renal disease Kidney stones Lightheadedness Migraines Neuropathy Prostate disease Shortness of breath on exertion Wears dentures Wears glasses Home Medications metformin 500 mg tablet 500 mg PO DAILY diabetes 01/17/15 [History Last Taken Unknown] metformin 500 mg tablet 1,000 mg PO QHS diabetes 04/29/19 [History Last Taken Unknown] multivitamin with minerals 1 ea PO DAILY supplement 04/29/19 [History Last Taken Unknown] acetaminophen 325 mg tablet 650 mg (2 x 325 mg) PO Q4H PRN PRN Mild-Moderate Pain (1-5/10) 04/30/19 [Rx Last Taken Unknown] uvtwuzj-hsbkcmexdsyei-ofqcalmu 250 mg-250 mg-65 mg tablet (Excedrin Migraine) 1 tab PO Q6H PRN MIGRAINES 01/14/22 [History Last Taken Unknown] atorvastatin 10 mg tablet 10 mg PO QHS cholesterol 01/14/22 [History Last Taken Unknown] pioglitazone 30 mg tablet (Actos) 30 mg PO QHS diabetes 01/14/22 [History Last Taken Unknown] sildenafil 100 mg tablet 100 mg PO PRN PRN Erectile Dysfunction 01/14/22 [History Last Taken Unknown] cholecalciferol (vitamin D3) 50 mcg (2,000 unit) capsule 50 mcg PO DAILY supplement 06/17/23 [History Last Taken Unknown] oxycodone 5 mg tablet 5 mg PO TID pain 07/14/23 [History Last Taken Unknown] latanoprost 0.005 % eye drops 1 drp ophthalmic (eye) QHS mucous in eyes 07/18/23 [History Last Taken Unknown] fluticasone propionate 50 mcg/actuation nasal spray,suspension (Allergy Relief (fluticasone)) 1 spray intranasal BID allergies #16 grams 08/15/23 [Rx Last Taken Unknown] pantoprazole 20 mg tablet,delayed release (Protonix) 20 mg PO BID nausea 30 days #60 tabs 08/19/23 [Rx Last Taken Unknown] enoxaparin 80 mg/0.8 mL subcutaneous syringe 80 mg subcut Q12H anticoagulation 09/01/23 [History Last Taken 09/01/23 08:00] aspirin 81 mg tablet,delayed release (Adult Aspirin Regimen) 81 mg PO DAILY unknown 09/02/23 [History Last Taken Unknown] lidocaine-prilocaine 2.5 %-2.5 % topical cream 1 applic topical ONCE PRN port acces 30 days #30 grams 09/04/23 [Rx Last Taken Unknown] ondansetron 8 mg disintegrating tablet 8 mg PO Q8H PRN nausea and vomiting #30 tabs 09/04/23 [Rx Last Taken Unknown] ondansetron 4 mg disintegrating tablet 4 mg PO Q8H PRN PRN Nausea #20 tabs 09/09/23 [Rx Last Taken Unknown] Allergy/AdvReac Type Severity Reaction Status Date / Time No Known Allergies Allergy Verified 09/10/23 18:40 Family History Mother Cancer pt unsure what type Sister Diabetes Surgical History History of ureter stent Hx of appendectomy Hx of colonoscopy Hx of hemorrhoidectomy Hx of inguinal hernia repair Hx of sinus surgery Social History Smoking Status: Former smoker alcohol intake: former substance use type: does not use ROS Constitutional Constitutional: Reports anorexia, fatigue and weakness; Denies change in weight, chills, fever(s), malaise, night sweats or other Eyes Eyes: Denies blurry vision, change in eye color, change in vision, discharge from eye(s), double vision, erythema, eye pain, loss of vision or other ENT HEENT: Denies abnormal hearing, dysphagia, ear pain, epistaxis, headache(s), hearing loss, nasal congestion, nasal discharge, post nasal drip, sinus pressure, sore throat or other Cardiovascular Cardiovascular: Denies chest pain, claudication, dyspnea on exertion, edema, lightheadedness, orthopnea, palpitations, paroxysmal nocturnal dyspnea, rapid heart rate, syncope or other Respiratory/Chest Respiratory/Chest: Denies cough, dyspnea, excessive phlegm production, hemoptysis, productive cough, shortness of breath at rest, shortness of breath with exertion, wheezing or other Gastrointestinal Gastrointestinal: Reports abdominal pain, hematemesis, nausea and vomiting; Denies coffee ground emesis, constipation, diarrhea, dyspepsia, hematochezia, loose stools, melena or other Genitourinary Genitourinary: Denies burning urination, difficulty urinating, dysuria, hematuria, nocturia, urinary frequency, urinary hesitancy, urinary incontinence, urinary urgency or other Musculoskeletal Musculoskeletal: Reports arthralgias; Denies back pain, joint pain, joint stiffness, joint swelling, myalgias, neck pain or other Neurologic Neurologic: Denies abnormal gait, abnormal speech, confusion, disequilibrium, dizziness, focal weakness, headache(s), numbness, paresthesias, seizure-like activity, seizures, syncope, tingling, tremor(s) or other Psychiatric Psychiatric: Denies anxiety, depression, homicidal ideation, suicidal ideation or other Endocrine Endocrinology: Denies change in body appearance, cold intolerance, excessive sweating, heat intolerance, polydipsia, polyuria or other Hematologic/Lymphatic Hematologic/Lymphatic: Reports anemia, easy bleeding and easy bruising; Denies lymphadenopathy or other Allergic/Immunologic Allergic/Immunologic: Denies rhinitis, hives, eczemia, asthma or other Physical Exam Const alert, oriented x3, no apparent distress and well nourished; Negative for average body habitus or healthy appearing Constitutional Narrative: Overweight -Serbian male, sitting up in bed, family at bedside, patient appears comfortable and nontoxic General Appearance: cooperative HEENT normocephalic, head/scalp atraumatic, hearing grossly normal bilaterally and moist oral mucous membranes HEENT Narrative: Mallampati 2, edentulous, no thrush Eyes PERRL and conjunctivae normal Eyes Narrative: Conjunctiva are significantly pale bilaterally, no scleral icterus Neck no lymphadenopathy and supple Resp normal respiratory effort, no retractions, no use of accessory muscles and clear to auscultation bilaterally Resp Narrative: Diffusely diminished but no adventitious sounds Auscultation: Negative for rales, rhonchi or wheezes Cardio regular rate, regular rhythm, S1 normal heart sound, S2 normal heart sound, no murmurs, no rub, no gallops and no clicks GI normal to inspection, nondistended, normoactive bowel sounds and soft to palpation GI Narrative: Tenderness in the right upper quadrant with some mild guarding Extremity no clubbing, cyanosis or edema Extremity Narrative: Pedal pulses are 2+ Neuro oriented x3, CN's II-XII intact bilaterally, moves all extremities and no focal motor deficits Speech: speech normal Motor Exam: strength 5/5 throughout Psych affect normal Psych Narrative: Very pleasant, interacts appropriately Lab / Micro Data 09/11/23 10:25 09/11/23 03:03 Labs: Laboratory Results - last 24 hr 09/10/23 11:55: Blood Type O POSITIVE, Antibody Screen NEGATIVE, Crossmatch See Detail 09/10/23 19:17: WBC 15.0 H, RBC 2.96 L, Hgb 7.3 L, Hct 23.2 L, MCV 78.4 L, MCH 24.7 L, MCHC 31.5 L, RDW Std Deviation 53.4 H, RDW Coeff of Lesley 19.2 H, Plt Count 142 L, MPV 11.3, Immature Gran % (Auto) 1.300 H, Neut % (Auto) 90.3 H, Lymph % (Auto) 6.7 L, Payette % (Auto) 1.5, Eos % (Auto) 0.0, Baso % (Auto) 0.2, Absolute Neuts (auto) 13.6 H, Absolute Lymphs (auto) 1.00, Nucleated RBC % 0.5, PT 21.3 H, INR 1.8, APTT 44.2 H, Sodium 138, Potassium 4.3, Chloride 112 H, Carbon Dioxide 21.0, Anion Gap 5, BUN 35 H, Creatinine 1.40 H, Est GFR (MDRD) Af Amer 65, Est GFR (MDRD) Non-Af 54 L, BUN/Creatinine Ratio 25.0 H, Glucose 281 H, Lactic Acid 1.8, Calcium 7.7 L, Total Bilirubin 0.90, AST 746 H, ALT 299 H, Alkaline Phosphatase 361 H, Total Protein 6.2 L, Albumin 2.5 L, Globulin 3.7, Albumin/Globulin Ratio 0.7 L, Lipase 77 H 09/10/23 22:17: POC Glucose 149 H 09/10/23 22:38: Hgb 6.9 L, Hct 21.6 L, PT 21.7 H, INR 1.9, APTT 45.8 H 09/10/23 23:36: POC Glucose 146 H 09/11/23 03:03: WBC 17.6 H, RBC 3.01 L, Hgb 7.8 L, Hct 24.5 L, MCV 81.4, MCH 25.9 L, MCHC 31.8 L, RDW Std Deviation 59.7 H, RDW Coeff of Lesley 20.6 H, Plt Count 118 L, MPV 10.2, Immature Gran % (Auto) 1.800 H, Neut % (Auto) 84.4 H, Lymph % (Auto) 8.0 L, Payette % (Auto) 5.5, Eos % (Auto) 0.1, Baso % (Auto) 0.2, Absolute Neuts (auto) 14.9 H, Absolute Lymphs (auto) 1.40, Nucleated RBC % 0.8, Differential Comment SCANNED, Anisocytosis 2+, Sodium 139, Potassium 4.2, Chloride 115 H, Carbon Dioxide 21.0, Anion Gap 3 L, BUN 32 H, Creatinine 1.22, Estim Creat Clear Calc 59.79, Est GFR (MDRD) Af Amer 76, Est GFR (MDRD) Non-Af 63, BUN/Creatinine Ratio 26.2 H, Glucose 162 H, Calcium 7.6 L, Phosphorus 2.2 L, Magnesium 2.1, Total Bilirubin 0.70, AST 671 H, ALT 297 H, Alkaline Phosphatase 321 H, Total Protein 5.6 L, Albumin 2.4 L, Globulin 3.2, Albumin/Globulin Ratio 0.8 L 09/11/23 05:07: POC Glucose 148 H 09/11/23 10:25: Hgb 7.4 L, Hct 22.9 L Imaging Radiology Impression Liver Ultrasound 09/10/23 20:19 IMPRESSION: Multiple liver lesions concerning for metastatic disease. Small pancreatic lesions suggestive of cysts versus solid lesions/neoplasm not excluded. Recommend follow-up with MRI of the upper abdomen with intravenous contrast with thin cuts through the pancreas. Possible nonobstructive stone within the middle pole of the kidney versus artifact measuring 5 mm. Electronically Signed: Kelley Currie MD at 21:41 EST , Assessment & Plan Assessment/Plan (1) Pulmonary embolism: QUALIFIERS: Pulmonary embolism type: other Chronicity: acute Acute cor pulmonale presence: unspecified Qualified Code(s): I26.99 - Other pulmonary embolism without acute cor pulmonale (2) Elevated troponin: (3) Acute on chronic anemia: PLAN: Plan Patient is a 68-year-old male who presented to [facility] ED on 02/01 with worsening shortness of breath with exertion, dark stools and right calf pain. He was diagnosed with PE and metastatic to the liver and bone secondary to non-small cell cancer of the lung. He also was diagnosed with acute GI bleed secondary to duodenal ulcer who presents with hematemesis and melena. Recommend: -IV Protonix 40 mg every 12 hours -N.p.o. -Emergent upper endoscopy Charges/Coding Visit Charges Inpatient E&M: 19159 Init Hosp L3
[2023-09-10 23:15] VITALS: BP 139/64; PULSE 91; RESP 22; TEMP 37.1; O2SAT 97
[2023-09-10] MEDS: 0.9% Saline Lock 10 ML Syringe IV (23:37)
[2023-09-10 23:58] VITALS: BP 132/61; PULSE 88; RESP 29; TEMP 37; O2SAT 98
[2023-09-10 23:58] LABS: Bedside Glucose 146 mg/dL (74-106)
[2023-09-11] VITALS (17 sets, daily range): BP systolic 117–153; BP diastolic 47–68; PULSE 83–101; RESP 15–24; TEMP 36.4–37.3; O2SAT 96–100
[2023-09-11 03:15] LABS: Absolute Neutrophil Count 14.9 X10^3/uL (2.0-7.7); Basophil# 0.03 X10^3/uL; Basophil% 0.2 % (0-1); Eosinophil# 0.01 X10^3/uL; Eosinophils% 0.1 % (0-5); Hematocrit 24.5 % (40-54); Hemoglobin 7.8 g/dL (13.0-16.5); Mean Corp Hgb Conc 31.8 g/dL (32-36); Mean Corpuscular Hgb 25.9 pg (27.0-32.0); Mean Corpuscular Volume 81.4 fL (80-94); Mean Platelet Vol. 10.2 fl (6.2-12.0); Monocyte# 0.96 X10^3/uL; Monocyte% 5.5 % (0-10); NRBC Flagged by Analyzer 0.8 % (0-5); Neutrophil % 84.4 % (47-70); POSITIVE MORPHOLOGY YES; Platelet Count 118 K/mm3 (150-450); RBC Distribution Width CV 20.6 % (11.6-14.6); RBC Distribution Width SD 59.7 fl (35.1-43.9); Red Blood Count 3.01 M/mm3 (4.6-6.2); White Blood Count 17.6 K/mm3 (4.4-11.0)
[2023-09-11 03:20] LABS: Differential Indicated SCAN CRITERIA MET
[2023-09-11 03:31] LABS: ALB/GLOB Ratio 0.8 RATIO (0.9-2.4); AST(SGOT) 671 U/L (15-37); Alanine Aminotransfer ALT/SGPT 297 U/L (16-61); Albumin, Serum 2.4 g/dL (3.2-5.0); Alkaline Phosphatase 321 U/L (45-117); Anion Gap 3 (5-15); BUN 32 mg/dL (7-18); BUN/Creat Ratio 26.2 RATIO (10-20); Calcium,Total 7.6 mg/dL (8.5-10.1); Chloride 115 mmol/L (98-107); Creatinine, Serum 1.22 mg/dL (0.70-1.30); EST Glomerular Filtration Rate 63 mL/min (>60); Est Glom Filt Rate - Afr Amer 76 mL/min (>60); Estimated Creatinine Clearance 59.79 ml/min; Globulin 3.2 g/dL (2.2-4.2); Glucose 162 mg/dL (74-106); Magnesium 2.1 mg/dL (1.6-2.6); Phosphorus 2.2 mg/dL (2.5-4.9); Potassium 4.2 mmol/L (3.5-5.1); Protein, Total 5.6 g/dL (6.4-8.2); Sodium Level 139 mmol/L (136-145)
[2023-09-11 03:57] LABS: Anisocytosis 2+; Differential Comment SCANNED
[2023-09-11] MEDS: Sodium Phosphate/Na Biphos 30 MMOL in 0.9% Normal Saline (250mL Bag) 250 ML 62.5 MMOL IV (05:09)
[2023-09-11] MEDS: 0.9% Saline Lock 10 ML Syringe IV ×2 (05:09→10:21)
[2023-09-11 05:34] LABS: Bedside Glucose 148 mg/dL (74-106)
[2023-09-11] MEDS: Pantoprazole Sodium 40 MG in 0.9% Normal Saline (100mL MB+) 100 ML 330 MG IV ×2 (10:12→20:58)
[2023-09-11 10:35] LABS: Hematocrit 22.9 % (40-54); Hemoglobin 7.4 g/dL (13.0-16.5)
--- NOTE | 2023-09-11 11:16 | NURSING ---
Pt to EGD via OR tech.
--- NOTE | 2023-09-11 11:50 | OP.EGD_ITS ---
Patient Name: Arya Brock Procedure Date: 09/11/2023 11:32 AM Date of : 1955 Age: 68 Procedure: Upper GI endoscopy Indications: Coffee-ground emesis, Melena Providers: Lazaro Marquez DO Medicines: Monitored Anesthesia Care Patient Profile: This is a 68 year old male. Refer to note in patient chart for documentation of history and physical. Patient has symptoms of acute nausea and acute vomiting. Complications: No immediate complications. Procedure: Pre-Anesthesia Assessment: - Prior to the procedure, a History and Physical was performed, and patient medications and allergies were reviewed. The risks and benefits of the procedure and the sedation options and risks were discussed with the patient. All questions were answered and informed consent was obtained. Patient identification and proposed procedure were verified by the physician in the pre-procedure area. Mental Status Examination: alert and oriented. Airway Examination: normal oropharyngeal airway and neck mobility. Respiratory Examination: clear to auscultation. CV Examination: normal. Prophylactic Antibiotics: The patient does not require prophylactic antibiotics. Prior Anticoagulants: The patient has taken no anticoagulant or antiplatelet agents. After reviewing the risks and benefits, the patient was deemed in satisfactory condition to undergo the procedure. The anesthesia plan was to use monitored anesthesia care (MAC). Immediately prior to administration of medications, the patient was re-assessed for adequacy to receive sedatives. The heart rate, respiratory rate, oxygen saturations, blood pressure, adequacy of pulmonary ventilation, and response to care were monitored throughout the procedure. The physical status of the patient was re-assessed after the procedure. After obtaining informed consent, the endoscope was passed under direct vision. Throughout the procedure, the patient's blood pressure, pulse, and oxygen saturations were monitored continuously. The Endoscope was introduced through the mouth, and advanced to the second part of duodenum. The upper GI endoscopy was accomplished with ease. The patient tolerated the procedure well. Scope In: 11:40:02 AM Scope Out: 11:45:17 AM Total Procedure Duration Time 0 hours 5 minutes 15 seconds Findings: The examined esophagus was normal. The entire examined stomach was normal. Two 5 mm angiodysplastic lesions with bleeding were found in the third portion of the duodenum. Coagulation for hemostasis using heater probe was successful. Estimated blood loss was minimal. One oozing linear duodenal ulcer with pigmented material was found in the duodenal bulb. The lesion was 6 mm in largest dimension. Coagulation for hemostasis using heater probe was successful. Estimated blood loss was minimal. Impression: - Normal esophagus. - Normal stomach. - Two bleeding angiodysplastic lesions in the duodenum. Treated with a heater probe. - Oozing duodenal ulcer with pigmented material. Treated with a heater probe. - No specimens collected. Recommendation: - Return patient to ICU for ongoing care. - Resume regular diet. - Continue present medications. Procedure Code(s): --- Professional --- 60929, Esophagogastroduodenoscopy, flexible, transoral; with control of bleeding, any method CPT copyright 2021 [employer]. All rights reserved. The codes documented in this report are preliminary and upon hotbed lever operator review may be revised to meet current compliance requirements. Lazaro Marquez DO 09/11/2023 11:49:48 AM This report has been signed electronically. Number of Addenda: 0 Note Initiated On: 09/11/2023 11:32 AM
--- NOTE | 2023-09-11 12:11 | NEURO.CONS ---
Assessment and Plan: Neuro Assessment/Plan TELESTROKE ATTENDING NOTE I beamed in to see the patient but patient is not in the room. Discussed with RN and patient has gone down for EGD and patient will be going to IVC filter placement after that. I will then see him tomorrow. In terms of stroke workup - I would recommend getting CTA head and neck along with TTE. Workup for GI bleed and acute on chronic anemia. Please call us back for any questions. HPI Consult Data Date of Consult: 09/11/23 HPI Narrative HPI Narrative: DAMON OSORIO, is a 68 M who presents [facility] Medical History Anemia Back pain Blood in stool Cancer Chronic kidney disease Diabetes Dietary restriction DVT (deep venous thrombosis) Encounter for education Former smoker Gastric reflux Gout High cholesterol History of renal disease Kidney stones Lightheadedness Migraines Neuropathy Prostate disease Shortness of breath on exertion Wears dentures Wears glasses Home Medications metformin 500 mg tablet 500 mg PO DAILY diabetes 01/17/15 [History Last Taken Unknown] metformin 500 mg tablet 1,000 mg PO QHS diabetes 04/29/19 [History Last Taken Unknown] multivitamin with minerals 1 ea PO DAILY supplement 04/29/19 [History Last Taken Unknown] acetaminophen 325 mg tablet 650 mg (2 x 325 mg) PO Q4H PRN PRN Mild-Moderate Pain (1-5/10) 04/30/19 [Rx Last Taken Unknown] zsujzxc-ifasuyrbnmnei-wjnkqbxr 250 mg-250 mg-65 mg tablet (Excedrin Migraine) 1 tab PO Q6H PRN MIGRAINES 01/14/22 [History Last Taken Unknown] atorvastatin 10 mg tablet 10 mg PO QHS cholesterol 01/14/22 [History Last Taken Unknown] pioglitazone 30 mg tablet (Actos) 30 mg PO QHS diabetes 01/14/22 [History Last Taken Unknown] sildenafil 100 mg tablet 100 mg PO PRN PRN Erectile Dysfunction 01/14/22 [History Last Taken Unknown] cholecalciferol (vitamin D3) 50 mcg (2,000 unit) capsule 50 mcg PO DAILY supplement 06/17/23 [History Last Taken Unknown] oxycodone 5 mg tablet 5 mg PO TID pain 07/14/23 [History Last Taken Unknown] latanoprost 0.005 % eye drops 1 drp ophthalmic (eye) QHS mucous in eyes 07/18/23 [History Last Taken Unknown] fluticasone propionate 50 mcg/actuation nasal spray,suspension (Allergy Relief (fluticasone)) 1 spray intranasal BID allergies #16 grams 08/15/23 [Rx Last Taken Unknown] pantoprazole 20 mg tablet,delayed release (Protonix) 20 mg PO BID nausea 30 days #60 tabs 08/19/23 [Rx Last Taken Unknown] enoxaparin 80 mg/0.8 mL subcutaneous syringe 80 mg subcut Q12H anticoagulation 09/01/23 [History Last Taken 09/01/23 08:00] aspirin 81 mg tablet,delayed release (Adult Aspirin Regimen) 81 mg PO DAILY unknown 09/02/23 [History Last Taken Unknown] lidocaine-prilocaine 2.5 %-2.5 % topical cream 1 applic topical ONCE PRN port acces 30 days #30 grams 09/04/23 [Rx Last Taken Unknown] ondansetron 8 mg disintegrating tablet 8 mg PO Q8H PRN nausea and vomiting #30 tabs 09/04/23 [Rx Last Taken Unknown] ondansetron 4 mg disintegrating tablet 4 mg PO Q8H PRN PRN Nausea #20 tabs 09/09/23 [Rx Last Taken Unknown] Allergy/AdvReac Type Severity Reaction Status Date / Time No Known Allergies Allergy Verified 09/10/23 18:40 Family History Mother Cancer pt unsure what type Sister Diabetes Surgical History History of ureter stent Hx of appendectomy Hx of colonoscopy Hx of hemorrhoidectomy Hx of inguinal hernia repair Hx of sinus surgery Social History Smoking Status: Former smoker alcohol intake: former substance use type: does not use Vital Signs Vital Signs Vital Signs: 09/10/23 18:40 09/10/23 20:10 09/10/23 21:13 Temperature 98.5 F Temperature Source Temporal Pulse Rate 98 91 Pulse Strength Respiratory Rate 18 17 16 Respiratory Effort Respiratory Depth Respiratory Pattern Blood Pressure 129/51 H 131/63 H 141/61 H Blood Pressure Mean 77 85 87 Blood Pressure Source Blood Pressure Position Blood Pressure Location Baseline BP Pulse Ox 98 99 98 Oxygen Delivery Method Room Air Room Air 09/10/23 22:14 09/10/23 22:00 09/10/23 22:00 Temperature 98.8 F Temperature Source Oral Pulse Rate 90 Pulse Strength Normal (2+) Respiratory Rate 24 H Respiratory Effort Normal Non-Labored Respiratory Depth Normal Respiratory Pattern Tachypnea Blood Pressure 143/58 H Blood Pressure Mean 86 Blood Pressure Source Blood Pressure Position Blood Pressure Location Baseline BP Pulse Ox 99 Oxygen Delivery Method Room Air Room Air 09/10/23 23:15 09/10/23 23:58 09/11/23 00:13 Temperature 98.8 F 98.6 F 98.7 F Temperature Source Oral Oral Oral Pulse Rate 91 88 88 Pulse Strength Respiratory Rate 22 H 29 H 24 H Respiratory Effort Respiratory Depth Respiratory Pattern Blood Pressure 139/64 H 132/61 H 135/58 H Blood Pressure Mean 89 84 83 Blood Pressure Source Monitor Monitor Monitor Blood Pressure Position Semi-Fowlers Semi-Fowlers Semi-Fowlers Blood Pressure Location Left Arm Left Arm Left Arm Baseline BP Pulse Ox 97 98 99 Oxygen Delivery Method Room Air Room Air Room Air 09/11/23 01:13 09/11/23 02:13 09/11/23 02:18 Temperature 98.7 F 98.6 F 98.6 F Temperature Source Oral Oral Oral Pulse Rate 87 85 87 Pulse Strength Respiratory Rate 22 H 23 H 21 H Respiratory Effort Respiratory Depth Respiratory Pattern Blood Pressure 153/58 H 143/61 H 143/61 H Blood Pressure Mean 89 88 88 Blood Pressure Source Monitor Monitor Monitor Blood Pressure Position Semi-Fowlers Semi-Fowlers Semi-Fowlers Blood Pressure Location Left Arm Left Arm Left Arm Baseline BP Pulse Ox 98 99 99 Oxygen Delivery Method Room Air Room Air Room Air 09/11/23 04:00 09/11/23 05:15 09/11/23 10:09 Temperature 98.4 F 98.2 F Temperature Source Oral Oral Pulse Rate 87 92 Pulse Strength Respiratory Rate 20 H 18 Respiratory Effort Normal Non-Labored Respiratory Depth Normal Respiratory Pattern Tachypnea Blood Pressure 148/59 H 128/57 H Blood Pressure Mean 88 80 Blood Pressure Source Monitor Monitor Blood Pressure Position Semi-Fowlers Semi-Fowlers Blood Pressure Location Left Arm Left Arm Baseline BP Pulse Ox 99 100 Oxygen Delivery Method Room Air Room Air Room Air 09/11/23 09:04 09/11/23 11:51 09/11/23 11:55 Temperature 97.5 F L Temperature Source Temporal Pulse Rate 88 89 Pulse Strength Respiratory Rate 18 18 Respiratory Effort Respiratory Depth Respiratory Pattern Tachypnea Blood Pressure 125/53 H 117/68 Blood Pressure Mean 77 84 Blood Pressure Source Monitor Monitor Blood Pressure Position Semi-Fowlers Semi-Fowlers Blood Pressure Location Left Arm Left Arm Baseline BP 143/61 143/61 Pulse Ox 96 98 Oxygen Delivery Method Room Air Room Air Room Air 09/11/23 12:00 09/11/23 12:05 09/11/23 12:08 Temperature 97.5 F L Temperature Source Temporal Pulse Rate 88 90 83 Pulse Strength Respiratory Rate 18 18 18 Respiratory Effort Respiratory Depth Respiratory Pattern Blood Pressure 123/52 H 120/51 L 130/53 H Blood Pressure Mean 75 74 78 Blood Pressure Source Monitor Monitor Monitor Blood Pressure Position Semi-Fowlers Semi-Fowlers Semi-Fowlers Blood Pressure Location Left Arm Left Arm Left Arm Baseline BP 143/61 143/61 143/61 Pulse Ox 98 100 99 Oxygen Delivery Method Room Air Room Air Room Air Weight Weight: 83.2 kg Body Mass Index (BMI) 28.7 EEG Results Procedure Details EEG Procedure Details: DAMON OSORIO is a 68 year old M with a past medical history of , who presents for evaluation of Electroencephalogram on DATE at TIME Medical Records Data Medical Nutrition Assessment Dietitian: Malnutrition Criteria Met Start: 09/11/23 11:34 Freq: Status: Active Protocol: Document 09/11/23 11:35 AG (Rec: 09/11/23 11:35 [id number]) Nutrition Malnutrition Evidence of Malnutrition Exists Yes Malnutrition (severe): Chronic Evidenced By Suboptimal Energy Intake ( Severe),Weight Loss (Severe) Clinical Problem Chronic Disease or Condition Related Malnutrition Etiology severe, chronic malnutrition related to inadequate energy intake w/ increased energy needs d/t metastatic disease Signs/Symptoms as evidenced by unintentional 7% wt loss over ~1.5 months, estimated PO intake meeting < 75% of estimated energy needs > 1 month Status Active Problem Recommendation Dietitian Recommendations/Changes recommend regular diet as tolerated; ensure plus high protein 120mL 4x/day w/ medpass when diet advanced. Will monitor tolerance of diet , wt, labs, and adjust diet/ ONS as indicated at time of follow-up Lab / Micro Data 09/11/23 10:25 09/11/23 03:03 Labs: Laboratory Results - last 24 hr 09/10/23 11:55: Blood Type O POSITIVE, Antibody Screen NEGATIVE, Crossmatch See Detail 09/10/23 19:17: WBC 15.0 H, RBC 2.96 L, Hgb 7.3 L, Hct 23.2 L, MCV 78.4 L, MCH 24.7 L, MCHC 31.5 L, RDW Std Deviation 53.4 H, RDW Coeff of Lesley 19.2 H, Plt Count 142 L, MPV 11.3, Immature Gran % (Auto) 1.300 H, Neut % (Auto) 90.3 H, Lymph % (Auto) 6.7 L, Armstrong % (Auto) 1.5, Eos % (Auto) 0.0, Baso % (Auto) 0.2, Absolute Neuts (auto) 13.6 H, Absolute Lymphs (auto) 1.00, Nucleated RBC % 0.5, PT 21.3 H, INR 1.8, APTT 44.2 H, Sodium 138, Potassium 4.3, Chloride 112 H, Carbon Dioxide 21.0, Anion Gap 5, BUN 35 H, Creatinine 1.40 H, Est GFR (MDRD) Af Amer 65, Est GFR (MDRD) Non-Af 54 L, BUN/Creatinine Ratio 25.0 H, Glucose 281 H, Lactic Acid 1.8, Calcium 7.7 L, Total Bilirubin 0.90, AST 746 H, ALT 299 H, Alkaline Phosphatase 361 H, Total Protein 6.2 L, Albumin 2.5 L, Globulin 3.7, Albumin/Globulin Ratio 0.7 L, Lipase 77 H 09/10/23 22:17: POC Glucose 149 H 09/10/23 22:38: Hgb 6.9 L, Hct 21.6 L, PT 21.7 H, INR 1.9, APTT 45.8 H 09/10/23 23:36: POC Glucose 146 H 09/11/23 03:03: WBC 17.6 H, RBC 3.01 L, Hgb 7.8 L, Hct 24.5 L, MCV 81.4, MCH 25.9 L, MCHC 31.8 L, RDW Std Deviation 59.7 H, RDW Coeff of Lesley 20.6 H, Plt Count 118 L, MPV 10.2, Immature Gran % (Auto) 1.800 H, Neut % (Auto) 84.4 H, Lymph % (Auto) 8.0 L, Armstrong % (Auto) 5.5, Eos % (Auto) 0.1, Baso % (Auto) 0.2, Absolute Neuts (auto) 14.9 H, Absolute Lymphs (auto) 1.40, Nucleated RBC % 0.8, Differential Comment SCANNED, Anisocytosis 2+, Sodium 139, Potassium 4.2, Chloride 115 H, Carbon Dioxide 21.0, Anion Gap 3 L, BUN 32 H, Creatinine 1.22, Estim Creat Clear Calc 59.79, Est GFR (MDRD) Af Amer 76, Est GFR (MDRD) Non-Af 63, BUN/Creatinine Ratio 26.2 H, Glucose 162 H, Calcium 7.6 L, Phosphorus 2.2 L, Magnesium 2.1, Total Bilirubin 0.70, AST 671 H, ALT 297 H, Alkaline Phosphatase 321 H, Total Protein 5.6 L, Albumin 2.4 L, Globulin 3.2, Albumin/Globulin Ratio 0.8 L 09/11/23 05:07: POC Glucose 148 H 09/11/23 10:25: Hgb 7.4 L, Hct 22.9 L Imaging Radiology Impression Liver Ultrasound 09/10/23 20:19 IMPRESSION: Multiple liver lesions concerning for metastatic disease. Small pancreatic lesions suggestive of cysts versus solid lesions/neoplasm not excluded. Recommend follow-up with MRI of the upper abdomen with intravenous contrast with thin cuts through the pancreas. Possible nonobstructive stone within the middle pole of the kidney versus artifact measuring 5 mm. Electronically Signed: Kelley Currie MD at 21:41 EST , Active Medications Active Medications Active Medications: Current Medications Generic Name Dose Route Start Last Admin Trade Name Freq PRN Reason Stop Dose Admin Acetaminophen 650 mg 09/10/23 21:39 Acetaminophen 325 Mg Tablet PO Q6H PRN PRN Pain 1-10 Or Fever>100.7 Albuterol Sulfate 2.5 mg 09/10/23 21:39 Albuterol 2.5 Mg/3 Ml Vial.Neb. INHALATION Q2H PRN PRN Shortness of Breath/Wheezing Dextrose 0 gm 09/10/23 21:39 Dextrose 50%-Water 25 Gm/50 Ml Disp.Syrin IV X1 PRN HYPOGLYCEMIA Protocol Fluticasone Propionate 1 spray 09/11/23 10:00 09/11/23 10:12 Fluticasone 0.05% 1 Milnor Nasal.Sry NASAL Not Given BID ARIANA Glucagon 1 mg 09/10/23 21:39 Glucagon 1 Mg/Ml Syringe IM X1 PRN HYPOGLYCEMIA Guaifenesin 20 ml 09/10/23 21:39 Guaifenesin 10 Ml Udc (200mg/10ml) PO Q4H PRN PRN COUGH Hydromorphone HCl 0.5 mg 09/10/23 21:39 Hydromorphone 0.5 Mg/0.5 Ml Syringe IV Q3H PRN PRN Pain Score 6-10 Sodium Chloride 1,000 mls @ 70 mls/hr 09/10/23 21:39 09/11/23 11:16 IV 0 mls/hr .[id number] ARIANA Infusion Pantoprazole Sodium 40 mg/ 110 mls @ 330 mls/hr 09/11/23 10:00 09/11/23 10:34 Sodium Chloride IV Infused Q12 ARIANA Infusion Ceftriaxone Sodium 1 gm in 50 mls @ 100 mls/hr 09/11/23 22:00 Rocephin IV 09/17/23 22:29 2200 ARIANA Sodium Chloride 250 mls @ 15 mls/hr 09/10/23 21:46 IV .[id number] PRN Additional IVPB Infusion Sodium Chloride 250 mls @ 15 mls/hr 09/10/23 21:46 IV .[id number] PRN Saline Flush Insulin Human Lispro 0 unit 09/11/23 00:00 09/11/23 11:19 Insulin Lispro 100 Unit/Ml Insuln.Pen SC Not Given Q6 [facility] Protocol Latanoprost 1 drp 09/11/23 22:00 Latanoprost 0.005% 1 Bottle OPHTHALMIC QHS ARIANA Melatonin 3 mg 09/10/23 21:39 Melatonin 3 Mg Tablet PO QHS PRN PRN INSOMNIA Multivitamins/Minerals 1 tablet 09/11/23 08:00 09/11/23 08:17 Multivitamins,Ther W-Minerals Tablet PO Not Given DAILYCM [facility] Ondansetron HCl 4 mg 09/10/23 21:39 Ondansetron 4 Mg/2 Ml Vial IV Q8H PRN PRN NAUSEA/VOMITING Oxycodone HCl 5 mg 09/11/23 06:00 09/11/23 05:07 Oxycodone 5 Mg Tablet PO Not Given TID [facility] Senna/Docusate Sodium 2 tablet 09/10/23 21:39 Senna/Docusate Sodium 1 Tablet PO BID PRN PRN Constipation Sodium Chloride 10 - 40 ml 09/10/23 21:46 09/11/23 10:21 0.9% Saline Lock 10 Ml Syringe IV 20 ml UD PRN Administration SALINE FLUSH
--- NOTE | 2023-09-11 12:16 | EX.PCM.CON.S ---
Assessment & Plan Assessment/Plan (1) Pulmonary embolism: QUALIFIERS: Pulmonary embolism type: other Chronicity: acute Acute cor pulmonale presence: unspecified Qualified Code(s): I26.99 - Other pulmonary embolism without acute cor pulmonale PLAN: Plan Discussed with the patient and his partner IVC Filter insertion procedure including risks, benefits, and recovery. All of their questions and concerns were addressed. He is agreeable to proceed with IVC Filter placement. Will proceed with IVC Filter placement today. HPI Consult Data Date of Consult: 09/11/23 HPI Narrative HPI Narrative: DAMON OSORIO, is a 68 M who is admitted for workup and management of ongoing anemia/GI bleeding, recently identified subacute/acute multifocal stroke, and DVT/PE in the setting of recently diagnosed metastatic lung cancer. He was diagnosed with NSCLC adenocarcinoma on 08/12/2022 after it was identified on CT in Jun 2023. On 08/16/22 he presented to the ER with increased SOB and was found to have RLL segmental PE and started on heparin before transitioning to Eliquis. He was also noted to have R calf pain but lower extremity duplex was not obtained until 08/19 at which point it was negative for DVT. At his admission 08/16-08/19 he had also reported history of black stools and he was anemic to Hgb 8.5. He'd recently had a colonoscopy with no abnormalities. He had an EGD 08/18 which found non-bleeding duodenal ulcers and otherwise no source of bleeding. On 08/22, he developed LLE DVT despite Eliquis so was switched to Lovenox as an outpatient. Unfortunately, he has had continued concern for GI bleeding and anemia. Lovenox was stopped. We are consulted for IVC Filter placement. He also had Brain MRI as an outpatient as part of his malignancy workup 09/10 which revealed 3 small acute infarcts in the R parietal lobe and subacute infarcts in the left parietal and occipital lobes. He appears to be asymptomatic from this. CTA and Echo are pending. He has not had any radiation to the abdomen/pelvis. He reports remote history of hernia repair and open appendectomy. No prior history of DVT/PE to his knowledge. [facility] Medical History Anemia Back pain Blood in stool Cancer Chronic kidney disease Diabetes Dietary restriction DVT (deep venous thrombosis) Encounter for education Former smoker Gastric reflux Gout High cholesterol History of renal disease Kidney stones Lightheadedness Migraines Neuropathy Prostate disease Shortness of breath on exertion Wears dentures Wears glasses Home Medications metformin 500 mg tablet 500 mg PO DAILY diabetes 01/17/15 [History Last Taken Unknown] metformin 500 mg tablet 1,000 mg PO QHS diabetes 04/29/19 [History Last Taken Unknown] multivitamin with minerals 1 ea PO DAILY supplement 04/29/19 [History Last Taken Unknown] acetaminophen 325 mg tablet 650 mg (2 x 325 mg) PO Q4H PRN PRN Mild-Moderate Pain (1-5/10) 04/30/19 [Rx Last Taken Unknown] fjegjvx-xladnjbwfqavh-dsggeoxt 250 mg-250 mg-65 mg tablet (Excedrin Migraine) 1 tab PO Q6H PRN MIGRAINES 01/14/22 [History Last Taken Unknown] atorvastatin 10 mg tablet 10 mg PO QHS cholesterol 01/14/22 [History Last Taken Unknown] pioglitazone 30 mg tablet (Actos) 30 mg PO QHS diabetes 01/14/22 [History Last Taken Unknown] sildenafil 100 mg tablet 100 mg PO PRN PRN Erectile Dysfunction 01/14/22 [History Last Taken Unknown] cholecalciferol (vitamin D3) 50 mcg (2,000 unit) capsule 50 mcg PO DAILY supplement 06/17/23 [History Last Taken Unknown] oxycodone 5 mg tablet 5 mg PO TID pain 07/14/23 [History Last Taken Unknown] latanoprost 0.005 % eye drops 1 drp ophthalmic (eye) QHS mucous in eyes 07/18/23 [History Last Taken Unknown] fluticasone propionate 50 mcg/actuation nasal spray,suspension (Allergy Relief (fluticasone)) 1 spray intranasal BID allergies #16 grams 08/15/23 [Rx Last Taken Unknown] pantoprazole 20 mg tablet,delayed release (Protonix) 20 mg PO BID nausea 30 days #60 tabs 08/19/23 [Rx Last Taken Unknown] enoxaparin 80 mg/0.8 mL subcutaneous syringe 80 mg subcut Q12H anticoagulation 09/01/23 [History Last Taken 09/01/23 08:00] aspirin 81 mg tablet,delayed release (Adult Aspirin Regimen) 81 mg PO DAILY unknown 09/02/23 [History Last Taken Unknown] lidocaine-prilocaine 2.5 %-2.5 % topical cream 1 applic topical ONCE PRN port acces 30 days #30 grams 09/04/23 [Rx Last Taken Unknown] ondansetron 8 mg disintegrating tablet 8 mg PO Q8H PRN nausea and vomiting #30 tabs 09/04/23 [Rx Last Taken Unknown] ondansetron 4 mg disintegrating tablet 4 mg PO Q8H PRN PRN Nausea #20 tabs 09/09/23 [Rx Last Taken Unknown] Allergy/AdvReac Type Severity Reaction Status Date / Time No Known Allergies Allergy Verified 09/10/23 18:40 Family History Mother Cancer pt unsure what type Sister Diabetes Surgical History History of ureter stent Hx of appendectomy Hx of colonoscopy Hx of hemorrhoidectomy Hx of inguinal hernia repair Hx of sinus surgery Social History Smoking Status: Former smoker alcohol intake: former substance use type: does not use Physical Exam Const alert, oriented x3 and no apparent distress General Appearance: cooperative HEENT normocephalic, head/scalp atraumatic, hearing grossly normal bilaterally, external ears normal and external nose normal Eyes EOMs intact bilaterally General Eye: normal appearance of both eyes Neck General: normal visual inspection and trachea midline Resp normal respiratory effort Effort and Inspection: able to speak in complete sentences; Negative for labored, grunting, stridor or audible wheezes Cardio regular rate and regular rhythm Extremity no clubbing, cyanosis or edema Skin no rashes or lesions noted and no wounds Trauma: no lacerations or abrasions Neuro oriented x3, CN's II-XII intact bilaterally, moves all extremities and no focal motor deficits Speech: speech normal Psych mental status grossly normal Appearance: grossly normal Attitude: calm Activity / Motor Behavior: appropriate eye contact Speech: normal speech Mood & Affect: euthymic mood Medical Records Data Medical Nutrition Assessment Dietitian: Malnutrition Criteria Met Start: 09/11/23 11:34 Freq: Status: Active Protocol: Document 09/11/23 11:35 AG (Rec: 09/11/23 11:35 [id number]) Nutrition Malnutrition Evidence of Malnutrition Exists Yes Malnutrition (severe): Chronic Evidenced By Suboptimal Energy Intake ( Severe),Weight Loss (Severe) Clinical Problem Chronic Disease or Condition Related Malnutrition Etiology severe, chronic malnutrition related to inadequate energy intake w/ increased energy needs d/t metastatic disease Signs/Symptoms as evidenced by unintentional 7% wt loss over ~1.5 months, estimated PO intake meeting < 75% of estimated energy needs > 1 month Status Active Problem Recommendation Dietitian Recommendations/Changes recommend regular diet as tolerated; ensure plus high protein 120mL 4x/day w/ medpass when diet advanced. Will monitor tolerance of diet , wt, labs, and adjust diet/ ONS as indicated at time of follow-up Lab / Micro Data 09/11/23 10:25 09/11/23 03:03 Labs: Laboratory Results - last 24 hr 09/10/23 11:55: Blood Type O POSITIVE, Antibody Screen NEGATIVE, Crossmatch See Detail 09/10/23 19:17: WBC 15.0 H, RBC 2.96 L, Hgb 7.3 L, Hct 23.2 L, MCV 78.4 L, MCH 24.7 L, MCHC 31.5 L, RDW Std Deviation 53.4 H, RDW Coeff of Lesley 19.2 H, Plt Count 142 L, MPV 11.3, Immature Gran % (Auto) 1.300 H, Neut % (Auto) 90.3 H, Lymph % (Auto) 6.7 L, [place] % (Auto) 1.5, Eos % (Auto) 0.0, Baso % (Auto) 0.2, Absolute Neuts (auto) 13.6 H, Absolute Lymphs (auto) 1.00, Nucleated RBC % 0.5, PT 21.3 H, INR 1.8, APTT 44.2 H, Sodium 138, Potassium 4.3, Chloride 112 H, Carbon Dioxide 21.0, Anion Gap 5, BUN 35 H, Creatinine 1.40 H, Est GFR (MDRD) Af Amer 65, Est GFR (MDRD) Non-Af 54 L, BUN/Creatinine Ratio 25.0 H, Glucose 281 H, Lactic Acid 1.8, Calcium 7.7 L, Total Bilirubin 0.90, AST 746 H, ALT 299 H, Alkaline Phosphatase 361 H, Total Protein 6.2 L, Albumin 2.5 L, Globulin 3.7, Albumin/Globulin Ratio 0.7 L, Lipase 77 H 01/31/24 22:17: POC Glucose 149 H 09/10/23 22:38: Hgb 6.9 L, Hct 21.6 L, PT 21.7 H, INR 1.9, APTT 45.8 H 09/10/23 23:36: POC Glucose 146 H 09/11/23 03:03: WBC 17.6 H, RBC 3.01 L, Hgb 7.8 L, Hct 24.5 L, MCV 81.4, MCH 25.9 L, MCHC 31.8 L, RDW Std Deviation 59.7 H, RDW Coeff of Lesley 20.6 H, Plt Count 118 L, MPV 10.2, Immature Gran % (Auto) 1.800 H, Neut % (Auto) 84.4 H, Lymph % (Auto) 8.0 L, [place] % (Auto) 5.5, Eos % (Auto) 0.1, Baso % (Auto) 0.2, Absolute Neuts (auto) 14.9 H, Absolute Lymphs (auto) 1.40, Nucleated RBC % 0.8, Differential Comment SCANNED, Anisocytosis 2+, Sodium 139, Potassium 4.2, Chloride 115 H, Carbon Dioxide 21.0, Anion Gap 3 L, BUN 32 H, Creatinine 1.22, Estim Creat Clear Calc 59.79, Est GFR (MDRD) Af Amer 76, Est GFR (MDRD) Non-Af 63, BUN/Creatinine Ratio 26.2 H, Glucose 162 H, Calcium 7.6 L, Phosphorus 2.2 L, Magnesium 2.1, Total Bilirubin 0.70, AST 671 H, ALT 297 H, Alkaline Phosphatase 321 H, Total Protein 5.6 L, Albumin 2.4 L, Globulin 3.2, Albumin/Globulin Ratio 0.8 L 09/11/23 05:07: POC Glucose 148 H 09/11/23 10:25: Hgb 7.4 L, Hct 22.9 L Imaging Radiology Impression Liver Ultrasound 09/10/23 20:19 IMPRESSION: Multiple liver lesions concerning for metastatic disease. Small pancreatic lesions suggestive of cysts versus solid lesions/neoplasm not excluded. Recommend follow-up with MRI of the upper abdomen with intravenous contrast with thin cuts through the pancreas. Possible nonobstructive stone within the middle pole of the kidney versus artifact measuring 5 mm. Electronically Signed: Kelley Currie MD at 21:41 EST ,
--- NOTE | 2023-09-11 12:25 | PCM.PN.HOSP ---
Subjective Subjective No issues overnight, plan for EGD today as well as surgical evaluation for IVC filter Objective Data Objective Data Vital Signs: Vital Signs Temp Pulse Resp BP Pulse Ox O2 Del Method 97.5 F L 83 18 130/53 H 99 Room Air 09/11/23 12:08 09/11/23 12:08 09/11/23 12:08 09/11/23 12:08 09/11/23 12:08 09/11/23 12:08 Oxygen Delivery Method Room Air Weight: 183 lb 6.793 oz Body Mass Index (BMI) 28.7 Intake & Output: Intake and Output for Last 24 Hours 09/10/23 09/11/23 09/12/23 03:59 03:59 03:59 Intake Total 462.5 / 462.5 1278.83 / 1278.83 Output Total 415 / 415 675 / 675 Balance 47.5 / 47.5 603.83 / 603.83 Medical Nutrition Assessment Dietitian: Malnutrition Criteria Met Start: 09/11/23 11:34 Freq: Status: Active Protocol: Document 09/11/23 11:35 AG (Rec: 09/11/23 11:35 [email or web address]) Nutrition Malnutrition Evidence of Malnutrition Exists Yes Malnutrition (severe): Chronic Evidenced By Suboptimal Energy Intake ( Severe),Weight Loss (Severe) Clinical Problem Chronic Disease or Condition Related Malnutrition Etiology severe, chronic malnutrition related to inadequate energy intake w/ increased energy needs d/t metastatic disease Signs/Symptoms as evidenced by unintentional 7% wt loss over ~1.5 months, estimated PO intake meeting < 75% of estimated energy needs > 1 month Status Active Problem Recommendation Dietitian Recommendations/Changes recommend regular diet as tolerated; ensure plus high protein 120mL 4x/day w/ medpass when diet advanced. Will monitor tolerance of diet , wt, labs, and adjust diet/ ONS as indicated at time of follow-up Lab / Micro Data 09/11/23 10:25 09/11/23 03:03 Labs: Laboratory Results - last 24 hr 09/10/23 11:55: Blood Type O POSITIVE, Antibody Screen NEGATIVE, Crossmatch See Detail 09/10/23 19:17: WBC 15.0 H, RBC 2.96 L, Hgb 7.3 L, Hct 23.2 L, MCV 78.4 L, MCH 24.7 L, MCHC 31.5 L, RDW Std Deviation 53.4 H, RDW Coeff of Lesley 19.2 H, Plt Count 142 L, MPV 11.3, Immature Gran % (Auto) 1.300 H, Neut % (Auto) 90.3 H, Lymph % (Auto) 6.7 L, [place] % (Auto) 1.5, Eos % (Auto) 0.0, Baso % (Auto) 0.2, Absolute Neuts (auto) 13.6 H, Absolute Lymphs (auto) 1.00, Nucleated RBC % 0.5, PT 21.3 H, INR 1.8, APTT 44.2 H, Sodium 138, Potassium 4.3, Chloride 112 H, Carbon Dioxide 21.0, Anion Gap 5, BUN 35 H, Creatinine 1.40 H, Est GFR (MDRD) Af Amer 65, Est GFR (MDRD) Non-Af 54 L, BUN/Creatinine Ratio 25.0 H, Glucose 281 H, Lactic Acid 1.8, Calcium 7.7 L, Total Bilirubin 0.90, AST 746 H, ALT 299 H, Alkaline Phosphatase 361 H, Total Protein 6.2 L, Albumin 2.5 L, Globulin 3.7, Albumin/Globulin Ratio 0.7 L, Lipase 77 H 09/10/23 22:17: POC Glucose 149 H 09/10/23 22:38: Hgb 6.9 L, Hct 21.6 L, PT 21.7 H, INR 1.9, APTT 45.8 H 09/10/23 23:36: POC Glucose 146 H 09/11/23 03:03: WBC 17.6 H, RBC 3.01 L, Hgb 7.8 L, Hct 24.5 L, MCV 81.4, MCH 25.9 L, MCHC 31.8 L, RDW Std Deviation 59.7 H, RDW Coeff of Lesley 20.6 H, Plt Count 118 L, MPV 10.2, Immature Gran % (Auto) 1.800 H, Neut % (Auto) 84.4 H, Lymph % (Auto) 8.0 L, [place] % (Auto) 5.5, Eos % (Auto) 0.1, Baso % (Auto) 0.2, Absolute Neuts (auto) 14.9 H, Absolute Lymphs (auto) 1.40, Nucleated RBC % 0.8, Differential Comment SCANNED, Anisocytosis 2+, Sodium 139, Potassium 4.2, Chloride 115 H, Carbon Dioxide 21.0, Anion Gap 3 L, BUN 32 H, Creatinine 1.22, Estim Creat Clear Calc 59.79, Est GFR (MDRD) Af Amer 76, Est GFR (MDRD) Non-Af 63, BUN/Creatinine Ratio 26.2 H, Glucose 162 H, Calcium 7.6 L, Phosphorus 2.2 L, Magnesium 2.1, Total Bilirubin 0.70, AST 671 H, ALT 297 H, Alkaline Phosphatase 321 H, Total Protein 5.6 L, Albumin 2.4 L, Globulin 3.2, Albumin/Globulin Ratio 0.8 L 09/11/23 05:07: POC Glucose 148 H 09/11/23 10:25: Hgb 7.4 L, Hct 22.9 L Radiography Diagnostic Testing: Radiology Impression Liver Ultrasound 09/10/23 20:19 IMPRESSION: Multiple liver lesions concerning for metastatic disease. Small pancreatic lesions suggestive of cysts versus solid lesions/neoplasm not excluded. Recommend follow-up with MRI of the upper abdomen with intravenous contrast with thin cuts through the pancreas. Possible nonobstructive stone within the middle pole of the kidney versus artifact measuring 5 mm. Electronically Signed: Kelley Currie MD at 21:41 EST , Physical Exam Narrative General: Alert, Oriented x3, Cooperative, No apparent distress HEENT: Atraumatic, PERRLA, EOMI, Normocephalic Oral: Moist Mucosa Neck: Supple, No JVD Lungs: Diminished, Normal air movement, No rhonchi, No wheeze, No rales, right chest port Cardiovascular: Regular rate, Regular Rhythm, Normal S1, Normal S2, No murmurs Abdomen: Soft, Non Tender, Non-Distended, No Hepato-splenomegaly Extremities: No edema, Capillary Refill Less than 3 Seconds Skin: No rashes, No breakdown Musculoskeletal: No Tenderness to Palpation of Joints or Extremities Neurological: No focal neurological deficits, Motor Exam 5/5 strength throughout, Sensory exam intact to light touch and pain Psych/Mental Status: Normal Affect, Appropriate Assessment & Plan Assessment/Plan (1) Dehydration: (2) Nausea: (3) Anemia: QUALIFIERS: Anemia type: iron deficiency Iron deficiency anemia type: chronic blood loss Qualified Code(s): D50.0 - Iron deficiency anemia secondary to blood loss (chronic) (4) Thrombocytopenia: (5) Pulmonary embolism: QUALIFIERS: Acute cor pulmonale presence: unspecified Chronicity: acute Pulmonary embolism type: other Qualified Code(s): I26.99 - Other pulmonary embolism without acute cor pulmonale (6) Leukocytosis: (7) Transaminitis: (8) GIB (gastrointestinal bleeding): (9) Hematemesis: (10) Acute ischemic multifocal anterior circulation stroke involving right-sided vessel: PLAN: Plan 1. Acute hematemesis with acute on chronic anemia secondary to bleeding with a history of GERD/transaminitis with thrombocytopenia/metastatic NSCLC?adenocarcinoma ? Appreciate gastroenterology's assistance ? Proceed with EGD today ? Will monitor and transfuse as necessary, he is already being given 1 unit PRBCs ? Continue with PPI ? Continue with Rocephin secondary to concern of possible ascites with liver metastatic lung cancer ? His elevated transaminitis is likely related to his metastatic disease ? She does have a port in the right chest in preparation for chemotherapy which she has not received yet 2. Acute/subacute stroke ? He had a multifocal stroke noted on MRI from 09/10/2023 ? Will need a CTA of the head and neck when stable to evaluate for LVO ? Appreciate neurology's assistance ? Echo pending 3. History of PE/DVT ? He was recently started on Eliquis and then had recurrent thromboembolism while on Eliquis was transitioned to Lovenox, this was discontinued on 09/08/2023 secondary to severe anemia ? Will consult vascular surgery for IVC filter placement 4. DM2/CKD 3B ? Creatinine does appear to be at baseline on admission, will continue to monitor ? He has not been taking any of his diabetic medications or his cholesterol medications ? Continue with insulin ? Accu-Cheks every 6 ? We will monitor make adjustments as necessary 5. Glaucoma ? Stable ? Continue with eyedrops DVT: SCDs Charges/Coding Visit Charges Inpatient E&M: 44748 Subs Hosp L2
--- NOTE | 2023-09-11 12:43 | CASEMGMT ---
Addendum entered by Maddie Zamorano 09/11/23 15:54: Face to face with the pt at this time. Pt states that he was compliant with taking all of the medications that he was prescribed and also that he was able to follow up with the oncologist. Pt states he feels like there was nothing that he could have done differently to prevent this current admission. Will follow. Original Note: Readmission Note: Index: 08/16/23-08/19/23. Dx: Acute Pulmonary Embolism and Elevated Troponin Readmission: 09/10/23. Dx: GIB Pt with history of anemia, Ca, CKD, DM, DVT, former smoker, Gout, high cholesterol, migraines, and neuropathy was admitted on the above noted dates for the corresponding dx?s. On index admission, pt had SOB and a CTA showed the pt had a PE and was started on Eliquis. After DC, Pt was to be seen by an oncologist. The pt was to strip picker and start Eliquis and Protonix PO. At this time the pt is not in the room as he getting an EGD done. Will f/u with pt with face to face assessment once he returns. Also, this Pt was then seen in the ER on 08/25 with a DVT and was transitioned to Lovenox. See Dr. Teague's H&P for further information. He presented to the emergency department yesterday on 09/09/2023 with weakness, SOB, and anemia. The pt was supposed to be getting an outpatient transfusion, however he started having nausea, body vomiting, abdominal pain and some hematemesis. Pt was given IV fluids and 1 unit of packed red blood cells yesterday and was DC after this was completed. Pt was seen in oncology's office today and had recurrent nausea and vomiting with hematemesis so he was sent back to the ED. In the ED the pt received 1 more unit of packed red blood cells. During the current admission, the pt is planned for EGD and IVC filter placement. Will follow for any potential needs.
--- NOTE | 2023-09-11 13:23 | PCM.OPRPT ---
Report of Operation Date of Procedure: 09/11/23 Pre-Operative Diagnosis: VTE, contraindication to anticoagulation Post-Operative Diagnosis: same Surgery/Procedure Performed:: insertion inferior vena cava filter Surgeon: Eusebio Palafox Type of Anesthesia: Local and Sedation,Conscious Estimated Blood Loss (mL): 1 Description of Procedure: HPI: Patient is a 68-year-old male recently diagnosed with metastatic lung cancer. He also recently was diagnosed with pulmonary emboli and recurrent deep venous thrombosis while on oral anticoagulation. He subsequently was transitioned to Lovenox with no further thrombotic events however he has had progressively worsening anemia and several episodes of possible upper GI bleeding resulting in hematemesis. Given his recent thrombotic events and ongoing blood loss potential he is felt to be appropriate for IVC filter. Description of procedure: Upon obtaining form consent and verification correct patient procedure site patient taken to the [facility] where he was positioned prepped and draped in usual sterile fashion. Time out was then performed and sedation administered with fentanyl. Skin was anesthetized 1% lidocaine over the common femoral vein and the vessel accessed under ultrasound guidance with a micropuncture needle wire. This was exchanged for micropuncture sheath through which hand-injection ilio caval venogram was performed revealing satisfactory positioning with no extravasation dissection. This also revealed a normal caliber patent iliac vein with no evidence of thrombus. Through the micropuncture sheath a J-wire was advanced the micropuncture sheath exchanged out for the delivery system for a [place] filter system. This was advanced in the position at the L2 vertebral body and digital subtraction venacavogram was performed revealing the positioning of the renal vein confluence is as well as confirmed patent normal caliber vena cava. The renal vein confluence is where then marked on the screen and the IVC filter advanced in the position and then deployed below the lowest renal vein. Completion venacavogram confirmed satisfactory positioning with no significant tilt. The sheath was withdrawn and pressure held after which patient was returned to the intensive care unit.
[2023-09-11] MEDS: oxyCODONE 5 MG Tablet PO ×2 (13:54→20:58)
[2023-09-11 14:39] LABS: Hematocrit 22.4 % (40-54); Hemoglobin 7.3 g/dL (13.0-16.5)
--- NOTE | 2023-09-11 15:11 | CHAPLAIN ---
Type of Pastoral Visit _x__ Initial Visit ___ Follow-up Visit ___ On-call Visit ___ General Patient Visit ___ Spiritual Assessment ___ Family Conference ___ Bereavement ___ Rapid Response ___ Code Blue ___ Other (describe below) Pastoral Care Referral From _x__ Patient ___ Family ___ Nurse ___ Physician ___ Bindery Machine Setter/Set Up Operator ___ Information Support Project Manager ___ Other (describe below) Sacrament/Intervention _x__ Active listening ___ Anointing ___ Oriental Orthodox ___ Bereavement ___ Communion _x__ Tabitha exploration ___ _x__ Life review _x__ Prayer ___ Reconciliation ___ Sacrament of Sick _x__ Supportive presence ___ Wedding ___ Other (describe below) Pastoral Comments patient was met before in a previous and recent admission; pt and SO are in the room; pt had two procedures done earlier today but is awake and able to talk freely; pt expresses his tabitha and hope in God; pt has put it all in His hands ; pt goal is to have his life be a testimony for God no matter what happens; pt asks for prayer and an agreement before God to give whatever He will do ; pt expresses great appreciation for the support and prayers; offer of support in any needs to SO; SO is active in conversation and shows her tabitha and confidence in God as well
--- NOTE | 2023-09-11 15:55 | CASEMGMT ---
Social Work SW met with pt to complete Social Determinant of Health Screening. Pt had a visitor in the room. Visitor states she is the patients girlfriend Sherry Salvador. Pt groggy from a procedure earlier in the day but does confirm Sherry is a friend who lives [facility] . SW explained that SW would return tomorrow to speak with the pt and left the room. Sherry followed SW to the [place] and informed SW she would like to be the pt's HCPOA, that pt has his own home but has been staying with her recently. Sherry states that pt is very ill and indicates pt has been given a short time to live but that she has not told pt. Sherry inquiring about palliative and hospice care. Sherry also stating that she is in contact with pt's son. MARILUZ explained to Sherry that SW will meet with pt again tomorrow to discuss HCPOA and will discuss discharge planning with him when he is more awake. RNCM updated of situation. SW will meet with pt when he is able to appropriatly converse. JUSTO [place]
[2023-09-11] MEDS: 0.9% Normal Saline (1000mL) 1,000 ML 70 ML IV (18:42)
[2023-09-11] MEDS: Ceftriaxone 1 GM/50 ML BAG IV (20:59)
[2023-09-12] VITALS (10 sets, daily range): BP systolic 102–129; BP diastolic 43–54; PULSE 98–112; RESP 18–28; TEMP 36.8–37.4; O2SAT 94–98
[2023-09-12 00:23] LABS: Bedside Glucose 124 mg/dL (74-106)
[2023-09-12 03:55] LABS: Absolute Lymphocyte Count 2.29 X10^3/uL (0.83-4.51); Absolute Neutrophil Count 12.7 X10^3/uL (2.0-7.7); Basophil# 0.06 X10^3/uL; Basophil% 0.4 % (0-1); Eosinophil# 0.05 X10^3/uL; Eosinophils% 0.3 % (0-5); Hematocrit 20.6 % (40-54); Hemoglobin 6.5 g/dL (13.0-16.5); Lymphocyte # 2.29 X10^3/ul (0.83-4.51); Lymphocyte % 13.9 % (19-41); Mean Corp Hgb Conc 31.6 g/dL (32-36); Mean Corpuscular Hgb 25.9 pg (27.0-32.0); Mean Corpuscular Volume 82.1 fL (80-94); Mean Platelet Vol. 10.2 fl (6.2-12.0); Monocyte# 1.11 X10^3/uL; Monocyte% 6.8 % (0-10); NRBC Flagged by Analyzer 0.8 % (0-5); Neutrophil # 12.67 X10^3/uL (2.7-7.7); Neutrophil % 77.1 % (47-70); POSITIVE COUNT YES; POSITIVE MORPHOLOGY YES; Platelet Count 93 K/mm3 (150-450); RBC Distribution Width CV 21.4 % (11.6-14.6); RBC Distribution Width SD 61.3 fl (35.1-43.9); Red Blood Count 2.51 M/mm3 (4.6-6.2); White Blood Count 16.4 K/mm3 (4.4-11.0)
[2023-09-12 03:58] LABS: Differential Indicated SCAN CRITERIA MET
[2023-09-12 04:10] LABS: ALB/GLOB Ratio 0.7 RATIO (0.9-2.4); AST(SGOT) 274 U/L (15-37); Alanine Aminotransfer ALT/SGPT 224 U/L (16-61); Albumin, Serum 2.1 g/dL (3.2-5.0); Alkaline Phosphatase 285 U/L (45-117); Anion Gap 5 (5-15); BUN 33 mg/dL (7-18); BUN/Creat Ratio 24.4 RATIO (10-20); Calcium,Total 7.1 mg/dL (8.5-10.1); Chloride 113 mmol/L (98-107); Creatinine, Serum 1.35 mg/dL (0.70-1.30); EST Glomerular Filtration Rate 56 mL/min (>60); Est Glom Filt Rate - Afr Amer 68 mL/min (>60); Estimated Creatinine Clearance 54.03 ml/min; Globulin 3.2 g/dL (2.2-4.2); Glucose 127 mg/dL (74-106); Protein, Total 5.3 g/dL (6.4-8.2); Sodium Level 137 mmol/L (136-145)
[2023-09-12 04:17] LABS: Anisocytosis 4+
[2023-09-12] MEDS: oxyCODONE 5 MG Tablet PO ×3 (05:31→22:05)
[2023-09-12] MEDS: 0.9% Saline Lock 10 ML Syringe IV (05:33)
[2023-09-12 05:55] LABS: Bedside Glucose 112 mg/dL (74-106)
--- NOTE | 2023-09-12 07:16 | CT_ITS ---
INDICATION: CVA EXAMINATION: CTA HEAD - CTA Head and Neck W/ Contrast Injection (and W/O Contrast Images if performed) TECHNIQUE: [place]/head CT angiogram protocol was performed following IV contrast. Routine carotid CT angiogram protocol was performed without and with IV contrast. NASCET criteria using the distal ICAs for comparison were used for evaluation of stenoses. 3D reconstructions were reviewed of the CT angiogram head and neck. A radiation dose optimization technique was used for this scan. IV Contrast dosage and agent: 100 cc [id number] COMPARISON: None. FINDINGS: --Anterior cerebral circulation: ACAs: No significant stenosis at the visualized segments. ACOM: Present. MCAs: No significant stenosis at the visualized segments. --Posterior cerebral circulation: PCOMs: smudger: No significant stenosis at the visualized segments. BASILAR ARTERY: No significant stenosis. --Carotid and vertebral circulation: AORTIC ARCH AND BRANCHES: Normal anatomy, patent. RIGHT CCA: No occlusion, significant stenosis or dissection. RIGHT ICA: No occlusion, significant stenosis or dissection. LEFT CCA: No occlusion, significant stenosis or dissection. LEFT ICA: No occlusion, significant stenosis or dissection. RIGHT VERTEBRAL ARTERY: No occlusion, significant stenosis or dissection. LEFT VERTEBRAL ARTERY: No occlusion, significant stenosis or dissection. NECK SOFT TISSUES: Unremarkable. Right IJ central venous catheter extends into the superior vena cava LUNG APICES: Clear. BONES: Moderate cervical spondylosis. CT/CTA Head AND Neck W/ Contrast IMPRESSION: Normal CTA head and neck. Electronically Signed: Raimundo Hodge MD at 8:26 EST ,
[2023-09-12] MEDS: Multivitamins,Ther W-Minerals Tablet 1 TABLET PO (08:06)
[2023-09-12] MEDS: Fluticasone 0.05% 1 SPRAY NASAL.SRY NASAL (08:06)
[2023-09-12] MEDS: 0.9% Normal Saline (1000mL) 1,000 ML 70 ML IV (10:25)
[2023-09-12] MEDS: Pantoprazole Sodium 40 MG in 0.9% Normal Saline (100mL MB+) 100 ML 330 MG IV ×2 (10:25→20:15)
--- NOTE | 2023-09-12 10:45 | CASEMGMT ---
Addendum entered by Deena De La Vega 09/12/23 11:15: Social Work SW spoke w/[facility] in TCU, they are not able to take pt, there are not any [place] beds in TCU at this time. SW let pt and pt's girlfriend know, asked them to review the list and pick other facilities. SW will continue to follow. JACK Alvarado Original Note: Social Work SW met w/pt this morning, he confirmed would like to complete POA papers and name his girlfriend as healthcare POA. He would like to wait until she comes to visit to complete however. SW also completed SDOH w/pt. SW did return later this morning, girlfriend Sherry is now present. Pt completed LW/POA with the assist of this SW, named his girlfriend Sherry Salvador as healthcare POA. SW gave pt originals and copies, and copies placed on the chart. Pt and Sherry also asking about pt going somewhere for therapy. SW explained the difference between rehab and SNF levels of care. Pt's girlfriend would like pt to stay here in TCU if possible. SW explained will see if there are beds available. SW provided to pt and Sherry a list of alf facilities via [facility] of facilities in pt's preferred insurance network, preferred geographic area, and complete with quality and resource use data. SW explained if TCU cannot take pt, we would need to pick some additional choices. They state understanding, though Sherry is not in favor of facilities in the community. SW did educate her on the transitional units at [place] and [facility], but she would prefer pt stay in [place] if possible. PT/OT just ordered. SW will continue to follow. MARILUZ called [facility] in TCU, message left, await call back to see if they can take pt. JACK Alvarado
--- NOTE | 2023-09-12 11:23 | PN.SURG_ITS ---
Subjective Subjective Patient was seen resting in bedside chair with his significant other at bedside. He is lethargic, but able to answer some questions. He denies any pain at the R groin access site. He has received further transfusions as he Hgb was 6.5 this AM. He did have EGD yesterday. He had CTA this morning, no significant carotid disease was identified. Objective Data Objective Data Vital Signs: Vital Signs Temp Pulse Resp BP Pulse Ox O2 Del Method 98.2 F 104 H 18 123/47 H 94 Room Air 09/12/23 10:00 09/12/23 10:00 09/12/23 10:00 09/12/23 10:00 09/12/23 10:00 09/12/23 10:00 Oxygen Delivery Method Room Air Weight: 183 lb 6.793 oz Body Mass Index (BMI) 28.7 Intake & Output: Intake and Output for Last 24 Hours 09/10/23 09/11/23 09/12/23 23:59 23:59 23:59 Intake Total 462.5 / 462.5 1438.83 / 1438.83 1050.17 / 1050.17 Output Total 415 / 415 1875 / 1875 450 / 450 Balance 47.5 / 47.5 -436.17 / -436.17 600.17 / 600.17 Medical Nutrition Assessment Dietitian: Malnutrition Criteria Met Start: 09/11/23 11:34 Freq: Status: Active Protocol: Document 09/11/23 11:35 AG (Rec: 09/11/23 11:35 [id number]) Nutrition Malnutrition Evidence of Malnutrition Exists Yes Malnutrition (severe): Chronic Evidenced By Suboptimal Energy Intake ( Severe),Weight Loss (Severe) Clinical Problem Chronic Disease or Condition Related Malnutrition Etiology severe, chronic malnutrition related to inadequate energy intake w/ increased energy needs d/t metastatic disease Signs/Symptoms as evidenced by unintentional 7% wt loss over ~1.5 months, estimated PO intake meeting < 75% of estimated energy needs > 1 month Status Active Problem Recommendation Dietitian Recommendations/Changes recommend regular diet as tolerated; ensure plus high protein 120mL 4x/day w/ medpass when diet advanced. Will monitor tolerance of diet , wt, labs, and adjust diet/ ONS as indicated at time of follow-up Lab / Micro Data 09/12/23 03:47 09/12/23 03:47 Labs: Laboratory Results - last 24 hr 09/10/23 11:55: Blood Type O POSITIVE, Antibody Screen NEGATIVE, Crossmatch See Detail 09/11/23 14:20: Hgb 7.3 L, Hct 22.4 L 09/12/23 00:00: POC Glucose 124 H 09/12/23 03:47: WBC 16.4 H, RBC 2.51 L, Hgb 6.5 L, Hct 20.6 L, MCV 82.1, MCH 25.9 L, MCHC 31.6 L, RDW Std Deviation 61.3 H, RDW Coeff of Lesley 21.4 H, Plt Count 93 L, MPV 10.2, Immature Gran % (Auto) 1.500 H, Neut % (Auto) 77.1 H, Lymph % (Auto) 13.9 L, [place] % (Auto) 6.8, Eos % (Auto) 0.3, Baso % (Auto) 0.4, Absolute Neuts (auto) 12.7 H, Absolute Lymphs (auto) 2.29, Nucleated RBC % 0.8, Anisocytosis 4+, Sodium 137, Potassium 4.0, Chloride 113 H, Carbon Dioxide 19.0 L, Anion Gap 5, BUN 33 H, Creatinine 1.35 H, Estim Creat Clear Calc 54.03, Est GFR (MDRD) Af Amer 68, Est GFR (MDRD) Non-Af 56 L, BUN/Creatinine Ratio 24.4 H, Glucose 127 H, Calcium 7.1 L, Total Bilirubin 0.70, AST 274 H, ALT 224 H, Alkaline Phosphatase 285 H, Total Protein 5.3 L, Albumin 2.1 L, Globulin 3.2, Albumin/Globulin Ratio 0.7 L 09/12/23 05:29: POC Glucose 112 H Radiography Diagnostic Testing: Radiology Impression Echocardiogram 09/10/23 21:39 Interpretation Summary The estimated ejection fraction is 60-65 %. Bubble contrast study negative for right to left interatrial shunt. Full study was done 08/18/2023 The study was technically difficult. Limited views were obtained. Ordering Physician: Ely Teague Referring Physician: Eusebio Durham Performed By: Eusebia Klein, WILI, RVT Head/Neck CTA 09/12/23 07:16 IMPRESSION: Normal CTA head and neck. Electronically Signed: Raimundo Hodge MD at 8:26 EST , Physical Exam Const oriented x3 and no apparent distress General Appearance: cooperative and lethargic HEENT normocephalic, head/scalp atraumatic, hearing grossly normal bilaterally, external ears normal and external nose normal Eyes EOMs intact bilaterally General Eye: normal appearance of both eyes Neck General: normal visual inspection and trachea midline Resp normal respiratory effort Effort and Inspection: Negative for labored, grunting, stridor or audible wheezes Cardio regular rate and regular rhythm Extremity Extremity Narrative: R groin access site without any significant swelling/hematoma, ecchymosis, redness, drainage. Skin no rashes or lesions noted and no wounds Trauma: no lacerations or abrasions Neuro CN's II-XII intact bilaterally, moves all extremities and no focal motor defi cits Psych mental status grossly normal Appearance: grossly normal Assessment & Plan Assessment/Plan (1) Pulmonary embolism: QUALIFIERS: Pulmonary embolism type: other Chronicity: acute Acute cor pulmonale presence: unspecified Qualified Code(s): I26.99 - Other pulmonary embolism without acute cor pulmonale PLAN: Plan He is s/p IVC Filter insertion 09/11/23. R groin access site without any evidence of hematoma. Leave dry dressing in place today. Okay to remove this tomorrow and then leave open to air. He should not lift greater than 20 pounds for 2 weeks, otherwise may proceed with activity as tolerated. Discharge planning is per primary team, his SO reports they are planning for SNF/rehab. Our office will contact patient to coordinate outpatient follow-up after discharge.
[2023-09-12 11:36] LABS: Hematocrit 21.7 % (40-54); Hemoglobin 7.2 g/dL (13.0-16.5); POSITIVE COUNT YES
[2023-09-12 12:00] LABS: Bedside Glucose 154 mg/dL (74-106)
--- NOTE | 2023-09-12 13:07 | CASEMGMT ---
Social Work SW spoke w/pt and girlfriend Sherry again this afternoon in regard to SNF choices. They have not made any choices in regard to SNF. Sherry asked again about TCU. SW explained that unfortunately due to pt's insurance, it is unlikely TCU will be able to take pt, as they only take 1-2 [place] pts at a time. They state understanding. SW asked them to review the list, and will see if the SW Friday can stop in tomorrow for choices to start the referral process. PT/OT are still pending, SW explained the referral process for SNF, and that it is unlikely we would get a referral, acceptance and precert today without having PT/OT evals. Pt and girlfriend state understanding. They plan to speak w/family over the weekend so they can come up with some SNF choices. SW to follow up w/pt and girlfriend on Friday vs Friday for SNF choices. JACK Alvarado
--- NOTE | 2023-09-12 13:12 | NEURO.CONS ---
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 CTA- PE, started on eliquis and then developed distal leg DVT. Eliquis held due to anemia. Now presented with SOB, left sided weakness along with recurrent nausea/vomiting. MRI of the brain was done as an outpatient ordered by oncology today and showed a cluster of 3 small acute infarcts that were present in the anterior superior aspect of the right parietal lobe and at the junction of the right occipital lobe just posterior to the occipital horn of the lateral ventricle with no additional acute infarct present and some late subacute infarcts were scattered in the superior aspect of the left parietal lobe is well as small leads subacute infarcts in the left occipital lobe. There were no ring-enhancing lesions, mild cerebral atrophy and widening of the ventricles was noted. Guaiac stool was negative. TTE- no PFO with normal EF. Diagnosis: Multifocal strokes, cryptogenic Plan: ASA if no active concern for bleeding and when ok by primary team. Statin. Event monitor on discharge. Sign off for now. Please call us back if any questions. I personally attended this patient and spent a total time of 70 minutes evaluating this patient including clinical assessment, review of chart, medical history imaging, and determining appropriate treatment and workup. 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 CTA- PE, started on eliquis and then developed distal leg DVT. Eliquis held due to anemia. Now presented with SOB, left sided weakness along with recurrent nausea/vomiting. MRI of the brain was done as an outpatient ordered by oncology today and showed a cluster of 3 small acute infarcts that were present in the anterior superior aspect of the right parietal lobe and at the junction of the right occipital lobe just posterior to the occipital horn of the lateral ventricle with no additional acute infarct present and some late subacute infarcts were scattered in the superior aspect of the left parietal lobe is well as small leads subacute infarcts in the left occipital lobe. There were no ring-enhancing lesions, mild cerebral atrophy and widening of the ventricles was noted. Guaiac stool was negative. TTE- no PFO with normal EF. Today, patient reports that weakness in left sided weakness (UE>LE) is about the same as yesterday. [facility] Medical History Anemia Back pain Blood in stool Cancer Chronic kidney disease Diabetes Dietary restriction DVT (deep venous thrombosis) Encounter for education Former smoker Gastric reflux Gout High cholesterol History of renal disease Kidney stones Lightheadedness Migraines Neuropathy Prostate disease Shortness of breath on exertion Wears dentures Wears glasses Home Medications metformin 500 mg tablet 500 mg PO DAILY diabetes 01/17/15 [History Last Taken Unknown] metformin 500 mg tablet 1,000 mg PO QHS diabetes 04/29/19 [History Last Taken Unknown] multivitamin with minerals 1 ea PO DAILY supplement 04/29/19 [History Last Taken Unknown] acetaminophen 325 mg tablet 650 mg (2 x 325 mg) PO Q4H PRN PRN Mild-Moderate Pain (1-5/10) 04/30/19 [Rx Last Taken Unknown] owyiomt-diqzkfjpvrusz-mkvtulue 250 mg-250 mg-65 mg tablet (Excedrin Migraine) 1 tab PO Q6H PRN MIGRAINES 01/14/22 [History Last Taken Unknown] atorvastatin 10 mg tablet 10 mg PO QHS cholesterol 01/14/22 [History Last Taken Unknown] pioglitazone 30 mg tablet (Actos) 30 mg PO QHS diabetes 01/14/22 [History Last Taken Unknown] sildenafil 100 mg tablet 100 mg PO PRN PRN Erectile Dysfunction 01/14/22 [History Last Taken Unknown] cholecalciferol (vitamin D3) 50 mcg (2,000 unit) capsule 50 mcg PO DAILY supplement 06/17/23 [History Last Taken Unknown] oxycodone 5 mg tablet 5 mg PO TID pain 07/14/23 [History Last Taken Unknown] latanoprost 0.005 % eye drops 1 drp ophthalmic (eye) QHS mucous in eyes 07/18/23 [History Last Taken Unknown] fluticasone propionate 50 mcg/actuation nasal spray,suspension (Allergy Relief (fluticasone)) 1 spray intranasal BID allergies #16 grams 08/15/23 [Rx Last Taken Unknown] pantoprazole 20 mg tablet,delayed release (Protonix) 20 mg PO BID nausea 30 days #60 tabs 08/19/23 [Rx Last Taken Unknown] enoxaparin 80 mg/0.8 mL subcutaneous syringe 80 mg subcut Q12H anticoagulation 09/01/23 [History Last Taken 09/01/23 08:00] aspirin 81 mg tablet,delayed release (Adult Aspirin Regimen) 81 mg PO DAILY unknown 09/02/23 [History Last Taken Unknown] lidocaine-prilocaine 2.5 %-2.5 % topical cream 1 applic topical ONCE PRN port acces 30 days #30 grams 09/04/23 [Rx Last Taken Unknown] ondansetron 8 mg disintegrating tablet 8 mg PO Q8H PRN nausea and vomiting #30 tabs 09/04/23 [Rx Last Taken Unknown] ondansetron 4 mg disintegrating tablet 4 mg PO Q8H PRN PRN Nausea #20 tabs 09/09/23 [Rx Last Taken Unknown] Allergy/AdvReac Type Severity Reaction Status Date / Time No Known Allergies Allergy Verified 09/10/23 18:40 Family History Mother Cancer pt unsure what type Sister Diabetes Surgical History History of ureter stent Hx of appendectomy Hx of colonoscopy Hx of hemorrhoidectomy Hx of inguinal hernia repair Hx of sinus surgery Social History Smoking Status: Former smoker alcohol intake: former substance use type: does not use Vital Signs Vital Signs Vital Signs: 09/11/23 13:49 09/11/23 14:05 09/11/23 14:20 Temperature 99.1 F Temperature Source Oral Pulse Rate 100 Pulse Strength Respiratory Rate 15 Respiratory Effort Respiratory Depth Respiratory Pattern Blood Pressure 125/51 H Blood Pressure Mean 75 Blood Pressure Source Monitor Blood Pressure Position Semi-Fowlers Blood Pressure Location Left Arm Baseline BP 143/61 143/61 143/61 Pulse Ox 100 Oxygen Delivery Method Room Air 09/11/23 14:35 09/11/23 14:50 09/11/23 21:00 Temperature 99.0 F Temperature Source Oral Pulse Rate 101 H Pulse Strength Respiratory Rate 20 H Respiratory Effort Respiratory Depth Respiratory Pattern Blood Pressure 132/47 H Blood Pressure Mean 75 Blood Pressure Source Monitor Blood Pressure Position Semi-Fowlers Blood Pressure Location Left Arm Baseline BP 143/61 143/61 Pulse Ox 97 Oxygen Delivery Method Room Air 09/11/23 20:00 09/11/23 21:21 09/12/23 02:00 Temperature Temperature Source Pulse Rate Pulse Strength Normal (2+) Respiratory Rate Respiratory Effort Normal Non-Labored Normal Non-Labored Respiratory Depth Normal Normal Respiratory Pattern Tachypnea Tachypnea Blood Pressure Blood Pressure Mean Blood Pressure Source Blood Pressure Position Blood Pressure Location Baseline BP Pulse Ox Oxygen Delivery Method Room Air Room Air 09/12/23 03:00 09/12/23 04:00 09/12/23 08:14 Temperature 98.4 F 98.2 F 98.2 F Temperature Source Oral Oral Oral Pulse Rate 98 109 H 112 H Pulse Strength Respiratory Rate 26 H 22 H 20 H Respiratory Effort Respiratory Depth Respiratory Pattern Blood Pressure 125/47 H 129/52 H 127/53 H Blood Pressure Mean 73 77 77 Blood Pressure Source Monitor Monitor Monitor Blood Pressure Position Semi-Fowlers Semi-Fowlers Semi-Fowlers Blood Pressure Location Left Arm Left Arm Left Arm Baseline BP Pulse Ox 98 98 98 Oxygen Delivery Method Room Air Room Air Room Air 09/12/23 08:16 09/12/23 08:42 09/12/23 08:30 Temperature 98.3 F Temperature Source Oral Pulse Rate 108 H Pulse Strength Normal (2+) Respiratory Rate 28 H Respiratory Effort Non-Labored Respiratory Depth Normal Respiratory Pattern Normal Blood Pressure 123/54 H Blood Pressure Mean 77 Blood Pressure Source Monitor Blood Pressure Position Sitting Blood Pressure Location Left Arm Baseline BP Pulse Ox 94 Oxygen Delivery Method Room Air Room Air 09/12/23 10:00 Temperature 98.2 F Temperature Source Temporal Pulse Rate 104 H Pulse Strength Respiratory Rate 18 Respiratory Effort Respiratory Depth Respiratory Pattern Blood Pressure 123/47 H Blood Pressure Mean 72 Blood Pressure Source Monitor Blood Pressure Position Sitting Blood Pressure Location Left Arm Baseline BP Pulse Ox 94 Oxygen Delivery Method Room Air Weight Weight: 83.2 kg Body Mass Index (BMI) 28.7 EEG Results Procedure Details EEG Procedure Details: DAMON OSORIO is a 68 year old M with a past medical history of , who presents for evaluation of Electroencephalogram on DATE at TIME NIHSS NIHSS 1a. Level of Consciousness: Alert; keenly responsive 1b. LOC Questions: Answers BOTH questions correctly. 1c. LOC Commands: Performs both tasks correctly. 2. Best Gaze: Normal 3. Visual: No visual loss 4. Facial Palsy: Normal symmetrical movements 5a. Left Arm: Drift; arm drifts downward but doesn?t hit the bed 5b. Right Arm: No drift; arm holds 90 (or 45) degrees for full 10 seconds 6a. Left Leg: Drift; leg falls by the end of 5-seconds, but does not hit bed 6b. Right Leg: No drift; leg holds 30-degree position for full 5 seconds 7. Limb Ataxia: Absent 8. Sensory: Normal; no sensory loss 9. Best Language: No aphasia; normal 10. Dysarthria: Normal 11. Extinction and Inattention: No abnormality Total: 2 Physical Exam Narrative Neurological Examination Psych and Mental status: alert; oriented to person, place, year, and month; good attention Speech/language: fluent; comprehension intact; object naming intact; repetition intact Cranial nerves: CN II visual gordon full to confrontation without visual extinction CN III, IV, PERRL. EOMI. CN V facial sensation intact to light touch bilaterally in V1, V2, V3 CN VII face, smile, eyebrow raise/closure symmetric CN VIII hearing grossly intact to voice CN IX & X soft palate elevates symmetrically in the midline, mild dysarthria CN XI shoulder shrug full strength bilaterally CNXII tongue protrudes midline Motor: Drift noticed in LUE and LLE. Reflexes: Coordination: Foxvyv-jo-ivpy intact bilaterally. Sensation: intact to light touch throughout without extinction. Gait: deferred Medical Records Data Medical Nutrition Assessment Dietitian: Malnutrition Criteria Met Start: 09/11/23 11:34 Freq: Status: Active Protocol: Document 09/11/23 11:35 (Rec: 09/11/23 11:35 [id number]) Nutrition Malnutrition Evidence of Malnutrition Exists Yes Malnutrition (severe): Chronic Evidenced By Suboptimal Energy Intake ( Severe),Weight Loss (Severe) Clinical Problem Chronic Disease or Condition Related Malnutrition Etiology severe, chronic malnutrition related to inadequate energy intake w/ increased energy needs d/t metastatic disease Signs/Symptoms as evidenced by unintentional 7% wt loss over ~1.5 months, estimated PO intake meeting < 75% of estimated energy needs > 1 month Status Active Problem Recommendation Dietitian Recommendations/Changes recommend regular diet as tolerated; ensure plus high protein 120mL 4x/day w/ medpass when diet advanced. Will monitor tolerance of diet , wt, labs, and adjust diet/ ONS as indicated at time of follow-up Lab / Micro Data 09/13/23 02:40 09/13/23 02:40 Labs: Laboratory Results - last 24 hr 09/10/23 11:55: Blood Type O POSITIVE, Antibody Screen NEGATIVE, Crossmatch See Detail 09/11/23 14:20: Hgb 7.3 L, Hct 22.4 L 09/12/23 00:00: POC Glucose 124 H 09/12/23 03:47: WBC 16.4 H, RBC 2.51 L, Hgb 6.5 L, Hct 20.6 L, MCV 82.1, MCH 25.9 L, MCHC 31.6 L, RDW Std Deviation 61.3 H, RDW Coeff of Lesley 21.4 H, Plt Count 93 L, MPV 10.2, Immature Gran % (Auto) 1.500 H, Neut % (Auto) 77.1 H, Lymph % (Auto) 13.9 L, [place] % (Auto) 6.8, Eos % (Auto) 0.3, Baso % (Auto) 0.4, Absolute Neuts (auto) 12.7 H, Absolute Lymphs (auto) 2.29, Nucleated RBC % 0.8, Anisocytosis 4+, Sodium 137, Potassium 4.0, Chloride 113 H, Carbon Dioxide 19.0 L, Anion Gap 5, BUN 33 H, Creatinine 1.35 H, Estim Creat Clear Calc 54.03, Est GFR (MDRD) Af Amer 68, Est GFR (MDRD) Non-Af 56 L, BUN/Creatinine Ratio 24.4 H, Glucose 127 H, Calcium 7.1 L, Total Bilirubin 0.70, AST 274 H, ALT 224 H, Alkaline Phosphatase 285 H, Total Protein 5.3 L, Albumin 2.1 L, Globulin 3.2, Albumin/Globulin Ratio 0.7 L 09/12/23 05:29: POC Glucose 112 H 09/12/23 11:20: Hgb 7.2 L, Hct 21.7 L 09/12/23 11:40: POC Glucose 154 H Imaging Radiology Impression Echocardiogram 09/10/23 21:39 Interpretation Summary The estimated ejection fraction is 60-65 %. Bubble contrast study negative for right to left interatrial shunt. Full study was done 08/18/2023 The study was technically difficult. Limited views were obtained. Ordering Physician: Ely Teague Referring Physician: Eusebio Durham Performed By: Eusebia Klein, WILI, RVT Head/Neck CTA 09/12/23 07:16 IMPRESSION: Normal CTA head and neck. Electronically Signed: Raimundo Hodge MD at 8:26 EST , Active Medications Active Medications Active Medications: Current Medications Generic Name Dose Route Start Last Admin Trade Name Freq PRN Reason Stop Dose Admin Acetaminophen 650 mg 09/10/23 21:39 Acetaminophen 325 Mg Tablet PO Q6H PRN PRN Pain 1-10 Or Fever>100.7 Albuterol Sulfate 2.5 mg 09/10/23 21:39 Albuterol 2.5 Mg/3 Ml Vial.Neb. INHALATION Q2H PRN PRN Shortness of Breath/Wheezing Dextrose 0 gm 09/10/23 21:39 Dextrose 50%-Water 25 Gm/50 Ml Disp.Syrin IV X1 PRN HYPOGLYCEMIA Protocol Fluticasone Propionate 1 spray 09/11/23 10:00 09/12/23 08:06 Fluticasone 0.05% 1 [place] Nasal.Sry NASAL 1 spray BID ARIANA Administration Glucagon 1 mg 09/10/23 21:39 Glucagon 1 Mg/Ml Syringe IM X1 PRN HYPOGLYCEMIA Guaifenesin 20 ml 09/10/23 21:39 Guaifenesin 10 Ml Udc (200mg/10ml) PO Q4H PRN PRN COUGH Hydromorphone HCl 0.5 mg 09/10/23 21:39 Hydromorphone 0.5 Mg/0.5 Ml Syringe IV Q3H PRN PRN Pain Score 6-10 Sodium Chloride 1,000 mls @ 70 mls/hr 09/10/23 21:39 09/12/23 10:45 IV 70 mls/hr .[id number] ARIANA Infusion Pantoprazole Sodium 40 mg/ 110 mls @ 330 mls/hr 09/11/23 10:00 09/12/23 10:45 Sodium Chloride IV Infused Q12 ARIANA Infusion Ceftriaxone Sodium 1 gm in 50 mls @ 100 mls/hr 09/11/23 22:00 09/11/23 21:34 Rocephin IV 09/17/23 22:29 Infused 2200 ARIANA Infusion Sodium Chloride 250 mls @ 15 mls/hr 09/10/23 21:46 IV .[id number] PRN Additional IVPB Infusion Sodium Chloride 250 mls @ 15 mls/hr 09/10/23 21:46 IV .[id number] PRN Saline Flush Insulin Human Lispro 0 unit 09/11/23 00:00 09/12/23 12:57 Insulin Lispro 100 Unit/Ml Insuln.Pen SC Not Given Q6 PENDING SALE TO [facility] Protocol Latanoprost 1 drp 09/11/23 22:00 09/11/23 21:00 Latanoprost 0.005% 1 Bottle OPHTHALMIC Not Given QHS ARIANA Melatonin 3 mg 09/10/23 21:39 Melatonin 3 Mg Tablet PO QHS PRN PRN INSOMNIA Multivitamins/Minerals 1 tablet 09/11/23 08:00 09/12/23 08:06 Multivitamins,Ther W-Minerals Tablet PO 1 tablet DAILYCM ARIANA Administration Ondansetron HCl 4 mg 09/10/23 21:39 Ondansetron 4 Mg/2 Ml Vial IV Q8H PRN PRN NAUSEA/VOMITING Oxycodone HCl 5 mg 09/11/23 06:00 09/12/23 05:31 Oxycodone 5 Mg Tablet PO 5 mg TID ARIANA Administration Senna/Docusate Sodium 2 tablet 09/10/23 21:39 Senna/Docusate Sodium 1 Tablet PO BID PRN PRN Constipation Sodium Chloride 10 - 40 ml 09/10/23 21:46 09/12/23 05:33 0.9% Saline Lock 10 Ml Syringe IV 10 ml UD PRN Administration SALINE FLUSH
--- NOTE | 2023-09-12 14:32 | CASEMGMT ---
Social Work SW completed PHQ-9 w/pt, pt scored a 10, indicating signs of depression. Pt explains that this has been very difficult for him, as he is used to getting up and doing things for himself. He states being sick has been very difficult as he has not been able to do what he normally does. It seems to be related more to his cancer diagnosis, more so than the stroke. SW offered support to pt in all the health issues he has been dealing with recently. SW offers resources for counseling, pt declined the resources at this time. SW remains available for resources and support to pt as needed. JACK Alvarado
--- NOTE | 2023-09-12 14:46 | CASEMGMT ---
Social Work SW attempted to speak w/pt, however he is soundly sleeping. SW spoke w/pt's girlfriend, discussed w/her that therapy is recommending rehab. SW explained the difference between rehab vs TCU. Pt's girlfriend in agreement w/rehab, she states pt will be in agreement with this also if it means he can stay here. Referral made and pt accepted, SW explained this to girlfriend, she will let pt know. Rehab to start precert when appropriate. SW will continue to follow. JACK Alvarado
--- NOTE | 2023-09-12 16:13 | EX.PCM.PN.GI ---
Subjective Subjective Patient underwent emergent endoscopy yesterday after having melena. He was discovered to have bleeding from his upper GI plaque secondary to duodenal ulcers and angiodysplastic lesions in his upper GI tract. Objective Data Objective Data Vital Signs: Vital Signs Temp Pulse Resp BP Pulse Ox O2 Del Method 98.2 F 107 H 18 116/43 L 95 Room Air 09/12/23 14:45 09/12/23 14:45 09/12/23 14:45 09/12/23 14:45 09/12/23 14:45 09/12/23 14:45 Oxygen Delivery Method Room Air Weight: 183 lb 6.793 oz Body Mass Index (BMI) 28.7 Intake & Output: Intake and Output for Last 24 Hours 09/10/23 09/11/23 09/12/23 23:59 23:59 23:59 Intake Total 462.5 / 462.5 1438.83 / 1438.83 1050.17 / 1050.17 Output Total 415 / 415 1875 / 1875 700 / 700 Balance 47.5 / 47.5 -436.17 / -436.17 350.17 / 350.17 Medical Nutrition Assessment Dietitian: Malnutrition Criteria Met Start: 09/11/23 11:34 Freq: Status: Active Protocol: Document 09/11/23 11:35 AG (Rec: 09/11/23 11:35 [id number]) Nutrition Malnutrition Evidence of Malnutrition Exists Yes Malnutrition (severe): Chronic Evidenced By Suboptimal Energy Intake ( Severe),Weight Loss (Severe) Clinical Problem Chronic Disease or Condition Related Malnutrition Etiology severe, chronic malnutrition related to inadequate energy intake w/ increased energy needs d/t metastatic disease Signs/Symptoms as evidenced by unintentional 7% wt loss over ~1.5 months, estimated PO intake meeting < 75% of estimated energy needs > 1 month Status Active Problem Recommendation Dietitian Recommendations/Changes recommend regular diet as tolerated; ensure plus high protein 120mL 4x/day w/ medpass when diet advanced. Will monitor tolerance of diet , wt, labs, and adjust diet/ ONS as indicated at time of follow-up Lab / Micro Data 09/12/23 11:20 09/12/23 03:47 Labs: Laboratory Results - last 24 hr 09/10/23 11:55: Blood Type O POSITIVE, Antibody Screen NEGATIVE, Crossmatch See Detail 09/12/23 00:00: POC Glucose 124 H 09/12/23 03:47: WBC 16.4 H, RBC 2.51 L, Hgb 6.5 L, Hct 20.6 L, MCV 82.1, MCH 25.9 L, MCHC 31.6 L, RDW Std Deviation 61.3 H, RDW Coeff of Lesley 21.4 H, Plt Count 93 L, MPV 10.2, Immature Gran % (Auto) 1.500 H, Neut % (Auto) 77.1 H, Lymph % (Auto) 13.9 L, [place] % (Auto) 6.8, Eos % (Auto) 0.3, Baso % (Auto) 0.4, Absolute Neuts (auto) 12.7 H, Absolute Lymphs (auto) 2.29, Nucleated RBC % 0.8, Anisocytosis 4+, Sodium 137, Potassium 4.0, Chloride 113 H, Carbon Dioxide 19.0 L, Anion Gap 5, BUN 33 H, Creatinine 1.35 H, Estim Creat Clear Calc 54.03, Est GFR (MDRD) Af Amer 68, Est GFR (MDRD) Non-Af 56 L, BUN/Creatinine Ratio 24.4 H, Glucose 127 H, Calcium 7.1 L, Total Bilirubin 0.70, AST 274 H, ALT 224 H, Alkaline Phosphatase 285 H, Total Protein 5.3 L, Albumin 2.1 L, Globulin 3.2, Albumin/Globulin Ratio 0.7 L 09/12/23 05:29: POC Glucose 112 H 09/12/23 11:20: Hgb 7.2 L, Hct 21.7 L 09/12/23 11:40: POC Glucose 154 H Radiography Diagnostic Testing: Radiology Impression Echocardiogram 09/10/23 21:39 Interpretation Summary The estimated ejection fraction is 60-65 %. Bubble contrast study negative for right to left interatrial shunt. Full study was done 08/18/2023 The study was technically difficult. Limited views were obtained. Ordering Physician: Ely Teague Referring Physician: Eusebio Durham Performed By: Eusebia Klein, RDCS, RVT Head/Neck CTA 09/12/23 07:16 IMPRESSION: Normal CTA head and neck. Electronically Signed: Raimundo Hodge MD at 8:26 EST Reading Location ID and State: [address] [place] [address] Tel , Service support , Physical Exam Const oriented x3 and no apparent distress General Appearance: cooperative and lethargic HEENT normocephalic, head/scalp atraumatic, hearing grossly normal bilaterally, external ears normal and external nose normal Eyes EOMs intact bilaterally General Eye: normal appearance of both eyes Neck General: normal visual inspection and trachea midline Resp normal respiratory effort Effort and Inspection: Negative for labored, grunting, stridor or audible wheezes Cardio regular rate and regular rhythm Extremity Extremity Narrative: R groin access site without any significant swelling/hematoma, ecchymosis, redness, drainage. Skin no rashes or lesions noted and no wounds Trauma: no lacerations or abrasions Neuro CN's II-XII intact bilaterally, moves all extremities and no focal motor deficits Psych mental status grossly normal Appearance: grossly normal Assessment & Plan Assessment/Plan (1) Hematemesis of unknown cause: (2) Dehydration: (3) Nausea: (4) Anemia: QUALIFIERS: Anemia type: iron deficiency Iron deficiency anemia type: chronic blood loss Qualified Code(s): D50.0 - Iron deficiency anemia secondary to blood loss (chronic) (5) Thrombocytopenia: (6) Pulmonary embolism: QUALIFIERS: Pulmonary embolism type: other Chronicity: acute Acute cor pulmonale presence: unspecified Qualified Code(s): I26.99 - Other pulmonary embolism without acute cor pulmonale (7) Leukocytosis: (8) Transaminitis: (9) GIB (gastrointestinal bleeding): (10) Hematemesis: (11) Acute ischemic multifocal anterior circulation stroke involving right-sided vessel: PLAN: Plan Acute hematemesis/upper GI bleed -Acute upper GI bleed secondary to duodenal ulcer and angiodysplastic lesion status posttreatment endoscopically. -His hemoglobin seems to be a little bit better today. -I do not think he is an anticoagulation candidate at this time. -I am okay with him being on antiplatelet therapy and if neurology recommends anticoagulation then he can be given to prevent further stroke. Acute on chronic anemia -Patient has been anemic since he was diagnosed with a pulmonary embolism in early August -- Hemoglobin 7 ranging around 8.5 Transaminitis -Patient has had mildly elevated liver enzymes which I are related to his metastatic disease however his liver enzymes have gone up dramatically in the last 24 hours -Multiple liver lesions concerning for metastatic disease. Small pancreatic lesions suggestive of cysts versus solid lesions/neoplasm not excluded. Possible nonobstructive stone within the middle pole of the kidney versus artifact measuring 5 mm. Acute/subacute stroke -Patient with multifocal stroke noted on MRI from 09/10/2023 -Awaiting neurology consult Thrombocytopenia -May be consumptive with bleeding however also could be low-level DIC -Coags are slightly elevated -D-dimer is going to be elevated with his liver enzyme elevation -Will monitor coags and platelet counts -Consult oncology Charges/Coding Visit Charges Inpatient E&M: [id number] Subs Hosp L3
--- NOTE | 2023-09-12 16:19 | PCM.PN.HOSP ---
Subjective Subjective No issues overnight, there is some concern with nursing staff about left-sided weakness and ataxia they noticed that when he tries to get up to the chair he has difficulty moving his left side but then when he is in bed he is moving his left side. CTA of the head and neck today was unremarkable Objective Data Objective Data Vital Signs: Vital Signs Temp Pulse Resp BP Pulse Ox O2 Del Method 98.2 F 107 H 18 116/43 L 95 Room Air 09/12/23 14:45 09/12/23 14:45 09/12/23 14:45 09/12/23 14:45 09/12/23 14:45 09/12/23 14:45 Oxygen Delivery Method Room Air Weight: 183 lb 6.793 oz Body Mass Index (BMI) 28.7 Intake & Output: Intake and Output for Last 24 Hours 09/11/23 09/12/23 09/13/23 03:59 03:59 03:59 Intake Total 462.5 / 462.5 1438.83 / 1438.83 1050.17 / 1050.17 Output Total 415 / 415 1875 / 1875 700 / 700 Balance 47.5 / 47.5 -436.17 / -436.17 350.17 / 350.17 Medical Nutrition Assessment Dietitian: Malnutrition Criteria Met Start: 09/11/23 11:34 Freq: Status: Active Protocol: Document 09/11/23 11:35 AG (Rec: 09/11/23 11:35 [id number]) Nutrition Malnutrition Evidence of Malnutrition Exists Yes Malnutrition (severe): Chronic Evidenced By Suboptimal Energy Intake ( Severe),Weight Loss (Severe) Clinical Problem Chronic Disease or Condition Related Malnutrition Etiology severe, chronic malnutrition related to inadequate energy intake w/ increased energy needs d/t metastatic disease Signs/Symptoms as evidenced by unintentional 7% wt loss over ~1.5 months, estimated PO intake meeting < 75% of estimated energy needs > 1 month Status Active Problem Recommendation Dietitian Recommendations/Changes recommend regular diet as tolerated; ensure plus high protein 120mL 4x/day w/ medpass when diet advanced. Will monitor tolerance of diet , wt, labs, and adjust diet/ ONS as indicated at time of follow-up Lab / Micro Data 09/12/23 11:20 09/12/23 03:47 Labs: Laboratory Results - last 24 hr 09/10/23 11:55: Blood Type O POSITIVE, Antibody Screen NEGATIVE, Crossmatch See Detail 09/12/23 00:00: POC Glucose 124 H 09/12/23 03:47: WBC 16.4 H, RBC 2.51 L, Hgb 6.5 L, Hct 20.6 L, MCV 82.1, MCH 25.9 L, MCHC 31.6 L, RDW Std Deviation 61.3 H, RDW Coeff of Lesley 21.4 H, Plt Count 93 L, MPV 10.2, Immature Gran % (Auto) 1.500 H, Neut % (Auto) 77.1 H, Lymph % (Auto) 13.9 L, [place] % (Auto) 6.8, Eos % (Auto) 0.3, Baso % (Auto) 0.4, Absolute Neuts (auto) 12.7 H, Absolute Lymphs (auto) 2.29, Nucleated RBC % 0.8, Anisocytosis 4+, Sodium 137, Potassium 4.0, Chloride 113 H, Carbon Dioxide 19.0 L, Anion Gap 5, BUN 33 H, Creatinine 1.35 H, Estim Creat Clear Calc 54.03, Est GFR (MDRD) Af Amer 68, Est GFR (MDRD) Non-Af 56 L, BUN/Creatinine Ratio 24.4 H, Glucose 127 H, Calcium 7.1 L, Total Bilirubin 0.70, AST 274 H, ALT 224 H, Alkaline Phosphatase 285 H, Total Protein 5.3 L, Albumin 2.1 L, Globulin 3.2, Albumin/Globulin Ratio 0.7 L 09/12/23 05:29: POC Glucose 112 H 09/12/23 11:20: Hgb 7.2 L, Hct 21.7 L 09/12/23 11:40: POC Glucose 154 H Radiography Diagnostic Testing: Radiology Impression Echocardiogram 09/10/23 21:39 Interpretation Summary The estimated ejection fraction is 60-65 %. Bubble contrast study negative for right to left interatrial shunt. Full study was done 08/18/2023 The study was technically difficult. Limited views were obtained. Ordering Physician: Ely Teague Referring Physician: Eusebio Durham Performed By: Eusebia Klein, WILI, RVT Head/Neck CTA 09/12/23 07:16 IMPRESSION: Normal CTA head and neck. Electronically Signed: Raimundo Hodge MD at 8:26 EST Reading Location ID and State: [id number] Tel , Service support , Physical Exam Narrative General: Alert, Oriented x3, Cooperative, No apparent distress HEENT: Atraumatic, PERRLA, EOMI, Normocephalic Oral: Moist Mucosa Neck: Supple, No JVD Lungs: Diminished, Normal air movement, No rhonchi, No wheeze, No rales, right chest port Cardiovascular: Regular rate, Regular Rhythm, Normal S1, Normal S2, No murmurs Abdomen: Soft, Non Tender, Non-Distended, No Hepato-splenomegaly Extremities: No edema, Capillary Refill Less than 3 Seconds Skin: No rashes, No breakdown Musculoskeletal: No Tenderness to Palpation of Joints or Extremities Neurological: Left side weaker than right side, Sensory exam intact to light touch and pain Psych/Mental Status: Flat Assessment & Plan Assessment/Plan (1) Dehydration: (2) Anemia: QUALIFIERS: Anemia type: iron deficiency Iron deficiency anemia type: chronic blood loss Qualified Code(s): D50.0 - Iron deficiency anemia secondary to blood loss (chronic) (3) Thrombocytopenia: (4) Pulmonary embolism: QUALIFIERS: Acute cor pulmonale presence: unspecified Chronicity: acute Pulmonary embolism type: other Qualified Code(s): I26.99 - Other pulmonary embolism without acute cor pulmonale (5) Transaminitis: (6) Hematemesis: (7) Acute ischemic multifocal anterior circulation stroke involving right-sided vessel: PLAN: Plan 1. Acute hematemesis with acute on chronic anemia secondary to bleeding with a history of GERD/transaminitis with thrombocytopenia/metastatic NSCLC?adenocarcinoma ? Appreciate gastroenterology's assistance ? EGD with 2 bleeding angiodysplastic lesions as well as an oozing duodenal ulcer ?Hemoglobin this morning was 6.5 and he was transfused repeat check was 7.2 ? Continue with PPI ? Continue with Rocephin secondary to concern of possible ascites with liver mets from lung cancer ? His elevated transaminitis is likely related to his metastatic disease ?He does have a port in the right chest in preparation for chemotherapy which he has not received yet ? Unclear as to the source of his leukocytosis, will continue with his Rocephin however if it continues to climb will need to panculture, he does remain afebrile ? PT/OT for evaluation and possible placement, both he and his think that he may benefit from rehab 2. Acute/subacute stroke ? He had a multifocal stroke noted on MRI from 09/10/2023 ? CTA of the head and neck as well as echo were unremarkable ? Appreciate neurology's assistance ? Neurology recommends aspirin and statin as well as an event monitor on discharge 3. History of PE/DVT ? He was recently started on Eliquis and then had recurrent thromboembolism while on Eliquis was transitioned to Lovenox, this was discontinued on 09/08/2023 secondary to severe anemia ? He underwent IVC filter placement on 09/11/2023 4. DM2/CKD 3B ? Creatinine does appear to be at baseline on admission, will continue to monitor ? He has not been taking any of his diabetic medications or his cholesterol medications ? Continue with insulin ? Accu-Cheks every 6 ? We will monitor make adjustments as necessary 5. Glaucoma ? Stable ? Continue with eyedrops DVT: SCDs Charges/Coding Visit Charges Inpatient E&M: 86532 Subs Hosp L2
[2023-09-12 16:43] LABS: Hematocrit 22.4 % (40-54); Hemoglobin 7.2 g/dL (13.0-16.5)
[2023-09-12 17:19] LABS: Bedside Glucose 105 mg/dL (74-106)
[2023-09-12] MEDS: HYDROmorphone 0.5 MG/0.5 ML SYRINGE IV (18:51)
[2023-09-12] MEDS: Acetaminophen 325 MG Tablet 650 MG PO (18:51)
[2023-09-12 21:08] LABS: Mucous, Urine 0 SEEN /hpf (<or=2+); Squamous Epithelial Cells - UA 0 SEEN /hpf (0-5)
[2023-09-12 21:09] LABS: Color, Urine Yellow (Yellow); Glucose, Dipstick Normal (Normal); Ketone-Dipstick Negative (Negative); Leukocyte Esterase-Dipstick Negative /ul (Negative); Nitrite-Dipstick Negative (Negative); Occult Blood-Urine 150 /ul (Negative); Protein-Dipstick 30 mg/dl (Negative); Specific Gravity, Urine 1.015 (1.002-1.030); Urine Bilirubin Dipstick Negative (Negative); Urine Clarity Clear (Clear); Urine Urobilinogen 1 mg/dl (Normal)
[2023-09-12 21:26] LABS: White Blood Cells 0-5 SEEN /hpf (0-5)
[2023-09-12 21:28] LABS: Bacteria RARE /hpf (None Seen); Red Blood Cells-Urine 5-10 SEEN /hpf (0-5)
[2023-09-12] MEDS: Ceftriaxone 1 GM/50 ML BAG IV (22:04)
[2023-09-12] MEDS: MELATONIN 3 MG TABLET PO (22:05)
[2023-09-12] MEDS: Insulin Lispro 100 UNIT/ML INSULN.PEN SC (22:12)
[2023-09-12 22:36] LABS: Bedside Glucose 170 mg/dL (74-106)
[2023-09-13] VITALS (17 sets, daily range): BP systolic 116–138; BP diastolic 33–86; PULSE 85–116; RESP 16–30; TEMP 36.6–38.3; O2SAT 94–98
[2023-09-13] MEDS: 0.9% Normal Saline (1000mL) 1,000 ML 70 ML IV ×2 (01:48→20:42)
[2023-09-13] MEDS: Acetaminophen 325 MG Tablet 650 MG PO ×3 (03:45→17:25)
[2023-09-13] MEDS: oxyCODONE 5 MG Tablet PO ×3 (04:49→21:52)
[2023-09-13] MEDS: Senna/Docusate Sodium 1 Tablet 2 TABLET PO (05:55)
[2023-09-13] MEDS: Arthritis Pain Compound 60 CLICK TUBE TOPICAL ×2 (05:56→21:52)
[2023-09-13 06:27] LABS: Bedside Glucose 149 mg/dL (74-106)
[2023-09-13 07:27] LABS: Absolute Lymphocyte Count 1.61 X10^3/uL (0.83-4.51); Absolute Neutrophil Count 12.5 X10^3/uL (2.0-7.7); Basophil# 0.03 X10^3/uL; Basophil% 0.2 % (0-1); Eosinophil# 0.08 X10^3/uL; Eosinophils% 0.5 % (0-5); Hematocrit 19.4 % (40-54); Hemoglobin 6.2 g/dL (13.0-16.5); Lymphocyte # 1.61 X10^3/ul (0.83-4.51); Lymphocyte % 10.2 % (19-41); Mean Corpuscular Hgb 26.4 pg (27.0-32.0); Mean Corpuscular Volume 82.6 fL (80-94); Monocyte# 1.14 X10^3/uL; Monocyte% 7.3 % (0-10); NRBC Flagged by Analyzer 0.4 % (0-5); Neutrophil # 12.48 X10^3/uL (2.7-7.7); Neutrophil % 79.4 % (47-70); POSITIVE COUNT YES; POSITIVE MORPHOLOGY YES; Platelet Count 66 K/mm3 (150-450); RBC Distribution Width CV 20.7 % (11.6-14.6); RBC Distribution Width SD 61.3 fl (35.1-43.9); Red Blood Count 2.35 M/mm3 (4.6-6.2); White Blood Count 15.7 K/mm3 (4.4-11.0)
[2023-09-13 07:32] LABS: Differential Indicated SCAN CRITERIA MET
[2023-09-13 07:54] LABS: ALB/GLOB Ratio 0.6 RATIO (0.9-2.4); AST(SGOT) 170 U/L (15-37); Alanine Aminotransfer ALT/SGPT 154 U/L (16-61); Albumin, Serum 1.9 g/dL (3.2-5.0); Alkaline Phosphatase 276 U/L (45-117); Anion Gap 4 (5-15); BUN 35 mg/dL (7-18); BUN/Creat Ratio 22.6 RATIO (10-20); Calcium,Total 7.2 mg/dL (8.5-10.1); Chloride 114 mmol/L (98-107); Creatinine, Serum 1.55 mg/dL (0.70-1.30); EST Glomerular Filtration Rate 48 mL/min (>60); Est Glom Filt Rate - Afr Amer 58 mL/min (>60); Estimated Creatinine Clearance 47.06 ml/min; Globulin 3.1 g/dL (2.2-4.2); Glucose 153 mg/dL (74-106); Potassium 4.2 mmol/L (3.5-5.1); Sodium Level 137 mmol/L (136-145)
[2023-09-13 08:18] LABS: Differential Comment SCANNED
[2023-09-13 08:19] LABS: Acanthocytes 2+; Anisocytosis 3+
[2023-09-13] MEDS: Multivitamins,Ther W-Minerals Tablet 1 TABLET PO (08:46)
[2023-09-13] MEDS: Fluticasone 0.05% 1 SPRAY NASAL.SRY NASAL ×2 (08:46→21:52)
[2023-09-13] MEDS: Pantoprazole Sodium 40 MG in 0.9% Normal Saline (100mL MB+) 100 ML 330 MG IV ×2 (09:09→20:47)
--- NOTE | 2023-09-13 10:19 | PCM.PN.HOSP ---
Subjective Subjective Still feels little bit out of it, hemoglobin today was 6.2 we will transfuse Objective Data Objective Data Vital Signs: Vital Signs Temp Pulse Resp BP Pulse Ox O2 Del Method O2 Flow Rate 98.9 F 110 H 16 117/51 L 98 Nasal Cannula 2 09/13/23 08:23 09/13/23 08:37 09/13/23 08:23 09/13/23 08:23 09/13/23 08:23 09/13/23 08:37 09/13/23 08:37 Oxygen Flow Rate (L/min) 2 Oxygen Delivery Method Nasal Cannula Weight: 183 lb 6.793 oz Body Mass Index (BMI) 28.7 Intake & Output: Intake and Output for Last 24 Hours 09/12/23 09/13/23 09/14/23 03:59 03:59 03:59 Intake Total 1438.83 / 1438.83 2209.00 / 2209.00 110 / 110 Output Total 1875 / 1875 1480 / 1480 270 / 270 Balance -436.17 / -436.17 729.00 / 729.00 -160 / -160 Medical Nutrition Assessment Dietitian: Malnutrition Criteria Met Start: 09/11/23 11:34 Freq: Status: Active Protocol: Document 09/11/23 11:35 AG (Rec: 09/11/23 11:35 [id number]) Nutrition Malnutrition Evidence of Malnutrition Exists Yes Malnutrition (severe): Chronic Evidenced By Suboptimal Energy Intake ( Severe),Weight Loss (Severe) Clinical Problem Chronic Disease or Condition Related Malnutrition Etiology severe, chronic malnutrition related to inadequate energy intake w/ increased energy needs d/t metastatic disease Signs/Symptoms as evidenced by unintentional 7% wt loss over ~1.5 months, estimated PO intake meeting < 75% of estimated energy needs > 1 month Status Active Problem Recommendation Dietitian Recommendations/Changes recommend regular diet as tolerated; ensure plus high protein 120mL 4x/day w/ medpass when diet advanced. Will monitor tolerance of diet , wt, labs, and adjust diet/ ONS as indicated at time of follow-up Lab / Micro Data 09/13/23 02:40 09/13/23 02:40 Labs: Laboratory Results - last 24 hr 09/10/23 11:55: Crossmatch See Detail 09/12/23 11:20: Hgb 7.2 L, Hct 21.7 L 09/12/23 11:40: POC Glucose 154 H 09/12/23 16:19: Hgb 7.2 L, Hct 22.4 L 09/12/23 17:02: POC Glucose 105 09/12/23 20:52: Urine Color Yellow, Urine Clarity Clear, Urine pH 6.0, Ur Specific [place] 1.015, Urine Protein 30 H, Urine Glucose (UA) Normal, Urine Ketones Negative, Urine Occult Blood 150 H, Urine Nitrite Negative, Urine Bilirubin Negative, Urine Urobilinogen 1 H, Ur Leukocyte Esterase Negative, Urine RBC 5-10 SEEN, Urine WBC 0-5 SEEN, Ur Squamous Epith Cells 0 SEEN, Urine Bacteria RARE, Urine Mucus 0 SEEN 09/12/23 22:00: POC Glucose 170 H 09/13/23 02:40: WBC 15.7 H, RBC 2.35 L, Hgb 6.2 L, Hct 19.4 L, MCV 82.6, MCH 26.4 L, MCHC 32.0, RDW Std Deviation 61.3 H, RDW Coeff of Lesley 20.7 H, Plt Count 66 L, Immature Gran % (Auto) 2.400 H, Neut % (Auto) 79.4 H, Lymph % (Auto) 10.2 L, [place] % (Auto) 7.3, Eos % (Auto) 0.5, Baso % (Auto) 0.2, Absolute Neuts (auto) 12.5 H, Absolute Lymphs (auto) 1.61, Nucleated RBC % 0.4, Differential Comment SCANNED, Anisocytosis 3+, Acanthocytes (Spur) 2+, Sodium 137, Potassium 4.2, Chloride 114 H, Carbon Dioxide 19.0 L, Anion Gap 4 L, BUN 35 H, Creatinine 1.55 H, Estim Creat Clear Calc 47.06, Est GFR (MDRD) Af Amer 58 L, Est GFR (MDRD) Non-Af 48 L, BUN/Creatinine Ratio 22.6 H, Glucose 153 H, Calcium 7.2 L, Total Bilirubin 0.80, AST 170 H, ALT 154 H, Alkaline Phosphatase 276 H, Total Protein 5.0 L, Albumin 1.9 L, Globulin 3.1, Albumin/Globulin Ratio 0.6 L 09/13/23 05:51: POC Glucose 149 H Physical Exam Narrative General: Alert, Oriented x3, Cooperative, No apparent distress HEENT: Atraumatic, PERRLA, EOMI, Normocephalic Oral: Moist Mucosa Neck: Supple, No JVD Lungs: Diminished, Normal air movement, No rhonchi, No wheeze, No rales, right chest port Cardiovascular: Tachycardic, Regular Rhythm, Normal S1, Normal S2, No murmurs Abdomen: Soft, Non Tender, Non-Distended, No Hepato-splenomegaly Extremities: No edema, Capillary Refill Less than 3 Seconds Skin: No rashes, No breakdown Musculoskeletal: No Tenderness to Palpation of Joints or Extremities Neurological: Left side weaker than right side, Sensory exam intact to light touch and pain Psych/Mental Status: Flat Assessment & Plan Assessment/Plan (1) Dehydration: (2) Anemia: QUALIFIERS: Anemia type: iron deficiency Iron deficiency anemia type: chronic blood loss Qualified Code(s): D50.0 - Iron deficiency anemia secondary to blood loss (chronic) (3) Thrombocytopenia: (4) Pulmonary embolism: QUALIFIERS: Pulmonary embolism type: other Chronicity: acute Acute cor pulmonale presence: unspecified Qualified Code(s): I26.99 - Other pulmonary embolism without acute cor pulmonale (5) Transaminitis: (6) Hematemesis: (7) Acute ischemic multifocal anterior circulation stroke involving right-sided vessel: PLAN: Plan 1. Acute hematemesis with acute on chronic anemia secondary to bleeding with a history of GERD/transaminitis with thrombocytopenia/metastatic NSCLC?adenocarcinoma ? Appreciate gastroenterology's assistance ? EGD with 2 bleeding angiodysplastic lesions as well as an oozing duodenal ulcer ?Hemoglobin this morning was 6.2, will order transfusion of 2 units today ? Continue with PPI ? Continue with Rocephin secondary to concern of possible ascites with liver mets from lung cancer ? His elevated transaminitis is likely related to his metastatic disease ?He does have a port in the right chest in preparation for chemotherapy which he has not received yet ? Unclear as to the source of his leukocytosis, will continue with his Rocephin however if it continues to climb will need to panculture, he does remain afebrile ? PT/OT for evaluation and possible placement, both he and his think that he may benefit from rehab 2. Acute/subacute stroke ? He had a multifocal stroke noted on MRI from 09/10/2023 ? CTA of the head and neck as well as echo were unremarkable ? Appreciate neurology's assistance ? Neurology recommends aspirin and statin as well as an event monitor on discharge 3. History of PE/DVT ? He was recently started on Eliquis and then had recurrent thromboembolism while on Eliquis was transitioned to Lovenox, this was discontinued on 09/08/2023 secondary to severe anemia ? He underwent IVC filter placement on 09/11/2023 4. DM2/CKD 3B ? Creatinine does appear to be at baseline on admission, will continue to monitor ? He has not been taking any of his diabetic medications or his cholesterol medications ? Continue with insulin ? Accu-Cheks ? We will monitor make adjustments as necessary 5. Glaucoma ? Stable ? Continue with eyedrops DVT: SCDs Charges/Coding Visit Charges Inpatient E&M: 27331 Subs Hosp L2
[2023-09-13] MEDS: HYDROmorphone 0.5 MG/0.5 ML SYRINGE IV ×3 (10:58→20:39)
[2023-09-13 11:29] LABS: Bedside Glucose 148 mg/dL (74-106)
--- NOTE | 2023-09-13 16:34 | PN.GI_ITS ---
Subjective Subjective Patient states that he feels really out of it. Appetite is really poor. He denies any nausea. He denies any chest pain or shortness of breath Objective Data Objective Data Vital Signs: Vital Signs Temp Pulse Resp BP Pulse Ox O2 Del Method O2 Flow Rate 99.5 F H 108 H 22 H 136/50 H 94 Nasal Cannula 2 09/13/23 15:32 09/13/23 15:32 09/13/23 15:32 09/13/23 15:32 09/13/23 15:32 09/13/23 15:32 09/13/23 15:32 Oxygen Flow Rate (L/min) 2 Oxygen Delivery Method Nasal Cannula Weight: 183 lb 6.793 oz Body Mass Index (BMI) 28.7 Intake & Output: Intake and Output for Last 24 Hours 09/11/23 09/12/23 09/13/23 23:59 23:59 23:59 Intake Total 1438.83 / 1438.83 1210.17 / 1210.17 1896.33 / 1896.33 Output Total 1875 / 1875 1480 / 1480 790 / 790 Balance -436.17 / -436.17 -269.83 / -269.83 1106.33 / 1106.33 Medical Nutrition Assessment Dietitian: Malnutrition Criteria Met Start: 09/11/23 11:34 Freq: Status: Active Protocol: Document 09/11/23 11:35 AG (Rec: 09/11/23 11:35 [id number]) Nutrition Malnutrition Evidence of Malnutrition Exists Yes Malnutrition (severe): Chronic Evidenced By Suboptimal Energy Intake ( Severe),Weight Loss (Severe) Clinical Problem Chronic Disease or Condition Related Malnutrition Etiology severe, chronic malnutrition related to inadequate energy intake w/ increased energy needs d/t metastatic disease Signs/Symptoms as evidenced by unintentional 7% wt loss over ~1.5 months, estimated PO intake meeting < 75% of estimated energy needs > 1 month Status Active Problem Recommendation Dietitian Recommendations/Changes recommend regular diet as tolerated; ensure plus high protein 120mL 4x/day w/ medpass when diet advanced. Will monitor tolerance of diet , wt, labs, and adjust diet/ ONS as indicated at time of follow-up Lab / Micro Data 09/13/23 02:40 09/13/23 02:40 Labs: Laboratory Results - last 24 hr 09/10/23 11:55: Crossmatch See Detail 09/12/23 16:19: Hgb 7.2 L, Hct 22.4 L 09/12/23 17:02: POC Glucose 105 09/12/23 20:52: Urine Color Yellow, Urine Clarity Clear, Urine pH 6.0, Ur Specific [place] 1.015, Urine Protein 30 H, Urine Glucose (UA) Normal, Urine Ketones Negative, Urine Occult Blood 150 H, Urine Nitrite Negative, Urine Bilirubin Negative, Urine Urobilinogen 1 H, Ur Leukocyte Esterase Negative, Urine RBC 5-10 SEEN, Urine WBC 0-5 SEEN, Ur Squamous Epith Cells 0 SEEN, Urine Bacteria RARE, Urine Mucus 0 SEEN 09/12/23 22:00: POC Glucose 170 H 09/13/23 02:40: WBC 15.7 H, RBC 2.35 L, Hgb 6.2 L, Hct 19.4 L, MCV 82.6, MCH 26.4 L, MCHC 32.0, RDW Std Deviation 61.3 H, RDW Coeff of Lesley 20.7 H, Plt Count 66 L, MPV TNP, Immature Gran % (Auto) 2.400 H, Neut % (Auto) 79.4 H, Lymph % (Auto) 10.2 L, [place] % (Auto) 7.3, Eos % (Auto) 0.5, Baso % (Auto) 0.2, Absolute Neuts (auto) 12.5 H, Absolute Lymphs (auto) 1.61, Nucleated RBC % 0.4, Differential Comment SCANNED, Anisocytosis 3+, Acanthocytes (Spur) 2+, Sodium 137, Potassium 4.2, Chloride 114 H, Carbon Dioxide 19.0 L, Anion Gap 4 L, BUN 35 H, Creatinine 1.55 H, Estim Creat Clear Calc 47.06, Est GFR (MDRD) Af Amer 58 L, Est GFR (MDRD) Non-Af 48 L, BUN/Creatinine Ratio 22.6 H, Glucose 153 H, Calcium 7.2 L, Total Bilirubin 0.80, AST 170 H, ALT 154 H, Alkaline Phosphatase 276 H, Total Protein 5.0 L, Albumin 1.9 L, Globulin 3.1, Albumin/Globulin Ratio 0.6 L 09/13/23 05:51: POC Glucose 149 H 09/13/23 10:57: Blood Type O POSITIVE, Antibody Screen NEGATIVE, Crossmatch See Detail 09/13/23 11:09: POC Glucose 148 H Physical Exam Narrative General: Alert, Oriented x3, Cooperative, No apparent distress HEENT: Atraumatic, PERRLA, EOMI, Normocephalic Oral: Moist Mucosa Neck: Supple, No JVD Lungs: Diminished, Normal air movement, No rhonchi, No wheeze, No rales, right chest port Cardiovascular: Tachycardic, Regular Rhythm, Normal S1, Normal S2, No murmurs Abdomen: Soft, Non Tender, Non-Distended, No Hepato-splenomegaly Extremities: No edema, Capillary Refill Less than 3 Seconds Skin: No rashes, No breakdown Musculoskeletal: No Tenderness to Palpation of Joints or Extremities Neurological: Left side weaker than right side, Sensory exam intact to light touch and pain Psych/Mental Status: Flat Assessment & Plan Assessment/Plan (1) Hematemesis of unknown cause: (2) Dehydration: (3) Nausea: (4) Anemia: QUALIFIERS: Anemia type: iron deficiency Iron deficiency anemia type: chronic blood loss Qualified Code(s): D50.0 - Iron deficiency anemia secondary to blood loss (chronic) (5) Thrombocytopenia: (6) Pulmonary embolism: QUALIFIERS: Pulmonary embolism type: other Chronicity: acute Acute cor pulmonale presence: unspecified Qualified Code(s): I26.99 - Other pulmonary embolism without acute cor pulmonale (7) Leukocytosis: (8) Transaminitis: (9) GIB (gastrointestinal bleeding): (10) Hematemesis: (11) Acute ischemic multifocal anterior circulation stroke involving right-sided vessel: PLAN: Plan Acute hematemesis/upper GI bleed -Acute upper GI bleed secondary to duodenal ulcer and angiodysplastic lesion status posttreatment endoscopically. -His hemoglobin seems to be a little bit better today. -I do not think he is an anticoagulation candidate at this time. -I am okay with him being on antiplatelet therapy and if neurology recommends anticoagulation then he can be given to prevent further stroke. Acute on chronic anemia -Patient has been anemic since he was diagnosed with a pulmonary embolism in early August -- Hemoglobin 7 ranging around 8.5 Transaminitis -Patient has had mildly elevated liver enzymes which I are related to his metastatic disease however his liver enzymes have gone up dramatically in the last 24 hours -Multiple liver lesions concerning for metastatic disease. Small pancreatic lesions suggestive of cysts versus solid lesions/neoplasm not excluded. Possible nonobstructive stone within the middle pole of the kidney versus artifact measuring 5 mm. Acute/subacute stroke -Patient with multifocal stroke noted on MRI from 09/10/2023 -Awaiting neurology consult Thrombocytopenia -May be consumptive with bleeding however also could be low-level DIC -Coags are slightly elevated -D-dimer is going to be elevated with his liver enzyme elevation -Will monitor coags and platelet counts -Consult oncology 09/13/2023-his hemoglobin is slightly down from 7.2-6.2 today. In the setting of worsening thrombocytopenia that is a bad sign because he should have reactive thrombocytosis with an acute blood loss anemia. I suspect that infiltrative disease into the bone is resulting in his worsening anemia. He has not seen any signs of GI blood loss. I will check hemolysis panel, iron studies with f erritin, iron, transferrin saturation, reticulocyte count. Recheck coagulation cascade. Consider oncology consultation as he is under their management. Charges/Coding Visit Charges Inpatient E&M: 82784 Subs Hosp L3
[2023-09-13] MEDS: Furosemide 20 MG/2 ML VIAL IV (16:46)
[2023-09-13] MEDS: Ondansetron 4 MG/2 ML Vial IV (17:03)
[2023-09-13 17:44] LABS: Bedside Glucose 130 mg/dL (74-106)
[2023-09-13] MEDS: Albuterol 2.5 MG/3 ML VIAL.NEB. INHALATION (21:29)
[2023-09-13] MEDS: Ceftriaxone 1 GM/50 ML BAG IV (21:52)
[2023-09-13] MEDS: Latanoprost 0.005% 1 Bottle 1 DRP OPHTHALMIC (21:53)
[2023-09-13 23:31] LABS: Bedside Glucose 129 mg/dL (74-106)
[2023-09-14] VITALS (21 sets, daily range): BP systolic 102–154; BP diastolic 36–96; PULSE 94–106; RESP 18–24; TEMP 36.6–38.4; O2SAT 94–98
[2023-09-14] MEDS: HYDROmorphone 0.5 MG/0.5 ML SYRINGE IV ×2 (00:47→04:45)
[2023-09-14] MEDS: Acetaminophen 325 MG Tablet 650 MG PO ×3 (00:47→17:16)
[2023-09-14] MEDS: Albuterol 2.5 MG/3 ML VIAL.NEB. INHALATION ×2 (01:37→23:21)
[2023-09-14 06:01] LABS: Absolute Lymphocyte Count 1.45 X10^3/uL (0.83-4.51); Absolute Neutrophil Count 11.4 X10^3/uL (2.0-7.7); Basophil# 0.03 X10^3/uL; Basophil% 0.2 % (0-1); Eosinophil# 0.33 X10^3/uL; Eosinophils% 2.3 % (0-5); Hematocrit 21.5 % (40-54); Lymphocyte # 1.45 X10^3/ul (0.83-4.51); Mean Corp Hgb Conc 32.6 g/dL (32-36); Mean Corpuscular Hgb 27.1 pg (27.0-32.0); Mean Corpuscular Volume 83.3 fL (80-94); Monocyte# 1.08 X10^3/uL; Monocyte% 7.4 % (0-10); NRBC Flagged by Analyzer 0.3 % (0-5); Neutrophil # 11.44 X10^3/uL (2.7-7.7); Neutrophil % 78.5 % (47-70); POSITIVE COUNT YES; Platelet Count 67 K/mm3 (150-450); RBC Distribution Width CV 18.9 % (11.6-14.6); RBC Distribution Width SD 57.6 fl (35.1-43.9); Red Blood Count 2.58 M/mm3 (4.6-6.2); White Blood Count 14.6 K/mm3 (4.4-11.0)
[2023-09-14] MEDS: oxyCODONE 5 MG Tablet PO ×4 (06:10→23:34)
[2023-09-14 06:31] LABS: Bedside Glucose 103 mg/dL (74-106)
[2023-09-14 06:47] LABS: Anion Gap 3 (5-15); BUN 35 mg/dL (7-18); BUN/Creat Ratio 22.6 RATIO (10-20); Calcium,Total 7.2 mg/dL (8.5-10.1); Chloride 110 mmol/L (98-107); Creatinine, Serum 1.55 mg/dL (0.70-1.30); EST Glomerular Filtration Rate 48 mL/min (>60); Est Glom Filt Rate - Afr Amer 58 mL/min (>60); Estimated Creatinine Clearance 47.06 ml/min; Glucose 147 mg/dL (74-106); Potassium 4.1 mmol/L (3.5-5.1); Sodium Level 134 mmol/L (136-145)
[2023-09-14] MEDS: HYDROmorphone 1 MG/ML Syringe IV ×4 (08:31→19:35)
[2023-09-14] MEDS: 0.9% Saline Lock 10 ML Syringe IV ×3 (08:39→11:52)
[2023-09-14] MEDS: Pantoprazole Sodium 40 MG in 0.9% Normal Saline (100mL MB+) 100 ML 330 MG IV (10:02)
[2023-09-14] MEDS: Senna/Docusate Sodium 1 Tablet 2 TABLET PO (10:02)
[2023-09-14] MEDS: Polyethylene Glycol 3350 17 GM PACKET PO ×2 (10:02→20:33)
[2023-09-14] MEDS: Fluticasone 0.05% 1 SPRAY NASAL.SRY NASAL ×2 (10:06→20:28)
[2023-09-14] MEDS: Arthritis Pain Compound 60 CLICK TUBE TOPICAL ×2 (10:06→20:27)
[2023-09-14] MEDS: 0.9% Normal Saline (1000mL) 1,000 ML 70 ML IV (10:10)
--- NOTE | 2023-09-14 10:35 | PN.HOSP_ITS ---
Subjective Subjective Continue to have increasing pain. Mostly complains of right arm pain secondary to metastatic lesions in his right humerus Objective Data Objective Data Vital Signs: Vital Signs Temp Pulse Resp BP Pulse Ox O2 Del Method O2 Flow Rate 97.9 F 102 H 22 H 116/46 L 95 Room Air 2 09/14/23 08:44 09/14/23 08:44 09/14/23 08:44 09/14/23 08:44 09/14/23 08:44 09/14/23 08:44 09/14/23 01:38 Oxygen Flow Rate (L/min) 2 Oxygen Delivery Method Room Air Weight: 183 lb 6.793 oz Body Mass Index (BMI) 28.7 Intake & Output: Intake and Output for Last 24 Hours 09/13/23 09/14/23 09/15/23 03:59 03:59 03:59 Intake Total 2209.00 / 2209.00 1358.5 / 1358.5 1445.66 / 1445.66 Output Total 1480 / 1480 1989 / 1989 700 / 700 Balance 729.00 / 729.00 -631.5 / -631.5 745.66 / 745.66 Medical Nutrition Assessment Dietitian: Malnutrition Criteria Met Start: 09/11/23 11:34 Freq: Status: Active Protocol: Document 09/11/23 11:35 AG (Rec: 09/11/23 11:35 [id number]) Nutrition Malnutrition Evidence of Malnutrition Exists Yes Malnutrition (severe): Chronic Evidenced By Suboptimal Energy Intake ( Severe),Weight Loss (Severe) Clinical Problem Chronic Disease or Condition Related Malnutrition Etiology severe, chronic malnutrition related to inadequate energy intake w/ increased energy needs d/t metastatic disease Signs/Symptoms as evidenced by unintentional 7% wt loss over ~1.5 months, estimated PO intake meeting < 75% of estimated energy needs > 1 month Status Active Problem Recommendation Dietitian Recommendations/Changes recommend regular diet as tolerated; ensure plus high protein 120mL 4x/day w/ medpass when diet advanced. Will monitor tolerance of diet , wt, labs, and adjust diet/ ONS as indicated at time of follow-up Lab / Micro Data 09/14/23 05:38 09/14/23 05:38 Labs: Laboratory Results - last 24 hr 09/10/23 11:55: Crossmatch See Detail 09/13/23 02:40: MPV TNP 09/13/23 10:57: Blood Type O POSITIVE, Antibody Screen NEGATIVE, Crossmatch See Detail 09/13/23 11:09: POC Glucose 148 H 09/13/23 17:19: POC Glucose 130 H 09/13/23 22:05: POC Glucose 129 H 09/14/23 05:38: WBC 14.6 H, RBC 2.58 L, Hgb 7.0 L, Hct 21.5 L, MCV 83.3, MCH 27.1, MCHC 32.6, RDW Std Deviation 57.6 H, RDW Coeff of Lesley 18.9 H, Plt Count 67 L, MPV TNP, Immature Gran % (Auto) 1.600 H, Neut % (Auto) 78.5 H, Lymph % (Auto) 10.0 L, [place] % (Auto) 7.4, Eos % (Auto) 2.3, Baso % (Auto) 0.2, Absolute Neuts (auto) 11.4 H, Absolute Lymphs (auto) 1.45, Nucleated RBC % 0.3, Sodium 134 L, Potassium 4.1, Chloride 110 H, Carbon Dioxide 21.0, Anion Gap 3 L, BUN 35 H, Creatinine 1.55 H, Estim Creat Clear Calc 47.06, Est GFR (MDRD) Af Amer 58 L, Est GFR (MDRD) Non-Af 48 L, BUN/Creatinine Ratio 22.6 H, Glucose 147 H, Calcium 7.2 L 09/14/23 06:09: POC Glucose 103 Micro: Microbiology 09/12/23 20:52 Urine, Clean Catch Urine Culture - Preliminary Culture exhibits no growth. Physical Exam Narrative General: Alert, Oriented x3, Cooperative, in pain HEENT: Atraumatic, PERRLA, EOMI, Normocephalic Oral: Moist Mucosa Neck: Supple, No JVD Lungs: Diminished, Normal air movement, No rhonchi, No wheeze, No rales, right chest port Cardiovascular: Tachycardic, Regular Rhythm, Normal S1, Normal S2, No murmurs Abdomen: Soft, Non Tender, Non-Distended, No Hepato-splenomegaly Extremities: No edema, Capillary Refill Less than 3 Seconds Skin: No rashes, No breakdown Musculoskeletal: No Tenderness to Palpation of Joints or Extremities Neurological: Left side weaker than right side, Sensory exam intact to light touch and pain Psych/Mental Status: Flat Assessment & Plan Assessment/Plan (1) Dehydration: (2) Anemia: QUALIFIERS: Anemia type: iron deficiency Iron deficiency anemia type: chronic blood loss Qualified Code(s): D50.0 - Iron deficiency anemia secondary to blood loss (chronic) (3) Thrombocytopenia: (4) Pulmonary embolism: QUALIFIERS: Pulmonary embolism type: other Chronicity: acute Acute cor pulmonale presence: unspecified Qualified Code(s): I26.99 - Other pulmonary embolism without acute cor pulmonale (5) Transaminitis: (6) Hematemesis: (7) Acute ischemic multifocal anterior circulation stroke involving right-sided vessel: PLAN: Plan 1. Acute hematemesis with acute on chronic anemia secondary to bleeding with a history of GERD/transaminitis with thrombocytopenia/metastatic NSCLC?adenocarcinoma ? Appreciate gastroenterology's assistance ? EGD with 2 bleeding angiodysplastic lesions as well as an oozing duodenal ulcer ? Hemoglobin only margarita to 7 today after 2 units of blood. Will recheck at noon if needing another transfusion we will also obtain a CT of his abdomen pelvis secondary to IVC filter placement and will also notify gastroenterology for potential of repeat EGD ? Continue with PPI ? Continue with Rocephin secondary to concern of possible ascites with liver mets from lung cancer ? His elevated transaminitis is likely related to his metastatic disease ?He does have a port in the right chest in preparation for chemotherapy which he has not received yet ? Unclear as to the source of his leukocytosis, continue with Rocephin, his white count is slowly coming down, urine culture was negative for growth ? PT/OT for evaluation and possible placement, both he and his think that he may benefit from rehab ? Will increase his pain regimen and potentially proceed with OxyContin as well if the increased dosing of pain medications does not help 2. Acute/subacute stroke ? He had a multifocal stroke noted on MRI from 09/10/2023 ? CTA of the head and neck as well as echo were unremarkable ? Appreciate neurology's assistance ? Neurology recommends aspirin and statin as well as an event monitor on discharge 3. History of PE/DVT ? He was recently started on Eliquis and then had recurrent thromboembolism while on Eliquis was transitioned to Lovenox, this was discontinued on 09/08/2023 secondary to severe anemia ? He underwent IVC filter placement on 09/11/2023 4. DM2/CKD 3B ? Creatinine does appear to be at baseline on admission, will continue to monitor ? He has not been taking any of his diabetic medications or his cholesterol medications ? Continue with insulin ? Accu-Cheks ? We will monitor make adjustments as necessary 5. Glaucoma ? Stable ? Continue with eyedrops DVT: SCDs 20-minute advance care planning conversation with significant other and son secondary to prognosis Charges/Coding Visit Charges Inpatient E&M: 93710 Subs Hosp L2 Procedures Hospitalists Procedures: 63384 Advncd Care Plan 30 Min
--- NOTE | 2023-09-14 10:54 | CT_ITS ---
STUDY: CT BRAIN WITHOUT CONTRAST REASON FOR EXAM: Male, 68 years old. new weakness in Rt arm RADIATION DOSAGE (If Supplied By Facility): CTDIvol = ( 44.99 ) mGy, DLP = ( 812.98 ) mGycm TECHNIQUE: Transaxial CT imaging of the brain was performed without administration of intravenous contrast material. Individualized dose optimization techniques were used for this CT. COMPARISON: MRI from 09/10/2023 FINDINGS: Normal soft tissue structures. Normal calvarium. Normal size ventricles and extra-axial spaces for the patient''s age. There is a subtle area of hypoattenuation in the right parietal region seen on axial images 33 through 35, and coronal images 50 through 53 consistent with recent infarct as noted on the previous MRI.. There is no associated edema or mass effect. There are small punctate calcifications of the basal ganglia which are seen in the aging brain as a normal variant. Normal brainstem. Normal cerebellum. There is no intracranial hemorrhage. There are no findings of an acute ischemic infarction. Normal visualized paranasal sinuses. CT/Brain/Head without Contrast IMPRESSION: No acute hemorrhage midline shift or mass effect. Age consistent senescent changes. Evidence of recent right parietal lobe infarct as noted on MRI from 09/10/2023. Electronically Signed: Low Li MD at 11:46 EST ,
[2023-09-14 11:17] LABS: Bedside Glucose 124 mg/dL (74-106)
[2023-09-14 12:33] LABS: Hematocrit 20.4 % (40-54); Hemoglobin 6.6 g/dL (13.0-16.5); POSITIVE COUNT YES
[2023-09-14 12:38] LABS: International Normalized Ratio 1.7
--- NOTE | 2023-09-14 13:24 | CT_ITS ---
INDICATION: Abdominal pain, anemia, recent IVC filter placement EXAMINATION: CTA abdomen and pelvis - TECHNIQUE: Routine abdominal CT angiogram protocol was performed with IV contrast. MIP images provided. A radiation dose optimization technique was used for this scan. IV Contrast dosage and agent: 100 mL [id number] Radiation dose DLP mGy / cm. COMPARISON: 09/09/2023 FINDINGS: Lung bases: Lung bases show free flowing bilateral pleural effusions, right greater than left with bibasilar atelectasis and a well-defined oval area of opacification in the right lateral lung base likely an infiltrate since it was not present on the previous study Liver: Liver is again noted to be enlarged with multiple suspicious likely metastatic poorly defined peripherally enhancing hypodensities throughout both lobes consistent with metastasis. There are overall appearance is unchanged from the previous study. Gallbladder: Gallbladder is contracted. Spleen: Stable 3 cm hypodense nodule in the spleen also likely a metastasis Adrenal gland: There are stable suspicious bilateral adrenal nodules likely metastasis. Kidneys: No obstructive uropathy, there are stable bilateral simple renal cysts, there is a new wedge-shaped opacification in the posterior right kidney likely an infarct. Pancreas:Normal. Bowel gas pattern: Nondistended fluid-filled small bowel loops are noted consistent with ileus. Retained stool noted throughout the colon. Appendix: The appendix seen on coronal recon image 44. Free air: None. Free fluid: None. Pelvis: Pelvic organs: Stable bladder calcifications, persistent indentation upon the inferior bladder from an enlarged prostate Bone survey: No aggressive bony lesions. No acute fractures. Bony structures show degenerative change Adenopathy: No significant pathologic adenopathy detected. Other: There is induration of the subcutaneous fat suggesting anasarca. Vascular: Normal vascular anatomy, IVC filter is in satisfactory position without evidence of complication, specifically, there is no evidence of retroperitoneal hematoma CT/Abdomen/Pelvis WITH Contrast IMPRESSION: Bilateral pleural effusions with bibasilar atelectasis and likely infiltrate in the right lower lobe. Follow-up recommended to ensure resolution. However, since this patient has known metastasis. The effusions could be malignant and the opacification in the right lung base could also represent a metastasis. Stable hepatomegaly with persistent diffuse suspicious hypoattenuated lesions throughout both lobes of the liver consistent with extensive metastasis. No interval change since the previous study. Stable likely splenic metastasis Stable bilateral renal cysts. There is a new hypodense wedge-shaped lesion in the right kidney likely an infarct since it is new since the previous study. Stable likely adrenal metastasis No free intraperitoneal fluid, air, or suspicious adenopathy IVC filter noted, no complications, specifically, no retroperitoneal or intraperitoneal hemorrhage Induration of the subcutaneous fat Degenerative bony changes Electronically Signed: Low Li MD at 14:51 EST ,
[2023-09-14] MEDS: Phytonadione (Vit K1) 5 MG TABLET PO (14:19)
[2023-09-14] MEDS: 0.9% Normal Saline (500mL Bag) 500 ML 15 ML IV (14:40)
--- NOTE | 2023-09-14 16:44 | NURSING ---
approx 1615: nurse and car refinisher to room, as car refinisher reports pt is in bathroom and needs help back to bed. YOKE SETTER mariely states she did not assist pt to bathroom, rather pt son and another male visitor at bedside assisted pt. Nurse to room. pt sitting on rolling blue computer chair next to bed. pt son standing behind him. max 4 assist + gait belt use to place pt back to bed, basically a lift/pivot. reinforced safety for pt/staff/family/call light use. updated BSC can be used and placed next to bed. BSC placed in bathroom for next request for bm.
--- NOTE | 2023-09-14 16:45 | PCM.PN.BLA ---
Progress Note Physical therapy felt that he had a neurological change in his right lower extremity though it is difficult to tell if it is also due to metastatic bone pain. He can not start aspirin given the concern for continued bleeding. CT of the brain was unremarkable.
[2023-09-14 16:55] LABS: Bedside Glucose 74 mg/dL (74-106)
[2023-09-14 17:36] LABS: Bedside Glucose 87 mg/dL (74-106)
--- NOTE | 2023-09-14 18:54 | NURSING ---
phoned blood bank to clarify if units of prbc ready- states are ready. Sent for 1st unit of PRBC
[2023-09-14] MEDS: Latanoprost 0.005% 1 Bottle 1 DRP OPHTHALMIC (20:28)
[2023-09-14 22:17] LABS: Bedside Glucose 151 mg/dL (74-106)
[2023-09-15] VITALS (10 sets, daily range): BP systolic 114–131; BP diastolic 49–58; PULSE 98–105; RESP 16–20; TEMP 36.6–38.7; O2SAT 92–98
[2023-09-15] MEDS: Ceftriaxone 1 GM/50 ML BAG IV ×2 (01:46→22:43)
[2023-09-15] MEDS: Pantoprazole Sodium 40 MG in 0.9% Normal Saline (100mL MB+) 100 ML 330 MG IV ×3 (01:48→22:39)
[2023-09-15] MEDS: 0.9% Normal Saline (1000mL) 1,000 ML 70 ML IV (01:50)
[2023-09-15] MEDS: HYDROmorphone 1 MG/ML Syringe IV (02:52)
[2023-09-15] MEDS: oxyCODONE 5 MG Tablet PO ×4 (05:01→19:52)
[2023-09-15] MEDS: Acetaminophen 325 MG Tablet 650 MG PO ×2 (05:02→14:45)
[2023-09-15 06:19] LABS: Absolute Lymphocyte Count 1.35 X10^3/uL (0.83-4.51); Absolute Neutrophil Count 11.1 X10^3/uL (2.0-7.7); Basophil# 0.04 X10^3/uL; Basophil% 0.3 % (0-1); Eosinophil# 0.54 X10^3/uL; Eosinophils% 3.7 % (0-5); Hematocrit 24.8 % (40-54); Hemoglobin 8.3 g/dL (13.0-16.5); Lymphocyte # 1.35 X10^3/ul (0.83-4.51); Lymphocyte % 9.2 % (19-41); Mean Corp Hgb Conc 33.5 g/dL (32-36); Mean Corpuscular Hgb 27.9 pg (27.0-32.0); Mean Corpuscular Volume 83.2 fL (80-94); Monocyte# 1.23 X10^3/uL; Monocyte% 8.4 % (0-10); NRBC Flagged by Analyzer 0.5 % (0-5); Neutrophil # 11.12 X10^3/uL (2.7-7.7); Neutrophil % 76.2 % (47-70); POSITIVE COUNT YES; Platelet Count 91 K/mm3 (150-450); RBC Distribution Width SD 54.4 fl (35.1-43.9); Red Blood Count 2.98 M/mm3 (4.6-6.2); White Blood Count 14.6 K/mm3 (4.4-11.0)
[2023-09-15 06:41] LABS: Bedside Glucose 106 mg/dL (74-106)
[2023-09-15 06:57] LABS: Anion Gap 5 (5-15); BUN 28 mg/dL (7-18); BUN/Creat Ratio 20.4 RATIO (10-20); Calcium,Total 8.3 mg/dL (8.5-10.1); Chloride 114 mmol/L (98-107); Creatinine, Serum 1.37 mg/dL (0.70-1.30); EST Glomerular Filtration Rate 55 mL/min (>60); Est Glom Filt Rate - Afr Amer 66 mL/min (>60); Estimated Creatinine Clearance 53.24 ml/min; Glucose 119 mg/dL (74-106); Magnesium 2.5 mg/dL (1.6-2.6); Phosphorus 1.9 mg/dL (2.5-4.9); Potassium 4.3 mmol/L (3.5-5.1); Sodium Level 139 mmol/L (136-145)
[2023-09-15] MEDS: Multivitamins,Ther W-Minerals Tablet 1 TABLET PO (09:45)
[2023-09-15] MEDS: oxyCODONE HCl Cr 10 MG Tablet PO ×2 (09:45→22:43)
[2023-09-15] MEDS: Fluticasone 0.05% 1 SPRAY NASAL.SRY NASAL ×2 (09:46→22:40)
[2023-09-15] MEDS: Arthritis Pain Compound 60 CLICK TUBE TOPICAL ×2 (09:46→22:39)
[2023-09-15] MEDS: Albuterol 2.5 MG/3 ML VIAL.NEB. INHALATION (10:25)
--- NOTE | 2023-09-15 11:43 | CASEMGMT ---
Social Work Provider discussed if patient's current response to treatment continues, anticipate readiness Friday. Updated Lyn in the [facility] for continuity of care, as precert will need to be obtained before transfer to the [facility]. Plan: [facility], pending insurance authorization. -MOISE Villar
[2023-09-15 12:11] LABS: Bedside Glucose 148 mg/dL (74-106)
[2023-09-15 14:37] LABS: Hemoglobin 8.2 g/dL (13.0-16.5); Mean Corp Hgb Conc 32.8 g/dL (32-36); Mean Corpuscular Hgb 27.5 pg (27.0-32.0); Mean Corpuscular Volume 83.9 fL (80-94); POSITIVE COUNT YES; Platelet Count 97 K/mm3 (150-450); RBC Distribution Width CV 18.6 % (11.6-14.6); RBC Distribution Width SD 56.2 fl (35.1-43.9); Red Blood Count 2.98 M/mm3 (4.6-6.2); White Blood Count 14.5 K/mm3 (4.4-11.0)
--- NOTE | 2023-09-15 15:21 | PN.HOSP_ITS ---
Reason for Visit Reason for Visit: Diagnoses Iron deficiency anemia secondary to blood loss (chronic) (09/10/23) Anemia, unspecified (09/10/23) Thrombocytopenia, unspecified (09/10/23) Elevated white blood cell count, unspecified (09/10/23) Dehydration (09/10/23) Other pulmonary embolism without acute cor pulmonale (09/10/23) Cerebral infarction due to unspecified occlusion or stenosis of right anterior cerebral artery (09/10/23) Hematemesis (09/10/23) Gastrointestinal hemorrhage, unspecified (09/10/23) Nausea (09/10/23) Elevation of levels of liver transaminase levels (09/10/23) Other specified abnormal findings of blood chemistry (09/10/23) Subjective Subjective No acute events overnight. Patient seen at bedside this morning, significant other present. Patient was laying back in bed and appeared quite fatigued. He did answer my questions with short appropriate responses. He denied any dark or bloody bowel movements overnight. Primary concern is that he continues to have fairly significant pain despite receiving pain medications. States his pain is primarily in both legs diffusely and in his right arm and shoulder. Denies sharp pain, states the pain is more dull and achy in nature. However, he does have fairly significant pain to palpation in the legs especially. He has had a poor appetite since admission, states he has not felt like eating or drinking much. He otherwise denies any fevers or chills. Denies any chest pain or shortness of breath. No other acute concerns this time. Objective Data Objective Data Vital Signs: Vital Signs Temp Pulse Resp BP Pulse Ox O2 Del Method O2 Flow Rate 101.6 F H 105 H 20 H 131/54 H 97 Room Air 2 09/15/23 14:52 09/15/23 14:52 09/15/23 14:52 09/15/23 14:52 09/15/23 14:52 09/15/23 14:52 09/14/23 01:38 Oxygen Flow Rate (L/min) 2 Oxygen Delivery Method Room Air Weight: 83.2 kg Body Mass Index (BMI) 28.7 Intake & Output: Intake and Output for Last 24 Hours 09/13/23 09/14/23 09/15/23 23:59 23:59 23:59 Intake Total 2357.33 / 2357.33 1771.00 / 1771.00 1636.0 / 1636.0 Output Total 1490 / 1490 1950 / 2350 1100 / 1100 Balance 867.33 / 867.33 -179.00 / -579.00 536.0 / 536.0 Medical Nutrition Assessment Dietitian: Malnutrition Criteria Met Start: 09/11/23 11:34 Freq: Status: Active Protocol: Document 09/11/23 11:35 (Rec: 09/11/23 11:35 [id number]) Nutrition Malnutrition Evidence of Malnutrition Exists Yes Malnutrition (severe): Chronic Evidenced By Suboptimal Energy Intake ( Severe),Weight Loss (Severe) Clinical Problem Chronic Disease or Condition Related Malnutrition Etiology severe, chronic malnutrition related to inadequate energy intake w/ increased energy needs d/t metastatic disease Signs/Symptoms as evidenced by unintentional 7% wt loss over ~1.5 months, estimated PO intake meeting < 75% of estimated energy needs > 1 month Status Active Problem Recommendation Dietitian Recommendations/Changes recommend regular diet as tolerated; ensure plus high protein 120mL 4x/day w/ medpass when diet advanced. Will monitor tolerance of diet , wt, labs, and adjust diet/ ONS as indicated at time of follow-up Lab / Micro Data 09/15/23 14:15 09/15/23 05:48 Labs: Laboratory Results - last 24 hr 09/13/23 10:57: Crossmatch See Detail 09/14/23 16:31: POC Glucose 74 09/14/23 17:10: POC Glucose 87 09/14/23 20:38: POC Glucose 151 H 09/15/23 05:07: POC Glucose 106 09/15/23 05:48: WBC 14.6 H, RBC 2.98 L, Hgb 8.3 L, Hct 24.8 L, MCV 83.2, MCH 27.9, MCHC 33.5, RDW Std Deviation 54.4 H, RDW Coeff of Lesley 18.0 H, Plt Count 91 L, MPV TNP, Immature Gran % (Auto) 2.200 H, Neut % (Auto) 76.2 H, Lymph % (Auto) 9.2 L, [place] % (Auto) 8.4, Eos % (Auto) 3.7, Baso % (Auto) 0.3, Absolute Neuts (auto) 11.1 H, Absolute Lymphs (auto) 1.35, Nucleated RBC % 0.5, Sodium 139, Potassium 4.3, Chloride 114 H, Carbon Dioxide 20.0 L, Anion Gap 5, BUN 28 H, Creatinine 1.37 H, Estim Creat Clear Calc 53.24, Est GFR (MDRD) Af Amer 66, Est GFR (MDRD) Non-Af 55 L, BUN/Creatinine Ratio 20.4 H, Glucose 119 H, Calcium 8.3 L, Phosphorus 1.9 L, Magnesium 2.5 09/15/23 11:36: POC Glucose 148 H 09/15/23 14:15: WBC 14.5 H, RBC 2.98 L, Hgb 8.2 L, Hct 25.0 L, MCV 83.9, MCH 27.5, MCHC 32.8, RDW Std Deviation 56.2 H, RDW Coeff of Lesley 18.6 H, Plt Count 97 L Micro: Microbiology 09/12/23 20:52 Urine, Clean Catch Urine Culture - Final Culture exhibits no growth. Physical Exam Const alert and no apparent distress Constitutional Narrative: Elderly male, chronically ill-appearing, very fatigued appearing, answering questions with short appropriate responses, mild distress due to generalized pain. General Appearance: cooperative HEENT normocephalic, head/scalp atraumatic, hearing grossly normal bilaterally and nasal mucous membranes and turbinates normal Eyes PERRL, EOMs intact bilaterally and conjunctivae normal Neck no lymphadenopathy and supple Lymph Lymphatic: no lymphadenopathy noted Chest inspection of chest normal Resp normal respiratory effort, normal air movement, no use of accessory muscles and clear to auscultation bilaterally Cardio regular rate, regular rhythm, no murmurs and peripheral pulses 2+ throughout GI normal to inspection, nondistended, normoactive bowel sounds, soft to palpation, non-tender and non-distended Back/Spine normal ROM Extremity normal to inspection and no pedal edema Skin no rashes or lesions noted Neuro no focal motor deficits and no sensory deficits noted Assessment & Plan Assessment/Plan (1) Weakness: (2) GIB (gastrointestinal bleeding): (3) Anemia: QUALIFIERS: Anemia type: iron deficiency Iron deficiency anemia type: chronic blood loss Qualified Code(s): D50.0 - Iron deficiency anemia secondary to blood loss (chronic) (4) NSCLC metastatic to bone: (5) NSCLC metastatic to liver: PLAN: Plan Patient is a 68-year-old male who presented to [facility] ED on 09/10/2023 with hematemesis and acute on chronic anemia. 1. Acute on chronic anemia secondary to upper GI bleed, improving History of chronic anemia noted on previous admission in August, suspected secondary to occult GI bleed. However, GI followed on admission and both colonoscopy and EGD showed no active signs of bleeding. Hemoglobin was 7.2 on discharge in early August. Patient notably was started on Eliquis for PE/DVT at that time. Presented with hematemesis, hemoglobin 6.5. EGD showed 2 bleeding angiodysplastic lesions as well as an oozing duodenal ulcer. Hemoglobin did not rise appropriately after transfusion on 09/14, CT abdomen pelvis negative for retroperitoneal bleed in setting of recent IVC filter placement, suspected secondary to ongoing mild upper GI bleeding. ? Gastroenterology following. Hemoglobin improved to 8.3 on morning of 09/15, repeat hemoglobin 8.2 on afternoon of 09/15. Continue IV PPI twice daily for now. Continue Rocephin. Trend CBC daily. 2. Metastatic non-small cell lung cancer with cancer-related pain and acute debility Follows with Dr. Colbert with oncology. Recently diagnosed by CT-guided biopsy of right lower lobe mass on 08/12. PET CT scan on 08/26 showed fairly widespread hypermetabolic activity consistent with metastatic cancer. Notably with mets to the liver, right scapula and humerus, several thoracic vertebrae, left proximal femur. ? Oncology and palliative care consulted. Pain regimen adjusted on 09/15 to long- acting oxycodone 10 mg every 12 hours scheduled with immediate release oxycodone 5 mg every 4 hours as needed and IV Dilaudid 0.5 mg every 3 hours as needed for breakthrough pain. PT/OT/case management following. Likely planning for SNF on discharge. 3. Acute/subacute stroke ? MRI brain on 09/10 demonstrated multifocal stroke. CTA head and neck and echo were unremarkable. Neurology followed, recommended aspirin and statin as well as event monitor on discharge. Currently holding off on starting aspirin and statin given patient's anemia with recurrent GI bleeding, as well as patient's elevated liver enzymes as noted below. Monitor closely. 4. Recent history of PE/DVT Hospitalized in beginning of August for mild PE. Was started on Eliquis on discharge at that time. Was found to have recurrent thromboembolism while on Eliquis, was then transitioned to therapeutic Lovenox. Therapeutic Lovenox was then discontinued on 09/08 secondary to severe anemia with send for recurrent GI bleeding. ? S/p IVC filter placement on 09/11/2023. SCDs in place for DVT prophylaxis. 5. Elevated liver enzymes, improving ? Liver enzymes peaked at AST 746, ALT 299, alk phos 361 on 09/10. Slowly downtrending since that time. Suspect multifactorial due to underlying liver dysfunction due to metastases with likely mild ischemic hepatitis on admission due to anemia. No need to monitor LFTs further. Chronic medical conditions: ? Type 2 diabetes mellitus: Home medications of metformin, pioglitazone. Continue sliding scale insulin while inpatient. ? CKD stage IIIb: Baseline creatinine 1.3-1.6, has been at baseline since admission. DVT prophylaxis: SCDs CODE STATUS: Full code, verified Expected disposition: Home with home health care versus SNF, TBD Total clinical time spent by myself addressing the patient's medical issues, reviewing all the data, and collaborating with patient's care team: 35 minutes. Charges/Coding Visit Charges Inpatient E&M: 60892 Subs Hosp L2
--- NOTE | 2023-09-15 15:59 | CASEMGMT ---
CASSIUS JANG received order from hospitalist for palliative consult. Palliative screening tool completed and referral sent to [facility].
[2023-09-15] MEDS: HYDROmorphone 0.5 MG/0.5 ML SYRINGE IV (16:50)
[2023-09-15] MEDS: Insulin Lispro 100 UNIT/ML INSULN.PEN SC ×2 (16:58→22:45)
[2023-09-15 17:18] LABS: Bedside Glucose 154 mg/dL (74-106)
[2023-09-15] MEDS: Latanoprost 0.005% 1 Bottle 1 DRP OPHTHALMIC (22:40)
[2023-09-15 23:58] LABS: Bedside Glucose 165 mg/dL (74-106)
[2023-09-16] MEDS: HYDROmorphone 0.5 MG/0.5 ML SYRINGE IV ×5 (01:58→18:54)
[2023-09-16] MEDS: 0.9% Saline Lock 10 ML Syringe IV ×5 (01:58→18:55)
[2023-09-16 02:35] VITALS: TEMP 38.6
[2023-09-16] MEDS: Acetaminophen 325 MG Tablet 650 MG PO ×3 (02:38→21:03)
[2023-09-16 03:10] VITALS: BP 123/46; PULSE 98; RESP 16; TEMP 37.8; O2SAT 96
[2023-09-16 06:37] LABS: Bedside Glucose 118 mg/dL (74-106)
[2023-09-16 07:00] LABS: Hematocrit 24.6 % (40-54); Hemoglobin 8.2 g/dL (13.0-16.5); Mean Corp Hgb Conc 33.3 g/dL (32-36); Mean Platelet Vol. 11.2 fl (6.2-12.0); Platelet Count 100 K/mm3 (150-450); RBC Distribution Width SD 58.2 fl (35.1-43.9); Red Blood Count 2.93 M/mm3 (4.6-6.2); White Blood Count 13.8 K/mm3 (4.4-11.0)
[2023-09-16 07:31] LABS: Anion Gap 5 (5-15); BUN 23 mg/dL (7-18); BUN/Creat Ratio 15.6 RATIO (10-20); Calcium,Total 7.6 mg/dL (8.5-10.1); Chloride 115 mmol/L (98-107); Creatinine, Serum 1.47 mg/dL (0.70-1.30); EST Glomerular Filtration Rate 51 mL/min (>60); Est Glom Filt Rate - Afr Amer 61 mL/min (>60); Estimated Creatinine Clearance 49.62 ml/min; Glucose 130 mg/dL (74-106); Potassium 4.5 mmol/L (3.5-5.1); Sodium Level 141 mmol/L (136-145)
[2023-09-16 09:00] VITALS: BP 143/47; PULSE 95; RESP 18; TEMP 37.6; O2SAT 97
[2023-09-16] MEDS: Fluticasone 0.05% 1 SPRAY NASAL.SRY NASAL ×2 (09:05→21:06)
[2023-09-16] MEDS: Arthritis Pain Compound 60 CLICK TUBE TOPICAL ×2 (09:05→21:06)
[2023-09-16] MEDS: Multivitamins,Ther W-Minerals Tablet 1 TABLET PO (09:06)
[2023-09-16] MEDS: Ensure Plus High Protein 120 ML LIQUID PO ×3 (09:06→16:53)
[2023-09-16] MEDS: oxyCODONE HCl Cr 10 MG Tablet PO ×2 (09:12→22:37)
[2023-09-16] MEDS: Pantoprazole Sodium 40 MG in 0.9% Normal Saline (100mL MB+) 100 ML 330 MG IV ×2 (09:35→21:03)
[2023-09-16] MEDS: Piperacil/Tazobactam 4.5 GM in 0.9% Normal Saline (100mL MB+) 100 ML IV (09:57)
[2023-09-16] MEDS: Vancomycin HCl 2,000 MG in 0.9% Normal Saline (500mL Bag) 500 ML 250 MG IV (09:57)
--- NOTE | 2023-09-16 10:27 | PCM.RX.CS ---
Consult Antibiotic Management Pharmacy has been consulted to manage selected antibiotic: Vancomycin Type of Intervention Type of Consult: New start Suspected Infection Suspected Infection: Other (EMPIRIC, FEVER) Prior Doses of Antibiotics Prior Doses of Antibiotics Received/Current Regimen: Vancomycin 2000 mg IV x 1 given 09/16/23 @ 0986 Labs Labs: Sodium 141 mmol/L (136-145) 09/16/23 06:05 Potassium 4.5 mmol/L (3.5-5.1) 09/16/23 06:05 Chloride 115 mmol/L (98-107) H 09/16/23 06:05 Carbon Dioxide 21.0 mmol/L (21.0-32.0) 09/16/23 06:05 Anion Gap 5 (5-15) 09/16/23 06:05 BUN 23 mg/dL (7-18) H 09/16/23 06:05 Creatinine 1.47 mg/dL (0.70-1.30) H 09/16/23 06:05 Est GFR (MDRD) Af Amer 61 mL/min (>60) 09/16/23 06:05 Est GFR (MDRD) Non-Af 51 mL/min (>60) L 09/16/23 06:05 BUN/Creatinine Ratio 15.6 RATIO (10-20) 09/16/23 06:05 Glucose 130 mg/dL (74-106) H 09/16/23 06:05 Microbiology Microbiology: Microbiology 09/12/23 20:52 Urine, Clean Catch Urine Culture - Final Culture exhibits no growth. Dosing Weight Weight used for dosin kg Estimated Creatinine Clearance Estimated Creatinine Clearance: ~50 Goal Trough Goal Trough: 15-20 mcg/mL Pharmacy Plan for Drug Dosing Pharmacy Plan for Drug Dosing: Vancomycin 2000 mg IV x 2, followed by 750 mg IV Q12H Pharmacy Service will continue to monitor and adjust dosing as required. Follow-Up Labs Follow-Up Labs: Trough: Vancomycin Date/Time Labs Ordered Labs to be done on [date and time ordered]: 09/17/23 @ 2795
[2023-09-16 12:24] LABS: Bedside Glucose 90 mg/dL (74-106)
[2023-09-16] MEDS: Piperacil/Tazobactam 3.375 GM in 0.9% Normal Saline (50mL MB+) 50 ML IV ×2 (14:04→22:36)
[2023-09-16 15:00] VITALS: BP 131/46; PULSE 94; RESP 18; TEMP 36.7; O2SAT 99
--- NOTE | 2023-09-16 15:17 | PN.HOSP_ITS ---
Reason for Visit Reason for Visit: Diagnoses Malignant neoplasm of unspecified part of unspecified bronchus or lung ( 4) Secondary malignant neoplasm of liver and intrahepatic bile duct (09/10/23) Secondary malignant neoplasm of bone (09/10/23) Iron deficiency anemia secondary to blood loss (chronic) (09/10/23) Anemia, unspecified (09/10/23) Thrombocytopenia, unspecified (09/10/23) Elevated white blood cell count, unspecified (09/10/23) Dehydration (09/10/23) Other pulmonary embolism without acute cor pulmonale (09/10/23) Cerebral infarction due to unspecified occlusion or stenosis of right anterior cerebral artery (09/10/23) Hematemesis (09/10/23) Gastrointestinal hemorrhage, unspecified (09/10/23) Nausea (09/10/23) Weakness (09/10/23) Elevation of levels of liver transaminase levels (09/10/23) Other specified abnormal findings of blood chemistry (09/10/23) Subjective Subjective Overnight patient had multiple low-grade fevers documented. Patient seen at bedside this morning, girlfriend and son present. Patient was sitting up in bed and appeared slightly more awake and alert this morning than yesterday. Patient denies having any subjective fevers or chills overnight. Patient states that his pain control has been improved since his pain regimen was changed yesterday. States he still does not have much of an appetite and has spent all of his time in bed unless working with therapy. He otherwise denies any chest pain, shortness of breath, abdominal pain at this time. Had extensive discussion with patient's girlfriend and son both at the bedside and outside the room this morning regarding the patient's goals of care going forward. Both patient and family are aware that he has metastatic cancer that is widespread throughout the body. Girlfriend and son were largely asking about the patient's rehab potential going forward. Dr. Coblert had told them prior to this admission that patient was not a candidate for oral chemotherapy unless he completed physical therapy at either [facility] or [facility] and was able to be discharged home. Dr. Colbert had also mention to them that the patient likely has only 6 months to live. I discussed with girlfriend and son that patient unfortunately is much more debilitated now than when I saw him during his last admission only 1 month ago. Noted that his physical therapy and Occupational Therapy scores from 2/5 were very low. The plan over the weekend was for the patient to go to [facility] in our hospital for acute rehab after his stroke, however I told the patient and family that it was unlikely that patient will be able to participate in intensive therapy given his functional status. In all, patient and family were agreeable to a palliative care/hospice consult for further discussion on goals of care. Objective Data Objective Data Vital Signs: Vital Signs Temp Pulse Resp BP Pulse Ox O2 Del Method O2 Flow Rate 98.1 F 94 18 131/46 H 99 Room Air 2 09/16/23 15:00 09/16/23 15:00 09/16/23 15:00 09/16/23 15:00 09/16/23 15:00 09/16/23 15:00 09/14/23 01:38 Oxygen Flow Rate (L/min) 2 Oxygen Delivery Method Room Air Weight: 83.2 kg Body Mass Index (BMI) 28.7 Intake & Output: Intake and Output for Last 24 Hours 09/14/23 09/15/23 09/16/23 23:59 23:59 23:59 Intake Total 1771.00 / 1771.00 2196.0 / 2196.0 750 / 750 Output Total 1950 / 2350 1400 / 1800 1400 / 1400 Balance -179.00 / -579.00 796.0 / 396.0 -650 / -650 Medical Nutrition Assessment Dietitian: Malnutrition Criteria Met Start: 09/11/23 11:34 Freq: Status: Active Protocol: Document 09/11/23 11:35 (Rec: 09/11/23 11:35 [id number]) Nutrition Malnutrition Evidence of Malnutrition Exists Yes Malnutrition (severe): Chronic Evidenced By Suboptimal Energy Intake ( Severe),Weight Loss (Severe) Clinical Problem Chronic Disease or Condition Related Malnutrition Etiology severe, chronic malnutrition related to inadequate energy intake w/ increased energy needs d/t metastatic disease Signs/Symptoms as evidenced by unintentional 7% wt loss over ~1.5 months, estimated PO intake meeting < 75% of estimated energy needs > 1 month Status Active Problem Recommendation Dietitian Recommendations/Changes recommend regular diet as tolerated; ensure plus high protein 120mL 4x/day w/ medpass when diet advanced. Will monitor tolerance of diet , wt, labs, and adjust diet/ ONS as indicated at time of follow-up Lab / Micro Data 09/16/23 06:05 09/16/23 06:05 Labs: Laboratory Results - last 24 hr 09/15/23 16:57: POC Glucose 154 H 09/15/23 22:45: POC Glucose 165 H 09/16/23 06:05: WBC 13.8 H, RBC 2.93 L, Hgb 8.2 L, Hct 24.6 L, MCV 84.0, MCH 28.0, MCHC 33.3, RDW Std Deviation 58.2 H, RDW Coeff of Lesley 19.0 H, Plt Count 100 L, MPV 11.2, Sodium 141, Potassium 4.5, Chloride 115 H, Carbon Dioxide 21.0, Anion Gap 5, BUN 23 H, Creatinine 1.47 H, Estim Creat Clear Calc 49.62, Est GFR (MDRD) Af Amer 61, Est GFR (MDRD) Non-Af 51 L, BUN/Creatinine Ratio 15.6, Glucose 130 H, Calcium 7.6 L 09/16/23 06:17: POC Glucose 118 H 09/16/23 12:05: POC Glucose 90 Micro: Microbiology 09/12/23 20:52 Urine, Clean Catch Urine Culture - Final Culture exhibits no growth. Physical Exam Const alert and no apparent distress Constitutional Narrative: Elderly male, chronically ill-appearing, fatigued appearing but slightly improved from yesterday, answer questions with short appropriate responses, otherwise laying comfortably in bed in no acute distress. General Appearance: cooperative HEENT normocephalic, head/scalp atraumatic, hearing grossly normal bilaterally and nasal mucous membranes and turbinates normal Eyes PERRL, EOMs intact bilaterally and conjunctivae normal Neck no lymphadenopathy and supple Lymph Lymphatic: no lymphadenopathy noted Chest inspection of chest normal Resp normal respiratory effort, normal air movement, no use of accessory muscles and clear to auscultation bilaterally Cardio regular rate, regular rhythm, no murmurs and peripheral pulses 2+ throughout GI normal to inspection, nondistended, normoactive bowel sounds, soft to palpation, non-tender and non-distended Back/Spine normal ROM Extremity normal to inspection and no pedal edema Skin no rashes or lesions noted Neuro no focal motor deficits and no sensory deficits noted Speech: speech normal Assessment & Plan Assessment/Plan (1) Weakness: (2) GIB (gastrointestinal bleeding): (3) Anemia: QUALIFIERS: Anemia type: iron deficiency Iron deficiency anemia type: chronic blood loss Qualified Code(s): D50.0 - Iron deficiency anemia secondary to blood loss (chronic) (4) NSCLC metastatic to bone: (5) NSCLC metastatic to liver: PLAN: Plan Patient is a 68-year-old male who presented to [facility] ED on 09/10/2023 with hematemesis and acute on chronic anemia. 1. Acute on chronic anemia secondary to upper GI bleed, stable History of chronic anemia noted on previous admission in August, suspected secondary to occult GI bleed. However, GI followed on admission and both colonoscopy and EGD showed no active signs of bleeding. Hemoglobin was 7.2 on discharge in early August. Patient notably was started on Eliquis for PE/DVT at that time. Presented with hematemesis, hemoglobin 6.5. EGD showed 2 bleeding angiodysplastic lesions as well as an oozing duodenal ulcer. Hemoglobin did not rise appropriately after transfusion on 09/14, CT abdomen pelvis negative for retroperitoneal bleed in setting of recent IVC filter placement, suspected secondary to ongoing mild upper GI bleeding. ? Gastroenterology followed. Hemoglobin improved to 8.3 on morning of 09/15, repeat hemoglobin 8.2 on afternoon of 09/15. Continue IV PPI twice daily for now. Continue Rocephin. Trend CBC daily. Likely okay to de-escalate to p.o. PPI twice daily tomorrow. 2. Metastatic non-small cell lung cancer with cancer-related pain and acute debility Follows with Dr. Colbert with oncology. Recently diagnosed by CT-guided biopsy of right lower lobe mass on 08/12. PET CT scan on 08/26 showed fairly widespread hypermetabolic activity consistent with metastatic cancer. Notably with mets to the liver, right scapula and humerus, several thoracic vertebrae, left proximal femur. ? Palliative care/hospice consulted. Pain regimen adjusted on 09/15 to long- acting oxycodone 10 mg every 12 hours scheduled with immediate release oxycodone 5 mg every 4 hours as needed and IV Dilaudid 0.5 mg every 3 hours as needed for breakthrough pain. Patient appears to be doing well with this new pain regimen, will defer to palliative care for further recommendations. PT/OT/case carin shah following. 3. Acute/subacute stroke ? MRI brain on 09/10 demonstrated multifocal stroke. CTA head and neck and echo were unremarkable. Neurology followed, recommended aspirin and statin as well as event monitor on discharge. Currently holding off on starting aspirin and statin given patient's anemia with recurrent GI bleeding, as well as patient's elevated liver enzymes as noted below. PT/OT following as above. 4. Recent history of PE/DVT Hospitalized in beginning of August for mild PE. Was started on Eliquis on discharge at that time. Was found to have recurrent thromboembolism while on Eliquis, was then transitioned to therapeutic Lovenox. Therapeutic Lovenox was then discontinued on 09/08 secondary to severe anemia with send for recurrent GI bleeding. ? S/p IVC filter placement on 09/11/2023. SCDs in place for DVT prophylaxis. 5. Elevated liver enzymes, improving ? Liver enzymes peaked at AST 746, ALT 299, alk phos 361 on 09/10. Slowly downtrending since that time. Suspect multifactorial due to underlying liver dysfunction due to metastases with likely mild ischemic hepatitis on admission due to anemia. No need to monitor LFTs further. 6. Persistent fevers Patient initiated on ceftriaxone on admission for SBP prophylaxis in setting of GI bleed as noted above. Patient has had persistent low-grade fevers despite being on ceftriaxone, WBC count has remained mildly elevated. Infectious workup on admission was negative, but notably no blood cultures were ordered. Imaging on admission was notable for widespread cancer but no specific source of infe ction. Persistent fevers could be secondary to patient's active malignancy but cannot rule out occult infection. ? Broadened to vancomycin and Zosyn on 09/16. Blood cultures ordered 09/16, will follow-up. Monitor vitals closely. Chronic medical conditions: ? Type 2 diabetes mellitus: Home medications of metformin, pioglitazone. Continue sliding scale insulin while inpatient. ? CKD stage IIIb: Baseline creatinine 1.3-1.6, has been at baseline since admission. DVT prophylaxis: SCDs CODE STATUS: Full code, verified Expected disposition: TBD Total clinical time spent by myself addressing the patient's medical issues, reviewing all the data, and collaborating with patient's care team: 35 minutes. Charges/Coding Visit Charges Inpatient E&M: 54954 Subs Hosp L2
[2023-09-16] MEDS: oxyCODONE 5 MG Tablet PO ×2 (16:46→21:03)
--- NOTE | 2023-09-16 17:00 | CASEMGMT ---
Social Work Patient's care status needs discussed during physician rounds today. Palliative care referral made on 09.15.23 to [facility] palliative care. Hospice level of care also discussed as another appropriate level of care, based on what patient's goals of care would be. Plan thus far has been for Inpatient Rehab Unit, as patient did have an acute stroke. Concern present about ability to tolerate 3 hours of therapy, an IRU requirement. Family has not been interested in a community based SNF. Met with patient, girlfriend/POAHC Sherry Salvador, and son Shaniqua Brock in room. Introduced to self and role, reason for visit to discuss goals of care for patient. Offered to have 1:1 time with patient, which the girlfriend offered to patient also, and seemed to support. Son made comment that patient is open with the family. Patient responded okay to talk with family present. Time taken to review referral to [facility] inpatient rehab unit, requirement to participate in 3 hours of therapy a day, and concern whether this requirement may be too taxing for patient currently. Discussed that can still proceed with this level of care, but wanting to explore with patient whether patient feels up to this requirement. SNF option discussed, as lower expectation of amount of therapy daily. Son made comment that this is never going to happen, as feels community SNFs would not care for patient. Palliative referral mentioned as well, and all were aware and on board with the palliative consult. Educated to what palliative care means. Son mentioned that patient is waiting on a chemo pill, but cannot get this to patient until patient is discharged from the hospital and/or rehab unit. Attempted to explore what patient and family understood patient's illness to entail, specifically about the cancer diagnosis. Initially in the conversation, it appeared the son wanted patient to fight and made comment that this is what patient wants, while the girlfriend sat in the corner crying and shaking head as if in disagreement. After some time, the son made the comment to patient's girlfriend, in a whisper that patient's cancer is stage IV and not a good prognosis, based on what the doctor told the son today. This telegraphic typewriter repairer redirected the conversation to include the patient, and reviewed with patient about the cancer diagnosis, and reports of metastases. Patient reports awareness of this, and made comments about bhargavi and wanting God to protect the patient. This telegraphic typewriter repairer gently broached hospice level of care with patient and family, discussed this would be more about symptom control, keeping patient comfortable, not seeking out aggressive treatments. Much emotional support provided to patient and family this date, allowed them time to process information, ask questions, and just sit with patient/family as working through emotions. Sherry reports this is all very hard, as just found out a month ago about patient having cancer. Therapy to room to do treatment. This telegraphic typewriter repairer encouraged patient to work with therapy, see how things go, and this telegraphic typewriter repairer would be back to talk with patient and family later, after have had time to process further what patient really wants for self at discharge. This telegraphic typewriter repairer followed out of room by girlfriend Sherry. Sherry reports was told by oncologist recently the thought was that patient only had 6 months left to live. Sherry reports to be in line with palliative and even hospice for patient, as knows that treatment available to patient is not curative. Sherry reports to feel there is resistance by the son, and even the patient on the idea of palliative and hospice. Sherry shared patient has been a for the last 3 years, and Sherry is also a , both having gone thorough the loss of a spouse. This telegraphic typewriter repairer let Sherry know that when this telegraphic typewriter repairer returns would be asking to speak with patient alone, so as to hear from patient, without influence of others as to what goals of care are. Chart reviewed and noted in one of Dr. Colbert's notes, that chemo pill for patient would be palliative in nature. Met with patient and family again in the afternoon. Asked patient's girlfriend and patient's son to leave the room. All agreed. Patient willing to speak with this telegraphic typewriter repairer. Patient laying in bed, eyes closed, but would open and and make eye contact with this telegraphic typewriter repairer periodically. Patient kept asking this telegraphic typewriter repairer how much time does patient have to live. Explained that this telegraphic typewriter repairer is not able to say how long, and is out of social science manager's scope. Reviewed patient's understanding of his cancer diagnosis, which patient is clearly aware that there is mets to the bone, and understands the cancer to be widespread. Educated patient that from what this telegraphic typewriter repairer has been informed of by the provider, treatment available is not curative in nature. Explored with patient how patient wants to live the rest of his life on earth, if patient wants to go to a SNF or [facility], try to get stronger, or does patient want to be in comfort of home environment with family. Patient clearly stated that wants to be at home, with family, saying goodbyes, doing the things needs to do and to be a gentleman to his loved ones. Let patient know then, it seems appropriate to call in hospice for a consult and discuss what hospice can offer. Patient agreeable. Called family back into the room. Reviewed patient's goals of care. Sherry and Shaniqua both tearful, but supportive of patient. Patient then cried out that wants to take the pill (meaning the chemo). Shaniqua redirected the patient that Shaniqua's understanding about the chemo pill is that it could make patient more sick and more tired, and if patient does not do rehab to get stronger then the medication has even more potential to make patient more wore out. Patient express understanding and also some frustration that a pill could give patient such side effects. Patient did not verbalize desire to try rehab, despite being asked several times today if this is patient's wish. After much discussion, agreement to continue with hospice consult, where liaison can review difference between palliative and hospice. Reviewed patient can go to SNF or [facility] for rehab with palliative but not hospice; could also choose to go home with hospice, or if qualifies to [facility] hospice. Much emotional support offered again to the patient and family. Spoke with Dr. Hernández about conversations with patient and family today. Provider agrees that hospice is an appropriate level of care to explore for this patient. Provider gave verbal order for hospice consult. Spoke with Sherry in the hallway who expressed thought that [facility] hospice may be the best choice for patient, but not sure where patient and son are at. Referral made to [facility] hospice. Faxed referral information [place] office, then spoke with clinical personal fitness manager at [facility]. Appointment set with liaison for 09.17.23 at 0900. Hospice and palliative to be discussed with patient. Plan: Based on patient's goals of care to be at home with family, it seems hospice may be the next steps.?Awaiting hospice consult and outcome of that meeting on 09.17.23. Hospice versus and effort at rehab and add palliative care. -MOISE Villar
[2023-09-16 17:08] LABS: Bedside Glucose 116 mg/dL (74-106)
[2023-09-16 20:54] VITALS: BP 132/55; PULSE 101; RESP 16; TEMP 37.8; O2SAT 97
[2023-09-16] MEDS: Latanoprost 0.005% 1 Bottle 1 DRP OPHTHALMIC (21:07)
[2023-09-16] MEDS: Vancomycin HCl 750 MG in 0.9% Normal Saline (250mL Bag) 250 ML 250 MG IV (22:36)
[2023-09-16 22:40] VITALS: BP 110/45; PULSE 95; RESP 16; TEMP 37.2; O2SAT 96
[2023-09-16 23:11] LABS: Bedside Glucose 109 mg/dL (74-106)
[2023-09-17 01:10] VITALS: BP 118/50; PULSE 99; RESP 16; TEMP 37.2; O2SAT 96
[2023-09-17] MEDS: 0.9% Saline Lock 10 ML Syringe IV ×3 (01:13→09:24)
[2023-09-17] MEDS: HYDROmorphone 0.5 MG/0.5 ML SYRINGE IV ×3 (01:13→09:23)
[2023-09-17] MEDS: oxyCODONE 5 MG Tablet PO ×2 (03:12→07:14)
[2023-09-17 04:41] VITALS: BP 113/50; PULSE 92; RESP 16; TEMP 36.9; O2SAT 94
[2023-09-17] MEDS: Piperacil/Tazobactam 3.375 GM in 0.9% Normal Saline (50mL MB+) 50 ML IV (04:46)
[2023-09-17 07:15] VITALS: O2SAT 94
[2023-09-17 08:06] VITALS: BP 123/60; PULSE 94; RESP 18; TEMP 36.6; O2SAT 99
[2023-09-17 08:13] VITALS: RESP 18
[2023-09-17 08:56] LABS: Hematocrit 23.9 % (40-54); Mean Corp Hgb Conc 33.5 g/dL (32-36); Mean Corpuscular Volume 83.6 fL (80-94); Mean Platelet Vol. 12.6 fl (6.2-12.0); Platelet Count 121 K/mm3 (150-450); RBC Distribution Width CV 19.7 % (11.6-14.6); Red Blood Count 2.86 M/mm3 (4.6-6.2); White Blood Count 13.2 K/mm3 (4.4-11.0)
[2023-09-17] MEDS: oxyCODONE HCl Cr 10 MG Tablet PO (09:23)
[2023-09-17] MEDS: Senna/Docusate Sodium 1 Tablet 2 TABLET PO (09:24)
[2023-09-17] MEDS: Multivitamins,Ther W-Minerals Tablet 1 TABLET PO (09:24)
[2023-09-17] MEDS: Arthritis Pain Compound 60 CLICK TUBE TOPICAL (09:25)
[2023-09-17] MEDS: Fluticasone 0.05% 1 SPRAY NASAL.SRY NASAL (09:27)
[2023-09-17] MEDS: Ensure Plus High Protein 120 ML LIQUID PO (09:38)
[2023-09-17 10:26] LABS: Anion Gap 4 (5-15); BUN 22 mg/dL (7-18); Calcium,Total 7.9 mg/dL (8.5-10.1); Chloride 112 mmol/L (98-107); Creatinine, Serum 1.47 mg/dL (0.70-1.30); EST Glomerular Filtration Rate 51 mL/min (>60); Est Glom Filt Rate - Afr Amer 61 mL/min (>60); Estimated Creatinine Clearance 49.62 ml/min; Glucose 105 mg/dL (74-106); Potassium 4.4 mmol/L (3.5-5.1); Sodium Level 136 mmol/L (136-145)
--- NOTE | 2023-09-17 11:07 | PCM.DC ---
Discharge Instructions Diet Discharge Diet: No restrictions Activity Discharge Activity: No Restrictions Weight Bearing Status: Full weight bearing Follow Up Care Test Results: Test results from this visit will be discussed in further detail at your follow-up appointment, if applicable. Discharge Plan Admission Admit Date/Time: 09/10/23 20:12 Primary Reason for Your Visit: hematemesis w/ anemia Attending Provider: Kaden Hernández Primary Care Provider: Eusebio Durham Consulting Providers: Ely Teague; Xander Degroot; Mary Jaquez; Estefania Sol; Karis Aguirre; Luna Fitzgerald; Eddie Herrera; Janette Stanley; Onofre Scott; Ahmet De La Rosa; Charlette Perez; Don Lieberman; Elsa Islas; Matti Fox; Ashley Bowling; Mik Young; Meme Guerra; Kushal Thornton; Lindsye Teague; Damián Hickey; Eusebio Palafox; Xander Simms; Roger Haynes; Yanique Rizzo; Ahmet Alfaro; Kamran Tim; Candelario Chowdary; Souleymane Phoenix; Kaden Hernández; Domingo Garzon; Alda Brush; Hayley Lawrence; Nohemy Laboy COMMUNITY DEVELOPMENT SPECIALIST Discharge Orders/Prescriptions Prescriptions: Continued fluticasone propionate [Allergy Relief (fluticasone)] 50 mcg/actuation spray,suspension 1 spray intranasal BID Qty: 16 11RF Rx Instructions: administer into each nostril acetaminophen 325 MG tablet 650 mg PO Q4H PRN PRN (Reason: Mild-Moderate Pain (1-5/10)) 0RF latanoprost 0.005 % drops 1 drp ophthalmic (eye) QHS Patient Comments: Instill 1 drop in both eyes nightly pantoprazole [Protonix] 20 mg tablet,delayed release (DR/EC) 20 mg PO BID 30 Days Qty: 60 2RF Discontinued cholecalciferol (vitamin D3) 50 mcg (2,000 unit) capsule 50 mcg PO DAILY ondansetron 8 mg tablet,disintegrating 8 mg PO Q8H PRN (Reason: nausea and vomiting) Qty: 30 2RF lidocaine-prilocaine 2.5-2.5 % cream 1 applic topical ONCE PRN (Reason: port acces) 30 Days Qty: 30 2RF metformin 500 MG tablet 1,000 mg PO QHS multivitamin with minerals 1 EACH tablet 1 ea PO DAILY atorvastatin 10 mg tablet 10 mg PO QHS Patient Comments: TAKE 1 TABLET BY MOUTH EVERY DAY IN THE EVENING sildenafil 100 mg tablet 100 mg PO PRN PRN (Reason: Erectile Dysfunction) Patient Comments: Take 1 (one) Tablet daily as needed for erectile dysfunction pioglitazone [Actos] 30 mg tablet 30 mg PO QHS Patient Comments: TAKE 1 TABLET BY MOUTH WITH supper Excedrin Migraine 250-250-65 mg Tablet 1 tab PO Q6H PRN (Reason: MIGRAINES) Hold Instructions: avoid due to aspirin in meds for 1 day oxycodone 5 mg tablet 5 mg PO TID Patient Comments: TAKE 1/2 -1 TABLET three times DAILY NEEDED FOR PAIN enoxaparin 80 mg/0.8 mL syringe 80 mg subcut Q12H Hold Instructions: take PM dose today Patient Comments: INJECT 1 SYRINGEVSUBCUTANEOUSLY TWICE DAILY Rx Instructions: HOLDING 09/01 EVENING DOSE AND 09/02 AM DOSE aspirin [Adult Aspirin Regimen] 81 mg tablet,delayed release (DR/EC) 81 mg PO DAILY ondansetron 4 mg tablet,disintegrating 4 mg PO Q8H PRN PRN (Reason: Nausea) Qty: 20 0RF metformin 500 MG tablet 500 mg PO DAILY Referrals / Follow Up: Eusebio Durham MD [Primary Care Provider] - Disposition Disposition (needs filled in before D/C Order can be placed): Hospice in Medical Facility
--- NOTE | 2023-09-17 11:11 | PCM.DC.SUM ---
Providers Date of Admission: 09/10/23 Date of Discharge: 09/17/23 Primary Care Physician: Dr. Eusebio Durham MD Consultations 09/10/23 21:39 Consult: Gastroenterology Routine Consulting Provider: [facility] Reason for Consult: GI bleed EMERGENT Consult: No Notified: Yes Date Notified: 09/10/23 Time Notified: 20:13 Method of Notification: ED Physician Initiated Consult: Vascular Surgery Routine Consulting Provider: Eusebio Palafox Reason for Consult: IVC Filter EMERGENT Consult: No Notified: Yes Date Notified: 09/11/23 Time Notified: 08:23 Method of Notification: Text neuro [Consult: Tele-Neurology] Routine Consulting Provider: [facility] Reason for Consult: subacute stroke EMERGENT Consult: No Notified: Yes Date Notified: 09/11/23 Time Notified: 08:09 Method of Notification: [facility]sw[facility] Service Nursing Unit Staff Notify [facility] of Tele-Neurology Consult: Yes 09/11/23 01:43 Consult: Oncology/Hematology Routine Consulting Provider: SOFÍA Shahid Reason for Consult: thrombocytopenia with abn coags and strokes EMERGENT Consult: No Notified: Yes Date Notified: 09/11/23 Time Notified: 08:48 Method of Notification: Verbal 09/11/23 09:11 Consult: Oncology/Hematology Routine Consulting Provider: SOFÍA Shahid Reason for Consult: NSCLC, established pt w/ Dr. Colbert EMERGENT Consult: No Notified: Yes Date Notified: 09/11/23 Time Notified: 10:30 Method of Notification: Verbal 09/15/23 12:53 Consult: Hospice / Palliative Care Routine Consulting Provider: [facility] Reason for Consult: pain management in setting of metastatic lung cancer EMERGENT Consult: No Notified: Yes Date Notified: 09/15/23 Time Notified: 12:53 Method of Notification: per CM Reason For Visit: GIB Diagnosis Discharge Diagnosis (1) Weakness: Status: Acute Code(s): R53.1 - Weakness (2) GIB (gastrointestinal bleeding): Status: Acute Code(s): K92.2 - Gastrointestinal hemorrhage, unspecified (3) Anemia: Status: Acute Code(s): D64.9 - Anemia, unspecified Qualifiers: Anemia type: iron deficiency Iron deficiency anemia type: chronic blood loss Qualified Code(s): D50.0 - Iron deficiency anemia secondary to blood loss (chronic) (4) NSCLC metastatic to bone: Status: Chronic Code(s): C34.90 - Malignant neoplasm of unspecified part of unspecified bronchus or lung; C79.51 - Secondary malignant neoplasm of bone (5) NSCLC metastatic to liver: Status: Acute Code(s): C34.90 - Malignant neoplasm of unspecified part of unspecified bronchus or lung; C78.7 - Secondary malignant neoplasm of liver and intrahepatic bile duct Medications at Discharge Home Medications acetaminophen 325 mg tablet 650 mg (2 x 325 mg) PO Q4H PRN PRN Mild-Moderate Pain (1-5/10) 04/30/19 latanoprost 0.005 % eye drops 1 drp ophthalmic (eye) QHS mucous in eyes 07/18/23 fluticasone propionate 50 mcg/actuation nasal spray,suspension (Allergy Relief (fluticasone)) 1 spray intranasal BID allergies #16 grams 08/15/23 pantoprazole 20 mg tablet,delayed release (Protonix) 20 mg PO BID nausea 30 days #60 tabs 08/19/23 Hospital Course Operations None Procedures Blood transfusion, EGD, EKG, IVC filter placement, Transthoracic echo and - (MRI brain, liver ultrasound, CTA head/neck, CT brain, CT abdomen pelvis with IV contrast X 2, chest x-ray) Summary of Care Provided Minutes Spent on Discharge: 45 Hospital Course: Patient is a 68-year-old male who presented to [facility] ED on 09/10/2023 with hematemesis and acute on chronic anemia. Hospital course As noted below. Patient discharged to inpatient hospice on 09/17. 1. Acute on chronic anemia secondary to upper GI bleed, stable History of chronic anemia noted on previous admission in August, suspected secondary to occult GI bleed. However, GI followed on admission and both colonoscopy and EGD showed no active signs of bleeding. Hemoglobin was 7.2 on discharge in early August. Patient notably was started on Eliquis for PE/DVT at that time. Presented with hematemesis, hemoglobin 6.5. EGD showed 2 bleeding angiodysplastic lesions as well as an oozing duodenal ulcer. Hemoglobin did not rise appropriately after transfusion on 09/14, CT abdomen pelvis negative for retroperitoneal bleed in setting of recent IVC filter placement, suspected secondary to ongoing mild upper GI bleeding. ? Gastroenterology followed. Hemoglobin stable around 8 for several days prior to discharge. Discharged on p.o. PPI twice daily. 2. Metastatic non-small cell lung cancer with cancer-related pain and acute debility Follows with Dr. Colbert with oncology. Recently diagnosed by CT-guided biopsy of right lower lobe mass on 08/12. PET CT scan on 08/26 showed fairly widespread hypermetabolic activity consistent with metastatic cancer. Notably with mets to the liver, right scapula and humerus, several thoracic vertebrae, left proximal femur. ? Palliative care/hospice followed. Discharged to inpatient hospice on 09/17. Pain regimen during latter half of admission was long-acting oxycodone 10 mg every 12 hours scheduled with immediate release oxycodone 5 mg every 4 hours as needed and IV Dilaudid 0.5 mg every 3 hours as needed for breakthrough pain, patient appeared to do fairly well on this regimen. 3. Acute/subacute stroke ? MRI brain on 09/10 demonstrated multifocal stroke. CTA head and neck and echo were unremarkable. Neurology followed, recommended aspirin and statin. Unfortunately could not start aspirin or statin given patient's anemia with recurrent GI bleeding, as well as patient's elevated liver enzymes as noted below. Did not prescribe aspirin or statin on discharge. PT/OT followed. 4. Recent history of PE/DVT Hospitalized in beginning of August for mild PE. Was started on Eliquis on discharge at that time. Was found to have recurrent thromboembolism while on Eliquis, was then transitioned to therapeutic Lovenox. Therapeutic Lovenox was then discontinued on 09/08 secondary to severe anemia with send for recurrent GI bleeding. ? S/p IVC filter placement on 09/11/2023. SCDs in place for DVT prophylaxis. 5. Elevated liver enzymes, improving ? Liver enzymes peaked at AST 746, ALT 299, alk phos 361 on 09/10. Slowly downtrending since that time. Suspect multifactorial due to underlying liver dysfunction due to metastases with likely mild ischemic hepatitis on admission due to anemia. No need to monitor LFTs further. 6. Persistent fevers Patient initiated on ceftriaxone on admission for SBP prophylaxis in setting of GI bleed as noted above. Patient has had persistent low-grade fevers despite being on ceftriaxone, WBC count has remained mildly elevated. Infectious workup on admission was negative, but notably no blood cultures were ordered. Imaging on admission was notable for widespread cancer but no specific source of infection. ? Blood cultures 09/16 with no growth, WBC count stable and continued to have low-grade fevers despite being broad to vancomycin and Zosyn on 09/16. Suspect that fevers are secondary to patient's malignancy. No need for antibiotics on discharge. Chronic medical conditions: ? Type 2 diabetes mellitus: Home medications of metformin, pioglitazone. Sliding scale insulin while inpatient, Had minimal insulin requirements during hospitalization given very poor p.o. intake. Did not restart home medications on discharge. ? CKD stage IIIb: Baseline creatinine 1.3-1.6, stable. Total clinical time spent by myself addressing the patient's discharge needs: 45 minutes. Physical Exam Const alert and no apparent distress Constitutional Narrative: Elderly male, chronically ill-appearing, fatigued appearing, answer questions with short appropriate responses, otherwise laying comfortably in bed in no acute distress. General Appearance: cooperative HEENT normocephalic, head/scalp atraumatic, hearing grossly normal bilaterally and nasal mucous membranes and turbinates normal Eyes PERRL, EOMs intact bilaterally and conjunctivae normal Neck no lymphadenopathy and supple Lymph Lymphatic: no lymphadenopathy noted Chest inspection of chest normal Resp normal respiratory effort, normal air movement, no use of accessory muscles and clear to auscultation bilaterally Cardio regular rate, regular rhythm, no murmurs and peripheral pulses 2+ throughout GI normal to inspection, nondistended, normoactive bowel sounds, soft to palpation, non-tender and non-distended Back/Spine normal ROM Extremity normal to inspection and no pedal edema Skin no rashes or lesions noted Neuro no focal motor deficits and no sensory deficits noted Speech: speech normal Medical Records Data Medical Nutrition Assessment Dietitian: Malnutrition Criteria Met Start: 09/11/23 11:34 Freq: Status: Active Protocol: Document 09/11/23 11:35 AG (Rec: 09/11/23 11:35 [id number]) Nutrition Malnutrition Evidence of Malnutrition Exists Yes Malnutrition (severe): Chronic Evidenced By Suboptimal Energy Intake ( Severe),Weight Loss (Severe) Clinical Problem Chronic Disease or Condition Related Malnutrition Etiology severe, chronic malnutrition related to inadequate energy intake w/ increased energy needs d/t metastatic disease Signs/Symptoms as evidenced by unintentional 7% wt loss over ~1.5 months, estimated PO intake meeting < 75% of estimated energy needs > 1 month Status Active Problem Recommendation Dietitian Recommendations/Changes recommend regular diet as tolerated; ensure plus high protein 120mL 4x/day w/ medpass when diet advanced. Will monitor tolerance of diet , wt, labs, and adjust diet/ ONS as indicated at time of follow-up Weight / BMI Weight Weight: 83.2 kg Body Mass Index (BMI) 28.7 ABG / Lab / Microbiology Data 09/17/23 08:32 09/17/23 08:32 Laboratory: Laboratory Results - last 24 hr 09/16/23 12:05: POC Glucose 90 09/16/23 16:50: POC Glucose 116 H 09/16/23 22:41: POC Glucose 109 H 09/17/23 08:32: WBC 13.2 H, RBC 2.86 L, Hgb 8.0 L, Hct 23.9 L, MCV 83.6, MCH 28.0, MCHC 33.5, RDW Std Deviation 60.0 H, RDW Coeff of Lesley 19.7 H, Plt Count 121 L, MPV 12.6 H, Sodium 136, Potassium 4.4, Chloride 112 H, Carbon Dioxide 20.0 L, Anion Gap 4 L, BUN 22 H, Creatinine 1.47 H, Estim Creat Clear Calc 49.62, Est GFR (MDRD) Af Amer 61, Est GFR (MDRD) Non-Af 51 L, BUN/Creatinine Ratio 15.0, Glucose 105, Calcium 7.9 L Microbiology: Microbiology 09/12/23 20:52 Urine, Clean Catch Urine Culture - Final Culture exhibits no growth. D/C Instructions Discharge Diet: No restrictions Weight Bearing Status: Full weight bearing Meaningful Use Info Meaningful Use Diagnoses (Choose all that apply): None applicable Discharge Plan Admission Admit Date/Time: 09/10/23 20:12 Primary Reason for Your Visit: hematemesis w/ anemia Attending Provider: Kaden Hernández Primary Care Provider: Eusebio Durham Consulting Providers: Ely Teague; Xander Degroot; Mary Jaquez; Estefania Sol; Karis Aguirre; Luna Fitzgerald; Eddie Herrera; Janette Stanley; Onofre Scott; Ahmet De La Rosa; Charlette Perez; Don Lieberman; Elsa Islas; Matti Fox; Ashley Bowling; Mik Young; Meme Guerra; Kushal Thornton; Lindsey Teague; Damián Hickey; Eusebio Palafox; Xander Simms; Roger Haynes; Yanique Rizzo; Ahmet Alfaro; Kamran Tim; Candelario Chowdary; Souleymane Phoenix; Kaden Hernández; Domingo Garzon; Alda Brush; Hayley Lawrence; Nohemy Laboy [employer] Discharge Orders/Prescriptions Prescriptions: Continued fluticasone propionate [Allergy Relief (fluticasone)] 50 mcg/actuation spray,suspension 1 spray intranasal BID Qty: 16 11RF Rx Instructions: administer into each nostril acetaminophen 325 MG tablet 650 mg PO Q4H PRN PRN (Reason: Mild-Moderate Pain (-12/18)) 0RF latanoprost 0.005 % drops 1 drp ophthalmic (eye) QHS Patient Comments: Instill 1 drop in both eyes nightly pantoprazole [Protonix] 20 mg tablet,delayed release (DR/EC) 20 mg PO BID 30 Days Qty: 60 2RF Discontinued cholecalciferol (vitamin D3) 50 mcg (2,000 unit) capsule 50 mcg PO DAILY ondansetron 8 mg tablet,disintegrating 8 mg PO Q8H PRN (Reason: nausea and vomiting) Qty: 30 2RF lidocaine-prilocaine 2.5-2.5 % cream 1 applic topical ONCE PRN (Reason: port acces) 30 Days Qty: 30 2RF metformin 500 MG tablet 1,000 mg PO QHS multivitamin with minerals 1 EACH tablet 1 ea PO DAILY atorvastatin 10 mg tablet 10 mg PO QHS Patient Comments: TAKE 1 TABLET BY MOUTH EVERY DAY IN THE EVENING sildenafil 100 mg tablet 100 mg PO PRN PRN (Reason: Erectile Dysfunction) Patient Comments: Take 1 (one) Tablet daily as needed for erectile dysfunction pioglitazone [Actos] 30 mg tablet 30 mg PO QHS Patient Comments: TAKE 1 TABLET BY MOUTH WITH supper Excedrin Migraine 250-250-65 mg Tablet 1 tab PO Q6H PRN (Reason: MIGRAINES) Hold Instructions: avoid due to aspirin in meds for 1 day oxycodone 5 mg tablet 5 mg PO TID Patient Comments: TAKE 1/2 -1 TABLET three times DAILY NEEDED FOR PAIN enoxaparin 80 mg/0.8 mL syringe 80 mg subcut Q12H Hold Instructions: take PM dose today Patient Comments: INJECT 1 SYRINGEVSUBCUTANEOUSLY TWICE DAILY Rx Instructions: HOLDING 09/01 EVENING DOSE AND 09/02 AM DOSE aspirin [Adult Aspirin Regimen] 81 mg tablet,delayed release (DR/EC) 81 mg PO DAILY ondansetron 4 mg tablet,disintegrating 4 mg PO Q8H PRN PRN (Reason: Nausea) Qty: 20 0RF metformin 500 MG tablet 500 mg PO DAILY Referrals / Follow Up: Eusebio Durham MD [Primary Care Provider] - Disposition Disposition (needs filled in before D/C Order can be placed): Hospice in Medical Facility Charges/Coding Visit Charges Inpatient E&M: 41484 Disch Hosp >30min
--- NOTE | 2023-09-17 11:33 | CASEMGMT ---
Social Work [facility] here and met with pt and family. Pt agreeable to hospice services and to admit to the inpatient unit at this time. Hospice mobile unit to transfer. [place]
[2023-09-17 11:35] LABS: Bedside Glucose 114 mg/dL (74-106)
[2023-09-17] MEDS: 0.9 % NaCl (Sterile) Posiflush 10 mL IV (11:54)
== END 2023-09-17 11:41 | disposition hospice, inpatient (51) | DRG 377 ==
LOC: ED 20:09 → ICU 21:01 → MS3 09-12 15:30
PROVIDERS: Family Medicine; Internal Medicine Gastroenterology; Admitting Provider Internal Medicine; Emergency Provider Emergency Medicine; PCP Family Medicine; Visit Provider Hospitalist
PROC: 0DJ08ZZ Inspection of Upper Intestinal Tract, Via Natural or Artificial Opening Endoscopic (ICD-10-PCS; CPT 43235; principal; 2023-09-11 10:50)
DX: K31.811 Angiodysplasia of stomach and duodenum with bleeding (principal); I63.9 Cerebral infarction, unspecified; I26.99 Other pulmonary embolism without acute cor pulmonale; E43 Unspecified severe protein-calorie malnutrition; C78.1 Secondary malignant neoplasm of mediastinum; D62 Acute posthemorrhagic anemia; C79.51 Secondary malignant neoplasm of bone; C79.70 Secondary malignant neoplasm of unspecified adrenal gland; C78.7 Secondary malignant neoplasm of liver and intrahepatic bile duct; C34.31 Malignant neoplasm of lower lobe, right bronchus or lung; E86.0 Dehydration; D69.6 Thrombocytopenia, unspecified; E11.22 Type 2 diabetes mellitus with diabetic chronic kidney disease; N18.32 Chronic kidney disease, stage 3b; E11.40 Type 2 diabetes mellitus with diabetic neuropathy, unspecified; K21.9 Gastro-esophageal reflux disease without esophagitis; E78.00 Pure hypercholesterolemia, unspecified; K26.4 Chronic or unspecified duodenal ulcer with hemorrhage; R74.01 Elevation of levels of liver transaminase levels; H40.9 Unspecified glaucoma; Z79.82 Long term (current) use of aspirin; Z79.84 Long term (current) use of oral hypoglycemic drugs; Z87.891 Personal history of nicotine dependence; Z86.718 Personal history of other venous thrombosis and embolism; Z86.711 Personal history of pulmonary embolism; Z68.29 Body mass index [BMI] 29.0-29.9, adult; R29.702 NIHSS score 2; G89.3 Neoplasm related pain (acute) (chronic); R50.9 Fever, unspecified
CPT/HCPCS: 36415; 36430; 36591; 37191; 70450; 70496; 70498; 70553; 71045; 74177; 76705; 76937; 80048; 80053; 81001; 82274; 82728; 82962; 83540; 83550; 83605; 83690; 83735; 84100; 85014; 85018; 85025; 85027; 85610; 85730; 86644; 86850; 86900; 86901; 86920; 86921; 86922; 87040; 87086; 93308; 94640; 94668; 96365; 96366; 96372; 96374; 96375; 97110; 97163; 97167; 97530; 97535; 97802; 99152; 99153; 99284; A9575; C1880; C1894; J1756; J7030; J7040; J7050; P9016; P9040; Q9957; Q9967; A4216; C1769; C8924; J1940; J2405; J3490

== ENCOUNTER → 2023-09-10 | Outpatient (CLI) | payer MEDICARE, MEDICAID, SELFPAY ==
--- NOTE | 2023-09-10 14:32 | MRI_ITS ---
We are attempting to reach an attending provider to discuss findings. An addendum with communication details will be sent when the communication is complete. STUDY: MRI BRAIN WITH AND WITHOUT CONTRAST REASON FOR EXAM: Male, 68 years old. LUNG CA/N V TECHNIQUE: Standardized multiplanar fat and water weighted pulse sequences were obtained. 18 CC IV CLARISCAN was administered for the contrast portion of the examination. External artifact results in partial signal void in limited visualization of the right frontal lobe. COMPARISON: PET/CT dated August 26, 2023 FINDINGS: A cluster of 3 small acute infarcts are present in the anterior superior aspect of the right parietal lobe and at the junction of the right occipital lobe just posterior to the occipital horn of the lateral ventricle. No additional acute infarcts are present. Some late subacute infarcts are scattered in the superior aspect of the left parietal lobe as seen on image 21/56 series 4. Small late subacute infarct also noted in the left occipital lobe seen on image 12/56 series 4. There are no demonstrated ring-enhancing lesions in the visualized aspects of the brain parenchyma. No abnormal meningeal or dural thickening is seen. No skull lesions are present. There is mild cerebral atrophy with widening of the extra-axial spaces and ventricular dilatation. There are a limited number of small white matter hyperintensities, distributed throughout the deep white matter tracts of the cerebral hemispheres, consistent with mild chronic white matter ischemic changes. Normal bilateral basal ganglia. Normal thalami. There is no extra-axial fluid accumulation. Normal flow voids within the major intracranial circulation suggesting patency by spin echo criteria. Normal venous enhancement. There is no enhancing intra-axial or extra-axial abnormality. Normal sella turcica, pituitary gland, infundibular stalk, optic chiasm and hypothalamus. Normal tectal plate and pineal gland. Normal midbrain, hayden and medulla. Normal cerebellum. Normal basal cisterns. Normal bilateral temporal bones. Normal bilateral internal auditory canals. No demonstrated orbital abnormality, within the constraints of a routine brain study. Normal visualized paranasal sinuses. Normal calvarium and skull base. Normal visualized soft tissue structures. Normal visualized upper cervical spine. MRI/Brain W/WO Contrast IMPRESSION: 1. A cluster of 3 small acute infarcts are present in the anterior superior aspect of the right parietal lobe and at the junction of the right occipital lobe just posterior to the occipital horn of the lateral ventricle. No additional acute infarcts are present. 2. Some late subacute infarcts are scattered in the superior aspect of the left parietal lobe as seen on image 21/56 series 4. Small late subacute infarct also noted in the left occipital lobe seen on image 12/56 series 4. 3. There are no demonstrated ring-enhancing lesions in the visualized aspects of the brain parenchyma. No abnormal meningeal or dural thickening is seen. No skull lesions are present. Electronically Signed: Thong Alfonso MD at 16:08 EST ,
--- OUTSIDE RECORDS SUMMARY | 2023-09-10 15:09 | XMS RPT_ITS | CCD ---
Demographics Address [address] [place] [address] Preferred Language Unknown Marital Status Protestant Affiliation Unknown Race Unknown Ethnic Group Unknown Author Name Unknown Address [address] [place] [address] Organization [facility] Results Test Name Value Interpretation [...] BE BASED ON THE PRIMARY CLINICAL RECORDS. [id number] provides no warranty or guarantee of the accuracy or completeness of information in this document.
== END | disposition home or self-care (01) ==
PROVIDERS: PCP Family Medicine; Referring Provider Internal Medicine Medical Oncology; Visit Provider Internal Medicine Medical Oncology
DX: C34.31 Malignant neoplasm of lower lobe, right bronchus or lung (principal); C79.51 Secondary malignant neoplasm of bone; C78.7 Secondary malignant neoplasm of liver and intrahepatic bile duct; R11.0 Nausea
CPT/HCPCS: 70553; A9575; A4216